=== PATIENT | male | born 1955 | race Caucasian/White ===

== ENCOUNTER 2021-06-30 20:18 | Inpatient (IN) | payer BC, SELFPAY ==
[2021-06-30 20:19] VITALS: BP 114/72; PULSE 112; RESP 18; TEMP 36.4; O2SAT 96; BMI 34.4
--- NOTE | 2021-06-30 21:00 | CT_ITS ---
EXAM: CT ABDOMEN AND PELVIS WITH INTRAVENOUS CONTRAST : 1955 CLINICAL INDICATION: Eval obstruction, no BM for 5 days, no gas yest TECHNIQUE: Helically acquired images were obtained of the abdomen and pelvis with intravenous contrast. This CT exam was performed using one or more of the following dose reduction techniques: automated exposure control, adjustment of the mA and/or kV according to patient size, and/or use of iterative reconstruction technique. This report was created using [address] report generation technology. CONTRAST: IV 100mL Isovue-300 COMPARISON: None. FINDINGS: LOWER THORAX: Unremarkable. Lung bases are clear. No cardiomegaly. No significant pericardial effusion. ABDOMEN: LIVER: Unremarkable. Homogeneous. No focal mass. GALLBLADDER AND BILE DUCTS: Unremarkable. No calcified gallstones. No gallbladder distention or wall edema. No intra- or extrahepatic biliary ductal dilation. PANCREAS: Unremarkable. No focal cystic or solid mass. SPLEEN: Unremarkable. Normal size without focal cystic or solid mass. ADRENALS: Unremarkable. No nodules. KIDNEYS AND URETERS: Unremarkable. Normal renal size and position. No hydronephrosis. STOMACH AND BOWEL: Unremarkable. No stomach or bowel distention. No focal inflammatory change. PELVIS: APPENDIX: No evidence of acute appendicitis. BLADDER: Unremarkable. REPRODUCTIVE: Unremarkable as visualized. No mass. ABDOMEN and PELVIS: INTRAPERITONEAL SPACE: Unremarkable. No ascites or other fluid collection. No free air. BONES/JOINTS: Unremarkable. No suspicious lytic or blastic abnormality. SOFT TISSUES: Unremarkable. No discrete abdominal or pelvic wall hernia. VASCULATURE: Unremarkable. Abdominal aorta is non-dilated. LYMPH NODES: Unremarkable. No enlarged lymph nodes. CT/Abdomen/Pelvis W IV Cont ONLY IMPRESSION: Negative CT of the abdomen and pelvis with intravenous contrast. Individualized dose optimization techniques were used for this CT. at 2229 Reported and signed by: Sudhakar Ponce MD Electronically Signed: Sudhakar Ponce MD at 22:28 EDT Tel , Service support ,
[2021-06-30 21:16] LABS: Absolute Lymphocyte Count 0.45 X10^3/uL (0.83-4.51); Absolute Neutrophil Count 15.6 X10^3/uL (2.0-7.7); Basophil# 0.08 X10^3/uL; Basophil% 0.5 % (0-1); Eosinophil# 0.01 X10^3/uL; Eosinophils% 0.1 % (0-5); Hematocrit 42.7 % (40-54); Hemoglobin 13.6 g/dL (13.0-16.5); Lymphocyte # 0.45 X10^3/ul (0.83-4.51); Lymphocyte % 2.6 % (19-41); Mean Corp Hgb Conc 31.9 g/dL (32-36); Mean Corpuscular Hgb 30.1 pg (27.0-32.0); Mean Corpuscular Volume 94.5 fL (80-94); Mean Platelet Vol. 8.9 fl (6.2-12.0); Monocyte# 0.74 X10^3/uL; Monocyte% 4.3 % (0-10); NRBC Flagged by Analyzer 0 % (0-5); Neutrophil # 15.57 X10^3/uL (2.7-7.7); Neutrophil % 90.4 % (47-70); POSITIVE DIFFERENTIAL YES; Platelet Count 243 K/mm3 (150-450); RBC Distribution Width CV 12.8 % (11.6-14.6); Red Blood Count 4.52 M/mm3 (4.6-6.2); White Blood Count 17.2 K/mm3 (4.4-11.0)
--- NOTE | 2021-06-30 21:26 | EDS_ITS ---
HPI History of Present Illness Chief Complaint: Constipation Informant: patient Narrative Narrative: Patient is a 66-year-old male with no known medical issues who presents to the emergency department for constipation. He states his last bowel movement was 4 days ago. He was passing gas until yesterday he stopped. He denies any nausea or vomiting. States he has not had much of an appetite. Denies significant abdominal pain. No back pain. Has been urinating well. He denies any fevers or chills. He has had a history of hernia repair on his abdomen. He states he has not seen a physician since 2007. He tried taking MiraLAX for his constipation which has not given him any relief. He has never had issues with constipation before. He denies any chest pain, shortness of breath. No recent illness including fever/chills or cough. He states he has b een feeling very unsteady on his feet recently. He denies any headache, vision change, focal weakness or loss of sensation. Patient is an occasional smoker. [facility] Medications NK 06/30/21 [History Last Taken Unknown] Allergy/AdvReac Type Severity Reaction Status Date / Time acetaminophen [From Tylenol] Allergy Hives Verified 06/30/21 20:23 Social History Smoking Status: Unknown if ever smoked ROS ROS ED Constitutional Constitutional ED: Denies chills or fever(s) Eyes Eyes: Denies change in vision ENT ENT ED: Denies epistaxis or rhinorrhea Cardiovascular Cardiovascular: Denies chest pain or palpitations Respiratory/Chest Respiratory/Chest: Denies cough, dyspnea or dyspnea on exertion Gastrointestinal Gastrointestinal: Reports constipation; Denies abdominal pain, diarrhea, nausea or vomiting Genitourinary Genitourinary ED: Denies dysuria, hematuria or urinary frequency Musculoskeletal Musculoskeletal: Denies back pain or neck pain Integumentary Denies rash Neurologic Neurologic: Denies dizziness, headache(s) or weakness EXAM Physical Exam Const Vital Signs: 06/30/21 20:19 Temperature 97.5 F L Temperature Source Temporal Pulse Rate 112 H Respiratory Rate 18 Blood Pressure 114/72 Blood Pressure Mean 86 Pulse Ox 96 Oxygen Delivery Method Room Air Positive well nourished and well developed General Appearance ED: well developed and NAD HEENT Reports normocephalic and head/scalp atraumatic Eyes PERRL and EOMs intact bilaterally Neck supple Chest Wall inspection of chest normal Resp normal respiratory effort and clear to auscultation bilaterally Auscultation: Negative for rales, rhonchi or wheezes Cardio regular rhythm and no murmurs GI normal to inspection, nondistended, normoactive bowel sounds and non-tender Palpation: soft; Negative for guarding or rebound tenderness present Back/Spine no CVA tenderness Extremity normal to inspection General Extremety ED: Negative for edema or tenderness General Extremity: Negative for edema Neuro no sensory deficits noted Sensorium / Orientation: alert Motor Exam: strength 5/5 throughout Psych mental status grossly normal Skin no rashes or lesions noted MDM MDM MDM Narrative Medical decision making narrative: Patient presents to the emergency department for constipation and feeling unsteady on his feet. Upon arrival he is mildly tachycardic but otherwise normal vital signs. He does have a benign physical exam without any focal deficits. No significant abdominal pain. Given the fact he has not been following with a physician regularly and this is abnormal for him will check basic lab work as well as CT scan of the abdomen/pelvis. Patient CT scan did not reveal any acute obvious abnormality. His glucose did come back severely elevated in the 500s. He does have positive ketones. He has an elevated anion gap. We will start him on an insulin drip for DKA. He otherwise has remained stable throughout ED stay. He does have a leukocytosis which is most likely reactional is no evidence of infection has been found. Patient is agreeable staying in the hospital at this time. Lab Data Labs: Laboratory Results - last 24 hr 06/30/21 06/30/21 06/30/21 21:09 21:09 22:05 WBC 17.2 H RBC 4.52 L Hgb 13.6 Hct 42.7 MCV 94.5 H MCH 30.1 MCHC 31.9 L RDW Std Deviation 44.0 H RDW Coeff of Jennifer 12.8 Plt Count 243 MPV 8.9 Immature Gran % (Auto) 2.100 H Neut % (Auto) 90.4 H Lymph % (Auto) 2.6 L [place] % (Auto) 4.3 Eos % (Auto) 0.1 Baso % (Auto) 0.5 Absolute Neuts (auto) 15.6 H Absolute Lymphs (auto) 0.45 L Nucleated RBC % 0 Differential Comment SCANNED Sodium 132 L Potassium 3.9 Chloride 96 L Carbon Dioxide 14.0 L Anion Gap 22 H BUN 25 H Creatinine 1.32 H Estim Creat Clear Calc 58.38 Est GFR (MDRD) Af Amer 70 Est GFR (MDRD) Non-Af 58 L BUN/Creatinine Ratio 18.9 Glucose 525 H* Calcium 9.1 Total Bilirubin 1.00 AST 21 ALT 28 Alkaline Phosphatase 124 H Total Protein 8.2 Albumin 2.3 L Globulin 5.9 H Albumin/Globulin Ratio 0.4 L Urine Color Urine Clarity Urine pH Ur Specific [place] Urine Protein Urine Glucose (UA) Urine Ketones Urine Occult Blood Urine Nitrite Urine Bilirubin Urine Urobilinogen Ur Leukocyte Esterase Urine RBC Urine WBC Ur Squamous Epith Cells Urine Bacteria Urine Mucus Acetone Level LARGE H 06/30/21 22:13 WBC RBC Hgb Hct MCV MCH MCHC RDW Std Deviation RDW Coeff of Jennifer Plt Count MPV Immature Gran % (Auto) Neut % (Auto) Lymph % (Auto) [place] % (Auto) Eos % (Auto) Baso % (Auto) Absolute Neuts (auto) Absolute Lymphs (auto) Nucleated RBC % Differential Comment Sodium Potassium Chloride Carbon Dioxide Anion Gap BUN Creatinine Estim Creat Clear Calc Est GFR (MDRD) Af Amer Est GFR (MDRD) Non-Af BUN/Creatinine Ratio Glucose Calcium Total Bilirubin AST ALT Alkaline Phosphatase Total Protein Albumin Globulin Albumin/Globulin Ratio Urine Color Yellow Urine Clarity Clear Urine pH 5.0 Ur Specific [place] 1.015 Urine Protein 15 H Urine Glucose (UA) 1000 H Urine Ketones 150 A* Urine Occult Blood 50 H Urine Nitrite Negative Urine Bilirubin Negative Urine Urobilinogen Normal Ur Leukocyte Esterase 25 H Urine RBC 0-5 SEEN Urine WBC 0-5 SEEN Ur Squamous Epith Cells 0 SEEN Urine Bacteria 0 SEEN Urine Mucus 0 SEEN Acetone Level Radiography Diagnostic Testing: Radiology Impression Abdomen/Pelvis CT 06/30/21 21:00 IMPRESSION: Negative CT of the abdomen and pelvis with intravenous contrast. Individualized dose optimization techniques were used for this CT. at 3648 Reported and signed by: Sudhakar Ponce MD Electronically Signed: Sudhakar Ponce MD at 22:28 EDT Tel , Service support , Critical Care Time Critical Care Time: Yes Critical care time (excluding procedures): 30-74 minutes (30), Discussing w/Consultants, Arranging Admission or Transfer and Performing Direct Patient Care at Bedside Discharge Plan Dx/Rx/DC Orders Clinical Impression: DKA (diabetic ketoacidosis) Disposition Disposition: Acute Care [facility]
[2021-06-30 21:35] LABS: Differential Indicated SCAN CRITERIA MET
[2021-06-30 21:40] LABS: ALB/GLOB Ratio 0.4 RATIO (0.9-2.4); AST(SGOT) 21 U/L (15-37); Alanine Aminotransfer ALT/SGPT 28 U/L (16-61); Albumin, Serum 2.3 g/dL (3.2-5.0); Alkaline Phosphatase 124 U/L (45-117); Anion Gap 22 (5-15); BUN 25 mg/dL (7-18); BUN/Creat Ratio 18.9 RATIO (10-20); Calcium,Total 9.1 mg/dL (8.5-10.1); Chloride 96 mmol/L (98-107); Creatinine, Serum 1.32 mg/dL (0.70-1.30); EST Glomerular Filtration Rate 58 mL/min (>60); Est Glom Filt Rate - Afr Amer 70 mL/min (>60); Estimated Creatinine Clearance 58.38 ml/min; Globulin 5.9 g/dL (2.2-4.2); Glucose 525 mg/dL (74-106); Potassium 3.9 mmol/L (3.5-5.1); Protein, Total 8.2 g/dL (6.4-8.2); Sodium Level 132 mmol/L (136-145)
[2021-06-30] MEDS: 0.9% Normal Saline 1,000 ML 1000 ML IV (21:55)
[2021-06-30 22:15] LABS: Differential Comment SCANNED
[2021-06-30 22:18] LABS: Bacteria 0 SEEN /hpf (None Seen); Mucous, Urine 0 SEEN /hpf (<or=2+); Squamous Epithelial Cells - UA 0 SEEN /hpf (0-5)
[2021-06-30 22:20] LABS: Color, Urine Yellow (Yellow); Glucose, Dipstick 1000 mg/dl (Normal); Leukocyte Esterase-Dipstick 25 /ul (Negative); Nitrite-Dipstick Negative (Negative); Occult Blood-Urine 50 /ul (Negative); Protein-Dipstick 15 mg/dl (Negative); Specific Gravity, Urine 1.015 (1.002-1.030); Urine Bilirubin Dipstick Negative (Negative); Urine Clarity Clear (Clear); Urine Urobilinogen Normal (Normal)
[2021-06-30 22:28] LABS: Ketone-Dipstick 150 mg/dl (Negative)
[2021-06-30 22:32] LABS: Red Blood Cells-Urine 0-5 SEEN /hpf (0-5); White Blood Cells 0-5 SEEN /hpf (0-5)
[2021-06-30 22:50] VITALS: BP 166/88; PULSE 101; RESP 18; TEMP 36.6; O2SAT 97
--- NOTE | 2021-06-30 22:52 | HP.PCM.HOS_ITS ---
[facility] - General General Date of Admission: 06/30/21 Date of Service: 06/30/21 Chief Complaint: Constipation HPI Narrative STEVE JOY, is a 66 M with a significant history of type 2 diabetes who presents with 5-day history of persistent constipation despite taking MiraLAX. Associated with his symptoms is fatigue; anorexia; polyuria and polydipsia. He went to the urgent care and was referred to the emergency department. Of note last time patient saw a doctor was about 13 years ago. Previously was on Metformin but he quit taking. [facility] Medical History Diabetes mellitus, type 2 Home Medications NK 06/30/21 [History Last Taken Unknown] Allergy/AdvReac Type Severity Reaction Status Date / Time acetaminophen [From Tylenol] Allergy Hives Verified 06/30/21 20:23 Family History (Updated 06/30/21 @ 23:[address] Vamsi Posey MD) Other Diabetes Pulmonary disease Surgical History H/O hernia repair Social History (Updated 06/30/21 @ 23:[address] Vamsi Posey MD) Smoking Status: Current some day smoker tobacco type: cigars ROS ROS Narrative Constitutional: Reports anorexia and fatigue. Eyes: Denies blurry vision, change in eye color, change in vision, discharge from eye(s), double vision, erythema, eye pain, loss of vision or other HEENT: Denies abnormal hearing, dysphagia, ear pain, epistaxis, headache(s), hearing loss, nasal congestion, nasal discharge, post nasal drip, sinus pressure, sore throat or other Cardiovascular: Denies chest pain. Denies dyspnea on exertion, orthopnea and paroxysmal nocturnal dyspnea Respiratory/Chest: Denies cough, excessive phlegm production, shortness of breath with exertion and wheezing Gastrointestinal: Reports constipation. Denies abdominal pain, coffee ground emesis, diarrhea, dyspepsia, hematemesis, hematochezia, loose stools, melena, nausea, vomiting or other Genitourinary: Denies burning urination, difficulty urinating, dysuria, hematuria, nocturia, urinary frequency, urinary hesitancy, urinary incontinence, urinary urgency or other Musculoskeletal: Denies arthralgias, back pain, joint pain, joint stiffness, joint swelling, myalgias, neck pain or other Neurologic: Denies abnormal gait, abnormal speech, confusion, disequilibrium, dizziness, focal weakness, headache(s), numbness, paresthesias, seizure-like activity, seizures, syncope, tingling, tremor(s) or other Psychiatric: Denies anxiety, depression, homicidal ideation, suicidal ideation or other Endocrinology: Reports polyuria and polydipsia. Denies change in body appearance, cold intolerance, excessive sweating, heat intolerance,or other Hematologic/Lymphatic: Denies anemia, easy bleeding, easy bruising, lymphadenopathy or other Integumentary: Denies ulcer on buttocks. Allergic/Immunologic: Denies rhinitis, hives, eczema, asthma or other Vital Signs Vital Signs Vital Signs: 06/30/21 20:19 Temperature 97.5 F L Temperature Source Temporal Pulse Rate 112 H Respiratory Rate 18 Blood Pressure 114/72 Blood Pressure Mean 86 Pulse Ox 96 Oxygen Delivery Method Room Air Weight Weight: 108.862 kg Body Mass Index (BMI) 34.4 Physical Exam Narrative Physical exam: General: Well-nourished, well-developed, no acute distress Head: Normocephalic, atraumatic, no tenderness Eyes: PERRLA, EOMI ENT, no trauma, moist mucous membranes, no rhinorrhea Neck: Nontender, full range of motion, no spinal tenderness, deformities, step- off CVS: Regular rate and rhythm Respiratory no acute distress, clear to auscultation bilaterally, chest wall nontender, no wheezing Abdomen: Obese abdomen. Soft, nontender, Bowel sounds hypoactive : Deferred Back: Nontender, no CVA tenderness, no midline spinal tenderness, deformities, step-offs Extremities: Edema of bilateral legs with right worse than left. Skin: Normal color, no trauma, abrasions Neuro: Alert, oriented, cranial nerves II through XII grossly intact. Psychiatry: Normal mood. Normal affect. Not depressed. Not anxious. Results Lab / Micro Data Result Diagrams: 06/30/21 21:09 07/01/21 01:35 Labs: Laboratory Results - last 24 hr 06/30/21 21:09: WBC 17.2 H, RBC 4.52 L, Hgb 13.6, Hct 42.7, MCV 94.5 H, MCH 30.1, MCHC 31.9 L, RDW Std Deviation 44.0 H, RDW Coeff of Jennifer 12.8, Plt Count 243, MPV 8.9, Immature Gran % (Auto) 2.100 H, Neut % (Auto) 90.4 H, Lymph % (Auto) 2.6 L, [place] % (Auto) 4.3, Eos % (Auto) 0.1, Baso % (Auto) 0.5, Absolute Neuts (auto) 15.6 H, Absolute Lymphs (auto) 0.45 L, Nucleated RBC % 0, Di fferential Comment SCANNED 06/30/21 21:09: Sodium 132 L, Potassium 3.9, Chloride 96 L, Carbon Dioxide 14.0 L, Anion Gap 22 H, BUN 25 H, Creatinine 1.32 H, Estim Creat Clear Calc 58.38, Est GFR (MDRD) Af Amer 70, Est GFR (MDRD) Non-Af 58 L, BUN/Creatinine Ratio 18.9, Glucose 525 H*, Calcium 9.1, Total Bilirubin 1.00, AST 21, ALT 28, Alkaline Phosphatase 124 H, Total Protein 8.2, Albumin 2.3 L, Globulin 5.9 H, Albumin/Globulin Ratio 0.4 L 06/30/21 22:05: Acetone Level LARGE H 06/30/21 22:13: Urine Color Yellow, Urine Clarity Clear, Urine pH 5.0, Ur Specific [place] 1.015, Urine Protein 15 H, Urine Glucose (UA) 1000 H, Urine Ketones 150 A*, Urine Occult Blood 50 H, Urine Nitrite Negative, Urine Bilirubin Negative, Urine Urobilinogen Normal, Ur Leukocyte Esterase 25 H, Urine RBC 0-5 SEEN, Urine WBC 0-5 SEEN, Ur Squamous Epith Cells 0 SEEN, Urine Bacteria 0 SEEN, Urine Mucus 0 SEEN Radiology Impression Abdomen/Pelvis CT 06/30/21 21:00 IMPRESSION: Negative CT of the abdomen and pelvis with intravenous contrast. Individualized dose optimization techniques were used for this CT. at [id number] Reported and signed by: Sudhakar Pnoce MD Electronically Signed: Sudhakar Ponce MD at 22:28 EDT Tel , Service support , Assessment & Plan Assessment/Plan (1) DKA (diabetic ketoacidosis): QUALIFIERS: Diabetes mellitus complication detail: without coma Diabetes mellitus type: type 2 Qualified Code(s): E11.10 - Type 2 diabetes mellitus with ketoacidosis without coma (2) Constipation: QUALIFIERS: Constipation type: unspecified constipation type Qualified Code(s): K59.00 - Constipation, unspecified PLAN: DKA His DKA could be secondary to insufficient insulin to meet his metabolic demands. Review of medical department labs showed serum glucose: 132 acetone level: Ketonuria Anion gap of 22 [id number], Corrected sodium :139 Insulin drip started from emergency department; continue Completed IV bolus of normal saline and normal saline infusion. Will place patient on DKA protocol with IV fluids and potassium supplementation. BMP every 4 hours to calculate anion gap. N.p.o. for now Check A1c. If emergent department labs showed a white count of 17.2 that could be reactive from DKA. Also there is bandemia of 2.1%. Admitted to ICU ICU electrolyte protocol ordered Constipation Impression of abdomen/pelvis CT by radiology: Negative CT of the abdomen and pelvis with intravenous contrast. Abdomen/ pelvis CT was independently visualized and I agree with radiologist interpretation Senokot-S ordered. YINKA Review of ED labs showed mild elevation creatinine of 1.32. Likely secondary to dehydration from YINKA. BUN 25. BUN over creatinine 18.9. IV hydration as above. Avoid nephrotoxins. DVT prophylaxis: Subcutaneous Lovenox ordered. Charges/Coding Visit Charges Inpatient E&M: 37150 Init Hosp L3
[2021-06-30 23:22] LABS: Lactic Acid 1.7 mmol/L (0.4-1.9)
[2021-06-30 23:46] LABS: Bedside Glucose 468 mg/dL (70-110)
[2021-07-01] VITALS (15 sets, daily range): BP systolic 124–154; BP diastolic 62–115; PULSE 98–108; RESP 16–38; TEMP 36.2–36.7; O2SAT 88–96; BMI 34.8
[2021-07-01 01:21] LABS: Bedside Glucose 426 mg/dL (70-110)
[2021-07-01 01:26] LABS: Bedside Glucose 399 mg/dL (70-110)
[2021-07-01 01:58] LABS: Anion Gap 20 (5-15); BUN 23 mg/dL (7-18); BUN/Creat Ratio 19.2 RATIO (10-20); Calcium,Total 8.9 mg/dL (8.5-10.1); Chloride 102 mmol/L (98-107); EST Glomerular Filtration Rate 65 mL/min (>60); Est Glom Filt Rate - Afr Amer 78 mL/min (>60); Estimated Creatinine Clearance 64.21 ml/min; Glucose 373 mg/dL (74-106); Sodium Level 135 mmol/L (136-145)
[2021-07-01] MEDS: 0.9% Normal Saline 1,000 ML 500 ML IV (02:05)
[2021-07-01] MEDS: Senna/Docusate Sodium 1 Tablet 2 TABLET PO ×3 (02:05→21:59)
[2021-07-01] MEDS: Potassium Chloride 10mEq/100mL 10 MEQ/100 ML IV.SOLN. 100 MEQ IV BOLUS ×2 (02:06→02:47)
[2021-07-01] MEDS: Enoxaparin 40 MG/0.4 ML Syringe SC (02:08)
[2021-07-01 02:09] LABS: Hemoglobin A1c 12.7 % (3.8-5.6)
[2021-07-01 02:30] LABS: Bedside Glucose 307 mg/dL (70-110)
--- NOTE | 2021-07-01 02:43 | NURSING ---
0111 patient admitted to ICU room 2 with DKA. Insulin gtt infusing. Patient alert and oriented, oriented to room and call rogers
[2021-07-01] MEDS: Potassium Chloride 40 MEQ in 0.45% Normal Saline 1,000 ML 250 MEQ IV (03:32)
[2021-07-01 03:46] LABS: Bedside Glucose 270 mg/dL (70-110)
[2021-07-01 04:40] LABS: Bedside Glucose 263 mg/dL (70-110)
[2021-07-01 04:56] LABS: Absolute Lymphocyte Count 0.49 X10^3/uL (0.83-4.51); Absolute Neutrophil Count 16.9 X10^3/uL (2.0-7.7); Basophil# 0.08 X10^3/uL; Basophil% 0.4 % (0-1); Eosinophil# 0.01 X10^3/uL; Eosinophils% 0.1 % (0-5); Hemoglobin 13.1 g/dL (13.0-16.5); Lymphocyte # 0.49 X10^3/ul (0.83-4.51); Lymphocyte % 2.7 % (19-41); Mean Corp Hgb Conc 32.8 g/dL (32-36); Mean Corpuscular Hgb 30.5 pg (27.0-32.0); Mean Corpuscular Volume 93.2 fL (80-94); Mean Platelet Vol. 9.4 fl (6.2-12.0); Monocyte# 0.31 X10^3/uL; Monocyte% 1.7 % (0-10); NRBC Flagged by Analyzer 0 % (0-5); Neutrophil # 16.86 X10^3/uL (2.7-7.7); Neutrophil % 93.9 % (47-70); POSITIVE DIFFERENTIAL YES; POSITIVE MORPHOLOGY YES; Platelet Count 243 K/mm3 (150-450); RBC Distribution Width CV 12.9 % (11.6-14.6); RBC Distribution Width SD 43.9 fl (35.1-43.9); Red Blood Count 4.29 M/mm3 (4.6-6.2)
[2021-07-01 04:58] LABS: Differential Indicated SCAN CRITERIA MET
[2021-07-01 05:22] LABS: Differential Comment SCANNED
[2021-07-01 05:31] LABS: Bedside Glucose 278 mg/dL (70-110)
[2021-07-01 06:12] LABS: Anion Gap 12 (5-15); BUN 19 mg/dL (7-18); BUN/Creat Ratio 19.4 RATIO (10-20); Calcium,Total 8.4 mg/dL (8.5-10.1); Chloride 106 mmol/L (98-107); Creatinine, Serum 0.98 mg/dL (0.70-1.30); EST Glomerular Filtration Rate 82 mL/min (>60); Est Glom Filt Rate - Afr Amer 99 mL/min (>60); Estimated Creatinine Clearance 78.63 ml/min; Glucose 259 mg/dL (74-106); Potassium 3.6 mmol/L (3.5-5.1); Sodium Level 137 mmol/L (136-145)
[2021-07-01 06:31] LABS: Bedside Glucose 251 mg/dL (70-110)
[2021-07-01 08:06] LABS: Bedside Glucose 226 mg/dL (70-110)
[2021-07-01] MEDS: Potassium Chloride 40 MEQ in Dext 5%-0.45% NS 1,000 ML 150 MEQ IV (08:24)
[2021-07-01 08:56] LABS: Bedside Glucose 222 mg/dL (70-110)
[2021-07-01 09:49] LABS: Anion Gap 9 (5-15); BUN 18 mg/dL (7-18); BUN/Creat Ratio 19.7 RATIO (10-20); Calcium,Total 8.6 mg/dL (8.5-10.1); Chloride 108 mmol/L (98-107); Creatinine, Serum 0.92 mg/dL (0.70-1.30); EST Glomerular Filtration Rate 89 mL/min (>60); Est Glom Filt Rate - Afr Amer 107 mL/min (>60); Estimated Creatinine Clearance 83.76 ml/min; Glucose 236 mg/dL (74-106); Potassium 3.5 mmol/L (3.5-5.1); Sodium Level 138 mmol/L (136-145)
[2021-07-01 10:01] LABS: Bedside Glucose 238 mg/dL (70-110)
--- NOTE | 2021-07-01 10:10 | PN.HOSP_ITS ---
Subjective Subjective Patient seen and examined. He had no active complaints at the time I reviewed him, but subsequently complained of right shoulder pain. He denied any fever, chills, nausea, vomiting or diarrhea. Review of systems is otherwise negative. He is mildly tachycardic today, but is otherwise stable. Objective Data Objective Data Vital Signs: Vital Signs Temp Pulse Resp BP Pulse Ox 97.2 F L 101 H 24 H 135/76 H 95 07/01/21 01:26 07/01/21 08:00 07/01/21 01:26 07/01/21 01:26 07/01/21 01:26 Oxygen Flow Rate (L/min) 2 Oxygen Delivery Method Nasal Cannula Weight: 246 lb 0.574 oz Body Mass Index (BMI) 34.8 Intake & Output: Intake and Output for Last 24 Hours 06/29/21 06/30/21 07/01/21 23:59 23:59 23:59 Intake Total 1000 / 1000 2543.32 / 2543.32 Output Total 200 / 200 Balance 1000 / 1000 2343.32 / 2343.32 Lab / Micro Data Result Diagrams: 07/01/21 01:35 07/01/21 09:25 Labs: Laboratory Results - last 24 hr 06/30/21 21:09: WBC 17.2 H, RBC 4.52 L, Hgb 13.6, Hct 42.7, MCV 94.5 H, MCH 30.1, MCHC 31.9 L, RDW Std Deviation 44.0 H, RDW Coeff of Jennifer 12.8, Plt Count 243, MPV 8.9, Immature Gran % (Auto) 2.100 H, Neut % (Auto) 90.4 H, Lymph % (Auto) 2.6 L, [place] % (Auto) 4.3, Eos % (Auto) 0.1, Baso % (Auto) 0.5, Absolute Neuts (auto) 15.6 H, Absolute Lymphs (auto) 0.45 L, Nucleated RBC % 0, Differential Comment SCANNED 06/30/21 21:09: Sodium 132 L, Potassium 3.9, Chloride 96 L, Carbon Dioxide 14.0 L, Anion Gap 22 H, BUN 25 H, Creatinine 1.32 H, Estim Creat Clear Calc 58.38, Est GFR (MDRD) Af Amer 70, Est GFR (MDRD) Non-Af 58 L, BUN/Creatinine Ratio 18.9, Glucose 525 H*, Calcium 9.1, Total Bilirubin 1.00, AST 21, ALT 28, Alkaline Phosphatase 124 H, Total Protein 8.2, Albumin 2.3 L, Globulin 5.9 H, Albumin/Globulin Ratio 0.4 L 06/30/21 22:05: Acetone Level LARGE H 06/30/21 22:13: Urine Color Yellow, Urine Clarity Clear, Urine pH 5.0, Ur Specific [place] 1.015, Urine Protein 15 H, Urine Glucose (UA) 1000 H, Urine Ketones 150 A*, Urine Occult Blood 50 H, Urine Nitrite Negative, Urine Bilirubin Negative, Urine Urobilinogen Normal, Ur Leukocyte Esterase 25 H, Urine RBC 0-5 SEEN, Urine WBC 0-5 SEEN, Ur Squamous Epith Cells 0 SEEN, Urine Bacteria 0 SEEN, Urine Mucus 0 SEEN 06/30/21 22:34: Lactic Acid 1.7 06/30/21 23:40: POC Glucose 468 H* 07/01/21 00:37: POC Glucose 426 H 07/01/21 01:21: POC Glucose 399 H 07/01/21 01:35: Sodium 135 L, Potassium 3.0 L, Chloride 102, Carbon Dioxide 13.0 L, Anion Gap 20 H, BUN 23 H, Creatinine 1.20, Estim Creat Clear Calc 64.21, Est GFR (MDRD) Af Amer 78, Est GFR (MDRD) Non-Af 65, BUN/Creatinine Ratio 19.2, Glucose 373 H, Calcium 8.9 07/01/21 01:35: Hemoglobin A1c 12.7 H 07/01/21 01:35: WBC 18.0 H, RBC 4.29 L, Hgb 13.1, Hct 40.0, MCV 93.2, MCH 30.5, MCHC 32.8, RDW Std Deviation 43.9, RDW Coeff of Jennifer 12.9, Plt Count 243, MPV 9.4, Immature Gran % (Auto) 1.200 H, Neut % (Auto) 93.9 H, Lymph % (Auto) 2.7 L, [place] % (Auto) 1.7, Eos % (Auto) 0.1, Baso % (Auto) 0.4, Absolute Neuts (auto) 16.9 H, Absolute Lymphs (auto) 0.49 L, Nucleated RBC % 0, Differential Comment SCANNED 07/01/21 02:27: POC Glucose 307 H 07/01/21 03:33: POC Glucose 270 H 07/01/21 04:32: POC Glucose 263 H 07/01/21 05:25: POC Glucose 278 H 07/01/21 05:35: Sodium 137, Potassium 3.6, Chloride 106, Carbon Dioxide 19.0 L, Anion Gap 12, BUN 19 H, Creatinine 0.98, Estim Creat Clear Calc 78.63, Est GFR (MDRD) Af Amer 99, Est GFR (MDRD) Non-Af 82, BUN/Creatinine Ratio 19.4, Glucose 259 H, Calcium 8.4 L 07/01/21 06:24: POC Glucose 251 H 07/01/21 07:40: POC Glucose 226 H 07/01/21 08:49: POC Glucose 222 H 07/01/21 09:25: Sodium 138, Potassium 3.5, Chloride 108 H, Carbon Dioxide 21.0, Anion Gap 9, BUN 18, Creatinine 0.92, Estim Creat Clear Calc 83.76, Est GFR (MDRD) Af Amer 107, Est GFR (MDRD) Non-Af 89, BUN/Creatinine Ratio 19.7, Glucose 236 H, Calcium 8.6 07/01/21 09:53: POC Glucose 238 H Micro: Microbiology 06/30/21 22:48 Blood Culture (Wb) - Venous Blood Culture - Preliminary 06/30/21 22:34 Blood Culture (Wb) - Venous Blood Culture - Preliminary Radiography Diagnostic Testing: Radiology Impression Abdomen/Pelvis CT 06/30/21 21:00 IMPRESSION: Negative CT of the abdomen and pelvis with intravenous contrast. Individualized dose optimization techniques were used for this CT. at 2229 Reported and signed by: Sudhakar Ponce MD Electronically Signed: Sudhakar Ponce MD at 22:28 EDT Tel , Service support , Physical Exam Const alert and oriented x3 Orientation / Consciousness: lethargic Exam Limitations: no limitations Nutritional Appearance: obese HEENT head/scalp atraumatic Head and Scalp: normocephalic Mouth: dry mucous membranes Eyes PERRL, EOMs intact bilaterally and conjunctivae normal Neck no lymphadenopathy, supple and no JVD Resp normal respiratory effort, no retractions, no use of accessory muscles and clear to auscultation bilaterally Cardio regular rate, regular rhythm, S1 normal heart sound and S2 normal heart sound Cardio Narrative: grade 2-3 systolic murmur loudest at the mitral valve area GI normal to inspection, nondistended, normoactive bowel sounds, soft to palpation, non-tender and non-distended Extremity normal to inspection, full ROM and no clubbing, cyanosis or edema Peripheral Pulses: Yes pulses 2+ throughout Skin no rashes or lesions noted and no wounds Neuro oriented x3, CN's II-XII intact bilaterally and moves all extremities Sensorium / Orientation: awake and alert Psych affect normal Assessment & Plan Assessment/Plan (1) DKA (diabetic ketoacidosis): QUALIFIERS: Diabetes mellitus complication detail: without coma Diabetes mellitus type: type 2 Qualified Code(s): E11.10 - Type 2 diabetes mellitus with ketoacidosis without coma (2) Bacteremia: PLAN: #DKA * in a known diabetic due to noncompliance. * anion gap has now closed and is 9; was supposed to be on metformin at home, but hadnt been taking it * will start on SC insulin 10 units daily and wean off insulin drip; will transition to high dose sliding scale * critical care on board * A1C is 12.7 * #Bacteremia * blood cultures came back positive for gram positive cocci in clusters * will get 2D echo as patient had a mild mitral valve murmur; unclear if it is new. * start on IV vancomycin, and await speciation * ID consulted * #Right shoulder pain * etiology not clear. WIll get xrays of the right shoulder * in light of bacteremia, will get orthopedics consult after xray is reviewed. * tylenol prn * #YINKA: resolved #Constipation: CT of the abdomen and pelvis was negative for evidence of constipation. Will monitor. DVT prophylaxis: lovenox Charges/Coding Visit Charges Inpatient E&M: 75557 Subs Hosp L3
--- NOTE | 2021-07-01 10:13 | ECHOD_ITS ---
Reason For Study: Murmur/Endocarditis Procedure This was a limited 2D transthoracic echocardiogram. Techncially difficult study due to patient position and fast heart rate. Echo done with patient in chair. Limited views were obtained. The study was technically difficult. Exam performed portable in ICU/CCU. The exam was abbreviated due to the COVID 19 protocol. Left Ventricle Based upon the 2D echocardiographic images obtained there appears to be grossly normal left ventricular size, wall motion, and systolic function. The estimated ejection fraction is 65 %. Unable to assess diastolic dysfunction. Right Ventricle Normal RV size. Normal systolic function. Atria Normal left atrium. Normal right atrium. No doppler evidence for ASD. Mitral Valve There is no mitral annular calcification. Normal mitral valve. Trivial mitral valve insufficiency. Tricuspid Valve Normal tricuspid valve. Trivial tricuspid valve insufficiency. Unable to estimate RV systolic pressure/pulmonary artery pressure due to technically difficult study. Aortic Valve Trisinus/trileaflet aortic valve. Normal aortic valve. Pulmonic Valve The pulmonic valve is not well visualized. Great Vessels The aortic root is not well visualized. Pericardium/Pleural No pericardial effusion. ECHO/Echo Complete Interpretation Summary Limited views were obtained. The study was technically difficult. Based upon the 2D echocardiographic images obtained there appears to be grossly normal left ventricular size, wall motion, and systolic function. The estimated ejection fraction is 65 %. Trivial mitral valve insufficiency. Trivial tricuspid valve insufficiency. Unable to estimate RV systolic pressure/pulmonary artery pressure due to techni griffin difficult study. Unable to assess diastolic dysfunction. Ordering Physician: Roberto Carlos Ceballos Referring Physician: No PCP noted Performed By: Abe Carter RCS
--- NOTE | 2021-07-01 10:16 | PCM.CONS.GEN ---
Assessment & Plan Assessment/Plan (1) Bacteremia: (2) DKA (diabetic ketoacidosis): QUALIFIERS: Diabetes mellitus type: type 2 Diabetes mellitus complication detail: without coma Qualified Code(s): E11.10 - Type 2 diabetes mellitus with ketoacidosis without coma (3) Sepsis: PLAN: sepsis due to staph-like bacteremia with DKA, uncontrolled DM, heart murmur, and R shoulder possible septic arthritis. No splinter hemorrhages on his hands. Will check echo, consult ortho to eval shoulder, check shoulder xray, and start vanc/cefazolin. Encouraged him to get covid vaccine after leaving the hospital. Will screen for covid now in case he does need surgery, no need to isolate. Will follow, thank you, d/w Dr. Bush HPI Consult Data Date of Consult: 07/01/21 HPI Narrative HPI Narrative: STEVE JOY, is a 66 M with uncontrolled DM, presented with 5 days of constipation, lower back pain. No fever or chills, no recent rash/skin infections/abscess. Has not gotten covid shot. C/o painful joints past few days, particularly R shoulder. No cough or SOB. Came to ED, found to be in DKA, admitted to icu on insulin gtt. Now 2 of 2 bcx with staph-like growth. Full ROS performed and neg except as noted above. [facility] Medical History Diabetes mellitus, type 2 Home Medications NK 06/30/21 [History Last Taken Unknown] Allergy/AdvReac Type Severity Reaction Status Date / Time acetaminophen [From Tylenol] Allergy Hives Verified 06/30/21 20:23 Family History (Updated 06/30/21 @ 23:[address] Vamsi Posey MD) Other Diabetes Pulmonary disease Surgical History H/O hernia repair Social History (Updated 06/30/21 @ 23:[address] Vamsi Posey MD) Smoking Status: Current some day smoker tobacco type: cigars Physical Exam Const alert, oriented x3 and no apparent distress General Appearance: cooperative Exam Limitations: no limitations HEENT normocephalic and head/scalp atraumatic Eyes PERRL and EOMs intact bilaterally Neck supple and No nodes Resp normal air movement Resp Narrative: R base Auscultation: rales Cardio regular rate and regular rhythm Heart Sounds: murmur GI normal to inspection, nondistended, normoactive bowel sounds Extremity Extremity Narrative: R shoulder hot, tender to touch, mild swelling, unable to lift elbow off bed due to pain General Extremity: edema Skin no rashes or lesions noted Neuro CN's II-XII intact bilaterally Lab / Micro Data Result Diagrams: 07/01/21 01:35 07/01/21 09:25 Labs: Laboratory Results - last 24 hr 06/30/21 21:09: WBC 17.2 H, RBC 4.52 L, Hgb 13.6, Hct 42.7, MCV 94.5 H, MCH 30.1, MCHC 31.9 L, RDW Std Deviation 44.0 H, RDW Coeff of Jennifer 12.8, Plt Count 243, MPV 8.9, Immature Gran % (Auto) 2.100 H, Neut % (Auto) 90.4 H, Lymph % (Auto) 2.6 L, [place] % (Auto) 4.3, Eos % (Auto) 0.1, Baso % (Auto) 0.5, Absolute Neuts (auto) 15.6 H, Absolute Lymphs (auto) 0.45 L, Nucleated RBC % 0, Differential Comment SCANNED 06/30/21 21:09: Sodium 132 L, Potassium 3.9, Chloride 96 L, Carbon Dioxide 14.0 L, Anion Gap 22 H, BUN 25 H, Creatinine 1.32 H, Estim Creat Clear Calc 58.38, Est GFR (MDRD) Af Amer 70, Est GFR (MDRD) Non-Af 58 L, BUN/Creatinine Ratio 18.9, Glucose 525 H*, Calcium 9.1, Total Bilirubin 1.00, AST 21, ALT 28, Alkaline Phosphatase 124 H, Total Protein 8.2, Albumin 2.3 L, Globulin 5.9 H, Albumin/Globulin Ratio 0.4 L 06/30/21 22:05: Acetone Level LARGE H 06/30/21 22:13: Urine Color Yellow, Urine Clarity Clear, Urine pH 5.0, Ur Specific [place] 1.015, Urine Protein 15 H, Urine Glucose (UA) 1000 H, Urine Ketones 150 A*, Urine Occult Blood 50 H, Urine Nitrite Negative, Urine Bilirubin Negative, Urine Urobilinogen Normal, Ur Leukocyte Esterase 25 H, Urine RBC 0-5 SEEN, Urine WBC 0-5 SEEN, Ur Squamous Epith Cells 0 SEEN, Urine Bacteria 0 SEEN, Urine Mucus 0 SEEN 06/30/21 22:34: Lactic Acid 1.7 06/30/21 23:40: POC Glucose 468 H* 07/01/21 00:37: POC Glucose 426 H 07/01/21 01:21: POC Glucose 399 H 07/01/21 01:35: Sodium 135 L, Potassium 3.0 L, Chloride 102, Carbon Dioxide 13.0 L, Anion Gap 20 H, BUN 23 H, Creatinine 1.20, Estim Creat Clear Calc 64.21, Est GFR (MDRD) Af Amer 78, Est GFR (MDRD) Non-Af 65, BUN/Creatinine Ratio 19.2, Glucose 373 H, Calcium 8.9 07/01/21 01:35: Hemoglobin A1c 12.7 H 07/01/21 01:35: WBC 18.0 H, RBC 4.29 L, Hgb 13.1, Hct 40.0, MCV 93.2, MCH 30.5, MCHC 32.8, RDW Std Deviation 43.9, RDW Coeff of Ejnnifer 12.9, Plt Count 243, MPV 9.4, Immature Gran % (Auto) 1.200 H, Neut % (Auto) 93.9 H, Lymph % (Auto) 2.7 L, [place] % (Auto) 1.7, Eos % (Auto) 0.1, Baso % (Auto) 0.4, Absolute Neuts (auto) 16.9 H, Absolute Lymphs (auto) 0.49 L, Nucleated RBC % 0, Differential Comment SCANNED 07/01/21 02:27: POC Glucose 307 H 07/01/21 03:33: POC Glucose 270 H 07/01/21 04:32: POC Glucose 263 H 07/01/21 05:25: POC Glucose 278 H 07/01/21 05:35: Sodium 137, Potassium 3.6, Chloride 106, Carbon Dioxide 19.0 L, Anion Gap 12, BUN 19 H, Creatinine 0.98, Estim Creat Clear Calc 78.63, Est GFR (MDRD) Af Amer 99, Est GFR (MDRD) Non-Af 82, BUN/Creatinine Ratio 19.4, Glucose 259 H, Calcium 8.4 L 07/01/21 06:24: POC Glucose 251 H 07/01/21 07:40: POC Glucose 226 H 07/01/21 08:49: POC Glucose 222 H 07/01/21 09:25: Sodium 138, Potassium 3.5, Chloride 108 H, Carbon Dioxide 21.0, Anion Gap 9, BUN 18, Creatinine 0.92, Estim Creat Clear Calc 83.76, Est GFR (MDRD) Af Amer 107, Est GFR (MDRD) Non-Af 89, BUN/Creatinine Ratio 19.7, Glucose 236 H, Calcium 8.6 07/01/21 09:53: POC Glucose 238 H Micro: Microbiology 06/30/21 22:48 Blood Culture (Wb) - Venous Blood Culture - Preliminary 06/30/21 22:34 Blood Culture (Wb) - Venous Blood Culture - Preliminary Radiology Impression Abdomen/Pelvis CT 06/30/21 21:00 IMPRESSION: Negative CT of the abdomen and pelvis with intravenous contrast. Individualized dose optimization techniques were used for this CT. at 2229 Reported and signed by: Sudhakar Ponce MD Electronically Signed: Sudhakar Ponce MD at 22:28 EDT Tel , Service support ,
--- NOTE | 2021-07-01 11:43 | RAD_ITS ---
STUDY: X-RAY - RIGHT SHOULDER REASON FOR EXAM: Male, 66 years old. right shoulder pain, positive blood cultures TECHNIQUE: 5 view(s) of the shoulder. COMPARISON: None. FINDINGS: Normal glenohumeral articulation. There is degenerative arthrosis of the acromioclavicular joint without inferior osseous spur formation. Normal acromion. Normal humeral head and visualized proximal humerus. The soft tissue structures are unremarkable. Normal visualized pulmonary apex. RAD/Shoulder min 2 Views IMPRESSION: Mild acromioclavicular joint arthrosis Electronically Signed: Gera Jones MD at 12:20 EDT Tel , Service support ,
--- NOTE | 2021-07-01 12:00 | CASEMGMT ---
RN SHANTI Face to Face with patient for initial transition planning/care coordination assessment. RN CM introduced self and role at [facility]. Patient sitting in chair, alert and oriented. Patient willing to participate in assessment and is able to answer all questions appropriately. Care providers, pharmacy, and demographics verified. Patient wishes to discharge home, denies need for home health at this time. Patient states he has no further needs or concerns at this time. CM to follow for discharge planning needs that may arise. PCP: No PCP, has not seen a doctor since 2007. Patient provided list of providers, CM to follow-up and assist with making new patient appt. Specialists: none Preferred Pharmacy: [facility] Insurance: [employer] Prescription Benefit: yes Living Will/HPOA: none LNOK: Living Arrangements: Patient lives with in a 2 story home with bed and bath on first floor. No steps to enter the home. Patient states he is independent at home. Transportation: self/ DME/HHC: Patient denies DME of any kind. Patient states he has not checked his blood sugar for several years since his glucometer broke. Patient states he managed his DM with oral medication in the past but does not currently take medication. Patient will need new glucometer at discharge, CM informed patient of over the counter glucometer at [facility]. Disposition Plan: Patient to discharge home with family support and follow-up plans in place. Ella WYATT, RN, CM
[2021-07-01] MEDS: Cefazolin 2 GM in 0.9% Normal Saline 100 ML IV ×2 (12:21→23:18)
[2021-07-01 12:55] LABS: Bedside Glucose 257 mg/dL (70-110)
[2021-07-01 13:01] LABS: Bedside Glucose 266 mg/dL (70-110)
[2021-07-01] MEDS: Insulin Lispro 100 UNIT/ML INSULN.PEN SC ×3 (13:05→21:59)
--- NOTE | 2021-07-01 13:44 | PCM.RX.CS ---
Consult Pharmacy has been consulted to manage selected antiobiotic: Vancomycin Type of Consult: New start Suspected Infection: Sepsis Prior Doses of Antibiotics Received/Current Regimen: 06/28/2021 @ 1300 VANCNOMYCIN 2000MG IV ONCE FOR A LOADING DOSE Labs: Sodium 138 mmol/L (136-145) 07/01/21 09:25 Potassium 3.5 mmol/L (3.5-5.1) 07/01/21 09:25 Chloride 108 mmol/L (98-107) H 07/01/21 09:25 Carbon Dioxide 21.0 mmol/L (21.0-32.0) 07/01/21 09:25 Anion Gap 9 (5-15) 07/01/21 09:25 BUN 18 mg/dL (7-18) 07/01/21 09:25 Creatinine 0.92 mg/dL (0.70-1.30) 07/01/21 09:25 Est GFR (MDRD) Af Amer 107 mL/min (>60) 07/01/21 09:25 Est GFR (MDRD) Non-Af 89 mL/min (>60) 07/01/21 09:25 BUN/Creatinine Ratio 19.7 RATIO (10-20) 07/01/21 09:25 Glucose 236 mg/dL (74-106) H 07/01/21 09:25 Microbiology: Microbiology 06/30/21 22:34 Blood Culture (Wb) - Venous Blood Culture - Preliminary 06/30/21 22:48 Blood Culture (Wb) - Venous Blood Culture - Preliminary 07/01/21 11:05 Mucosa - Nose SARS-CoV-2 Antigen (Rapid) - Final Weight used for dosin kg Estimated Creatinine Clearance: 101 Goal Trough: 15-20 mcg/mL Pharmacy Plan for Drug Dosing: START PATIENT 07/01/21 @ 2100 ON VANCOMYCIN 1500MG EVERY 8 HOURS CHECK TROUGH 30MINUTES PRIOR TO 4 TH DOSE WHICH IS 07/02/21 @2029 Pharmacy Service will continue to monitor and adjust dosing as required. Follow-Up Labs: Trough Vancomycin - 07/02/212029 Labs to be done on [date and time ordered]: 07/02/21
--- NOTE | 2021-07-01 14:54 | MRI_ITS ---
HISTORY: rotator cuff injury, bacteremia- RIGHT SHOULDER EXAMINATION: MR Shoulder W/O Contrast TECHNIQUE: Multiplanar and multisequence MR images of the right shoulder. IV Contrast dosage and agent: None COMPARISON: Right shoulder July 01, 2021 radiograph FINDINGS: BONE: No fracture or abnormal bone marrow signal. ACROMIOCLAVICULAR JOINT: Normal alignment. Large osteophyte formation as well as subchondral cyst formation with diffuse synovial thickening. Small joint effusion. Coracoclavicular ligaments are intact. No significant inferolateral acromial tilt. SUBACROMIAL-SUBDELTOID SPACE: Moderate subacromial subdeltoid bursal fluid. GLENOHUMERAL JOINT: Moderate to large joint effusion extending in the subcoracoid recess.. Normal alignment. No rotator interval edema. ROTATOR CUFF: Diffuse supraspinatus tendon thickening and increased signal with mild bursal surface fraying and possible partial thickness tear. Infraspinatus and teres minor are grossly intact. Thickening and increased signal within the subscapularis tendon without visible tear. No gross intramuscular edema. There is mild diffuse fat signal within the shoulder musculature without focal atrophy. LABRUM: 2.5 mm superior labral cyst at the 12 o'clock position with suggestion of degenerative labral tear. Anterior sublabral foramen. BICEPS TENDON: The extra-articular biceps tendon is in the bicipital groove. The intra-articular biceps tendon is normal. MRI/Upper Ext Joint Only(Routine) IMPRESSION: Supraspinatus and subscapularis tendinosis with possible partial thickness distal supraspinatus articular surface tear. Subacromial subdeltoid bursitis. Moderate to large shoulder joint effusion which is commonly degenerative. In setting of bacteremia infection is not excluded. Fluid sampling to further evaluate as indicated. Acromioclavicular osteoarthritis with small effusion. Degenerative labral tear with small superior paralabral cyst. at 0654 Reported and signed by: Narendra He MD Electronically Signed: Narendra He MD at 6:52 EDT Tel , Service support ,
--- NOTE | 2021-07-01 14:56 | CON.PCM_ITS ---
Assessment & Plan Assessment/Plan (1) Sepsis: (2) Bacteremia: (3) Injury of right rotator cuff: QUALIFIERS: Encounter type: initial encounter Qualified Code(s): S46.001A - Unspecified injury of muscle(s) and tendon(s) of the rotator cuff of right shoulder, initial encounter PLAN: Patient had a ground-level fall backwards onto the right upper extremity 06/30/2021 prior to admission. Pain and inability to lift shortly followed, with no preceding reported issues. He has sustained a rotator cuff injury based on examination. There is no joint effusion erythema increased warmth to suggest septic arthritis and although active range of motion is limited the range of motion that he can perform with internal/external rotation does not cause him significant pain. In addition passively I can get him to 170 degrees elevation without significant pain. These findings are not consistent with septic arthritis however I will order a MRI of his right shoulder to further evaluate and further recommendations may change following imaging results. HPI Consult Data Date of Consult: 07/01/21 HPI Narrative HPI Narrative: STEVE JOY, is a 66 M who presents to the emergency room [facility] 06/30/2021 with constipation and back pain patient found to be in diabetic ketoacidosis patient found to be bacteremic. Patient admits to a fall 06/30/2021 where he fell backwards injuring his right shoulder. He admits to immediate pain in his shoulder at that point he denies any prior issues with the shoulder. However since patient is bacteremic I was consulted to rule out septic shoulder. Right upper extremity. Has any fevers or chills currently. [facility] Medical History Diabetes mellitus, type 2 Home Medications NK 06/30/21 [History Last Taken Unknown] Allergy/AdvReac Type Severity Reaction Status Date / Time acetaminophen [From Tylenol] Allergy Hives Verified 06/30/21 20:23 Family History (Updated 06/30/21 @ 23:[address] Vamsi Posey MD) Other Diabetes Pulmonary disease Surgical History H/O hernia repair Social History (Updated 06/30/21 @ 23:[address] Vamsi Posey MD) Smoking Status: Current some day smoker tobacco type: cigars Physical Exam Const alert and no apparent distress General Appearance: cooperative and comfortable Extremity Extremity Narrative: Patient of right shoulder does not elicit any erythema or joint effusion. There is swelling. To 80 degrees of forward flexion 45 degrees of abduction full internal rotation and 70 degrees of external rotation within the he is not have significant pain particularly with internal and external rotation however with terminal motion is where he begins to have significant pain. We however I can give him to 170 degrees without any significant discomfort. Mild swelling in the olecranon bursa but there is no tenderness and there is no redness or warmth. There is no gross motor or sensory deficits about the shoulder there is no mass or fluctuance. Lab / Micro Data Result Diagrams: 07/01/21 01:35 07/01/21 09:25 Labs: Laboratory Results - last 24 hr 06/30/21 21:09: WBC 17.2 H, RBC 4.52 L, Hgb 13.6, Hct 42.7, MCV 94.5 H, MCH 30.1, MCHC 31.9 L, RDW Std Deviation 44.0 H, RDW Coeff of Jennifer 12.8, Plt Count 243, MPV 8.9, Immature Gran % (Auto) 2.100 H, Neut % (Auto) 90.4 H, Lymph % (Auto) 2.6 L, [place] % (Auto) 4.3, Eos % (Auto) 0.1, Baso % (Auto) 0.5, Absolute Neuts (auto) 15.6 H, Absolute Lymphs (auto) 0.45 L, Nucleated RBC % 0, Differential Comment SCANNED 06/30/21 21:09: Sodium 132 L, Potassium 3.9, Chloride 96 L, Carbon Dioxide 14.0 L, Anion Gap 22 H, BUN 25 H, Creatinine 1.32 H, Estim Creat Clear Calc 58.38, Est GFR (MDRD) Af Amer 70, Est GFR (MDRD) Non-Af 58 L, BUN/Creatinine Ratio 18.9, Glucose 525 H*, Calcium 9.1, Total Bilirubin 1.00, AST 21, ALT 28, Alkaline Phosphatase 124 H, Total Protein 8.2, Albumin 2.3 L, Globulin 5.9 H, Albumin/Globulin Ratio 0.4 L 06/30/21 22:05: Acetone Level LARGE H 06/30/21 22:13: Urine Color Yellow, Urine Clarity Clear, Urine pH 5.0, Ur Specific [place] 1.015, Urine Protein 15 H, Urine Glucose (UA) 1000 H, Urine Ketones 150 A*, Urine Occult Blood 50 H, Urine Nitrite Negative, Urine Bilirubin Negative, Urine Urobilinogen Normal, Ur Leukocyte Esterase 25 H, Urine RBC 0-5 SEEN, Urine WBC 0-5 SEEN, Ur Squamous Epith Cells 0 SEEN, Urine Bacteria 0 SEEN, Urine Mucus 0 SEEN 06/30/21 22:34: Lactic Acid 1.7 06/30/21 23:40: POC Glucose 468 H* 07/01/21 00:37: POC Glucose 426 H 07/01/21 01:21: POC Glucose 399 H 07/01/21 01:35: Sodium 135 L, Potassium 3.0 L, Chloride 102, Carbon Dioxide 13.0 L, Anion Gap 20 H, BUN 23 H, Creatinine 1.20, Estim Creat Clear Calc 64.21, Est GFR (MDRD) Af Amer 78, Est GFR (MDRD) Non-Af 65, BUN/Creatinine Ratio 19.2, Glucose 373 H, Calcium 8.9 07/01/21 01:35: Hemoglobin A1c 12.7 H 07/01/21 01:35: WBC 18.0 H, RBC 4.29 L, Hgb 13.1, Hct 40.0, MCV 93.2, MCH 30.5, MCHC 32.8, RDW Std Deviation 43.9, RDW Coeff of Jennifer 12.9, Plt Count 243, MPV 9.4, Immature Gran % (Auto) 1.200 H, Neut % (Auto) 93.9 H, Lymph % (Auto) 2.7 L, [place] % (Auto) 1.7, Eos % (Auto) 0.1, Baso % (Auto) 0.4, Absolute Neuts (auto) 16.9 H, Absolute Lymphs (auto) 0.49 L, Nucleated RBC % 0, Differential Comment SCANNED 07/01/21 02:27: POC Glucose 307 H 07/01/21 03:33: POC Glucose 270 H 07/01/21 04:32: POC Glucose 263 H 07/01/21 05:25: POC Glucose 278 H 07/01/21 05:35: Sodium 137, Potassium 3.6, Chloride 106, Carbon Dioxide 19.0 L, Anion Gap 12, BUN 19 H, Creatinine 0.98, Estim Creat Clear Calc 78.63, Est GFR (MDRD) Af Amer 99, Est GFR (MDRD) Non-Af 82, BUN/Creatinine Ratio 19.4, Glucose 259 H, Calcium 8.4 L 07/01/21 06:24: POC Glucose 251 H 07/01/21 07:40: POC Glucose 226 H 07/01/21 08:49: POC Glucose 222 H 07/01/21 09:25: Sodium 138, Potassium 3.5, Chloride 108 H, Carbon Dioxide 21.0, Anion Gap 9, BUN 18, Creatinine 0.92, Estim Creat Clear Calc 83.76, Est GFR (MDRD) Af Amer 107, Est GFR (MDRD) Non-Af 89, BUN/Creatinine Ratio 19.7, Glucose 236 H, Calcium 8.6 07/01/21 09:53: POC Glucose 238 H 07/01/21 11:10: POC Glucose 266 H 07/01/21 12:53: POC Glucose 257 H Micro: Microbiology 06/30/21 22:48 Blood Culture (Wb) - Venous Bacteria Detection (PCR) - Final Staphylococcus aureus 06/30/21 22:48 Blood Culture (Wb) - Venous Blood Culture - Preliminary 06/30/21 22:34 Blood Culture (Wb) - Venous Blood Culture - Preliminary 07/01/21 11:05 Mucosa - Nose SARS-CoV-2 Antigen (Rapid) - Final Radiology Impression Abdomen/Pelvis CT 06/30/21 21:00 IMPRESSION: Negative CT of the abdomen and pelvis with intravenous contrast. Individualized dose optimization techniques were used for this CT. at 2229 Reported and signed by: Sudhakar Ponce MD Electronically Signed: Sudhakar Ponce MD at 22:28 EDT Tel , Service support , Echocardiogram 07/01/21 10:13 Interpretation Summary Limited views were obtained. The study was technically difficult. Based upon the 2D echocardiographic images obtained there appears to be grossly normal left ventricular size, wall motion, and systolic function. The estimated ejection fraction is 65 %. Trivial mitral valve insufficiency. Trivial tricuspid valve insufficiency. Unable to estimate RV systolic pressure/pulmonary artery pressure due to technically difficult study. Unable to assess diastolic dysfunction. Ordering Physician: Roberto Carlos Ceballos Referring Physician: No PCP noted Performed By: Abe Carter RCS Shoulder X-Ray 07/01/21 11:43 IMPRESSION: Mild acromioclavicular joint arthrosis Electronically Signed: Gera Jones MD at 12:20 EDT Tel , Service support ,
--- NOTE | 2021-07-01 16:00 | RAD_ITS ---
STUDY: X-RAY - ORBITS REASON FOR EXAM: Male, 66 years old. PRe MRI Clearance, Hx of metal to eyes TECHNIQUE: 2 view(s) of the orbits were obtained. COMPARISON: None. FINDINGS: Normal bilateral orbits without a metallic orbital foreign body. Normal visualized facial bones. Normal paranasal sinuses. The soft tissue structures are unremarkable. RAD/Orbits for Foreign Body IMPRESSION: No demonstrated metallic orbital foreign body. The patient is cleared for an MRI examination. Electronically Signed: Gera Jones MD at 16:15 EDT Tel , Service support ,
[2021-07-01 17:11] LABS: Bedside Glucose 357 mg/dL (70-110)
[2021-07-01 22:21] LABS: Bedside Glucose 350 mg/dL (70-110)
[2021-07-02] VITALS (10 sets, daily range): BP systolic 138–156; BP diastolic 71–83; PULSE 104–121; RESP 18–20; TEMP 36.4–37; O2SAT 91–99
--- NOTE | 2021-07-02 03:15 | PCS.PANDOC ---
PANDEMIC DOCUMENTATION INITIATED: Date: 07/01/2021 Time: 011
[2021-07-02 06:16] LABS: Blood Gas Specimen Type VEN; O2 Delivery Device Room Air; VBG BASE EXCESS -17 mmol/L (-1.0-3.5); VBG Bicarbonate 10 mmol/L (22-26); VBG PO2 37 mmHg (25-40); VBG SO2 64 % (50-70); VBG TCO2 11 mmol/L (23-33); VBG pCO2 21.6 mmHg (41-51); VBG pH 7.27 (7.32-7.42)
[2021-07-02] MEDS: Cefazolin 2 GM in 0.9% Normal Saline 100 ML IV ×3 (07:02→23:23)
[2021-07-02] MEDS: Insulin Lispro 100 UNIT/ML INSULN.PEN SC ×4 (07:02→21:32)
[2021-07-02 07:10] LABS: Bedside Glucose 314 mg/dL (70-110)
[2021-07-02] MEDS: Senna/Docusate Sodium 1 Tablet 2 TABLET PO ×2 (08:52→21:33)
--- NOTE | 2021-07-02 08:56 | PN.ORTHO_ITS ---
Subjective Subjective Patient seen and examined. He states his shoulder is slightly better today. Denies fevers chills, nausea vomiting Objective Data Objective Data Vital Signs: Vital Signs Temp Pulse Resp BP Pulse Ox 97.8 F 104 H 18 143/73 H 97 07/02/21 04:00 07/02/21 07:30 07/02/21 04:00 07/02/21 04:00 07/02/21 04:00 Oxygen Flow Rate (L/min) 2 Oxygen Delivery Method Room Air Weight: 246 lb 0.574 oz Body Mass Index (BMI) 34.8 Intake & Output: Intake and Output for Last 24 Hours 06/30/21 07/01/21 07/02/21 23:59 23:59 23:59 Intake Total 1000 / 1000 4332.50 / 4332.50 640 / 640 Output Total 950 / 950 900 / 900 Balance 1000 / 1000 3382.50 / 3382.50 -260 / -260 Lab / Micro Data Result Diagrams: 07/01/21 01:35 07/01/21 09:25 Labs: Laboratory Results - last 24 hr 07/01/21 08:49: POC Glucose 222 H 07/01/21 09:25: Sodium 138, Potassium 3.5, Chloride 108 H, Carbon Dioxide 21.0, Anion Gap 9, BUN 18, Creatinine 0.92, Estim Creat Clear Calc 83.76, Est GFR (MDRD) Af Amer 107, Est GFR (MDRD) Non-Af 89, BUN/Creatinine Ratio 19.7, Glucose 236 H, Calcium 8.6 07/01/21 09:53: POC Glucose 238 H 07/01/21 11:10: POC Glucose 266 H 07/01/21 12:53: POC Glucose 257 H 07/01/21 16:49: POC Glucose 357 H 07/01/21 21:58: POC Glucose 350 H 07/02/21 06:59: POC Glucose 314 H Micro: Microbiology 06/30/21 22:48 Blood Culture (Wb) - Venous Bacteria Detection (PCR) - Final Staphylococcus aureus 06/30/21 22:48 Blood Culture (Wb) - Venous Blood Culture - Preliminary 06/30/21 22:34 Blood Culture (Wb) - Venous Blood Culture - Preliminary 07/01/21 11:05 Mucosa - Nose SARS-CoV-2 Antigen (Rapid) - Final ABG Data ABG results: ABG 06/30/21 22:53 Specimen Type REBECA VBG pH 7.27 L VBG pO2 37 VBG HCO3 10 L VBG Total CO2 11 L VBG O2 Sat (Calc) 64 VBG Base Excess -17 L POC Mix VBG pCO2 Pt Tmp 21.6 L O2 Delivery Device Room Air Radiography Diagnostic Testing: Radiology Impression Echocardiogram 07/01/21 10:13 Interpretation Summary Limited views were obtained. The study was technically difficult. Based upon the 2D echocardiographic images obtained there appears to be grossly normal left ventricular size, wall motion, and systolic function. The estimated ejection fraction is 65 %. Trivial mitral valve insufficiency. Trivial tricuspid valve insufficiency. Unable to estimate RV systolic pressure/pulmonary artery pressure due to technically difficult study. Unable to assess diastolic dysfunction. Ordering Physician: Roberto Carlos Ceballos Referring Physician: No PCP noted Performed By: Abe Carter RCS Shoulder X-Ray 07/01/21 11:43 IMPRESSION: Mild acromioclavicular joint arthrosis Electronically Signed: Gera Jones MD at 12:20 EDT Tel , Service support , Upper Extremity MRI 07/01/21 14:54 IMPRESSION: Supraspinatus and subscapularis tendinosis with possible partial thickness distal supraspinatus articular surface tear. Subacromial subdeltoid bursitis. Moderate to large shoulder joint effusion which is commonly degenerative. In setting of bacteremia infection is not excluded. Fluid sampling to further evaluate as indicated. Acromioclavicular osteoarthritis with small effusion. Degenerative labral tear with small superior paralabral cyst. at 0654 Reported and signed by: Narendra He MD Electronically Signed: Narendra He MD at 6:52 EDT Tel , Service support , Orbit X-Ray 07/01/21 16:00 IMPRESSION: No demonstrated metallic orbital foreign body. The patient is cleared for an MRI examination. Electronically Signed: Gera Jones MD at 16:15 EDT Tel , Service support , Physical Exam Const alert and no apparent distress General Appearance: cooperative Extremity Extremity Narrative: Right shoulder exam unchanged from yesterday no joint effusion erythema or increased warmth he is able to forward flex to about 75 degrees and then begins to have pain Assessment & Plan Assessment/Plan (1) Injury of right rotator cuff: QUALIFIERS: Encounter type: initial encounter Qualified Code(s): S46.001A - Unspecified injury of muscle(s) and tendon(s) of the rotator cuff of right shoulder, initial encounter PLAN: Right shoulder has not developed an increase joint effusion. MRI reviewed and although read as moderate glenohumeral effusion this is not palpated clinically. However considering his bacteremic status discussed with patient and performed and attempted an aspiration of the glenohumeral and subacromial space this was originally approached from the posterior however no fluid able to be aspirated. I then repeated this again under sterile technique from the anterior position just lateral to the coracoid and again was unable to aspirate any fluid to send for analysis. Suspect patient has rotator cuff partial-thickness tear from recent fall when pain started however in light of DKA and bacteremia we will request attempted aspiration from Dr. Martínez under image guidance to see if we can get any fluid to prove this is noninfectious nature. Again however I would have expected an expanding joint effusion if truly septic joint.
--- NOTE | 2021-07-02 10:00 | RAD_ITS ---
STUDY: SHOULDER ASPIRATION RIGHT REASON FOR EXAM: Male, 66 years old. Right shoulder; r/o septic joint -- collect for gram stain, cell count, culture FLUOROSCOPY TIME (if supplied): ( 35 seconds ) minutes/seconds. One image was obtained. TECHNIQUE: The procedure as well as benefits and possible complications including infection and bleeding were explained to the patient. Informed consent was obtained. The patient was in the supine position. Overlying skin was prepped and draped in usual sterile fashion. Under direct fluoroscopic guidance, a 22-gauge spinal needle was placed into the shoulder joint. No aspiration was obtained. COMPARISON: None. FINDINGS: No aspirate was obtained from the shoulder joint. RAD/Inj/Asp Josh Jt Should/Hip/Knee IMPRESSION: No aspirate was obtained from the shoulder joint. The patient tolerated the procedure well. Electronically Signed: Chandan Martínez MD at 11:01 EDT , Service support ,
[2021-07-02] MEDS: Lidocaine 2% (5ml sdv) 5 ML VIAL.MPF INFILT (10:25)
[2021-07-02] MEDS: Enoxaparin 40 MG/0.4 ML Syringe SC (11:28)
[2021-07-02 11:31] LABS: Bedside Glucose 350 mg/dL (70-110)
--- NOTE | 2021-07-02 12:02 | PN.HOSP_ITS ---
Subjective Subjective Patient seen and examined. He still feels weak. He denies any chest pain, palpitations, dizziness, nausea or vomiting. He still complains of right shoulder pain. Orthopedic surgery attempted bedside shoulder aspiration today, but was unsuccessful. He is tachycardic today, but otherwise has remained hemodynamically stable. Objective Data Objective Data Vital Signs: Vital Signs Temp Pulse Resp BP Pulse Ox 97.6 F L 106 H 18 147/81 H 99 07/02/21 08:55 07/02/21 08:55 07/02/21 08:55 07/02/21 08:55 07/02/21 08:55 Oxygen Flow Rate (L/min) 2 Oxygen Delivery Method Room Air Weight: 246 lb 0.574 oz Body Mass Index (BMI) 34.8 Intake & Output: Intake and Output for Last 24 Hours 06/30/21 07/01/21 07/02/21 23:59 23:59 23:59 Intake Total 1000 / 1000 4332.50 / 4332.50 950 / 950 Output Total 950 / 950 900 / 900 Balance 1000 / 1000 3382.50 / 3382.50 50 / 50 Lab / Micro Data Result Diagrams: 07/01/21 01:35 07/01/21 09:25 Labs: Laboratory Results - last 24 hr 07/01/21 11:10: POC Glucose 266 H 07/01/21 12:53: POC Glucose 257 H 07/01/21 16:49: POC Glucose 357 H 07/01/21 21:58: POC Glucose 350 H 07/02/21 06:59: POC Glucose 314 H 07/02/21 11:26: POC Glucose 350 H Micro: Microbiology 06/30/21 22:34 Blood Culture (Wb) - Venous Blood Culture - Preliminary Staphylococcus aureus 06/30/21 22:48 Blood Culture (Wb) - Venous Bacteria Detection (PCR) - Final Staphylococcus aureus 06/30/21 22:48 Blood Culture (Wb) - Venous Blood Culture - Preliminary 07/01/21 11:05 Mucosa - Nose SARS-CoV-2 Antigen (Rapid) - Final ABG Data ABG results: ABG 06/30/21 22:53 Specimen Type REBECA VBG pH 7.27 L VBG pO2 37 VBG HCO3 10 L VBG Total CO2 11 L VBG O2 Sat (Calc) 64 VBG Base Excess -17 L POC Mix VBG pCO2 Pt Tmp 21.6 L O2 Delivery Device Room Air Radiography Diagnostic Testing: Radiology Impression Shoulder X-Ray 07/01/21 11:43 IMPRESSION: Mild acromioclavicular joint arthrosis Electronically Signed: Gera Jones MD at 12:20 EDT Tel , Service support , Upper Extremity MRI 07/01/21 14:54 IMPRESSION: Supraspinatus and subscapularis tendinosis with possible partial thickness distal supraspinatus articular surface tear. Subacromial subdeltoid bursitis. Moderate to large shoulder joint effusion which is commonly degenerative. In setting of bacteremia infection is not excluded. Fluid sampling to further evaluate as indicated. Acromioclavicular osteoarthritis with small effusion. Degenerative labral tear with small superior paralabral cyst. at 0654 Reported and signed by: Narendra He MD Electronically Signed: Narendra He MD at 6:52 EDT Tel , Service support , Orbit X-Ray 07/01/21 16:00 IMPRESSION: No demonstrated metallic orbital foreign body. The patient is cleared for an MRI examination. Electronically Signed: Gera Jones MD at 16:15 EDT Tel , Service support , Joint Aspiration/Injection 07/02/21 10:00 IMPRESSION: No aspirate was obtained from the shoulder joint. The patient tolerated the procedure well. Electronically Signed: Chandan Martínez MD at 11:01 EDT , Service support , Physical Exam Const alert, oriented x3 and no apparent distress Exam Limitations: no limitations Nutritional Appearance: obese HEENT head/scalp atraumatic Head and Scalp: normocephalic Eyes PERRL, EOMs intact bilaterally and conjunctivae normal Neck no lymphadenopathy, supple and no JVD Resp normal respiratory effort, no retractions, no use of accessory muscles and clear to auscultation bilaterally Cardio regular rate, regular rhythm, S1 normal heart sound and S2 normal heart sound Cardio Narrative: grade 2-3 systolic murmur loudest at the mitral valve area GI normal to inspection, nondistended, normoactive bowel sounds, soft to palpation, non-tender and non-distended Extremity normal to inspection and no clubbing, cyanosis or edema Extremity Narrative: has pain with attempted rotation and abduction, as well as elevation of the RUE at the shoulder joint. Peripheral Pulses: Yes pulses 2+ throughout Skin no rashes or lesions noted and no wounds Neuro oriented x3, CN's II-XII intact bilaterally and moves all extremities Sensorium / Orientation: awake and alert Psych affect normal Assessment & Plan Assessment/Plan (1) DKA (diabetic ketoacidosis): QUALIFIERS: Diabetes mellitus type: type 2 Diabetes mellitus complication detail: without coma Qualified Code(s): E11.10 - Type 2 diabetes mellitus with ketoacidosis without coma (2) Bacteremia: PLAN: #DKA * in a known diabetic due to noncompliance. * resolved. * now on SC insuin 10 units daily, and high dose ISS. * A1C is 12.7 * counseled on compliance with insulin. * #Bacteremia * blood cultures came back positive for staph aureus-2/2 samples. * 2D echo:EF of 65%, with normal LV size, wall motion and systolic function. Unable to assess diastolic dysfunction. No evidence of endocarditis * on IV vancomycin * ID on board * patient was complaining of right shoulder pain and difficulty with movement of right shoulder. * MRI of the right shoulder showed a moderate to large shoulder joing effusion which is commonly degenerative, but in setting of bacteremia, infection cannot be excluded. * had an unsuccessful bedside aspiration today by orthopedics; to have aspiratio n done by radiology later today. Fluid to be sent for cultures and gram stain #Right shoulder pain * etiology not clear. * as above under bacteremia * has large right shoulder effusion. management as above * tylenol prn * orthopedic surgery on board * #YINKA: resolved #Constipation: CT of the abdomen and pelvis was negative for evidence of constipation. Will monitor. on laxativex DVT prophylaxis: lovenox Charges/Coding Visit Charges Inpatient E&M: 09081 Subs Hosp L3
[2021-07-02] MEDS: 0.9% Saline Lock 10 ML Syringe IV (12:43)
[2021-07-02 13:40] LABS: Absolute Lymphocyte Count 0.32 X10^3/uL (0.83-4.51); Absolute Neutrophil Count 11.7 X10^3/uL (2.0-7.7); Basophil# 0.11 X10^3/uL; Basophil% 0.8 % (0-1); Eosinophil# 0.05 X10^3/uL; Eosinophils% 0.4 % (0-5); Hematocrit 41.4 % (40-54); Lymphocyte # 0.32 X10^3/ul (0.83-4.51); Lymphocyte % 2.4 % (19-41); Mean Corp Hgb Conc 31.4 g/dL (32-36); Mean Corpuscular Hgb 29.7 pg (27.0-32.0); Mean Corpuscular Volume 94.7 fL (80-94); Monocyte# 0.51 X10^3/uL; Monocyte% 3.8 % (0-10); NRBC Flagged by Analyzer 0 % (0-5); Neutrophil # 11.73 X10^3/uL (2.7-7.7); Neutrophil % 87.7 % (47-70); POSITIVE DIFFERENTIAL YES; POSITIVE MORPHOLOGY YES; Platelet Count 243 K/mm3 (150-450); RBC Distribution Width CV 13.2 % (11.6-14.6); RBC Distribution Width SD 45.9 fl (35.1-43.9); Red Blood Count 4.37 M/mm3 (4.6-6.2); White Blood Count 13.4 K/mm3 (4.4-11.0)
[2021-07-02 13:41] LABS: Differential Indicated SCAN CRITERIA MET
[2021-07-02 14:18] LABS: Anion Gap 18 (5-15); BUN 22 mg/dL (7-18); BUN/Creat Ratio 21.4 RATIO (10-20); Calcium,Total 8.9 mg/dL (8.5-10.1); Chloride 104 mmol/L (98-107); Creatinine, Serum 1.03 mg/dL (0.70-1.30); EST Glomerular Filtration Rate 77 mL/min (>60); Est Glom Filt Rate - Afr Amer 93 mL/min (>60); Estimated Creatinine Clearance 74.81 ml/min; Glucose 456 mg/dL (74-106); Potassium 3.3 mmol/L (3.5-5.1); Sodium Level 135 mmol/L (136-145)
[2021-07-02 16:56] LABS: Bedside Glucose 426 mg/dL (70-110)
[2021-07-02 20:34] LABS: Vancomycin, Trough Level 18.5 ug/mL (5.0-15.0)
[2021-07-02] MEDS: Ibuprofen 600 MG Tablet PO (21:24)
[2021-07-02 22:20] LABS: Bedside Glucose 321 mg/dL (70-110)
--- NOTE | 2021-07-02 23:05 | PCM.RX.CS ---
Consult Pharmacy has been consulted to manage selected antiobiotic: Vancomycin Type of Consult: Follow-up Suspected Infection: Sepsis Labs: Sodium 135 mmol/L (136-145) L 07/02/21 13:25 Potassium 3.3 mmol/L (3.5-5.1) L 07/02/21 13:25 Chloride 104 mmol/L (98-107) 07/02/21 13:25 Carbon Dioxide 13.0 mmol/L (21.0-32.0) L 07/02/21 13:25 Anion Gap 18 (5-15) H 07/02/21 13:25 BUN 22 mg/dL (7-18) H 07/02/21 13:25 Creatinine 1.03 mg/dL (0.70-1.30) 07/02/21 13:25 Est GFR (MDRD) Af Amer 93 mL/min (>60) 07/02/21 13:25 Est GFR (MDRD) Non-Af 77 mL/min (>60) 07/02/21 13:25 BUN/Creatinine Ratio 21.4 RATIO (10-20) H 07/02/21 13:25 Glucose 456 mg/dL (74-106) H* 07/02/21 13:25 Vancomycin Trough 18.5 ug/mL (5.0-15.0) H 07/02/21 19:28 Microbiology: Microbiology 06/30/21 22:34 Blood Culture (Wb) - Venous Blood Culture - Preliminary Staphylococcus aureus 06/30/21 22:48 Blood Culture (Wb) - Venous Bacteria Detection (PCR) - Final Staphylococcus aureus 06/30/21 22:48 Blood Culture (Wb) - Venous Blood Culture - Preliminary 07/01/21 11:05 Mucosa - Nose SARS-CoV-2 Antigen (Rapid) - Final Goal Trough: 15-20 mcg/mL Pharmacy Plan for Drug Dosing: Pharmacy Service will continue to monitor and adjust dosing as required. TROUGH 18.5 IN RANGE, NO CHANGES. REDRAW TROUGH IN 24 HOURS PER INCREASED SCr Follow-Up Labs: Trough Vancomycin Labs to be done on [date and time ordered]: 07/03 @ 2030
[2021-07-03] VITALS (13 sets, daily range): BP systolic 124–177; BP diastolic 70–87; PULSE 80–140; RESP 16–20; TEMP 36.4–36.9; O2SAT 94–98
[2021-07-03] MEDS: Insulin Lispro 100 UNIT/ML INSULN.PEN SC ×4 (07:05→22:50)
[2021-07-03 07:10] LABS: Bedside Glucose 354 mg/dL (70-110)
[2021-07-03 07:14] LABS: Absolute Lymphocyte Count 0.54 X10^3/uL (0.83-4.51); Absolute Neutrophil Count 11.4 X10^3/uL (2.0-7.7); Basophil# 0.11 X10^3/uL; Basophil% 0.8 % (0-1); Eosinophil# 0.01 X10^3/uL; Eosinophils% 0.1 % (0-5); Hematocrit 40.3 % (40-54); Hemoglobin 12.9 g/dL (13.0-16.5); Lymphocyte # 0.54 X10^3/ul (0.83-4.51); Lymphocyte % 4.1 % (19-41); Mean Corpuscular Hgb 30.2 pg (27.0-32.0); Mean Corpuscular Volume 94.4 fL (80-94); Mean Platelet Vol. 9.1 fl (6.2-12.0); Monocyte# 0.54 X10^3/uL; Monocyte% 4.1 % (0-10); NRBC Flagged by Analyzer 0 % (0-5); Neutrophil % 87.6 % (47-70); POSITIVE DIFFERENTIAL YES; POSITIVE MORPHOLOGY YES; Platelet Count 226 K/mm3 (150-450); RBC Distribution Width CV 13.2 % (11.6-14.6); RBC Distribution Width SD 45.1 fl (35.1-43.9); Red Blood Count 4.27 M/mm3 (4.6-6.2)
[2021-07-03 07:17] LABS: Differential Indicated SCAN CRITERIA MET
[2021-07-03 07:43] LABS: Anion Gap 15 (5-15); BUN 25 mg/dL (7-18); BUN/Creat Ratio 32.6 RATIO (10-20); Calcium,Total 8.4 mg/dL (8.5-10.1); Chloride 105 mmol/L (98-107); Creatinine, Serum 0.77 mg/dL (0.70-1.30); EST Glomerular Filtration Rate 109 mL/min (>60); Est Glom Filt Rate - Afr Amer 132 mL/min (>60); Estimated Creatinine Clearance 100.07 ml/min; Glucose 353 mg/dL (74-106); Potassium 3.4 mmol/L (3.5-5.1); Sodium Level 137 mmol/L (136-145)
[2021-07-03] MEDS: Cefazolin 2 GM in 0.9% Normal Saline 100 ML IV ×3 (09:20→20:57)
[2021-07-03] MEDS: Senna/Docusate Sodium 1 Tablet 2 TABLET PO ×2 (09:37→20:58)
[2021-07-03] MEDS: Enoxaparin 40 MG/0.4 ML Syringe SC (09:37)
[2021-07-03] MEDS: Ibuprofen 600 MG Tablet PO ×2 (09:42→20:13)
[2021-07-03] MEDS: Potassium Chloride Oral Tablet 20 MEQ 60 MEQ PO (09:43)
--- NOTE | 2021-07-03 10:52 | PCM.PN.ID ---
Physical Exam Narrative Pt now recalls that a few weeks ago R elbow with swelling, pain, and heavy purulent drainage. No pain in elbow now, no drainage. No fever. Const alert and no apparent distress General Appearance: cooperative Resp normal air movement and clear to auscultation bilaterally Cardio regular rate and regular rhythm GI normal to inspection, nondistended, normoactive bowel sounds Extremity Extremity Narrative: R elbow nontender, (+) fluctuance. Skin no rashes or lesions noted ID ID: Route of nutrition/ use of supplements: [] Nutritional Intake: [] IV Site: [] Aguirre Catheter: [] Assessment & Plan Assessment/Plan (1) Bacteremia: (2) DKA (diabetic ketoacidosis): QUALIFIERS: Diabetes mellitus type: type 2 Diabetes mellitus complication detail: without coma Qualified Code(s): E11.10 - Type 2 diabetes mellitus with ketoacidosis without coma (3) Sepsis: PLAN: sepsis due to MSSA bacteremia with DKA, uncontrolled DM, heart murmur. Suspected source is R elbow infection. No splinter hemorrhages on his hands. Seen by ortho, low suspicion for septic arthritis, had attempted aspiration. Pt now recalls several weeks ago with inflammation and heavy purulence from R elbow. Non tender on exam, but is fluctuant over olecranon. Recommend ortho re-eval of that elbow to see if any role for drainage. TTE was poor quality study, will check PRIYA. Stop vanc, cont cefazolin. Will follow, d/w Dr. Bush
[2021-07-03 11:46] LABS: Bedside Glucose 413 mg/dL (70-110)
--- NOTE | 2021-07-03 13:26 | CASEMGMT ---
JAM MOSER in to discuss PCP list with patient. Patient had misplaced list provided earlier. JAM MOSER provided another PCP and reviewed it with patient. Patient states he would like to discuss with before making decision. JAM MOSER encouraged patient to discuss with when she returns and to luke on list their preference for PCP and CM would follow-up. Patient voiced understanding. JAM MOSER updated floor nurse. CM will continue to assist patient in getting established with PCP.
--- NOTE | 2021-07-03 14:08 | PN.HOSP_ITS ---
Subjective Subjective Patient seen and examined. He had no active complaints today but states he just remembered that about 3 weeks ago he had spider bites over his right elbow and is wondering if that could be associated with his bacteremia and shoulder pain. He still has the shoulder pain and he had attempted arthrocentesis by radiology yesterday but this was unsuccessful. Review of stents otherwise negative. He has remained hemodynamically stable. Objective Data Objective Data Vital Signs: Vital Signs Temp Pulse Resp BP Pulse Ox 97.8 F 88 20 H 124/70 H 98 07/03/21 08:55 07/03/21 08:55 07/03/21 08:55 07/03/21 08:55 07/03/21 09:01 Oxygen Flow Rate (L/min) 2 Oxygen Delivery Method Room Air Weight: 248 lb 7.375 oz Body Mass Index (BMI) 34.8 Intake & Output: Intake and Output for Last 24 Hours 07/01/21 07/02/21 07/03/21 23:59 23:59 23:59 Intake Total 4332.50 / 4332.50 2608.75 / 2608.75 811.25 / 811.25 Output Total 950 / 950 1400 / 1400 Balance 3382.50 / 3382.50 1208.75 / 1208.75 811.25 / 811.25 Lab / Micro Data Result Diagrams: 07/03/21 06:25 07/03/21 06:25 Labs: Laboratory Results - last 24 hr 07/02/21 13:25: Sodium 135 L, Potassium 3.3 L, Chloride 104, Carbon Dioxide 13.0 L, Anion Gap 18 H, BUN 22 H, Creatinine 1.03, Estim Creat Clear Calc 74.81, Est GFR (MDRD) Af Amer 93, Est GFR (MDRD) Non-Af 77, BUN/Creatinine Ratio 21.4 H, Glucose 456 H*, Calcium 8.9 07/02/21 16:50: POC Glucose 426 H 07/02/21 19:28: Vancomycin Trough 18.5 H 07/02/21 21:32: POC Glucose 321 H 07/03/21 06:25: WBC 13.0 H, RBC 4.27 L, Hgb 12.9 L, Hct 40.3, MCV 94.4 H, MCH 30.2, MCHC 32.0, RDW Std Deviation 45.1 H, RDW Coeff of Jennifer 13.2, Plt Count 226, MPV 9.1, Immature Gran % (Auto) 3.300 H, Neut % (Auto) 87.6 H, Lymph % (Auto) 4.1 L, [place] % (Auto) 4.1, Eos % (Auto) 0.1, Baso % (Auto) 0.8, Absolute Neuts (auto) 11.4 H, Absolute Lymphs (auto) 0.54 L, Nucleated RBC % 0, Differential Comment COMMENT 07/03/21 06:25: Sodium 137, Potassium 3.4 L, Chloride 105, Carbon Dioxide 17.0 L , Anion Gap 15, BUN 25 H, Creatinine 0.77, Estim Creat Clear Calc 100.07, Est GFR (MDRD) Af Amer 132, Est GFR (MDRD) Non-Af 109, BUN/Creatinine Ratio 32.6 H, Glucose 353 H, Calcium 8.4 L 07/03/21 07:04: POC Glucose 354 H 07/03/21 11:34: POC Glucose 413 H Micro: Microbiology 06/30/21 22:48 Blood Culture (Wb) - Venous Bacteria Detection (PCR) - Final Staphylococcus aureus 06/30/21 22:48 Blood Culture (Wb) - Venous Blood Culture - Final Staphylococcus aureus 06/30/21 22:34 Blood Culture (Wb) - Venous Blood Culture - Final Staphylococcus aureus 07/01/21 11:05 Mucosa - Nose SARS-CoV-2 Antigen (Rapid) - Final Physical Exam Const alert, oriented x3 and no apparent distress Exam Limitations: no limitations Nutritional Appearance: obese HEENT head/scalp atraumatic Head and Scalp: normocephalic Eyes PERRL, EOMs intact bilaterally and conjunctivae normal Neck no lymphadenopathy, supple and no JVD Resp normal respiratory effort, no retractions, no use of accessory muscles and clear to auscultation bilaterally Cardio regular rate, regular rhythm, S1 normal heart sound and S2 normal heart sound Cardio Narrative: grade 2-3 systolic murmur loudest at the mitral valve area GI normal to inspection, nondistended, normoactive bowel sounds, soft to palpation, non-tender and non-distended Extremity normal to inspection and no clubbing, cyanosis or edema Extremity Narrative: has pain with attempted rotation and abduction, as well as elevation of the RUE at the shoulder joint. Skin no rashes or lesions noted and no wounds Skin Narrative: has erythema and induration over right elbow, with healing scabbed wound over area. Neuro oriented x3, CN's II-XII intact bilaterally and moves all extremities Sensorium / Orientation: awake and alert Psych affect normal Assessment & Plan Assessment/Plan (1) DKA (diabetic ketoacidosis): QUALIFIERS: Diabetes mellitus type: type 2 Diabetes mellitus complication detail: without coma Qualified Code(s): E11.10 - Type 2 diabetes mellitus with ketoacidosis without coma (2) Bacteremia: PLAN: #DKA * in a known diabetic due to noncompliance. * resolved. * now on SC insuin 10 units daily, and high dose ISS. * A1C is 12.7 * counseled on compliance with insulin. * #Bacteremia * blood cultures came back positive for staph aureus-2/2 samples. * 2D echo:EF of 65%, with normal LV size, wall motion and systolic function. Unable to assess diastolic dysfunction. No evidence of endocarditis * on IV vancomycin * ID on board * MRI of the right shoulder showed a moderate to large shoulder joing effusion which is commonly degenerative, but in setting of bacteremia, infection cannot be excluded. * had an unsuccessful bedside aspiration today by orthopedics;aspiration by radiology was also unsuccessful. * now says he had spider bites about 3 weeks ago. Seems to have an indurated area over the right elbow; orthopedics on board * #Right shoulder pain * etiology not clear. * as above under bacteremia * has large right shoulder effusion. management as above * tylenol prn * orthopedic surgery on board * #YINKA: resolved #Constipation: CT of the abdomen and pelvis was negative for evidence of c onstipation. Will monitor. on laxative DVT prophylaxis: lovenox Charges/Coding Visit Charges Inpatient E&M: 62428 [facility] Hosp L3
[2021-07-03 17:06] LABS: Bedside Glucose 365 mg/dL (70-110)
[2021-07-03] MEDS: MELATONIN 3 MG TABLET PO (20:58)
[2021-07-03 23:00] LABS: Bedside Glucose 338 mg/dL (70-110)
[2021-07-04] VITALS (10 sets, daily range): BP systolic 119–160; BP diastolic 74–83; PULSE 95–117; RESP 16–24; TEMP 36.7–37.2; O2SAT 93–97
[2021-07-04] MEDS: Cefazolin 2 GM in 0.9% Normal Saline 100 ML IV ×3 (06:29→20:58)
[2021-07-04 06:50] LABS: Absolute Lymphocyte Count 0.67 X10^3/uL (0.83-4.51); Absolute Neutrophil Count 11.8 X10^3/uL (2.0-7.7); Eosinophil# 0.08 X10^3/uL; Eosinophils% 0.6 % (0-5); Hematocrit 41.8 % (40-54); Hemoglobin 13.2 g/dL (13.0-16.5); Lymphocyte # 0.67 X10^3/ul (0.83-4.51); Lymphocyte % 4.9 % (19-41); Mean Corp Hgb Conc 31.6 g/dL (32-36); Mean Corpuscular Hgb 29.5 pg (27.0-32.0); Mean Corpuscular Volume 93.5 fL (80-94); Mean Platelet Vol. 9.5 fl (6.2-12.0); Monocyte# 0.54 X10^3/uL; NRBC Flagged by Analyzer 0 % (0-5); Neutrophil # 11.79 X10^3/uL (2.7-7.7); Neutrophil % 86.3 % (47-70); POSITIVE MORPHOLOGY YES; Platelet Count 249 K/mm3 (150-450); RBC Distribution Width CV 13.2 % (11.6-14.6); RBC Distribution Width SD 45.5 fl (35.1-43.9); Red Blood Count 4.47 M/mm3 (4.6-6.2); White Blood Count 13.7 K/mm3 (4.4-11.0)
[2021-07-04 06:57] LABS: Differential Indicated SCAN CRITERIA MET
[2021-07-04 07:10] LABS: Bedside Glucose 303 mg/dL (70-110)
[2021-07-04 07:19] LABS: Anion Gap 14 (5-15); BUN 25 mg/dL (7-18); BUN/Creat Ratio 37.7 RATIO (10-20); Calcium,Total 8.8 mg/dL (8.5-10.1); Chloride 106 mmol/L (98-107); Creatinine, Serum 0.66 mg/dL (0.70-1.30); EST Glomerular Filtration Rate 128 mL/min (>60); Est Glom Filt Rate - Afr Amer 155 mL/min (>60); Estimated Creatinine Clearance 116.75 ml/min; Glucose 328 mg/dL (74-106); Potassium 3.6 mmol/L (3.5-5.1); Sodium Level 139 mmol/L (136-145)
[2021-07-04] MEDS: Insulin Lispro 100 UNIT/ML INSULN.PEN SC ×4 (07:39→20:59)
--- NOTE | 2021-07-04 08:00 | ECHOTEE_ITS ---
Reason For Study: BACTEREMIA Medication PRIYA probe 6VT-D (SN [id number]) passed without difficulty. No complications were noted. Cetacaine Topical Maybeury given X3 orally. Versed 2 mg given slow IVP. Fentanyl 50 mcg given slow IVP. Performed a rapid injection of agitated mix of 9 cc saline and 1cc air to assess for atrial septal defect. Left Ventricle Normal LV size. Left ventricular systolic function is normal. The estimated ejection fraction is 60 %. No regional wall motion abnormalities noted. Right Ventricle Normal right ventricle. Normal systolic function. The right ventricular wall motion is normal. Atria Patent foramen ovale. The left atrium is mildly enlarged. No thrombus is detected in the left atrial appendage. Normal right atrium. Mitral Valve Bileaflet diffuse mitral valve thickening. Mild (1+) mitral valve insufficiency. Tricuspid Valve Normal tricuspid valve. Aortic Valve Normal aortic valve. Trisinus/trileaflet aortic valve. Pulmonic Valve Normal pulmonic valve. Vessels Normal aortic root. Pericardium No pericardial effusion. ECHO/Echo Transesophageal (PRIYA) Interpretation Summary Normal LV size. Left ventricular systolic function is normal. The estimated ejection fraction is 60 %. Patent foramen ovale. No vegetations seen Ordering Physician: Roberto Carlos Ceballos Performed By: Kelli Redd, RDCS, RVT
[2021-07-04] MEDS: Enoxaparin 40 MG/0.4 ML Syringe SC (10:00)
[2021-07-04] MEDS: Senna/Docusate Sodium 1 Tablet 2 TABLET PO ×2 (10:00→20:58)
[2021-07-04] MEDS: Furosemide 40 MG/4 ML Vial IV (10:41)
[2021-07-04 12:05] LABS: Bedside Glucose 340 mg/dL (70-110)
--- NOTE | 2021-07-04 12:44 | EKG12_ITS ---
Test Reason : TACH Blood Pressure : / mmHG Vent. Rate : 123 BPM Atrial Rate : 123 BPM P-R Int : 124 ms QRS Dur : 078 ms QT Int : 368 ms P-R-T Axes : 033 -07 022 degrees QTc Int : 526 ms Sinus tachycardia Nonspecific ST abnormality Abnormal ECG When compared with ECG of 04-JUL-2009 10:36, T wave inversion no longer evident in Inferior leads Nonspecific T wave abnormality no longer evident in Anterolateral leads Confirmed by SILVIA ARTHUR, SUZANNE ([id number]), purchasing expeditor PADMAJA PALACIOS ([id number]) on 07/08/2021 9:45:16 AM Referred By: HAIM Confirmed By:SUZANNE VEGA MD
--- NOTE | 2021-07-04 13:33 | PN.HOSP_ITS ---
Subjective Subjective Patient seen and examined. He tells me today that he developed blisters on his left elbow with some redness around the area. He also has some swelling of his left upper extremity. Patient also noted to be tachycardic episodically and EKG showed sinus tachycardia. He has otherwise remained hemodynamically stable. Objective Data Objective Data Vital Signs: Vital Signs Temp Pulse Resp BP Pulse Ox 98.4 F 114 H 24 H 160/83 H 97 07/04/21 09:40 07/04/21 09:40 07/04/21 09:40 07/04/21 09:40 07/04/21 10:40 Oxygen Flow Rate (L/min) 2 Oxygen Delivery Method Room Air Weight: 252 lb 13.923 oz Body Mass Index (BMI) 34.8 Intake & Output: Intake and Output for Last 24 Hours 07/02/21 07/03/21 07/04/21 23:59 23:59 23:59 Intake Total 2608.75 / 2608.75 1031.25 / 1031.25 110 / 110 Output Total 1400 / 1400 500 / 500 Balance 1208.75 / 1208.75 1031.25 / 1031.25 -390 / -390 Lab / Micro Data Result Diagrams: 07/04/21 05:45 07/04/21 05:45 Labs: Laboratory Results - last 24 hr 07/03/21 16:55: POC Glucose 365 H 07/03/21 22:48: POC Glucose 338 H 07/04/21 05:45: WBC 13.7 H, RBC 4.47 L, Hgb 13.2, Hct 41.8, MCV 93.5, MCH 29.5, MCHC 31.6 L, RDW Std Deviation 45.5 H, RDW Coeff of Jennifer 13.2, Plt Count 249, MPV 9.5, Immature Gran % (Auto) 4.200 H, Neut % (Auto) 86.3 H, Lymph % (Auto) 4.9 L, [place] % (Auto) 4.0, Eos % (Auto) 0.6, Baso % (Auto) 0.0, Absolute Neuts (auto) 11.8 H, Absolute Lymphs (auto) 0.67 L, Nucleated RBC % 0 07/04/21 05:45: Sodium 139, Potassium 3.6, Chloride 106, Carbon Dioxide 19.0 L, Anion Gap 14, BUN 25 H, Creatinine 0.66 L, Estim Creat Clear Calc 116.75, Est GFR (MDRD) Af Amer 155, Est GFR (MDRD) Non-Af 128, BUN/Creatinine Ratio 37.7 H, Glucose 328 H, Calcium 8.8 07/04/21 07:04: POC Glucose 303 H 07/04/21 12:00: POC Glucose 340 H Micro: Microbiology 07/03/21 11:53 Blood Culture (Wb) - Anticubital Left Blood Culture - Preliminary 06/30/21 22:48 Blood Culture (Wb) - Venous Bacteria Detection (PCR) - Final Staphylococcus aureus 06/30/21 22:48 Blood Culture (Wb) - Venous Blood Culture - Final Staphylococcus aureus 06/30/21 22:34 Blood Culture (Wb) - Venous Blood Culture - Final Staphylococcus aureus 07/01/21 11:05 Mucosa - Nose SARS-CoV-2 Antigen (Rapid) - Final Radiography Diagnostic Testing: Radiology Impression Transesophageal Echocardiogram 07/04/21 08:00 Interpretation Summary Normal LV size. Left ventricular systolic function is normal. The estimated ejection fraction is 60 %. Patent foramen ovale. No vegetations seen Ordering Physician: Roberto Carlos Ceballos Performed By: Kelli Redd, RUBY, RVT Physical Exam Const alert, oriented x3 and no apparent distress Exam Limitations: no limitations Nutritional Appearance: obese HEENT head/scalp atraumatic Head and Scalp: normocephalic Eyes PERRL, EOMs intact bilaterally and conjunctivae normal Neck no lymphadenopathy, supple and no JVD Resp normal respiratory effort, no retractions, no use of accessory muscles and clear to auscultation bilaterally Cardio regular rhythm, S1 normal heart sound and S2 normal heart sound Cardio Narrative: grade 2-3 systolic murmur loudest at the mitral valve area, tachycardic. GI normal to inspection, nondistended, normoactive bowel sounds, soft to palpation, non-tender and non-distended Extremity normal to inspection and no clubbing, cyanosis or edema Extremity Narrative: has mild pain with attempted rotation and abduction, as well as elevation of the RUE at the shoulder joint. Skin no rashes or lesions noted and no wounds Skin Narrative: has erythema and induration over right elbow, with healing scabbed wound over area. has small blisters over left elbow, with mild erythema and swelling of left forearm Neuro oriented x3, CN's II-XII intact bilaterally and moves all extremities Sensorium / Orientation: awake and alert Psych affect normal Assessment & Plan Assessment/Plan (1) DKA (diabetic ketoacidosis): QUALIFIERS: Diabetes mellitus type: type 2 Diabetes mellitus complication detail: without coma Qualified Code(s): E11.10 - Type 2 diabetes mellitus with ketoacidosis without coma (2) Bacteremia: PLAN: #DKA * in a known diabetic due to noncompliance. * resolved. * now on SC insuin 10 units daily, and high dose ISS. * A1C is 12.7 * counseled on compliance with insulin. * #Bacteremia * blood cultures came back positive for staph aureus-2/2 samples. * 2D echo:EF of 65%, with normal LV size, wall motion and systolic function. Unable to assess diastolic dysfunction. No evidence of endocarditis * on IV vancomycin * ID on board * MRI of the right shoulder showed a moderate to large shoulder joing effusion which is commonly degenerative, but in setting of bacteremia, infection cannot be excluded. * had an unsuccessful bedside aspiration today by orthopedics;aspiration by radiology was also unsuccessful. * now says he had spider bites about 3 weeks ago. Seems to have an indurated area over the right elbow which is improving; orthopedics on board * now has small blisters on the left elbow, with mild erythema and swelling. * remains on IV vancomycin. * to have PRIYA today: PRIYA done and was negative for any evidence of endocarditis * #Right shoulder pain * etiology not clear. * as above under bacteremia * has large right shoulder effusion. management as above * tylenol prn * orthopedic surgery on board * #Sinus tachycardia * HR has been in the 110s, and EKG showed sinus tachycardia * 2D echo : EF of 65%, with normal LV size, wall motion and systolic function * will start on PO metoprolol 25mg daily. * patient has been receiving lovenox daily, and denies any chest pain or shortness of breath * will check orthostatics * s DVT prophylaxis: lovenox Charges/Coding Visit Charges Inpatient E&M: 83689 Subs Hosp L3
[2021-07-04] MEDS: 0.9% Saline Lock 10 ML Syringe IV (13:43)
[2021-07-04] MEDS: Ibuprofen 600 MG Tablet PO ×2 (13:48→21:08)
--- NOTE | 2021-07-04 13:59 | PCM.PN.ID ---
Physical Exam Narrative Feeling ok, shoulder is sore. No fever. Had PRIYA without issue. Const alert General Appearance: cooperative Resp normal air movement and clear to auscultation bilaterally Cardio regular rate and regular rhythm GI normal to inspection, nondistended, normoactive bowel sounds Extremity no clubbing, cyanosis or edema Skin Skin Narrative: No swelling in R shoulder. mild swelling R elbow ID ID: Route of nutrition/ use of supplements: [] Nutritional Intake: [] IV Site: [] Aguirre Catheter: [] Assessment & Plan Assessment/Plan (1) Bacteremia: (2) DKA (diabetic ketoacidosis): QUALIFIERS: Diabetes mellitus type: type 2 Diabetes mellitus complication detail: without coma Qualified Code(s): E11.10 - Type 2 diabetes mellitus with ketoacidosis without coma (3) Sepsis: PLAN: sepsis due to MSSA bacteremia with DKA, uncontrolled DM, heart murmur. Suspected source is R elbow infection. No splinter hemorrhages on his hands. Seen by ortho, low suspicion for septic arthritis in shoulder, had attempted aspiration. Pt now recalls several weeks ago with inflammation and heavy purulence from R elbow. Non tender on exam, but is fluctuant over olecranon. Recommend ortho re-eval of that elbow to see if any role for drainage. No veg seen on PRIYA. Cont cefazolin while inpatient, ok for home on po linezolid for 2 week course, wrote rx, ID followup in 2 weeks. Will follow, d/w Dr. Bush
[2021-07-04 14:30] LABS: Thyroid Stim Hormone (TSH) 0.66 uIU/mL (0.358-3.74)
[2021-07-04] MEDS: Metoprolol(XL)Succ 25 MG Tablet PO (15:36)
[2021-07-04 17:06] LABS: Bedside Glucose 408 mg/dL (70-110)
[2021-07-04] MEDS: MELATONIN 3 MG TABLET PO (20:58)
[2021-07-04 21:11] LABS: Bedside Glucose 368 mg/dL (70-110)
--- NOTE | 2021-07-04 21:22 | PCM.HOSP.N ---
Hospitalist Note Patient per discussion with staff with + GC cluster presumed staph earlier in the shift with repeat cultures sent. These are also demonstrating already + GC cluster. Patient on ancef. Will d/c and transition to vancomycin to be cautious.
[2021-07-05] VITALS (9 sets, daily range): BP systolic 104–131; BP diastolic 66–78; PULSE 91–116; RESP 18; TEMP 35.8–37.1; O2SAT 96–98
[2021-07-05] MEDS: Cefazolin 2 GM in 0.9% Normal Saline 100 ML IV ×2 (05:40→13:23)
[2021-07-05] MEDS: 0.9% Saline Lock 10 ML Syringe IV (05:41)
[2021-07-05 05:46] LABS: Hematocrit 40.8 % (40-54); Hemoglobin 13.1 g/dL (13.0-16.5); Mean Corp Hgb Conc 32.1 g/dL (32-36); Mean Corpuscular Hgb 29.6 pg (27.0-32.0); Mean Corpuscular Volume 92.3 fL (80-94); Mean Platelet Vol. 9.4 fl (6.2-12.0); POSITIVE COUNT YES; POSITIVE MORPHOLOGY YES; Platelet Count 221 K/mm3 (150-450); RBC Distribution Width CV 13.2 % (11.6-14.6); RBC Distribution Width SD 45.1 fl (35.1-43.9); Red Blood Count 4.42 M/mm3 (4.6-6.2); White Blood Count 14.9 K/mm3 (4.4-11.0)
[2021-07-05 06:06] LABS: Differential Indicated MANUAL DIFF
[2021-07-05 06:13] LABS: Anion Gap 9 (5-15); BUN 23 mg/dL (7-18); BUN/Creat Ratio 34.1 RATIO (10-20); Calcium,Total 8.7 mg/dL (8.5-10.1); Chloride 105 mmol/L (98-107); Creatinine, Serum 0.68 mg/dL (0.70-1.30); EST Glomerular Filtration Rate 126 mL/min (>60); Est Glom Filt Rate - Afr Amer 152 mL/min (>60); Estimated Creatinine Clearance 113.32 ml/min; Glucose 370 mg/dL (74-106); Sodium Level 136 mmol/L (136-145)
[2021-07-05] MEDS: Insulin Lispro 100 UNIT/ML INSULN.PEN SC ×2 (06:30→11:57)
[2021-07-05 06:35] LABS: Bedside Glucose 315 mg/dL (70-110)
[2021-07-05 06:49] LABS: Lymphocyte 3 % (19-41); Metamyelocyte 2 % (0-1); Monocyte 1 % (0-10); Neutrophil-Band 8 % (0-5); Neutrophil-Segmented 86 % (47-70); Total Cells Counted 100 (MANUAL DIFF)
[2021-07-05 06:50] LABS: Absolute Lymphocyte Count 0.45 X10^3/uL (0.83-4.51); Absolute Neutrophil Count 14.3 X10^3/uL (2.0-7.7); Lymphocyte # 0.45 X10^3/ul (0.83-4.51)
[2021-07-05 06:51] LABS: Differential Comment SCANNED; Platelet Estimate ADEQUATE (ADEQ)
[2021-07-05 06:52] LABS: Red Cell Morphology NORM C+C NORMAL (NORM C&C)
--- NOTE | 2021-07-05 08:32 | RAD_ITS ---
STUDY: X-RAY - LEFT WRIST REASON FOR EXAM: Male, 66 years old. Swelling and pain. TECHNIQUE: 2 view(s) of the wrist were obtained. COMPARISON: None. FINDINGS: Osteopenia. Mild arthrosis of the radiocarpal and radioulnar joints. Moderate arthrosis of the radial carpal row. Moderate arthrosis of the first CMC joint. The soft tissue structures are unremarkable. RAD/Wrist 2 Views IMPRESSION: Osteopenia with osteoarthritic changes as described. No acute abnormality, erosive changes or periostitis. Electronically Signed: Jonathan Clark MD at 11:10 EDT , Service support ,
[2021-07-05] MEDS: Potassium Chloride Oral Tablet 20 MEQ 60 MEQ PO (09:13)
[2021-07-05] MEDS: Enoxaparin 40 MG/0.4 ML Syringe SC (09:14)
[2021-07-05] MEDS: Senna/Docusate Sodium 1 Tablet 2 TABLET PO (09:14)
[2021-07-05] MEDS: Metoprolol(XL)Succ 25 MG Tablet PO (09:15)
[2021-07-05 11:55] LABS: Bedside Glucose 370 mg/dL (70-110)
--- NOTE | 2021-07-05 12:38 | CASEMGMT ---
This RN CM to room as therapy is stating he is a max assists 1-2. Per MAT WORKER/daughter, pt was able to get up to bathroom with 1 assist. This RN CM to room and pt states plan is to go home and declines any further therapy at this time. Pt/daughter voice no further questions/concerns/needs. Per daughter, pt's is setting up appt with PCP and they are aware to call PCP once established for any further therapy/concerns, voice understanding. Dr. Bush/Blaine POLK updated, voice understanding. Billy RN CM
--- NOTE | 2021-07-05 13:00 | DS.PCM_ITS ---
Providers Date of Admission: 06/30/21 Primary Care Physician: Le[facility] Consultations 07/01/21 09:44 Consult: Infectious Disease Routine Consulting Provider: Roberto Carlos Ceballos Reason for Consult: positive blood cultures EMERGENT Consult: No Notified: Yes Date Notified: 07/01/21 Time Notified: 09:44 Method of Notification: Verbal 07/01/21 10:13 Consult: Orthopedics Routine Consulting Provider: [facility] Reason for Consult: R shoulder suspected septic arthritis with bacteremia EMERGENT Consult: No Notified: Yes Date Notified: 07/01/21 Time Notified: 12:05 Method of Notification: Page Reason For Visit: DKA Diagnosis Discharge Diagnosis (1) DKA (diabetic ketoacidosis): Status: Acute Code(s): E11.10 - Type 2 diabetes mellitus with ketoacidosis without coma Qualifiers: Diabetes mellitus complication detail: without coma Diabetes mellitus type: type 2 Qualified Code(s): E11.10 - Type 2 diabetes mellitus with ketoacidosis without coma (2) Bacteremia: Status: Acute Code(s): R78.81 - Bacteremia (3) Sepsis: Status: Acute Code(s): A41.9 - Sepsis, unspecified organism Medications at Discharge Home Medications linezolid 600 mg PO BID #28 tab 07/04/21 insulin admin supplies #1 ea 07/05/21 insulin glargine [Lantus Solostar U-100 Insulin] 10 unit SUBCUT BID #15 ml 07/05/21 metformin 1,000 mg PO BID #60 tab 07/05/21 metoprolol succinate 25 mg PO DAILY #30 tab 07/05/21 potassium chloride 20 meq PO DAILY #10 tab 07/05/21 Hospital Course Procedures 2-D Echocardiogram, Transesophageal Echo and - Summary of Care Provided Minutes Spent on Discharge: 45 Hospital Course: Mr Marin is a 66 y/o M with a PMH of type 2 diabetes mellitus who was admitted with a complaint of persistent constipation. He had associated fatigue, anorexia, polyuria and polydipsia. He went to an urgent care center and was referred to the ED. He had been on metformin but he quit taking it. CT of the abdomen and pelvis was negative for any evidence of intra abdominal pathology. On admission, he was found to be in DKA with elevated anion gap and low bicarb levels. Sodium was also low, but was normal when corrected. He was initially admitted to the ICU and managed for DKA. He was started on insulin drip and hydrated with IVF. Anion gap subseqeuntly closed. Blood cultures obtained grew staph aureus in 2/2 samples. Infectious disease was then consulted and 2D echo was ordered which was negative for any evidence of infective endocarditis. Patient then complained of right shoulder pain, so orthopedics was consulted due to concerns about septic arthritis of the left shoulder. Xray of the right shoulder showed mild acromioclavicular joint arthrosis, and MRi of the right shoulder supraspinatus and subscapularis tendinosis with possible partial thickness distal supraspinatus articular surface tear, and subacromial subdeltoid bursitis, with moderate to large joint shoulder effusion. Orthopedics attempted joint aspiration, but this was unsuccessful. Radiology also attempted joint aspiration, but was also unsuccessful. Patient was started on IV vancomycin. PRIYA was also done and showed EF of 60%, with normal LV size, with patent foramen ovale and no vegetations and normal LV size. Patient also subsequently developed some blisters on his left elbow. Repeat blood culture still grew staph aureus. He was started on SC insulin 10 units daily, which was increased to 10 units bid. He remained stable and was discharged home on PO xyvox for 2 weeks, as per ID recommendation. He is to follow up with ID in 1-2 weeks, and also to follow up with his PCP. He was discharged on lantus 10 units bid and metformin 1000mg bid. He was referred to [facility] as well, o/a of a1C of 12.7. Physical Exam Const alert, oriented x3 and no apparent distress General Appearance: cooperative and comfortable Orientation / Consciousness: awake Exam Limitations: no limitations Nutritional Appearance: obese HEENT normocephalic, head/scalp atraumatic, hearing grossly normal bilaterally and moist oral mucous membranes Eyes PERRL, EOMs intact bilaterally and conjunctivae normal Neck no lymphadenopathy, supple and no JVD Resp normal respiratory effort, no retractions, no use of accessory muscles and clear to auscultation bilaterally Cardio regular rate, regular rhythm, S1 normal heart sound and S2 normal heart sound Cardio Narrative: grade 2-3 systolic murmur loudest at the mitral valve area GI normal to inspection, nondistended, normoactive bowel sounds, soft to palpation, non-tender and non-distended Extremity normal to inspection and no clubbing, cyanosis or edema Extremity Narrative: left shoulder pain has improved. Skin no rashes or lesions noted and no wounds Skin Narrative: has erythema and induration over right elbow, with healing scabbed wound over area. has small blisters over left elbow, with mild erythema and swelling of left forearm Neuro oriented x3, CN's II-XII intact bilaterally and moves all extremities Sensorium / Orientation: awake and alert Psych affect normal Weight / BMI Weight Weight: 252 lb 13.923 oz Body Mass Index (BMI) 34.8 ABG / Lab / Microbiology Data Result Diagrams: 07/05/21 05:26 07/05/21 05:26 Laboratory: Laboratory Results - last 24 hr 07/04/21 05:45: TSH 0.66 07/04/21 16:58: POC Glucose 408 H 07/04/21 20:56: POC Glucose 368 H 07/05/21 05:26: WBC 14.9 H, RBC 4.42 L, Hgb 13.1, Hct 40.8, MCV 92.3, MCH 29.6, MCHC 32.1, RDW Std Deviation 45.1 H, RDW Coeff of Jennifer 13.2, Plt Count 221, MPV 9.4, Neut % (Auto) Not Reportable, Absolute Neuts (auto) 14.3 H, Absolute Lymphs (auto) 0.45 L, Total Counted 100, Neutrophils % (Manual) 86 H, Band Neutrophils % 8 H, Lymphocytes % (Manual) 3 L, Monocytes % (Manual) 1, Metamyelocytes % 2 H, Differential Comment SCANNED, Diff Path Review May foll, Platelet Estimate ADEQUATE, RBC Morphology NORM C+C 07/05/21 05:26: Sodium 136, Potassium 3.0 L, Chloride 105, Carbon Dioxide 22.0, Anion Gap 9, BUN 23 H, Creatinine 0.68 L, Estim Creat Clear Calc 113.32, Est GFR (MDRD) Af Amer 152, Est GFR (MDRD) Non-Af 126, BUN/Creatinine Ratio 34.1 H, Glucose 370 H, Calcium 8.7 07/05/21 06:27: POC Glucose 315 H 07/05/21 11:51: POC Glucose 370 H Microbiology: Microbiology 07/02/21 19:28 Blood Culture (Wb) - Anticubital Right Blood Culture - Preliminary 07/03/21 11:53 Blood Culture (Wb) - Anticubital Left Blood Culture - Pr eliminary 06/30/21 22:48 Blood Culture (Wb) - Venous Bacteria Detection (PCR) - Final Staphylococcus aureus 06/30/21 22:48 Blood Culture (Wb) - Venous Blood Culture - Final Staphylococcus aureus 06/30/21 22:34 Blood Culture (Wb) - Venous Blood Culture - Final Staphylococcus aureus 07/01/21 11:05 Mucosa - Nose SARS-CoV-2 Antigen (Rapid) - Final Radiography Diagnostic Testing: Radiology Impression Wrist X-Ray 07/05/21 08:32 IMPRESSION: Osteopenia with osteoarthritic changes as described. No acute abnormality, erosive changes or periostitis. Electronically Signed: Jonathan Clark MD at 11:10 EDT , Service support , D/C Instructions Discharge Diet: Low fat / Low cholesterol and 1800 Calorie Control Diet Discharge Activity: Return to Normal Activity Weight Bearing Status: Weight bearing as tolerated Meaningful Use Info Meaningful Use Diagnoses (Choose all that apply): None applicable Discharge Plan Admission Admit Date/Time: 06/30/21 22:51 Primary Reason for Your Visit: DKA, YINKA, staph bacteremia Attending Provider: Martine Bush Primary Care Provider: Care Physician,No Primary Consulting Providers: Roberto Carlos Ceballos ; Yan Raymond ; David Haddad ; Yoni Hammonds ; Donavan Mcclain ; Master Cagle ; Jose Luis Mcclain ; Jaimee Paez ; Abby Mcdowell ; Celio Kowalski ; Jonathan Adair Instructions Patient Instructions: Diabetes: Activity Tips, Diabetes Exercise Plan, Rotator Cuff Tendon Tear, ED Bacteremia, Suspected (Adult) Discharge Orders/Prescriptions Prescriptions: New linezolid 600 mg tablet 600 mg PO BID Qty: 28 RF: 0 metoprolol succinate 25 mg tablet extended release 24 hr 25 mg PO DAILY Qty: 30 RF: 1 metformin 1,000 mg tablet 1,000 mg PO BID Qty: 60 RF: 1 Lantus Solostar U-100 Insulin 100 unit/mL (3 mL) insulin pen 10 unit subcut BID Qty: 15 RF: 1 (DME) insulin admin supplies Insulin Pen See Rx Instructions .ROUTE .MEDSUPPLY Qty: 1 RF: 0 potassium chloride 20 mEq tablet extended release 20 meq PO DAILY Qty: 10 RF: 0 Referrals / Follow Up: Vamsi García DO [STAFF PHYSICIAN] - Within 2 Weeks Roberto Carlos Ceballos MD [STAFF PHYSICIAN] - Within 1 Week Fredo Springer MD [STAFF PHYSICIAN] - Within 2 Weeks Care Physician,No Primary [Primary Care Provider] - Disposition Disposition (needs filled in before D/C Order can be placed): Home, Self Care Charges/Coding Visit Charges Inpatient E&M: 98735 Disch Hosp
[2021-07-07 14:03] LABS: Pathologist Review Reviewed
== END 2021-07-05 15:22 | disposition home or self-care (01) | DRG 871 ==
LOC: ED 22:51 → ICU 07-01 04:56 → PCU 07-01 16:47
PROVIDERS: Internal Medicine Infectious Disease; Admitting Provider Hospitalist; Emergency Provider Emergency Medicine; Visit Provider Student in an Organized Health Care Education/Training Program
DX: A41.01 Sepsis due to Methicillin susceptible Staphylococcus aureus (principal); E11.10 Type 2 diabetes mellitus with ketoacidosis without coma; N17.9 Acute kidney failure, unspecified; M19.011 Primary osteoarthritis, right shoulder; K59.00 Constipation, unspecified; R01.1 Cardiac murmur, unspecified; F17.290 Nicotine dependence, other tobacco product, uncomplicated; S46.011A Strain of muscle(s) and tendon(s) of the rotator cuff of right shoulder, initial encounter; W18.30XA Fall on same level, unspecified, initial encounter; Y93.9 Activity, unspecified; Y92.9 Unspecified place or not applicable; Y99.9 Unspecified external cause status; Z91.19 Patient's noncompliance with other medical treatment and regimen; R00.0 Tachycardia, unspecified; S50.322A Blister (nonthermal) of left elbow, initial encounter; X58.XXXA Exposure to other specified factors, initial encounter
CPT/HCPCS: 20610; 36415; 70030; 73030; 73100; 73221; 74177; 77002; 80048; 80053; 80202; 81001; 82009; 82803; 82962; 83036; 83605; 84443; 85025; 87040; 87077; 87149; 87186; 87426; 93005; 93306; 93312; 93320; 93325; 97110; 97162; 97166; 97530; 97535; 97802; 97803; 99284; 99406; J7030; J7040; J7050; Q9967; A4216; J1940; J7799

== ENCOUNTER 2021-07-16 10:32 | Inpatient (IN) | payer BC, SELFPAY ==
[2021-07-16] VITALS (13 sets, daily range): BP systolic 109–125; BP diastolic 61–81; PULSE 89–102; RESP 18–21; TEMP 36.5–37; O2SAT 91–97; BMI 34.2; BMI 33.1
--- NOTE | 2021-07-16 10:58 | CT_ITS ---
STUDY: CT ABDOMEN AND PELVIS WITH CONTRAST REASON FOR EXAM: 66-year-old male patient with history of periumbilical abscess., RADIATION DOSAGE (If Supplied By Facility): CTDIvol = ( 16 ) mGy, DLP = ( 1245.35 ) mGycm TECHNIQUE: Transaxial images were obtained from the dome of the diaphragm to the symphysis pubis without oral contrast. IV 100mL Isovue-300 was administered. Sagittal and coronal images were reconstructed. Individualized dose optimization techniques were used for this CT. COMPARISON: Comparison is made with prior study 06/30/2021. FINDINGS: The visualized lung bases are unremarkable. The visualized portions of the heart are within normal limits. Normal liver. Normal gallbladder and extrahepatic biliary system. Normal spleen. There is diffuse atrophy of the pancreas. Normal bilateral adrenal glands. Normal right kidney. Normal left kidney. Normal visualized stomach. Normal small intestine. Normal colon. The appendix is visualized and appears normal. There is diffuse atherosclerotic calcification of the abdominal aorta, without a demonstrated aneurysm. Normal inferior vena cava. Normal retroperitoneum. Normal urinary bladder. The patient is status post ventral hernia repair with a mesh. Deep to the umbilicus, there is evidence of a 5.3 cm x 1.8 cm inflammatory process with a tiny fluid collection. Increased markings are seen in the anterior subcutaneous fat caudally. Overlying skin thickening. Normal osseous structures. CT/Abdomen/Pelvis W IV Cont ONLY IMPRESSION: Status post anterior ventral hernia repair with postoperative changes and small fluid collection as described. This may represent increased tiny periumbilical abscess secondary to the surgery. Electronically Signed: Chandan Martínez MD at 11:37 EDT , Service support ,
--- NOTE | 2021-07-16 11:04 | EDS_ITS ---
HPI History of Present Illness Chief Complaint: Wound Detail of Chief Complaint: Pus from bellybutton. Bilateral leg swelling Informant: patient and family Onset/Context/Timing Onset: Days Context: Gradual Onset Timing: Continuous Current Severity: Mild Maximum Severity: Mild Narrative Narrative: 66-year-old male recent admission in the last 2 weeks for diabetes complications etc. He has been home several days and has developed pus draining from his bellybutton and swelling to both lower extremities. He denies any history of congestive heart failure or kidney failure. He denies any nausea, vomiting or diarrhea. He denies any fever. He denies any shortness of breath. Prior similar symptoms: No Recent Illness/Hospitalization: Yes [facility] Medical History Diabetes mellitus, type 2 Open wound of both legs with complication Home Medications linezolid 600 mg PO BID #28 tab 07/04/21 [Rx Last Taken 07/16/21] insulin glargine [Lantus Solostar U-100 Insulin] 10 unit SUBCUT BID #15 ml 07/05/21 [Rx Last Taken 07/16/21] metformin 1,000 mg PO BID #60 tab 07/05/21 [Rx Last Taken 07/16/21] metoprolol succinate 25 mg PO DAILY #30 tab 07/05/21 [Rx Last Taken 07/16/21] potassium chloride 20 meq PO DAILY #10 tab 07/05/21 [Rx Last Taken 07/15/21] magnesium salicylate-caffeine [Diurex] 2 tab PO DAILY 07/16/21 [History Last Taken 07/16/21] Allergy/AdvReac Type Severity Reaction Status Date / Time acetaminophen [From Tylenol] Allergy Hives Verified 07/16/21 10:43 Family History Other Diabetes Pulmonary disease Surgical History H/O hernia repair History of skin graft Social History Smoking Status: Current some day smoker tobacco type: cigars ROS ROS ED ROS Narrative Leg swelling. Review of Systems ROS Unobtainable: Denies due to encephalopathy Constitutional Constitutional ED: Denies chills or fever(s) Eyes Eyes: Denies change in vision ENT ENT ED: Denies ear pain Cardiovascular Cardiovascular: Denies chest pain Respiratory/Chest Respiratory/Chest: Denies cough or dyspnea Gastrointestinal Gastrointestinal: Denies abdominal pain, diarrhea, nausea or vomiting Genitourinary Genitourinary ED: Denies dysuria Musculoskeletal Musculoskeletal: Denies myalgias Integumentary Denies rash Neurologic Neurologic: Denies headache(s) Psychiatric Psychiatric: Denies depression Endocrine Endocrinology: Denies polyuria Allergic/Immunologic Allergic/Immunologic ED: Denies urticaria EXAM Physical Exam Narrative Exam Narrative: 6 volume out no acute distress. Vital signs stable afebrile. He does not look septic or toxic. He is in no acute distress. HEENT exam unremarkable. Lungs clear to auscultation. Heart regular rhythm no murmur. Abdomen soft nontender nondistended normal bowel sounds no peritoneal signs. Obese. He has a firm area along his umbilicus and malcolm pus coming from his umbilicus is suspect his abdominal wall abscess. Moving all 4 extremities. 1+ pitting edema both lower extremities. Neurologically is awake and alert moving all his extremities. Answering questions and following commands. Const Vital Signs: 07/16/21 10:36 07/16/21 10:39 07/16/21 12:39 Temperature 97.7 F L 97.7 F L 97.9 F Temperature Source Oral Oral Oral Pulse Rate 93 97 91 Respiratory Rate 20 H 18 20 H Blood Pressure 121/61 H 121/61 H 117/71 Blood Pressure Mean 81 81 86 Pulse Ox 94 95 97 Oxygen Delivery Method Room Air Room Air Room Air 07/16/21 13:27 07/16/21 14:10 Temperature 98.2 F Temperature Source Oral Pulse Rate 102 H 90 Respiratory Rate 18 19 H Blood Pressure 122/74 H 125/81 H Blood Pressure Mean 90 95 Pulse Ox 96 97 Oxygen Delivery Method Room Air Room Air Positive well nourished, well developed and obese; Negative for cachectic, contractures or unkempt General Appearance ED: well developed and NAD; Negative for unkempt, cachectic or contractures Nutritional Appearance: obese; Negative for cachectic HEENT Reports moist mucous membranes Negative for trauma or tenderness Eyes PERRL and EOMs intact bilaterally Neck no lymphadenopathy, supple and no JVD General: Negative for tenderness Chest Wall inspection of chest normal and palpation of chest normal Resp normal respiratory effort and clear to auscultation bilaterally Auscultation: Negative for rales or rhonchi Cardio regular rate, regular rhythm, S1 normal heart sound, S2 normal heart sound and no murmurs GI normal to inspection, nondistended, normoactive bowel sounds, non-tender and non-distended GI Narrative: Pus draining from his umbilicus and a area to the left of his umbilicus that may be a subcu abscess. No peritoneal signs. No redness. Auscultation: normoactive bowel sounds Palpation: soft Back/Spine Negative for no CVA tenderness Extremity Negative for normal to inspection General Extremety ED: Yes edema General Extremity: edema Neuro oriented x3 Sensorium / Orientation: alert Motor Exam: strength 5/5 throughout Psych mental status grossly normal Appearance: Negative for unkempt Skin no rashes or lesions noted and no wounds MDM MDM MDM Narrative Medical decision making narrative: Order diabetic male with bilateral lower extremity edema and also malcolm pus from his bellybutton that may be from an abscess. CAT scan labs being obtained. Cultures were sent from the abdominal wall abscess. I did do a rectal exam and stool looked primarily brown at this time it was not black and there is no gross blood currently. I evaluated his old echocardiogram and within the last several weeks his EF was 60%. I have the hospitalist on page for evaluation for rule out GI bleed, abdominal wall abscess and surgical evaluation and lower extremity edema. Also the patient is hyperglycemic with known diabetes. Lab Data Attestation: I reviewed the patient's lab results. Lab results narrative: CBC shows white count 7.7. Hemoglobin 11.6. Electrolytes sodium low at 129. Gap of 9 creatinine 1.1 glucose 419 he is diabetic. Most recent CBC showed hemoglobin of 13.1. Labs: Laboratory Results - last 24 hr 07/16/21 07/16/21 10:54 10:54 WBC 7.7 RBC 3.84 L Hgb 11.6 L Hct 35.9 L MCV 93.5 MCH 30.2 MCHC 32.3 RDW Std Deviation 46.5 H RDW Coeff of Jennifer 13.7 Plt Count 262 MPV 8.2 Immature Gran % (Auto) 0.500 Neut % (Auto) 85.6 H Lymph % (Auto) 8.6 L [place] % (Auto) 5.1 Eos % (Auto) 0.1 Baso % (Auto) 0.1 Absolute Neuts (auto) 6.6 Absolute Lymphs (auto) 0.66 L Nucleated RBC % 0 Sodium 129 L Potassium 5.1 Chloride 97 L Carbon Dioxide 23.0 Anion Gap 9 BUN 35 H Creatinine 1.15 Estim Creat Clear Calc 67.00 Est GFR (MDRD) Af Amer 82 Est GFR (MDRD) Non-Af 68 BUN/Creatinine Ratio 30.4 H Glucose 419 H Calcium 8.6 Radiography Chest X-Ray - ED: 1 View, Read by ED Physician, Heart, Lungs, Mediastinum and Bony Structures Diagnostic Testing: Radiology Impression Abdomen/Pelvis CT 07/16/21 10:58 IMPRESSION: Status post anterior ventral hernia repair with postoperative changes and small fluid collection as described. This may represent increased tiny periumbilical abscess secondary to the surgery. Electronically Signed: Chandan Martínez MD at 11:37 EDT , Service support , Chest X-Ray 07/16/21 13:12 IMPRESSION: Hyperinflation. The lungs are clear. Electronically Signed: Chandan Martínez MD at 13:49 EDT , Service support , Portable chest x-ray single view interpreted by myself and radiologist shows no acute abnormality. Discharge Plan Triage Chief Complaint: Wound ED Provider: Kennedy Brandon Dx/Rx/DC Orders Clinical Impression: Hyperglycemia due to diabetes mellitus, Abdominal wall abscess, Edema, peripheral, Anemia Prescriptions: No Action linezolid 600 mg tablet 600 mg PO BID Qty: 28 RF: 0 metoprolol succinate 25 mg tablet extended release 24 hr 25 mg PO DAILY Qty: 30 RF: 1 metformin 1,000 mg tablet 1,000 mg PO BID Qty: 60 RF: 1 Lantus Solostar U-100 Insulin 100 unit/mL (3 mL) insulin pen 10 unit subcut BID Qty: 15 RF: 1 potassium chloride 20 mEq tablet extended release 20 meq PO DAILY Qty: 10 RF: 0 Diurex 162.5-50 mg Tablet 2 tab PO DAILY RF: 0 Primary Care Provider: Care Physician,No Primary Referrals: Care Physician,No Primary [Primary Care Provider] - Disposition Disposition: Acute Care Hospital [facility]
--- NOTE | 2021-07-16 11:08 | EKG12_ITS ---
Test Reason : SWELLING Blood Pressure : / mmHG Vent. Rate : 085 BPM Atrial Rate : 085 BPM P-R Int : 146 ms QRS Dur : 094 ms QT Int : 400 ms P-R-T Axes : 022 006 051 degrees QTc Int : 476 ms Normal sinus rhythm Normal ECG Confirmed by WILMER ARTHUR, JUNIOR ([id number]), manager editorial PADMAJA PALACIOS ([id number]) on 07/21/2021 12:56:42 PM Referred By: VARUN/ANTONIA Confirmed By:JUNIOR GUILLEN MD
[2021-07-16 11:14] LABS: Absolute Lymphocyte Count 0.66 X10^3/uL (0.83-4.51); Absolute Neutrophil Count 6.6 X10^3/uL (2.0-7.7); Basophil# 0.01 X10^3/uL; Basophil% 0.1 % (0-1); Eosinophil# 0.01 X10^3/uL; Eosinophils% 0.1 % (0-5); Hematocrit 35.9 % (40-54); Hemoglobin 11.6 g/dL (13.0-16.5); Lymphocyte # 0.66 X10^3/ul (0.83-4.51); Lymphocyte % 8.6 % (19-41); Mean Corp Hgb Conc 32.3 g/dL (32-36); Mean Corpuscular Hgb 30.2 pg (27.0-32.0); Mean Corpuscular Volume 93.5 fL (80-94); Mean Platelet Vol. 8.2 fl (6.2-12.0); Monocyte# 0.39 X10^3/uL; Monocyte% 5.1 % (0-10); NRBC Flagged by Analyzer 0 % (0-5); Neutrophil # 6.57 X10^3/uL (2.7-7.7); Neutrophil % 85.6 % (47-70); Platelet Count 262 K/mm3 (150-450); RBC Distribution Width CV 13.7 % (11.6-14.6); RBC Distribution Width SD 46.5 fl (35.1-43.9); Red Blood Count 3.84 M/mm3 (4.6-6.2); White Blood Count 7.7 K/mm3 (4.4-11.0)
[2021-07-16 11:29] LABS: Anion Gap 9 (5-15); BUN 35 mg/dL (7-18); BUN/Creat Ratio 30.4 RATIO (10-20); Calcium,Total 8.6 mg/dL (8.5-10.1); Chloride 97 mmol/L (98-107); Creatinine, Serum 1.15 mg/dL (0.70-1.30); EST Glomerular Filtration Rate 68 mL/min (>60); Est Glom Filt Rate - Afr Amer 82 mL/min (>60); Glucose 419 mg/dL (74-106); Potassium 5.1 mmol/L (3.5-5.1); Sodium Level 129 mmol/L (136-145)
--- NOTE | 2021-07-16 13:12 | RAD_ITS ---
STUDY: X-RAY CHEST REASON FOR EXAM: Male, 66 years old. Bilateral lower extremity edema. TECHNIQUE: Single AP portable view of the chest. COMPARISON: None. FINDINGS: EKG electrodes are seen. There is hyperinflation of the lungs consistent with chronic obstructive lung disease (COPD). There is no demonstrated pleural abnormality. Normal size heart. Normal mediastinum and felipe. Normal visualized pulmonary arteries. There is atherosclerotic tortuosity of the aortic arch and descending thoracic aorta. There are diffuse degenerative changes of the visualized thoracic spine. Normal visualized ribs, clavicles, and shoulders. There is no demonstrated abnormality of the visualized soft tissue structures of the upper abdomen. RAD/Chest 1 View (Portable) IMPRESSION: Hyperinflation. The lungs are clear. Electronically Signed: Chandan Martínez MD at 13:49 EDT , Service support ,
--- NOTE | 2021-07-16 15:41 | HP.PCM.HOS_ITS ---
HPI - General General Date of Admission: 07/16/21 Date of Service: 07/16/21 Chief Complaint: BL LE swelling, seeping blisters, umbilical pus drainage, dark stools. HPI Narrative The patient is a 66 y/o M w/ PMHx: recently discharged 07/05/21 to home with home health secondary to patient decline of recommended SNF placement with notable de ledesma following transition, notably week sitting in his recliner the entire duration with worsening BL LE swelling especially in his feet and lower ankles, sudden onset of purulent drainage from his umbilical region with surrounding umbilical mild erythema without fever or chills and also family reported dark appearing stools, coffee ground in appearance, noted to be loose prompting ED re-evaluation. Work-up in the ED included T 98.2, heart rate 102, BP 122/74, respiratory rate 18, 96% on room air, CBC with WBC 7.7, hemoglobin 11.6 with most recent hemoglobin prior on 07/05/2020 113.1, platelet 262 with lymphopenia, BMP with sodium 129, chloride 97, BUN/creatinine 35/1.15, glucose 419, chest x- ray with hyperinflation with no acute cardiopulmonary findings, CT abdomen and pelvis with evidence status post anterior ventral hernia repair with postop changes and a small fluid collection possibly representing a tiny paramedical abscess especially given purulent drainage history. ED physician did send wound culture and requested wound MRSA PCR also be sent. ED is discussing case with general surgery. In the ED patient administered IV Zosyn and vancomycin. [facility] Medical History Diabetes mellitus, type 2 Open wound of both legs with complication Home Medications linezolid 600 mg PO BID #28 tab 07/04/21 [Rx Last Taken 07/16/21] insulin glargine [Lantus Solostar U-100 Insulin] 10 unit SUBCUT BID #15 ml 07/05/21 [Rx Last Taken 07/16/21] metformin 1,000 mg PO BID #60 tab 07/05/21 [Rx Last Taken 07/16/21] metoprolol succinate 25 mg PO DAILY #30 tab 07/05/21 [Rx Last Taken 07/16/21] potassium chloride 20 meq PO DAILY #10 tab 07/05/21 [Rx Last Taken 07/15/21] magnesium salicylate-caffeine [Diurex] 2 tab PO DAILY 07/16/21 [History Last Taken 07/16/21] Allergy/AdvReac Type Severity Reaction Status Date / Time acetaminophen [From Tylenol] Allergy Hives Verified 07/16/21 10:43 Family History (Updated 07/16/21 @ 18:[address] Marti Carver MD) Mother Diabetes Pulmonary disease Father Diabetes Pulmonary disease Surgical History H/O hernia repair History of skin graft Social History (Updated 07/16/21 @ 18:[address] Marti Carver MD) household members: family Smoking Status: Current some day smoker tobacco type: cigars alcohol intake: never substance use type: does not use ROS ROS Narrative Admission Review of Systems: CONSTITUTIONAL: No weight loss, fever, chills, + weakness or fatigue. HEENT: Eyes: No visual loss, blurred vision, double vision or yellow sclerae. Ears, Nose, Throat: No hearing loss, sneezing, congestion, runny nose or sore throat. SKIN: No rash or itching, lesions, wounds. CARDIOVASCULAR: + BL LE edema, orthopnea. No chest pain, chest pressure or chest discomfort, palpitations, syncopal events. RESPIRATORY: + shortness of breath, No cough or sputum, wheezing, hemoptysis. GASTROINTESTINAL: + Dark stools, diarrhea, abdominal cramping. No anorexia, nausea, vomiting, melena, BRBPR. GENITOURINARY: No dysuria, frequency, urgency or retention. NEUROLOGICAL: No headache, dizziness, syncope, paralysis, ataxia, numbness or tingling in the extremities, focal weakness, change in bowel or bladder control, seizure. MUSCULOSKELETAL: + muscle, back pain, joint pain or stiffness. HEMATOLOGIC: + anemia, bleeding or bruising. LYMPHATICS: No enlarged nodes. No history of splenectomy. PSYCHIATRIC: No history of depression or anxiety. ENDOCRINOLOGIC: No reports of sweating, cold or heat intolerance. No polyuria or polydipsia. ALLERGIES: No history of asthma, hives, eczema or rhinitis. Vital Signs Vital Signs Vital Signs: 07/16/21 10:36 07/16/21 10:39 07/16/21 12:39 Temperature 97.7 F L 97.7 F L 97.9 F Temperature Source Oral Oral Oral Pulse Rate 93 97 91 Respiratory Rate 20 H 18 20 H Blood Pressure 121/61 H 121/61 H 117/71 Blood Pressure Mean 81 81 86 Pulse Ox 94 95 97 Oxygen Delivery Method Room Air Room Air Room Air 07/16/21 13:27 07/16/21 14:10 Temperature 98.2 F Temperature Source Oral Pulse Rate 102 H 90 Respiratory Rate 18 19 H Blood Pressure 122/74 H 125/81 H Blood Pressure Mean 90 95 Pulse Ox 96 97 Oxygen Delivery Method Room Air Room Air Weight Weight: 238 lb 15.697 oz Body Mass Index (BMI) 34.2 Physical Exam Narrative Physical Examination: General: Awake, alert, oriented x 3 and cooperative, seated upright in the ED bed, fatigued, uncomfortable appearing. Skin: Normal color, normal turgor, no icterus, no cyanosis except significant bilateral lower extremity stasis disease, bilateral lower extremity significant pitting edema pedal to upper shins, mild maceration, stasis blisters, umbilical surrounding erythema and able to express purulent material with tenderness with palpation. HEENT: AT/NC, EOMI, PERRLA, mildly dry MM, no obvious carotid bruits, unable to discern marked JVD with thickened neck making examination difficult. Lungs: Diminished, mildly greater bases, no obvious evidence of any respiratory distress, no rales, ronchi or wheezing. Heart: Regular rate and rhythm; no gallop, rub audible. Abdomen: Soft, obese, tender to palpation especially near the umbilicus, see skin, difficult but appears moderately distended, mildly hyperactive BS, no obvious evidence of HSM; however, habitus makes examination difficult. Extremities: No cyanosis, no clubbing, see skin, significant 3+ pitting edema. Neurological: Patient awake, alert, oriented as noted, cognitive function intact; pupils equally reactive to light and accommodation, cranial nerves II- XII grossly normal, moving all 4 extremities, no focal deficits, strength severely global decrease secondary to acute presentation. Psychiatric: Affect appears fatigued, uncomfortable, no acute evidence of depressive or anxiety feelings. Results Lab / Micro Data Result Diagrams: 07/16/21 10:54 07/16/21 10:54 Labs: Laboratory Results - last 24 hr 07/16/21 10:54: WBC 7.7, RBC 3.84 L, Hgb 11.6 L, Hct 35.9 L, MCV 93.5, MCH 30.2, MCHC 32.3, RDW Std Deviation 46.5 H, RDW Coeff of Jennifer 13.7, Plt Count 262, MPV 8.2, Immature Gran % (Auto) 0.500, Neut % (Auto) 85.6 H, Lymph % (Auto) 8.6 L, [place] % (Auto) 5.1, Eos % (Auto) 0.1, Baso % (Auto) 0.1, Absolute Neuts (auto) 6.6, Absolute Lymphs (auto) 0.66 L, Nucleated RBC % 0 07/16/21 10:54: Sodium 129 L, Potassium 5.1, Chloride 97 L, Carbon Dioxide 23.0, Anion Gap 9, BUN 35 H, Creatinine 1.15, Estim Creat Clear Calc 67.00, Est GFR (MDRD) Af Amer 82, Est GFR (MDRD) Non-Af 68, BUN/Creatinine Ratio 30.4 H, Glucose 419 H, Calcium 8.6 Radiology Impression Abdomen/Pelvis CT 07/16/21 10:58 IMPRESSION: Status post anterior ventral hernia repair with postoperative changes and small fluid collection as described. This may represent increased tiny periumbilical abscess secondary to the surgery. Electronically Signed: Chandan Martínez MD at 11:37 EDT , Service support , Chest X-Ray 07/16/21 13:12 IMPRESSION: Hyperinflation. The lungs are clear. Electronically Signed: Chandan Martínez MD at 13:49 EDT , Service support , Assessment & Plan Assessment/Plan (1) Abscess or cellulitis of umbilicus: (2) GI bleed: QUALIFIERS: GI bleed type/associated pathology: unspecified gastrointestinal hemorrhage type Qualified Code(s): K92.2 - Gastrointestinal hemorrhage, unspecified (3) Lower extremity edema: PLAN: The patient is a 66 y/o M w/ PMHx: recently discharged 07/05/21 to home with home health secondary to patient decline of recommended SNF placement with notable decline following transition, notably week sitting in his recliner the entire duration with worsening BL LE swelling especially in his feet and lower ankles, sudden onset of purulent drainage from his umbilical region with surrounding umbilical mild erythema without fever or chills and also family reported dark appearing stools, coffee ground in appearance, noted to be loose prompting ED re-evaluation. 1. Betsy-Umbilical Cellulitis and purulent drainage with abscess: Will admit to PCU given #2 however lower suspicion for CHF and high suspicion for acute on chronic lymphedema complicated by recent increased immobility and consistently sitting upright in a chair, maintain on IV vancomycin and Zosyn, will obtain Wound Cx, will obtain Wound MRSA PCR, plan repeat CBC in AM, wound RN consultation, dressing care, surgery consulted and pending. 2. Bilateral swelling, stasis blisters, acute on chronic lymphedema, Lower suspicion for CHF as etiology: Patient with recent echocardiogram performed, will up and BNP. Patient with underlying lymphedema, likely exacerbated by recently staying seated upright in a chair nearly the entire time since his disc harge with dependent swelling, will place snug Amos wraps, elevation, IV Lasix judiciously to assist with improvement, encourage and increase mobilization, wound RN evaluation and dressing care. 3. Questionable acute GI Bleed w/ resultant Acute Blood Loss Anemia: Hemoglobin 11.6, decreased from 13.1 07/05/2021, patient and family noting dark black appearing stools although guaiac negative in the ED. Will obtain serial H+H, maintain on IV PPI, surgery consulted, pending. Will allow clear liquids until midnight with n.p.o. status following. Will hold on aggressive hydration as BP stable and given #2. Enteric and C-diff also requested. 4. Recent acute cyst with MSSA bacteremia with suspected right elbow infection as source: Patient previously transitioned at discharge to linezolid with p lanned oral dose x2 weeks however given current presentation with umbilical cellulitis and abscess will transition to IV vancomycin and Zosyn in the interim. ID consulted. 5. Diabetes mellitus type II: Recent DKA episode, AG normal range currently. Hold oral home regimen, currently clear liquids as noted with n.p.o. status following, continue home insulin regimen with 1/2 dosage if concern for hypoglycemia, q 6 hour accu checks w/ ISS. 6. Hypertension: Continue home regimen including metoprolol with hold parameters, PRN hydralazine. 7. Obesity: Weight loss and lifestyle changes encouraged. 8. DVT prophylaxis: SCDs, defer any chemoprophylaxis given acute presentation as noted above. 9. CODE status: Discussed CODE status at length including difference between FULL code, DNR-CCA and DNR-CC status. Following discussions about the differences in these status, requested DNR-CCA, no intubation status. Advanced Care Planning Face to Face Time: 16 minutes. Charges/Coding Visit Charges Inpatient E&M: 33734 Init Hosp L3 Procedures Hospitalists Procedures: 68544 Advncd Care Plan 30 Min
[2021-07-16 16:35] LABS: Magnesium 1.8 mg/dL (1.6-2.6)
[2021-07-16 17:03] LABS: BNP,B-Type NATRIURETIC PEPTIDE 12.1 pg/mL (0-100)
--- NOTE | 2021-07-16 18:00 | PCS.PANDOC ---
PANDEMIC DOCUMENTATION INITIATED: Date: 06/23/2021 Time: 190
[2021-07-16 18:10] LABS: M R Staph aureus DNA By PCR Negative (Negative); Probe Check PASS; Staph aureus DNA By PCR POSITIVE (Negative)
[2021-07-16 18:46] LABS: Bedside Glucose 314 mg/dL (70-110)
[2021-07-16] MEDS: Furosemide 40 MG/4 ML Vial IV (18:49)
[2021-07-16] MEDS: Menthol/Lanolin/Calamine/Znox 113 GM Tube 1 APPLIC TOPICAL ×2 (18:49→23:20)
[2021-07-16] MEDS: 0.9% Saline Lock 10 ML Syringe IV ×2 (18:49→23:20)
[2021-07-16] MEDS: Insulin Lispro 100 UNIT/ML INSULN.PEN SC ×2 (18:50→23:18)
--- NOTE | 2021-07-16 19:06 | PCM.RX.CS ---
Consult Pharmacy has been consulted to manage selected antiobiotic: Vancomycin Type of Consult: New start Suspected Infection: Skin/Soft tissue Labs: Sodium 129 mmol/L (136-145) L 07/16/21 10:54 Potassium 5.1 mmol/L (3.5-5.1) 07/16/21 10:54 Chloride 97 mmol/L (98-107) L 07/16/21 10:54 Carbon Dioxide 23.0 mmol/L (21.0-32.0) 07/16/21 10:54 Anion Gap 9 (5-15) 07/16/21 10:54 BUN 35 mg/dL (7-18) H 07/16/21 10:54 Creatinine 1.15 mg/dL (0.70-1.30) 07/16/21 10:54 Est GFR (MDRD) Af Amer 82 mL/min (>60) 07/16/21 10:54 Est GFR (MDRD) Non-Af 68 mL/min (>60) 07/16/21 10:54 BUN/Creatinine Ratio 30.4 RATIO (10-20) H 07/16/21 10:54 Glucose 419 mg/dL (74-106) H 07/16/21 10:54 Microbiology: Microbiology 07/16/21 17:11 Nasal Secretion SARS-CoV-2 Antigen (Rapid) - Final Pharmacy Plan for Drug Dosing: NEW START IV VANCOMYCIN Consulting Physician: PALMIRA Indication: CELLULITIS Goal Trough: 15-20 MG/DL SrCr: 1.15 MG/DL CrCl: 67 ML/MIN Comments: LOADING DOSE OF 2000MG GIVEN 07/16 @ 1849 Vancomycin Dose: WILL START 1250MG Q12H 07/17 @ 0700 AND GET A TROUGH PRIOR TO 4TH TOTAL DOSE OF REGIMEN. Pending Level: 07/18/21 @ 0630 Pharmacy Service will continue to monitor and adjust dosing as required.
[2021-07-16 19:36] LABS: Hematocrit 34.6 % (40-54)
[2021-07-16 19:50] LABS: Erythrocyte Sedimentation Rate 43 mm/hr (0-20)
[2021-07-16 22:38] LABS: Hematocrit 31.9 % (40-54); Hemoglobin 10.3 g/dL (13.0-16.5)
[2021-07-16] MEDS: Nystatin Powder 15gm Bottle 1 APPLIC TOPICAL (23:21)
[2021-07-17] VITALS (14 sets, daily range): BP systolic 102–112; BP diastolic 54–70; PULSE 89–139; RESP 18–20; TEMP 36.6–37.1; O2SAT 92–98
[2021-07-17 00:41] LABS: Bedside Glucose 299 mg/dL (70-110)
[2021-07-17 02:52] LABS: Hematocrit 31.6 % (40-54); Hemoglobin 10.4 g/dL (13.0-16.5)
[2021-07-17 06:24] LABS: Absolute Lymphocyte Count 0.93 X10^3/uL (0.83-4.51); Basophil# 0.01 X10^3/uL; Basophil% 0.2 % (0-1); Eosinophil# 0.02 X10^3/uL; Eosinophils% 0.3 % (0-5); Hematocrit 31.1 % (40-54); Hemoglobin 10.1 g/dL (13.0-16.5); Lymphocyte # 0.93 X10^3/ul (0.83-4.51); Lymphocyte % 14.6 % (19-41); Mean Corp Hgb Conc 32.5 g/dL (32-36); Mean Corpuscular Volume 92.3 fL (80-94); Mean Platelet Vol. 8.1 fl (6.2-12.0); Monocyte% 6.3 % (0-10); NRBC Flagged by Analyzer 0 % (0-5); Neutrophil # 4.96 X10^3/uL (2.7-7.7); Neutrophil % 78.1 % (47-70); Platelet Count 221 K/mm3 (150-450); RBC Distribution Width CV 13.4 % (11.6-14.6); RBC Distribution Width SD 44.8 fl (35.1-43.9); Red Blood Count 3.37 M/mm3 (4.6-6.2); White Blood Count 6.4 K/mm3 (4.4-11.0)
[2021-07-17] MEDS: Nystatin Powder 15gm Bottle 1 APPLIC TOPICAL ×3 (06:34→20:19)
[2021-07-17] MEDS: Insulin Lispro 100 UNIT/ML INSULN.PEN SC ×4 (06:41→23:45)
[2021-07-17 06:46] LABS: Bedside Glucose 209 mg/dL (70-110)
[2021-07-17 06:50] LABS: ALB/GLOB Ratio 0.2 RATIO (0.9-2.4); AST(SGOT) 15 U/L (15-37); Alanine Aminotransfer ALT/SGPT 13 U/L (16-61); Albumin, Serum 1.1 g/dL (3.2-5.0); Alkaline Phosphatase 74 U/L (45-117); Anion Gap 5 (5-15); BUN 24 mg/dL (7-18); BUN/Creat Ratio 31.8 RATIO (10-20); Calcium,Total 8.1 mg/dL (8.5-10.1); Chloride 105 mmol/L (98-107); Creatinine, Serum 0.76 mg/dL (0.70-1.30); EST Glomerular Filtration Rate 111 mL/min (>60); Est Glom Filt Rate - Afr Amer 134 mL/min (>60); Estimated Creatinine Clearance 101.39 ml/min; Globulin 6.2 g/dL (2.2-4.2); Glucose 214 mg/dL (74-106); Potassium 3.4 mmol/L (3.5-5.1); Protein, Total 7.3 g/dL (6.4-8.2); Sodium Level 137 mmol/L (136-145)
--- NOTE | 2021-07-17 07:24 | EX.PCM.CON.S ---
Assessment & Plan Assessment/Plan (1) Abscess or cellulitis of umbilicus: (2) Anemia: QUALIFIERS: Anemia type: unspecified type Qualified Code(s): D64.9 - Anemia, unspecified PLAN: The patient had some melena last week which resolved and now he has brown stool and his hemoglobin has been stable. I recommend an outpatient EGD and colonoscopy. The patient has purulent discharge from his umbilicus. The patient has had umbilical hernia repair and CT scan showed infection in this area. There is no succus or signs of fistula. I discussed incision and drainage with the patient. I will come back later this morning to perform an incision and drainage of the umbilical area to drain as much purulent material as possible. I discussed the risks of bleeding and infection. If the antibiotics and incision and drainage can salvage the mesh that would be the optimal outcome but if the infection does not clear after a few days of drainage and antibiotics then the mesh may need to be excised. Patient is diabetic and needs good control of his glucose for clearance of infection. I will order a diabetic diet as there is no plan for surgery today. Bennett Barrios MD Pager: [facility] [address] [place] [address], [address] [place] [address] Office: HPI Consult Data Date of Consult: 07/17/21 HPI Narrative HPI Narrative: STEVE JOY, is a 66 M who presents with history of dark stools over the last week as well as purulent drainage from his umbilicus. Patient reports for the last week he has had purulent drainage from his umbilicus. He reports he had umbilical hernia repair here at this hospital about 15 years ago. [facility] Medical History Diabetes mellitus, type 2 Open wound of both legs with complication Home Medications linezolid 600 mg PO BID #28 tab 07/04/21 [Rx Last Taken 07/16/21] insulin glargine [Lantus Solostar U-100 Insulin] 10 unit SUBCUT BID #15 ml 07/05/21 [Rx Last Taken 07/16/21] metformin 1,000 mg PO BID #60 tab 07/05/21 [Rx Last Taken 07/16/21] metoprolol succinate 25 mg PO DAILY #30 tab 07/05/21 [Rx Last Taken 07/16/21] potassium chloride 20 meq PO DAILY #10 tab 07/05/21 [Rx Last Taken 07/15/21] magnesium salicylate-caffeine [Diurex] 2 tab PO DAILY 07/16/21 [History Last Taken 07/16/21] Allergy/AdvReac Type Severity Reaction Status Date / Time acetaminophen [From Tylenol] Allergy Hives Verified 07/16/21 10:43 Family History (Updated 07/16/21 @ 18:[address] Marti Carver MD) Mother Diabetes Pulmonary disease Father Diabetes Pulmonary disease Surgical History H/O hernia repair History of skin graft Social History (Updated 07/16/21 @ 18:[address] Marti Carver MD) household members: family Smoking Status: Current some day smoker tobacco type: cigars alcohol intake: never substance use type: does not use ROS Constitutional Constitutional: Denies anorexia or chills ENT HEENT: Denies abnormal hearing Cardiovascular Cardiovascular: Denies chest pain Gastrointestinal Gastrointestinal: Reports abdominal pain and melena; Denies constipation or diarrhea Genitourinary Genitourinary: Denies difficulty urinating Musculoskeletal Musculoskeletal: Denies abnormal gait Integumentary Integumentary: Denies jaundice Neurologic Neurologic: Denies abnormal gait Psychiatric Psychiatric: Denies anxiety Endocrine Endocrinology: Denies flushing Hematologic/Lymphatic Hematologic/Lymphatic: Denies easy bleeding Physical Exam Const alert and oriented x3 HEENT normocephalic Eyes PERRL Resp normal respiratory effort Cardio Rate: regular rate GI soft to palpation GI Narrative: Patient has purulent drainage from his umbilicus Palpation: tender Lab / Micro Data Result Diagrams: 07/17/21 06:05 07/17/21 06:05 Labs: Laboratory Results - last 24 hr 07/16/21 10:54: WBC 7.7, RBC 3.84 L, Hgb 11.6 L, Hct 35.9 L, MCV 93.5, MCH 30.2, MCHC 32.3, RDW Std Deviation 46.5 H, RDW Coeff of Jennifer 13.7, Plt Count 262, MPV 8.2, Immature Gran % (Auto) 0.500, Neut % (Auto) 85.6 H, Lymph % (Auto) 8.6 L, [place] % (Auto) 5.1, Eos % (Auto) 0.1, Baso % (Auto) 0.1, Absolute Neuts (auto) 6.6, Absolute Lymphs (auto) 0.66 L, Nucleated RBC % 0 07/16/21 10:54: Sodium 129 L, Potassium 5.1, Chloride 97 L, Carbon Dioxide 23.0, Anion Gap 9, BUN 35 H, Creatinine 1.15, Estim Creat Clear Calc 67.00, Est GFR (MDRD) Af Amer 82, Est GFR (MDRD) Non-Af 68, BUN/Creatinine Ratio 30.4 H, Glucose 419 H, Calcium 8.6 07/16/21 10:54: Magnesium 1.8, C-React Prot Ext Range 154.00 H 07/16/21 10:54: B-Natriuretic Peptide 12.1 07/16/21 15:50: S.aureus Protein A PCR POSITIVE H, MRSA (PCR) Negative 07/16/21 15:59: Blood Type O POSITIVE, Antibody Screen NEGATIVE 07/16/21 18:29: POC Glucose 314 H 07/16/21 19:24: Hgb 11.0 L, Hct 34.6 L, ESR 43 H 07/16/21 22:18: Hgb 10.3 L, Hct 31.9 L 07/16/21 23:16: POC Glucose 299 H 07/17/21 02:20: Hgb 10.4 L, Hct 31.6 L 07/17/21 06:05: WBC 6.4, RBC 3.37 L, Hgb 10.1 L, Hct 31.1 L, MCV 92.3, MCH 30.0, MCHC 32.5, RDW Std Deviation 44.8 H, RDW Coeff of Jennifer 13.4, Plt Count 221, MPV 8.1, Immature Gran % (Auto) 0.500, Neut % (Auto) 78.1 H, Lymph % (Auto) 14.6 L, [place] % (Auto) 6.3, Eos % (Auto) 0.3, Baso % (Auto) 0.2, Absolute Neuts (auto) 5.0, Absolute Lymphs (auto) 0.93, Nucleated RBC % 0 07/17/21 06:05: Sodium 137, Potassium 3.4 L, Chloride 105, Carbon Dioxide 27.0, Anion Gap 5, BUN 24 H, Creatinine 0.76, Estim Creat Clear Calc 101.39, Est GFR (MDRD) Af Amer 134, Est GFR (MDRD) Non-Af 111, BUN/Creatinine Ratio 31.8 H, Glucose 214 H, Calcium 8.1 L, Total Bilirubin 0.40, AST 15, ALT 13 L, Alkaline Phosphatase 74, Total Protein 7.3, Albumin 1.1 L, Globulin 6.2 H, Albumin/Globulin Ratio 0.2 L 07/17/21 06:40: POC Glucose 209 H Micro: Microbiology 07/16/21 17:11 Nasal Secretion SARS-CoV-2 Antigen (Rapid) - Final Radiology Impression Abdomen/Pelvis CT 07/16/21 10:58 IMPRESSION: Status post anterior ventral hernia repair with postoperative changes and small fluid collection as described. This may represent increased tiny periumbilical abscess secondary to the surgery. Electronically Signed: Chandan Martínez MD at 11:37 EDT , Service support , Chest X-Ray 07/16/21 13:12 IMPRESSION: Hyperinflation. The lungs are clear. Electronically Signed: Chandan Martínez MD at 13:49 EDT , Service support ,
[2021-07-17] MEDS: Potassium Chloride Oral Tablet 20 MEQ PO (08:28)
--- NOTE | 2021-07-17 10:17 | PCM.CONS.GEN ---
Assessment & Plan Assessment/Plan (1) Bacteremia: (2) Lower extremity edema: (3) GI bleed: QUALIFIERS: GI bleed type/associated pathology: unspecified gastrointestinal hemorrhage type Qualified Code(s): K92.2 - Gastrointestinal hemorrhage, unspecified (4) Abscess or cellulitis of umbilicus: PLAN: Has been on linezolid at home for mssa bacteremia. I&D done of umbilicus abscess, cx pending. On vanc/zosyn. Will follow HPI Consult Data Date of Consult: 07/17/21 HPI Narrative HPI Narrative: STEVE JOY, is a 66 M who presented with new onset purulent drainage from umbilicus. Had been admitted at end of June with DKA and mssa bacteremia, suspected source R elbow bursitis. PRIYA was neg, bcx rapidly cleared, discharged on po linezolid which he has been taking up to re-admit. Elbow is improved. Shoulder is still sore on R side. No fever, no n/v. Some dark/tarry diarrhea at home past few days. Came to ED, wound cx done, admitted on vanc/zosyn, seen by Dr. Barrios, I&D with purulence drained. Wound care nurses notes numerous maggots in between toes on admit. Full ROS performed and neg except as noted above. [facility] Medical History Diabetes mellitus, type 2 Open wound of both legs with complication Home Medications linezolid 600 mg PO BID #28 tab 07/04/21 [Rx Last Taken 07/16/21] insulin glargine [Lantus Solostar U-100 Insulin] 10 unit SUBCUT BID #15 ml 07/05/21 [Rx Last Taken 07/16/21] metformin 1,000 mg PO BID #60 tab 07/05/21 [Rx Last Taken 07/16/21] metoprolol succinate 25 mg PO DAILY #30 tab 07/05/21 [Rx Last Taken 07/16/21] potassium chloride 20 meq PO DAILY #10 tab 07/05/21 [Rx Last Taken 07/15/21] magnesium salicylate-caffeine [Diurex] 2 tab PO DAILY 07/16/21 [History Last Taken 07/16/21] Allergy/AdvReac Type Severity Reaction Status Date / Time acetaminophen [From Tylenol] Allergy Hives Verified 07/16/21 10:43 Family History (Updated 07/16/21 @ 18:[address] Marti Carver MD) Mother Diabetes Pulmonary disease Father Diabetes Pulmonary disease Surgical History H/O hernia repair History of skin graft Social History (Updated 07/16/21 @ 18:[address] Marti Carver MD) household members: family Smoking Status: Current some day smoker tobacco type: cigars alcohol intake: never substance use type: does not use Physical Exam Const alert and no apparent distress General Appearance: cooperative Exam Limitations: no limitations HEENT normocephalic and head/scalp atraumatic Eyes PERRL and EOMs intact bilaterally Neck supple and No nodes Resp normal air movement and clear to auscultation bilaterally Cardio regular rate and regular rhythm GI normal to inspection, nondistended, normoactive bowel sounds Extremity General Extremity: edema and other findings Other Details: mild swelling R olecranon Skin Skin Narrative: Umbilicus wound with some purulence able to be expressed Neuro CN's II-XII intact bilaterally Lab / Micro Data Result Diagrams: 07/17/21 06:05 07/17/21 06:05 Labs: Laboratory Results - last 24 hr 07/16/21 10:54: WBC 7.7, RBC 3.84 L, Hgb 11.6 L, Hct 35.9 L, MCV 93.5, MCH 30.2, MCHC 32.3, RDW Std Deviation 46.5 H, RDW Coeff of Jennifer 13.7, Plt Count 262, MPV 8.2, Immature Gran % (Auto) 0.500, Neut % (Auto) 85.6 H, Lymph % (Auto) 8.6 L, [place] % (Auto) 5.1, Eos % (Auto) 0.1, Baso % (Auto) 0.1, Absolute Neuts (auto) 6.6, Absolute Lymphs (auto) 0.66 L, Nucleated RBC % 0 07/16/21 10:54: Sodium 129 L, Potassium 5.1, Chloride 97 L, Carbon Dioxide 23.0, Anion Gap 9, BUN 35 H, Creatinine 1.15, Estim Creat Clear Calc 67.00, Est GFR (MDRD) Af Amer 82, Est GFR (MDRD) Non-Af 68, BUN/Creatinine Ratio 30.4 H, Glucose 419 H, Calcium 8.6 07/16/21 10:54: Magnesium 1.8, C-React Prot Ext Range 154.00 H 07/16/21 10:54: B-Natriuretic Peptide 12.1 07/16/21 15:50: S.aureus Protein A PCR POSITIVE H, MRSA (PCR) Negative 07/16/21 15:59: Blood Type O POSITIVE, Antibody Screen NEGATIVE 07/16/21 18:29: POC Glucose 314 H 07/16/21 19:24: Hgb 11.0 L, Hct 34.6 L, ESR 43 H 07/16/21 22:18: Hgb 10.3 L, Hct 31.9 L 07/16/21 23:16: POC Glucose 299 H 07/17/21 02:20: Hgb 10.4 L, Hct 31.6 L 07/17/21 06:05: WBC 6.4, RBC 3.37 L, Hgb 10.1 L, Hct 31.1 L, MCV 92.3, MCH 30.0, MCHC 32.5, RDW Std Deviation 44.8 H, RDW Coeff of Jennifer 13.4, Plt Count 221, MPV 8.1, Immature Gran % (Auto) 0.500, Neut % (Auto) 78.1 H, Lymph % (Auto) 14.6 L, [place] % (Auto) 6.3, Eos % (Auto) 0.3, Baso % (Auto) 0.2, Absolute Neuts (auto) 5.0, Absolute Lymphs (auto) 0.93, Nucleated RBC % 0 07/17/21 06:05: Sodium 137, Potassium 3.4 L, Chloride 105, Carbon Dioxide 27.0, Anion Gap 5, BUN 24 H, Creatinine 0.76, Estim Creat Clear Calc 101.39, Est GFR (MDRD) Af Amer 134, Est GFR (MDRD) Non-Af 111, BUN/Creatinine Ratio 31.8 H, Glucose 214 H, Calcium 8.1 L, Total Bilirubin 0.40, AST 15, ALT 13 L, Alkaline Phosphatase 74, Total Protein 7.3, Albumin 1.1 L, Globulin 6.2 H, Albumin/Globulin Ratio 0.2 L 07/17/21 06:40: POC Glucose 209 H Micro: Microbiology 07/16/21 17:11 Nasal Secretion SARS-CoV-2 Antigen (Rapid) - Final Radiology Impression Abdomen/Pelvis CT 07/16/21 10:58 IMPRESSION: Status post anterior ventral hernia repair with postoperative changes and small fluid collection as described. This may represent increased tiny periumbilical abscess secondary to the surgery. Electronically Signed: Chandan Martínez MD at 11:37 EDT , Service support , Chest X-Ray 07/16/21 13:12 IMPRESSION: Hyperinflation. The lungs are clear. Electronically Signed: Chandan Martínez MD at 13:49 EDT , Service support ,
--- NOTE | 2021-07-17 10:41 | CASEMGMT ---
JAM MOSER Readmission Review Note: Index admission: 06/30 - 07/05 DKA, YINKA, cyst w/MSSA bacteremia from suspected right elbow infection. Readmission: Periumbilical cellulitis, lymphedema, stasis blisters, questionable acute GI bleed, ABLA Pt with hx of HTN, DM (was not taking his medication, monitoring his BS prior to last admission), Obesity. Pt lives with spouse in a two story home. Pt was independent prior to the index admission. At discharge, pt noted to be weak and requiring at least one assist. Pt and pt's daughter declined therapy services at discharge. Pt was noted to not have a PCP. A list of PCP's was provided and the RN SHANTI attempted to assist pt with appointment setup but upon follow-up with pt, pt reported his was making an appointment. Pt was also referred to Dr. Springer (endocrinology). Will follow-up with patient regarding establishment with PCP, and follow-up with [facility]. Pt did attend his follow-up appointment with Dr. Springer's CLAIM MANAGER-Joan Luther who sent pt to the ED d/t c/o weakness/fatigue, dark and tarry diarrhea, swelling bilat LE, open wounds, abd tenderness and umbilical drainage. Pt is to call after discharge to reschedule his appointment with Dr. Springer and/or CLAIM MANAGER. Pt did not receive a complete evaluation. Will continue to follow and assist with care coordination and discharge needs. Claribel Shin RN CM
--- NOTE | 2021-07-17 10:46 | WOUNDNOTE ---
wound photo: left foot
--- NOTE | 2021-07-17 10:47 | WOUNDNOTE ---
wound photo: right foot
--- NOTE | 2021-07-17 10:47 | WOUNDNOTE ---
wound photo: left 4th toe
--- NOTE | 2021-07-17 10:48 | WOUNDNOTE ---
wound photo: umbilicus
--- NOTE | 2021-07-17 10:49 | WOUNDNOTE ---
wound photo: left posterior heel
[2021-07-17] MEDS: Metoprolol(XL)Succ 25 MG Tablet PO (10:52)
[2021-07-17] MEDS: Furosemide 40 MG/4 ML Vial IV ×2 (10:52→17:37)
[2021-07-17] MEDS: Menthol/Lanolin/Calamine/Znox 113 GM Tube 1 APPLIC TOPICAL ×4 (10:53→20:19)
[2021-07-17 11:41] LABS: Bedside Glucose 262 mg/dL (70-110)
--- NOTE | 2021-07-17 12:56 | PCM.PN.BLA ---
Progress Note PROCEDURE DOCUMENTATION: After informing the patient of the risks of bleeding and infection, patient agreed for incision and drainage of umbilical abscess. The area was prepped with Betadine and injected with local anesthetic. An 11 blade scalpel was used to open the skin there was copious purulent discharge. The area was irrigated and then packed with iodoform gauze. A bandage was placed. Patient tolerated the procedure well. Bennett Barrios MD Pager: [facility] [address] [place] [address] Office:
--- NOTE | 2021-07-17 16:33 | PN.HOSP_ITS ---
Subjective Subjective Patient seen and examined. He has no complaints. He was admitted with a complaint bilateral lower extremity swelling and draining pus from his umbilicus as well as dark stools. CT of the abdomen showed small fluid collection possibly representing a small periumbilical abscess and evidence of anterior ventral hernia repair. General surgery consulted and patient is on IV vancomycin and Zosyn. Patient has no complaints this morning and states he has not noticed any increased drainage from the umbilicus. He has no other complaints and review of systems otherwise negative. He has remained hemodynamically stable. Objective Data Objective Data Vital Signs: Vital Signs Temp Pulse Resp BP Pulse Ox 97.9 F 111 H 18 112/57 L 97 07/17/21 13:18 07/17/21 15:03 07/17/21 13:18 07/17/21 13:18 07/17/21 13:18 Oxygen Delivery Method Room Air Weight: 237 lb 10.533 oz Body Mass Index (BMI) 33.1 Intake & Output: Intake and Output for Last 24 Hours 07/15/21 07/16/21 07/17/21 23:59 23:59 23:59 Intake Total 950 / 950 845 / 845 Output Total 1500 / 1500 800 / 800 Balance -550 / -550 45 / 45 Medical Nutrition Assessment Dietitian: Malnutrition Criteria Met Start: 07/17/21 10:55 Freq: Status: Active Protocol: Document 07/17/21 10:56 BP (Rec: 07/17/21 10:56 BP Desktop) Nutrition Malnutrition Evidence of Malnutrition Exists Yes Malnutrition (severe): Acute Illness/Injury Evidenced By Suboptimal Energy Intake ( Severe),Weight Loss (Severe) Intake Problem Decreased Nutrient Needs (specify) Etiology carbohydrate related to endocrine dysfunction with T2DM Signs/Symptoms as evidenced by pt & family reports pt FBG range 292-470 mg/dl, pre supper BG 300-400 mg/dl, A1C 12.7% 07/01/21. Status Active Problem Clinical Problem Acute Disease or Injury Related Malnutrition Etiology Severe malnutrition in the context of acute disease/ injury related to inadequate oral intake & unintentional wt loss Signs/Symptoms as evidenced by pt & family reporting pt w/ poor intake at meals consuming </=50% energy intake compared to estimated needs at meals, wt loss 15 lbs /6% x 1 1/2 weeks, and pt & family comments reporting clothing not fitting pt. Status Active Problem Recommendation Dietitian Recommendations/Changes Will provide CHO controlled diet; will provide glucerna 120 ml w/ meals for additional svitlana/pro if consumed. Lab / Micro Data Result Diagrams: 07/17/21 06:05 07/17/21 06:05 Labs: Laboratory Results - last 24 hr 07/16/21 10:54: Magnesium 1.8, C-React Prot Ext Range 154.00 H 07/16/21 10:54: B-Natriuretic Peptide 12.1 07/16/21 15:50: S.aureus Protein A PCR POSITIVE H, MRSA (PCR) Negative 07/16/21 15:59: Blood Type O POSITIVE, Antibody Screen NEGATIVE 07/16/21 18:29: POC Glucose 314 H 07/16/21 19:24: Hgb 11.0 L, Hct 34.6 L, ESR 43 H 07/16/21 22:18: Hgb 10.3 L, Hct 31.9 L 07/16/21 23:16: POC Glucose 299 H 07/17/21 02:20: Hgb 10.4 L, Hct 31.6 L 07/17/21 06:05: WBC 6.4, RBC 3.37 L, Hgb 10.1 L, Hct 31.1 L, MCV 92.3, MCH 30.0, MCHC 32.5, RDW Std Deviation 44.8 H, RDW Coeff of Jennifer 13.4, Plt Count 221, MPV 8.1, Immature Gran % (Auto) 0.500, Neut % (Auto) 78.1 H, Lymph % (Auto) 14.6 L, [place] % (Auto) 6.3, Eos % (Auto) 0.3, Baso % (Auto) 0.2, Absolute Neuts (auto) 5.0, Absolute Lymphs (auto) 0.93, Nucleated RBC % 0 07/17/21 06:05: Sodium 137, Potassium 3.4 L, Chloride 105, Carbon Dioxide 27.0, Anion Gap 5, BUN 24 H, Creatinine 0.76, Estim Creat Clear Calc 101.39, Est GFR (MDRD) Af Amer 134, Est GFR (MDRD) Non-Af 111, BUN/Creatinine Ratio 31.8 H, Glucose 214 H, Calcium 8.1 L, Total Bilirubin 0.40, AST 15, ALT 13 L, Alkaline Phosphatase 74, Total Protein 7.3, Albumin 1.1 L, Globulin 6.2 H, Albumin/Globulin Ratio 0.2 L 07/17/21 06:40: POC Glucose 209 H 07/17/21 11:28: POC Glucose 262 H Micro: Microbiology 07/16/21 15:50 Wound - Abdominal Gram Stain - Final 07/16/21 15:50 Wound - Abdominal Wound Culture - Preliminary Mixed Culture 07/16/21 17:11 Nasal Secretion SARS-CoV-2 Antigen (Rapid) - Final Physical Exam Const alert, oriented x3 and no apparent distress Exam Limitations: no limitations HEENT head/scalp atraumatic and moist oral mucous membranes Head and Scalp: normocephalic Eyes PERRL, EOMs intact bilaterally and conjunctivae normal Neck no lymphadenopathy Resp normal respiratory effort, no retractions, no use of accessory muscles and clear to auscultation bilaterally Cardio regular rate, regular rhythm, S1 normal heart sound and S2 normal heart sound GI normal to inspection, nondistended, normoactive bowel sounds, soft to palpation, non-tender and non-distended GI Narrative: dressing over umbilicus. Extremity Extremity Narrative: bilateral LE edema, with bilateral CHANDRAKANT wraps Skin no rashes or lesions noted Neuro oriented x3, CN's II-XII intact bilaterally and moves all extremities Sensorium / Orientation: awake and alert Psych affect normal Assessment & Plan Assessment/Plan (1) Lower extremity edema: PLAN: #Periumbilical abscess and cellulitis * Drainage had decreased. * General surgery on board. On IV vancomycin and Zosyn. * to have I&D done, per ID * Wound cultures obtained. * Wound nurse on board * #? GI bleed * Patient completed also melena stools * Hb was ~ 11, from ~ 13 previously. * on clear liquids. * stool for occult blood negative in the ED. * will advance diet since there is no clear evidence now of GI bleed. * #Type 2 diabetes mellitus * recently admited for DKA * on insulin 10 units bid which is half his home dose, due to him being on clear liquid diet * ISS. Accuchecks ACHS * * #Bilateral lymphedema of LEs * also had ulcerations on LLE in between his toes, with maggot infestation. * wound care on board * on lasix * #Hypertension: on metoprolol. IV hydralazine prn DVT prophylaxis: SCDs Charges/Coding Visit Charges Inpatient E&M: 07446 Subs Hosp L3
[2021-07-17] MEDS: Ensure Clear 120 ML Liquid PO (17:48)
[2021-07-17 17:55] LABS: Bedside Glucose 437 mg/dL (70-110)
[2021-07-17 23:36] LABS: Bedside Glucose 451 mg/dL (70-110)
[2021-07-18] VITALS (12 sets, daily range): BP systolic 104–123; BP diastolic 56–66; PULSE 87–94; RESP 16–18; TEMP 36.8–37.2; O2SAT 92–97
--- NOTE | 2021-07-18 02:21 | NURSING ---
Gave report to [facility] nurse.
[2021-07-18] MEDS: Nystatin Powder 15gm Bottle 1 APPLIC TOPICAL ×3 (05:35→22:09)
[2021-07-18] MEDS: Insulin Lispro 100 UNIT/ML INSULN.PEN SC ×4 (05:47→23:47)
--- NOTE | 2021-07-18 05:51 | NURSING ---
Called and let her know that we transferred Pt to [id number].
[2021-07-18 05:56] LABS: Bedside Glucose 157 mg/dL (70-110)
--- NOTE | 2021-07-18 07:07 | PN.SURG_ITS ---
Subjective Subjective The patient reports less pain at the umbilical area Objective Data Objective Data Vital Signs: Vital Signs Temp Pulse Resp BP Pulse Ox 98.7 F 90 18 108/66 96 07/18/21 02:28 07/18/21 02:28 07/18/21 02:28 07/18/21 02:28 07/18/21 02:28 Oxygen Delivery Method Room Air Weight: 236 lb 8.896 oz Body Mass Index (BMI) 33.1 Intake & Output: Intake and Output for Last 24 Hours 07/16/21 07/17/21 07/18/21 23:59 23:59 23:59 Intake Total 950 / 950 1280 / 1280 50 / 50 Output Total 1500 / 1500 800 / 800 0 / 0 Balance -550 / -550 480 / 480 50 / 50 Medical Nutrition Assessment Dietitian: Malnutrition Criteria Met Start: 07/17/21 10:55 Freq: Status: Active Protocol: Document 07/17/21 10:56 BP (Rec: 07/17/21 10:56 BP Desktop) Nutrition Malnutrition Evidence of Malnutrition Exists Yes Malnutrition (severe): Acute Illness/Injury Evidenced By Suboptimal Energy Intake ( Severe),Weight Loss (Severe) Intake Problem Decreased Nutrient Needs (specify) Etiology carbohydrate related to endocrine dysfunction with T2DM Signs/Symptoms as evidenced by pt & family reports pt FBG range 292-470 mg/dl, pre supper BG 300-400 mg/dl, A1C 12.7% 07/01/21. Status Active Problem Clinical Problem Acute Disease or Injury Related Malnutrition Etiology Severe malnutrition in the context of acute disease/ injury related to inadequate oral intake & unintentional wt loss Signs/Symptoms as evidenced by pt & family reporting pt w/ poor intake at meals consuming </=50% energy intake compared to estimated needs at meals, wt loss 15 lbs /6% x 1 1/2 weeks, and pt & family comments reporting clothing not fitting pt. Status Active Problem Recommendation Dietitian Recommendations/Changes Will provide CHO controlled diet; will provide glucerna 120 ml w/ meals for additional svitlana/pro if consumed. Lab / Micro Data Result Diagrams: 07/17/21 06:05 07/17/21 06:05 Labs: Laboratory Results - last 24 hr 07/17/21 11:28: POC Glucose 262 H 07/17/21 17:33: POC Glucose 437 H 07/17/21 23:29: POC Glucose 451 H* 07/18/21 05:46: POC Glucose 157 H Micro: Microbiology 07/16/21 15:50 Wound - Abdominal Gram Stain - Final 07/16/21 15:50 Wound - Abdominal Wound Culture - Preliminary Mixed Culture 07/16/21 17:11 Nasal Secretion SARS-CoV-2 Antigen (Rapid) - Final Physical Exam Const alert and oriented x3 Resp normal respiratory effort and normal air movement Cardio regular rate and regular rhythm GI soft to palpation, non-tender and non-distended GI Narrative: No purulent drainage Assessment & Plan Assessment/Plan (1) Abscess or cellulitis of umbilicus: (2) GI bleed: QUALIFIERS: GI bleed type/associated pathology: unspecified gastrointestinal hemorrhage type Qualified Code(s): K92.2 - Gastrointestinal hemorrhage, unspecified PLAN: The patient has a stable hemoglobin with no gross bleeding. Recommend outpatient EGD and colonoscopy The patient had incision and drainage of the umbilical area with purulent material expressed and irrigated. Continue IV antibiotics to try to salvage the mass. If the purulence continues or worsens he may need excision of this mesh. Bennett Barrios MD Pager: [facility] [address] [place] [address], [address] [place] [address] Office:
[2021-07-18 07:12] LABS: Vancomycin, Trough Level 18.3 ug/mL (5.0-15.0)
[2021-07-18 08:00] LABS: Anion Gap 5 (5-15); BUN 26 mg/dL (7-18); BUN/Creat Ratio 28.8 RATIO (10-20); Calcium,Total 7.5 mg/dL (8.5-10.1); Chloride 105 mmol/L (98-107); EST Glomerular Filtration Rate 90 mL/min (>60); Est Glom Filt Rate - Afr Amer 109 mL/min (>60); Estimated Creatinine Clearance 85.62 ml/min; Glucose 169 mg/dL (74-106); Potassium 3.3 mmol/L (3.5-5.1); Sodium Level 139 mmol/L (136-145)
[2021-07-18 08:02] LABS: Absolute Neutrophil Count 5.8 X10^3/uL (2.0-7.7); Basophil# 0.02 X10^3/uL; Basophil% 0.3 % (0-1); Eosinophil# 0.03 X10^3/uL; Eosinophils% 0.4 % (0-5); Hematocrit 29.9 % (40-54); Hemoglobin 9.4 g/dL (13.0-16.5); Lymphocyte % 12.4 % (19-41); Mean Corp Hgb Conc 31.4 g/dL (32-36); Mean Corpuscular Hgb 29.7 pg (27.0-32.0); Mean Corpuscular Volume 94.3 fL (80-94); Mean Platelet Vol. 8.5 fl (6.2-12.0); Monocyte# 0.49 X10^3/uL; Monocyte% 6.7 % (0-10); NRBC Flagged by Analyzer 0 % (0-5); Neutrophil # 5.77 X10^3/uL (2.7-7.7); Neutrophil % 79.4 % (47-70); Platelet Count 223 K/mm3 (150-450); RBC Distribution Width CV 13.7 % (11.6-14.6); RBC Distribution Width SD 46.6 fl (35.1-43.9); Red Blood Count 3.17 M/mm3 (4.6-6.2); White Blood Count 7.3 K/mm3 (4.4-11.0)
--- NOTE | 2021-07-18 08:32 | PCM.RX.CS ---
Consult Type of Consult: Follow-up Suspected Infection: Skin/Soft tissue Labs: Sodium 139 mmol/L (136-145) 07/18/21 06:30 Potassium 3.3 mmol/L (3.5-5.1) L 07/18/21 06:30 Chloride 105 mmol/L (98-107) 07/18/21 06:30 Carbon Dioxide 29.0 mmol/L (21.0-32.0) 07/18/21 06:30 Anion Gap 5 (5-15) 07/18/21 06:30 BUN 26 mg/dL (7-18) H 07/18/21 06:30 Creatinine 0.90 mg/dL (0.70-1.30) 07/18/21 06:30 Est GFR (MDRD) Af Amer 109 mL/min (>60) 07/18/21 06:30 Est GFR (MDRD) Non-Af 90 mL/min (>60) 07/18/21 06:30 BUN/Creatinine Ratio 28.8 RATIO (10-20) H 07/18/21 06:30 Glucose 169 mg/dL (74-106) H 07/18/21 06:30 Vancomycin Trough 18.3 ug/mL (5.0-15.0) H 07/18/21 06:30 Microbiology: Microbiology 07/16/21 15:50 Wound - Abdominal Gram Stain - Final 07/16/21 15:50 Wound - Abdominal Wound Culture - Preliminary Mixed Culture 07/16/21 17:11 Nasal Secretion SARS-CoV-2 Antigen (Rapid) - Final Pharmacy Plan for Drug Dosing: VANCOMYCIN LEVEL RECEIVED Current Vancomycin Dose: 1250MG Q12H Number of Doses Received: 3 Vancomycin Level: 18.3 Hours Since Last Dose: 12H Renal Function: sCr 0.76 and CrCl 85 ML/MIN Renal Function Trend: STABLE Lab/Micro: Vancomycin Plan/Comments: VANCOMYCIN LEVEL IS THERAPEUTIC, CONTINUE WITH VANCOMYCIN 1250MG Q12H Pending Level: 07/20/21 @ 629 Pharmacy Service will continue to monitor and adjust dosing as required. Follow-Up Labs: Trough Vancomycin Labs to be done on [date and time ordered]: 07/20/21 @ 30 VANCOMYCIN LEVEL
[2021-07-18] MEDS: 0.9% Saline Lock 10 ML Syringe IV ×2 (09:42→18:17)
[2021-07-18] MEDS: Menthol/Lanolin/Calamine/Znox 113 GM Tube 1 APPLIC TOPICAL ×4 (09:43→22:09)
[2021-07-18] MEDS: Potassium Chloride Oral Tablet 20 MEQ PO (09:43)
[2021-07-18] MEDS: Furosemide 40 MG/4 ML Vial IV ×2 (09:44→18:17)
[2021-07-18] MEDS: Metoprolol(XL)Succ 25 MG Tablet PO (09:44)
[2021-07-18 11:50] LABS: Bedside Glucose 288 mg/dL (70-110)
--- NOTE | 2021-07-18 12:04 | CASEMGMT ---
JAM MOSER in to pt room to discuss dc planning with patient. at bedside. Pt has wounds currently and patient states he and his were just discussing how they were going to handle this at home. Pt reports she attempted to follow up with ID to make an appt and the office was closed, then it was the holiday weekend. She states an appt on 07/23 was made with and that 's office is reviewing his chart to see if they are willing to accept pt, but she has not heard back. Pt reports he was completely independent prior to his previous hospitalization. Pt currently is using a walker at home and needs assistance from his . Pt states in the ER they were told he will most likely need to go to a SNF for therapy. Asked if this is something they are interested in. Discussed the option of SNF or HHC but also the limitations of the HHC and that the would most likely need to learn dressing changes and frequency of usual visits. Pt/ requested a pamphlet of SNF's. Patient and was provided a list of SNF facilities including quality and resource use data and consistent with the patient?s preferred geographic region, medical needs, and insurance network. JAM MOSER to give them some time and will check back.
--- NOTE | 2021-07-18 13:57 | PCM.PN.ID ---
Physical Exam Narrative Feeling better, abd less sore, no fever Const alert General Appearance: cooperative Resp normal air movement and clear to auscultation bilaterally Cardio regular rate and regular rhythm GI GI Narrative: less red Skin no rashes or lesions noted ID ID: Route of nutrition/ use of supplements: [] Nutritional Intake: [] IV Site: [] Aguirre Catheter: [] Assessment & Plan Assessment/Plan (1) Bacteremia: (2) Lower extremity edema: (3) GI bleed: QUALIFIERS: GI bleed type/associated pathology: unspecified gastrointestinal hemorrhage type Qualified Code(s): K92.2 - Gastrointestinal hemorrhage, unspecified (4) Abscess or cellulitis of umbilicus: PLAN: Has been on linezolid at home for mssa bacteremia. I&D done of umbilicus abscess, cx with mixed growth so far. On vanc/zosyn. Plan on home with po abx. Will follow
--- NOTE | 2021-07-18 14:48 | PN.HOSP_ITS ---
Subjective Subjective Patient seen and examined. He complains today of right shoulder pain which is not new and was present during previous admission. He was found to have an effusion in the right shoulder but this could not be tapped by either orthopedic surgery or radiology. He has not seen any more increased discharge from the site of his I&D at his umbilicus. Review of systems otherwise negative. He has otherwise remained hemodynamically stable. Objective Data Objective Data Vital Signs: Vital Signs Temp Pulse Resp BP Pulse Ox 98.2 F 94 18 109/66 97 07/18/21 13:28 07/18/21 13:28 07/18/21 13:28 07/18/21 13:28 07/18/21 13:28 Oxygen Delivery Method Room Air Weight: 236 lb 8.896 oz Body Mass Index (BMI) 33.1 Intake & Output: Intake and Output for Last 24 Hours 07/16/21 07/17/21 07/18/21 23:59 23:59 23:59 Intake Total 950 / 950 1280 / 1280 485 / 485 Output Total 1500 / 1500 800 / 800 500 / 500 Balance -550 / -550 480 / 480 -15 / -15 Medical Nutrition Assessment Dietitian: Malnutrition Criteria Met Start: 07/17/21 10:55 Freq: Status: Active Protocol: Document 07/17/21 10:56 BP (Rec: 07/17/21 10:56 BP Desktop) Nutrition Malnutrition Evidence of Malnutrition Exists Yes Malnutrition (severe): Acute Illness/Injury Evidenced By Suboptimal Energy Intake ( Severe),Weight Loss (Severe) Intake Problem Decreased Nutrient Needs (specify) Etiology carbohydrate related to endocrine dysfunction with T2DM Signs/Symptoms as evidenced by pt & family reports pt FBG range 292-470 mg/dl, pre supper BG 300-400 mg/dl, A1C 12.7% 07/01/21. Status Active Problem Clinical Problem Acute Disease or Injury Related Malnutrition Etiology Severe malnutrition in the context of acute disease/ injury related to inadequate oral intake & unintentional wt loss Signs/Symptoms as evidenced by pt & family reporting pt w/ poor intake at meals consuming </=50% energy intake compared to estimated needs at meals, wt loss 15 lbs /6% x 1 1/2 weeks, and pt & family comments reporting clothing not fitting pt. Status Active Problem Recommendation Dietitian Recommendations/Changes Will provide CHO controlled diet; will provide glucerna 120 ml w/ meals for additional svitlana/pro if consumed. Lab / Micro Data Result Diagrams: 07/18/21 06:30 07/18/21 06:30 Labs: Laboratory Results - last 24 hr 07/17/21 17:33: POC Glucose 437 H 07/17/21 23:29: POC Glucose 451 H* 07/18/21 05:46: POC Glucose 157 H 07/18/21 06:30: Vancomycin Trough 18.3 H 07/18/21 06:30: WBC 7.3, RBC 3.17 L, Hgb 9.4 L, Hct 29.9 L, MCV 94.3 H, MCH 29.7, MCHC 31.4 L, RDW Std Deviation 46.6 H, RDW Coeff of Jennifer 13.7, Plt Count 223, MPV 8.5, Immature Gran % (Auto) 0.800, Neut % (Auto) 79.4 H, Lymph % (Auto) 12.4 L, [place] % (Auto) 6.7, Eos % (Auto) 0.4, Baso % (Auto) 0.3, Absolute Neuts (auto) 5.8, Absolute Lymphs (auto) 0.90, Nucleated RBC % 0 07/18/21 06:30: Sodium 139, Potassium 3.3 L, Chloride 105, Carbon Dioxide 29.0, Anion Gap 5, BUN 26 H, Creatinine 0.90, Estim Creat Clear Calc 85.62, Est GFR (MDRD) Af Amer 109, Est GFR (MDRD) Non-Af 90, BUN/Creatinine Ratio 28.8 H, Gl ucose 169 H, Calcium 7.5 L 07/18/21 11:20: POC Glucose 288 H Micro: Microbiology 07/16/21 15:50 Wound - Abdominal Gram Stain - Final 07/16/21 15:50 Wound - Abdominal Wound Culture - Preliminary Mixed Culture 07/16/21 17:11 Nasal Secretion SARS-CoV-2 Antigen (Rapid) - Final Physical Exam Const alert, oriented x3 and no apparent distress Exam Limitations: no limitations HEENT head/scalp atraumatic and moist oral mucous membranes Head and Scalp: normocephalic Eyes PERRL, EOMs intact bilaterally and conjunctivae normal Neck no lymphadenopathy Resp normal respiratory effort, no retractions, no use of accessory muscles and clear to auscultation bilaterally Cardio regular rate, regular rhythm, S1 normal heart sound and S2 normal heart sound GI normal to inspection, nondistended, normoactive bowel sounds, soft to palpation, non-tender and non-distended GI Narrative: dressing over umbilicus. Extremity Extremity Narrative: bilateral LE edema, with bilateral CHANDRAKANT wraps; unable to abduct, adduct or rotate right shoulder joint due to pain. this is chronic. Peripheral Pulses: Yes pulses 2+ throughout Skin no rashes or lesions noted Neuro oriented x3, CN's II-XII intact bilaterally and moves all extremities Sensorium / Orientation: awake and alert Psych affect normal Assessment & Plan Assessment/Plan (1) Lower extremity edema: PLAN: #Periumbilical abscess and cellulitis * s/p I&D * General surgery on board. On IV vancomycin and Zosyn. * Wound cultures obtained. * Wound nurse on board * per general surgery, to keep for monitoring over the weekend. To be re evaluated by surgery on Wednesday to determine if he needs any further intervention * #? GI bleed * Hb was 11 on admission, * Hb is 9.4 today. * stable. stool for occult blood is negative. I am not convinced he had any GI bleed as he has been stable since admission. Will continue monitoring. * * #Type 2 diabetes mellitus * on lantus 10 units bid. ISS. Accuchecks ACHS * * #Bilateral lymphedema of LEs * wound care on board * on lasix; has CHANDRAKANT wraps bilaterally * #Hypertension: on metoprolol. IV hydralazine prn DVT prophylaxis: SCDs Charges/Coding Visit Charges Inpatient E&M: 40174 Subs Hosp L2
--- NOTE | 2021-07-18 15:30 | CASEMGMT ---
Social Work Note CAROLINA updated that pt had asked about [facility] for SNF. CAROLINA placed a call to Stephanie with TCU, unable to accept pt. SW in to speak with pt and pt's Marcelle present at [facility]. SW introduced self and role at [facility]. Pt engaged minimally with SW, Marcelle mostly did all of the talking. Marcelle had many questions regarding SNF. CAROLINA informed Marcelle and pt that [facility] is not able to accept pt. Marcelle asked about insurance paying at SNF. Pt has [employer] insurance. CAROLINA informed Marcelle that this worker is not sure her policy and the coverage, encouraged Marcelle to call her insurance and inquire about benefits. CAROLINA informed Marcelle that this worker can also call pt's insurance but it is late in the day and this worker is leaving soon for the day, not sure this worker will have time today. CAROLINA asked Marcelle if she wanted this worker to send any referrals to any SNF right now and Marcelle states she is not sure, would like to review list and discuss options. Plan: Possible SNF [facility]
[2021-07-18 17:25] LABS: Bedside Glucose 315 mg/dL (70-110)
[2021-07-18 23:51] LABS: Bedside Glucose 424 mg/dL (70-110)
[2021-07-19] MEDS: MELATONIN 3 MG TABLET PO (00:48)
[2021-07-19 02:44] VITALS: BP 105/62; PULSE 86; RESP 20; TEMP 37.4; O2SAT 95
[2021-07-19 02:55] VITALS: O2SAT 95
[2021-07-19] MEDS: Nystatin Powder 15gm Bottle 1 APPLIC TOPICAL ×3 (05:16→23:31)
[2021-07-19] MEDS: Insulin Lispro 100 UNIT/ML INSULN.PEN SC ×4 (05:20→23:34)
[2021-07-19 05:31] LABS: Bedside Glucose 230 mg/dL (70-110)
[2021-07-19 08:12] LABS: Absolute Lymphocyte Count 1.11 X10^3/uL (0.83-4.51); Absolute Neutrophil Count 6.3 X10^3/uL (2.0-7.7); Basophil# 0.02 X10^3/uL; Basophil% 0.2 % (0-1); Eosinophil# 0.07 X10^3/uL; Eosinophils% 0.9 % (0-5); Hematocrit 28.8 % (40-54); Hemoglobin 9.2 g/dL (13.0-16.5); Lymphocyte # 1.11 X10^3/ul (0.83-4.51); Lymphocyte % 13.8 % (19-41); Mean Corp Hgb Conc 31.9 g/dL (32-36); Mean Corpuscular Hgb 30.1 pg (27.0-32.0); Mean Corpuscular Volume 94.1 fL (80-94); Monocyte# 0.52 X10^3/uL; Monocyte% 6.5 % (0-10); NRBC Flagged by Analyzer 0 % (0-5); Neutrophil # 6.28 X10^3/uL (2.7-7.7); Neutrophil % 77.9 % (47-70); Platelet Count 182 K/mm3 (150-450); RBC Distribution Width CV 13.8 % (11.6-14.6); RBC Distribution Width SD 47.1 fl (35.1-43.9); Red Blood Count 3.06 M/mm3 (4.6-6.2); White Blood Count 8.1 K/mm3 (4.4-11.0)
[2021-07-19 08:21] LABS: Anion Gap 3 (5-15); BUN 29 mg/dL (7-18); BUN/Creat Ratio 18.2 RATIO (10-20); Calcium,Total 7.4 mg/dL (8.5-10.1); Chloride 103 mmol/L (98-107); Creatinine, Serum 1.59 mg/dL (0.70-1.30); EST Glomerular Filtration Rate 47 mL/min (>60); Est Glom Filt Rate - Afr Amer 57 mL/min (>60); Estimated Creatinine Clearance 48.46 ml/min; Glucose 155 mg/dL (74-106); Potassium 3.1 mmol/L (3.5-5.1); Sodium Level 136 mmol/L (136-145)
[2021-07-19 10:30] VITALS: BP 108/58; PULSE 79; RESP 18; TEMP 37.4; O2SAT 94
[2021-07-19 10:43] VITALS: BP 108/58; PULSE 79
[2021-07-19] MEDS: Furosemide 40 MG/4 ML Vial IV (10:43)
[2021-07-19] MEDS: Metoprolol(XL)Succ 25 MG Tablet PO (10:43)
[2021-07-19] MEDS: Potassium Chloride Oral Tablet 20 MEQ PO (10:43)
[2021-07-19] MEDS: Menthol/Lanolin/Calamine/Znox 113 GM Tube 1 APPLIC TOPICAL ×4 (10:44→23:30)
[2021-07-19] MEDS: oxyCODONE 5 MG Tablet PO (11:10)
[2021-07-19 12:11] LABS: Bedside Glucose 255 mg/dL (70-110)
--- NOTE | 2021-07-19 12:55 | PN.HOSP_ITS ---
Subjective Subjective Patient seen and examined. He had no complaints today. He still does have the right shoulder pain and it remains the same. Review of systems otherwise negative. He had an uneventful night. Objective Data Objective Data Vital Signs: Vital Signs Temp Pulse Resp BP Pulse Ox 99.3 F H 79 20 H 108/58 L 95 07/19/21 02:44 07/19/21 10:43 07/19/21 02:44 07/19/21 10:43 07/19/21 02:55 Oxygen Delivery Method Room Air Weight: 236 lb 1.841 oz Body Mass Index (BMI) 33.1 Intake & Output: Intake and Output for Last 24 Hours 07/17/21 07/18/21 07/19/21 23:59 23:59 23:59 Intake Total 1280 / 1280 1800 / 1800 685 / 685 Output Total 800 / 800 1850 / 1850 300 / 300 Balance 480 / 480 -50 / -50 385 / 385 Medical Nutrition Assessment Dietitian: Malnutrition Criteria Met Start: 07/17/21 10:55 Freq: Status: Active Protocol: Document 07/17/21 10:56 BP (Rec: 07/17/21 10:56 BP Desktop) Nutrition Malnutrition Evidence of Malnutrition Exists Yes Malnutrition (severe): Acute Illness/Injury Evidenced By Suboptimal Energy Intake ( Severe),Weight Loss (Severe) Intake Problem Decreased Nutrient Needs (specify) Etiology carbohydrate related to endocrine dysfunction with T2DM Signs/Symptoms as evidenced by pt & family reports pt FBG range 292-470 mg/dl, pre supper BG 300-400 mg/dl, A1C 12.7% 07/01/21. Status Active Problem Clinical Problem Acute Disease or Injury Related Malnutrition Etiology Severe malnutrition in the context of acute disease/ injury related to inadequate oral intake & unintentional wt loss Signs/Symptoms as evidenced by pt & family reporting pt w/ poor intake at meals consuming </=50% energy intake compared to estimated needs at meals, wt loss 15 lbs /6% x 1 1/2 weeks, and pt & family comments reporting clothing not fitting pt. Status Active Problem Recommendation Dietitian Recommendations/Changes Will provide CHO controlled diet; will provide glucerna 120 ml w/ meals for additional svitlana/pro if consumed. Lab / Micro Data Result Diagrams: 07/19/21 07:52 07/19/21 07:52 Labs: Laboratory Results - last 24 hr 07/18/21 16:49: POC Glucose 315 H 07/18/21 23:45: POC Glucose 424 H 07/19/21 05:20: POC Glucose 230 H 07/19/21 07:52: WBC 8.1, RBC 3.06 L, Hgb 9.2 L, Hct 28.8 L, MCV 94.1 H, MCH 30.1, MCHC 31.9 L, RDW Std Deviation 47.1 H, RDW Coeff of Jennifer 13.8, Plt Count 182, MPV 8.0, Immature Gran % (Auto) 0.700, Neut % (Auto) 77.9 H, Lymph % (Auto) 13.8 L, [place] % (Auto) 6.5, Eos % (Auto) 0.9, Baso % (Auto) 0.2, Absolute Neuts (auto) 6.3, Absolute Lymphs (auto) 1.11, Nucleated RBC % 0 07/19/21 07:52: Sodium 136, Potassium 3.1 L, Chloride 103, Carbon Dioxide 30.0, Anion Gap 3 L, BUN 29 H, Creatinine 1.59 H, Estim Creat Clear Calc 48.46, Est GFR (MDRD) Af Amer 57 L, Est GFR (MDRD) Non-Af 47 L, BUN/Creatinine Ratio 18.2, Glucose 155 H, Calcium 7.4 L 07/19/21 12:03: POC Glucose 255 H Micro: Microbiology 07/16/21 15:50 Wound - Abdominal Gram Stain - Final 07/16/21 15:50 Wound - Abdominal Wound Culture - Preliminary Serratia marcescens Klebsiella pneumoniae sp pneum Escherichia coli 07/16/21 17:11 Nasal Secretion SARS-CoV-2 Antigen (Rapid) - Final Physical Exam Const alert, oriented x3 and no apparent distress Exam Limitations: no limitations HEENT head/scalp atraumatic and moist oral mucous membranes Head and Scalp: normocephalic Eyes PERRL, EOMs intact bilaterally and conjunctivae normal Neck no lymphadenopathy Resp normal respiratory effort, no retractions, no use of accessory muscles and clear to auscultation bilaterally Cardio regular rate, regular rhythm, S1 normal heart sound and S2 normal heart sound GI normal to inspection, nondistended, normoactive bowel sounds, soft to palpation, non-tender and non-distended GI Narrative: intact dressing over umbilical regiion, at site of I&D. Extremity Extremity Narrative: bilateral LE edema, with bilateral CHANDRAKANT wraps. Peripheral Pulses: Yes pulses 2+ throughout Skin no rashes or lesions noted Neuro oriented x3, CN's II-XII intact bilaterally and moves all extremities Sensorium / Orientation: awake and alert Psych affect normal Assessment & Plan Assessment/Plan (1) Lower extremity edema: PLAN: #Periumbilical abscess and cellulitis * s/p I&D * General surgery on board. On IV vancomycin and Zosyn. * Wound cultures obtained. * Wound nurse on board * per discussiion with general surgery, to keep for monitoring over the weekend. To be re evaluated by surgery on Wednesday to determine if he needs any further intervention * #Hypokalemia: K is 3.1. Will replace and trend. * #YINKA: * Cr is up to 1.59 today, from 0.9 yesterday. * Patient on IV vancomycin. vanc trough being checked today to adjust dose. * Hydrate very gently with IVF. * #Type 2 diabetes mellitus * on lantus 10 units bid. ISS. Accuchecks ACHS * * #Bilateral lymphedema of LEs * wound care on board * on lasix; has CHANDRAKANT wraps bilaterally * #Hypertension: on metoprolol. IV hydralazine prn DVT prophylaxis: SCDs Charges/Coding Visit Charges Inpatient E&M: 55637 Subs Hosp L2
--- NOTE | 2021-07-19 14:11 | CASEMGMT ---
Addendum entered by Monik Mansfield 07/19/21 16:10: Patient's voiced that would prefer to take patient home and that she has concerns regarding patient going to a SNF related to covid as he has had 3 covid tests already. CAROLINA updated RN Kindra Duran regarding this interaction. Plan: To be determined. Original Note: CAROLINA Note Referral Source: [facility] Referral Reason: SNF at discharge SW met with patient and in patient's room. She indicated she had not called the insurance company. She said that they would like patient to come home but they said he needs rehab. Patient's expressed concern regarding covid at SNF. Patient's reports they would like patient to stay in [place] so they are choosing, [facility], [facility] and [facility] in no particular order per . Patient's said that she would talk to the children to see what preference they had in regards to preference regarding SNF. Patient's requested social work follow up on Wednesday. plan: SNF at discharge Monik TAPIA
[2021-07-19] MEDS: 0.9% Saline Lock 10 ML Syringe IV (14:20)
--- NOTE | 2021-07-19 16:01 | CASEMGMT ---
RN CM in to pt room to discuss dc planning as CAROLINA states pt and does not want SNF. Pt states we don't want to go to a facility, but we know we most likely will need to. She states she gave three facilities. Spoke with Monik FIGUEROA. Will reevaluate pt on Wednesday as he will be here at this time.
[2021-07-19 16:46] LABS: Bedside Glucose 288 mg/dL (70-110)
[2021-07-19 19:05] LABS: Vancomycin, Trough Level 36.2 ug/mL (5.0-15.0)
--- NOTE | 2021-07-19 20:22 | PCM.PN.SRG ---
Subjective Subjective Patient denies abdominal pain His notes decreased drainage of dressing changes Objective Data Objective Data Vital Signs: Vital Signs Temp Pulse Resp BP Pulse Ox 99.3 F H 79 18 108/58 L 94 07/19/21 10:30 07/19/21 10:43 07/19/21 10:30 07/19/21 10:43 07/19/21 10:30 Oxygen Delivery Method Room Air Weight: 107.1 kg Body Mass Index (BMI) 33.1 Intake & Output: Intake and Output for Last 24 Hours 07/17/21 07/18/21 07/19/21 23:59 23:59 23:59 Intake Total 1280 / 1280 1800 / 1800 1335 / 1335 Output Total 800 / 800 1850 / 1850 1300 / 1300 Balance 480 / 480 -50 / -50 35 / 35 Medical Nutrition Assessment Dietitian: Malnutrition Criteria Met Start: 07/17/21 10:55 Freq: Status: Active Protocol: Document 07/17/21 10:56 BP (Rec: 07/17/21 10:56 BP Desktop) Nutrition Malnutrition Evidence of Malnutrition Exists Yes Malnutrition (severe): Acute Illness/Injury Evidenced By Suboptimal Energy Intake ( Severe),Weight Loss (Severe) Intake Problem Decreased Nutrient Needs (specify) Etiology carbohydrate related to endocrine dysfunction with T2DM Signs/Symptoms as evidenced by pt & family reports pt FBG range 292-470 mg/dl, pre supper BG 300-400 mg/dl, A1C 12.7% 07/01/21. Status Active Problem Clinical Problem Acute Disease or Injury Related Malnutrition Etiology Severe malnutrition in the context of acute disease/ injury related to inadequate oral intake & unintentional wt loss Signs/Symptoms as evidenced by pt & family reporting pt w/ poor intake at meals consuming </=50% energy intake compared to estimated needs at meals, wt loss 15 lbs /6% x 1 1/2 weeks, and pt & family comments reporting clothing not fitting pt. Status Active Problem Recommendation Dietitian Recommendations/Changes Will provide CHO controlled diet; will provide glucerna 120 ml w/ meals for additional svitlana/pro if consumed. Lab / Micro Data Result Diagrams: 07/19/21 07:52 07/19/21 07:52 Labs: Laboratory Results - last 24 hr 07/18/21 23:45: POC Glucose 424 H 07/19/21 05:20: POC Glucose 230 H 07/19/21 07:52: WBC 8.1, RBC 3.06 L, Hgb 9.2 L, Hct 28.8 L, MCV 94.1 H, MCH 30.1, MCHC 31.9 L, RDW Std Deviation 47.1 H, RDW Coeff of Jennifer 13.8, Plt Count 182, MPV 8.0, Immature Gran % (Auto) 0.700, Neut % (Auto) 77.9 H, Lymph % (Auto) 13.8 L, [place] % (Auto) 6.5, Eos % (Auto) 0.9, Baso % (Auto) 0.2, Absolute Neuts (auto) 6.3, Absolute Lymphs (auto) 1.11, Nucleated RBC % 0 07/19/21 07:52: Sodium 136, Potassium 3.1 L, Chloride 103, Carbon Dioxide 30.0, Anion Gap 3 L, BUN 29 H, Creatinine 1.59 H, Estim Creat Clear Calc 48.46, Est GFR (MDRD) Af Amer 57 L, Est GFR (MDRD) Non-Af 47 L, BUN/Creatinine Ratio 18.2, Glucose 155 H, Calcium 7.4 L 07/19/21 12:03: POC Glucose 255 H 07/19/21 16:42: POC Glucose 288 H 07/19/21 18:16: Vancomycin Trough 36.2 H Micro: Microbiology 07/16/21 15:50 Wound - Abdominal Gram Stain - Final 07/16/21 15:50 Wound - Abdominal Wound Culture - Preliminary Serratia marcescens Klebsiella pneumoniae sp pneum Escherichia coli 07/16/21 17:11 Nasal Secretion SARS-CoV-2 Antigen (Rapid) - Final Physical Exam Const alert and oriented x3 General Appearance: cooperative HEENT Head and Scalp: normocephalic Resp normal respiratory effort GI GI Narrative: soft and benign dressing intact - no seepage noted Assessment & Plan Assessment/Plan (1) Abscess or cellulitis of umbilicus: PLAN: continue present therapy
[2021-07-19 23:22] VITALS: BP 108/65; PULSE 85; RESP 16; TEMP 37.1; O2SAT 93
[2021-07-19 23:51] LABS: Bedside Glucose 261 mg/dL (70-110)
[2021-07-20] VITALS (7 sets, daily range): BP systolic 85–119; BP diastolic 55–67; PULSE 81–116; RESP 16–18; TEMP 36.6–37.2; O2SAT 92–98
--- NOTE | 2021-07-20 02:34 | PCM.RX.CS ---
Consult Pharmacy has been consulted to manage selected antiobiotic: Vancomycin Type of Consult: Follow-up Labs: Sodium 136 mmol/L (136-145) 07/19/21 07:52 Potassium 3.1 mmol/L (3.5-5.1) L 07/19/21 07:52 Chloride 103 mmol/L (98-107) 07/19/21 07:52 Carbon Dioxide 30.0 mmol/L (21.0-32.0) 07/19/21 07:52 Anion Gap 3 (5-15) L 07/19/21 07:52 BUN 29 mg/dL (7-18) H 07/19/21 07:52 Creatinine 1.59 mg/dL (0.70-1.30) H 07/19/21 07:52 Est GFR (MDRD) Af Amer 57 mL/min (>60) L 07/19/21 07:52 Est GFR (MDRD) Non-Af 47 mL/min (>60) L 07/19/21 07:52 BUN/Creatinine Ratio 18.2 RATIO (10-20) 07/19/21 07:52 Glucose 155 mg/dL (74-106) H 07/19/21 07:52 Vancomycin Trough 36.2 ug/mL (5.0-15.0) H 07/19/21 18:16 Microbiology: Microbiology 07/16/21 15:50 Wound - Abdominal Gram Stain - Final 07/16/21 15:50 Wound - Abdominal Wound Culture - Preliminary Serratia marcescens Klebsiella pneumoniae sp pneum Escherichia coli 07/16/21 17:11 Nasal Secretion SARS-CoV-2 Antigen (Rapid) - Final Goal Trough: 15-20 mcg/mL Pharmacy Plan for Drug Dosing: Pharmacy Service will continue to monitor and adjust dosing as required. TROUGH 36.2 SCr INCREASED TO 1.59. DOSE AT 1830 HELD. DOSE D/C'D RANDOM TROUGH IN 12 HOURS Follow-Up Labs: Trough Vancomycin Labs to be done on [date and time ordered]: 07/20 @ 1800 RANDOM
[2021-07-20] MEDS: Insulin Lispro 100 UNIT/ML INSULN.PEN SC ×4 (05:49→20:31)
[2021-07-20] MEDS: Nystatin Powder 15gm Bottle 1 APPLIC TOPICAL ×3 (05:50→20:28)
[2021-07-20 06:06] LABS: Bedside Glucose 364 mg/dL (70-110)
[2021-07-20 07:01] LABS: Absolute Lymphocyte Count 0.78 X10^3/uL (0.83-4.51); Absolute Neutrophil Count 5.8 X10^3/uL (2.0-7.7); Basophil# 0.01 X10^3/uL; Basophil% 0.1 % (0-1); Eosinophil# 0.09 X10^3/uL; Eosinophils% 1.3 % (0-5); Hematocrit 27.4 % (40-54); Hemoglobin 8.7 g/dL (13.0-16.5); Lymphocyte # 0.78 X10^3/ul (0.83-4.51); Lymphocyte % 10.9 % (19-41); Mean Corp Hgb Conc 31.8 g/dL (32-36); Mean Corpuscular Hgb 29.7 pg (27.0-32.0); Mean Corpuscular Volume 93.5 fL (80-94); Mean Platelet Vol. 8.3 fl (6.2-12.0); Monocyte# 0.44 X10^3/uL; Monocyte% 6.1 % (0-10); NRBC Flagged by Analyzer 0 % (0-5); Neutrophil # 5.79 X10^3/uL (2.7-7.7); Neutrophil % 80.6 % (47-70); Platelet Count 181 K/mm3 (150-450); RBC Distribution Width SD 47.2 fl (35.1-43.9); Red Blood Count 2.93 M/mm3 (4.6-6.2); White Blood Count 7.2 K/mm3 (4.4-11.0)
[2021-07-20 07:31] LABS: Anion Gap 8 (5-15); BUN 37 mg/dL (7-18); BUN/Creat Ratio 16.5 RATIO (10-20); Calcium,Total 7.5 mg/dL (8.5-10.1); Chloride 98 mmol/L (98-107); Creatinine, Serum 2.24 mg/dL (0.70-1.30); EST Glomerular Filtration Rate 32 mL/min (>60); Est Glom Filt Rate - Afr Amer 38 mL/min (>60); Glucose 379 mg/dL (74-106); Potassium 3.3 mmol/L (3.5-5.1); Sodium Level 134 mmol/L (136-145)
[2021-07-20] MEDS: Potassium Chloride Oral Tablet 20 MEQ PO (08:46)
[2021-07-20] MEDS: Menthol/Lanolin/Calamine/Znox 113 GM Tube 1 APPLIC TOPICAL ×4 (08:47→20:27)
[2021-07-20] MEDS: 0.9% Normal Saline 1,000 ML 100 ML IV (08:47)
[2021-07-20] MEDS: Pantoprazole Sodium 40 MG Tablet PO (10:41)
[2021-07-20] MEDS: Metoprolol(XL)Succ 25 MG Tablet PO (10:41)
[2021-07-20] MEDS: Ceftriaxone 1 GM/50 ML BAG IV (10:41)
[2021-07-20 11:31] LABS: Bedside Glucose > 500 mg/dL (70-110)
[2021-07-20] MEDS: Morphine 2 MG/ML Syringe IV (11:31)
[2021-07-20] MEDS: 0.9% Saline Lock 10 ML Syringe IV ×2 (11:32→20:29)
--- NOTE | 2021-07-20 12:11 | PN.HOSP_ITS ---
Subjective Subjective Patient seen and examined. He had no complaints this morning and felt well. Review of systems otherwise negative. He has remained hemodynamically stable. Creatinine however noted to have trended up to 2.24. Objective Data Objective Data Vital Signs: Vital Signs Temp Pulse Resp BP Pulse Ox 97.8 F 100 18 88/59 L 94 07/20/21 08:42 07/20/21 10:41 07/20/21 08:42 07/20/21 08:42 07/20/21 08:42 Oxygen Delivery Method Room Air Weight: 238 lb 12.17 oz Body Mass Index (BMI) 33.1 Intake & Output: Intake and Output for Last 24 Hours 07/18/21 07/19/21 07/20/21 23:59 23:59 23:59 Intake Total 1800 / 1800 1523.5 / 1823.5 1121.92 / 1121.92 Output Total 1850 / 1850 1300 / 1300 Balance -50 / -50 223.5 / 523.5 1121.92 / 1121.92 Medical Nutrition Assessment Dietitian: Malnutrition Criteria Met Start: 07/17/21 10:55 Freq: Status: Active Protocol: Document 07/17/21 10:56 BP (Rec: 07/17/21 10:56 BP Desktop) Nutrition Malnutrition Evidence of Malnutrition Exists Yes Malnutrition (severe): Acute Illness/Injury Evidenced By Suboptimal Energy Intake ( Severe),Weight Loss (Severe) Intake Problem Decreased Nutrient Needs (specify) Etiology carbohydrate related to endocrine dysfunction with T2DM Signs/Symptoms as evidenced by pt & family reports pt FBG range 292-470 mg/dl, pre supper BG 300-400 mg/dl, A1C 12.7% 07/01/21. Status Active Problem Clinical Problem Acute Disease or Injury Related Malnutrition Etiology Severe malnutrition in the context of acute disease/ injury related to inadequate oral intake & unintentional wt loss Signs/Symptoms as evidenced by pt & family reporting pt w/ poor intake at meals consuming </=50% energy intake compared to estimated needs at meals, wt loss 15 lbs /6% x 1 1/2 weeks, and pt & family comments reporting clothing not fitting pt. Status Active Problem Recommendation Dietitian Recommendations/Changes Will provide CHO controlled diet; will provide glucerna 120 ml w/ meals for additional svitlana/pro if consumed. Lab / Micro Data Result Diagrams: 07/20/21 05:40 07/20/21 05:40 Labs: Laboratory Results - last 24 hr 07/19/21 12:03: POC Glucose 255 H 07/19/21 16:42: POC Glucose 288 H 07/19/21 18:16: Vancomycin Trough 36.2 H 07/19/21 23:25: POC Glucose 261 H 07/20/21 05:40: WBC 7.2, RBC 2.93 L, Hgb 8.7 L, Hct 27.4 L, MCV 93.5, MCH 29.7, MCHC 31.8 L, RDW Std Deviation 47.2 H, RDW Coeff of Jennifer 14.0, Plt Count 181, MPV 8.3, Immature Gran % (Auto) 1.000 H, Neut % (Auto) 80.6 H, Lymph % (Auto) 10.9 L , [place] % (Auto) 6.1, Eos % (Auto) 1.3, Baso % (Auto) 0.1, Absolute Neuts (auto) 5.8, Absolute Lymphs (auto) 0.78 L, Nucleated RBC % 0 07/20/21 05:40: Sodium 134 L, Potassium 3.3 L, Chloride 98, Carbon Dioxide 28.0, Anion Gap 8, BUN 37 H, Creatinine 2.24 H, Estim Creat Clear Calc 34.40, Est GFR (MDRD) Af Amer 38 L, Est GFR (MDRD) Non-Af 32 L, BUN/Creatinine Ratio 16.5, Glucose 379 H, Calcium 7.5 L 07/20/21 05:48: POC Glucose 364 H 07/20/21 11:22: POC Glucose > 500 H* Micro: Microbiology 07/16/21 15:50 Wound - Abdominal Gram Stain - Final 07/16/21 15:50 Wound - Abdominal Wound Culture - Final Serratia marcescens Klebsiella pneumoniae sp pneum Escherichia coli Staphylococcus pseudintermediu 07/16/21 17:11 Nasal Secretion SARS-CoV-2 Antigen (Rapid) - Final Physical Exam Const alert, oriented x3 and no apparent distress Exam Limitations: no limitations HEENT head/scalp atraumatic and moist oral mucous membranes Head and Scalp: normocephalic Eyes PERRL, EOMs intact bilaterally and conjunctivae normal Neck no lymphadenopathy Resp normal respiratory effort, no retractions, no use of accessory muscles and clear to auscultation bilaterally Cardio regular rate, regular rhythm, S1 normal heart sound and S2 normal heart sound GI normal to inspection, nondistended, normoactive bowel sounds, soft to palpation, non-tender and non-distended GI Narrative: intact dressing over umbilical regiion, at site of I&D. Extremity Extremity Narrative: bilateral LE edema, with bilateral CHANDRAKANT wraps. Skin no rashes or lesions noted Neuro oriented x3, CN's II-XII intact bilaterally and moves all extremities Sensorium / Orientation: awake and alert Psych affect normal Assessment & Plan Assessment/Plan (1) Lower extremity edema: PLAN: #Periumbilical abscess and cellulitis * s/p I&D * General surgery on board. IV vancomycin and zosyn dc'd due to worsening kidney function * Wound cultures growing Serratia, Klebsiella pneumonia, E coli and Staph pseudintermediu * will start on IV ceftriaxone based on culture results and sensitivities. * wound care on board. * General surgery to re evaluate on Wednesday to determine if he needs any further evaluation. * * #Hypokalemia:resolved * #YINKA: * Cr is up to 2.24 today, from 1.59 yesterday * I think this may be due to IV vancomycin. Vanc and zosyn dc'd * being hydrated gently with IVF. * trend Cr; lasix also held * #Anemia * Hb today is 8.7. Baseline Hb from June 2021 was 13. Hb at time of admission this time was 11.6 * stool for occult blood was negative * check iron panel and ferritin to assess for iron deficiency anemia * if anemia worsens, consult GI * #Type 2 diabetes mellitus * on lantus 10 units bid. ISS. Accuchecks ACHS * * #Bilateral lymphedema of LEs * wound care on board * on lasix; has CHANDRAKANT wraps bilaterally. Lasix held o/a of YINKA * #Hypertension: on metoprolol. IV hydralazine prn DVT prophylaxis: SCDs Charges/Coding Visit Charges Inpatient E&M: 76996 [facility] Hosp L3
[2021-07-20 13:10] LABS: Ferritin 1107 ng/mL (26-388); Iron 29 ug/dL (65-175); Iron Binding Capacity,Total 110 ug/dL (250-450); PERCENT IRON SATURATION 26.4 % (15.0-55.0)
--- NOTE | 2021-07-20 16:46 | PN.SURG_ITS ---
Subjective Subjective patient denies abdominal pain states that there is minimal drainage per dressing Objective Data Objective Data Vital Signs: Vital Signs Temp Pulse Resp BP Pulse Ox 98.4 F 105 H 18 86/55 L 96 07/20/21 14:56 07/20/21 14:56 07/20/21 14:56 07/20/21 14:56 07/20/21 14:56 Oxygen Delivery Method Room Air Weight: 108.3 kg Body Mass Index (BMI) 33.1 Intake & Output: Intake and Output for Last 24 Hours 07/18/21 07/19/21 07/20/21 23:59 23:59 23:59 Intake Total 1800 / 1800 1523.5 / 1823.5 2235.25 / 2235.25 Output Total 1850 / 1850 1300 / 1300 Balance -50 / -50 223.5 / 523.5 2235.25 / 2235.25 Medical Nutrition Assessment Dietitian: Malnutrition Criteria Met Start: 07/17/21 10:55 Freq: Status: Active Protocol: Document 07/17/21 10:56 BP (Rec: 07/17/21 10:56 BP Desktop) Nutrition Malnutrition Evidence of Malnutrition Exists Yes Malnutrition (severe): Acute Illness/Injury Evidenced By Suboptimal Energy Intake ( Severe),Weight Loss (Severe) Intake Problem Decreased Nutrient Needs (specify) Etiology carbohydrate related to endocrine dysfunction with T2DM Signs/Symptoms as evidenced by pt & family reports pt FBG range 292-470 mg/dl, pre supper BG 300-400 mg/dl, A1C 12.7% 07/01/21. Status Active Problem Clinical Problem Acute Disease or Injury Related Malnutrition Etiology Severe malnutrition in the context of acute disease/ injury related to inadequate oral intake & unintentional wt loss Signs/Symptoms as evidenced by pt & family reporting pt w/ poor intake at meals consuming </=50% energy intake compared to estimated needs at meals, wt loss 15 lbs /6% x 1 1/2 weeks, and pt & family comments reporting clothing not fitting pt. Status Active Problem Recommendation Dietitian Recommendations/Changes Will provide CHO controlled diet; will provide glucerna 120 ml w/ meals for additional svitlana/pro if consumed. Lab / Micro Data Result Diagrams: 07/20/21 05:40 07/20/21 05:40 Labs: Laboratory Results - last 24 hr 07/19/21 16:42: POC Glucose 288 H 07/19/21 18:16: Vancomycin Trough 36.2 H 07/19/21 23:25: POC Glucose 261 H 07/20/21 05:40: WBC 7.2, RBC 2.93 L, Hgb 8.7 L, Hct 27.4 L, MCV 93.5, MCH 29.7, MCHC 31.8 L, RDW Std Deviation 47.2 H, RDW Coeff of Jennifer 14.0, Plt Count 181, MPV 8.3, Immature Gran % (Auto) 1.000 H, Neut % (Auto) 80.6 H, Lymph % (Auto) 10.9 L , [place] % (Auto) 6.1, Eos % (Auto) 1.3, Baso % (Auto) 0.1, Absolute Neuts (auto) 5.8, Absolute Lymphs (auto) 0.78 L, Nucleated RBC % 0 07/20/21 05:40: Sodium 134 L, Potassium 3.3 L, Chloride 98, Carbon Dioxide 28.0, Anion Gap 8, BUN 37 H, Creatinine 2.24 H, Estim Creat Clear Calc 34.40, Est GFR (MDRD) Af Amer 38 L, Est GFR (MDRD) Non-Af 32 L, BUN/Creatinine Ratio 16.5, Glucose 379 H, Calcium 7.5 L 07/20/21 05:40: Iron 29 L, TIBC 110 L, Iron Saturation 26.4, Ferritin 1107 H 07/20/21 05:48: POC Glucose 364 H 07/20/21 11:22: POC Glucose > 500 H* Micro: Microbiology 07/16/21 15:50 Wound - Abdominal Gram Stain - Final 07/16/21 15:50 Wound - Abdominal Wound Culture - Final Serratia marcescens Klebsiella pneumoniae sp pneum Escherichia coli Staphylococcus pseudintermediu 07/16/21 17:11 Nasal Secretion SARS-CoV-2 Antigen (Rapid) - Final Physical Exam Const alert and oriented x3 General Appearance: cooperative Resp normal respiratory effort GI Palpation: soft Assessment & Plan Assessment/Plan (1) Abscess or cellulitis of umbilicus: PLAN: continue present therapy
[2021-07-20 17:21] LABS: Bedside Glucose 300 mg/dL (70-110)
[2021-07-20 18:44] LABS: Vancomycin, Random Level 21.7 ug/mL (0.0-15.0)
[2021-07-20 22:06] LABS: Bedside Glucose 345 mg/dL (70-110)
[2021-07-21] MEDS: MELATONIN 3 MG TABLET PO ×2 (02:10→20:22)
[2021-07-21] MEDS: 0.9% Saline Lock 10 ML Syringe IV ×3 (02:17→20:22)
[2021-07-21 02:33] VITALS: BP 107/50; PULSE 83; RESP 18; TEMP 37.1; O2SAT 92
[2021-07-21] MEDS: Nystatin Powder 15gm Bottle 1 APPLIC TOPICAL ×3 (05:30→20:25)
[2021-07-21 06:48] LABS: Absolute Neutrophil Count 6.7 X10^3/uL (2.0-7.7); Basophil# 0.02 X10^3/uL; Basophil% 0.2 % (0-1); Eosinophil# 0.12 X10^3/uL; Eosinophils% 1.4 % (0-5); Hematocrit 26.6 % (40-54); Hemoglobin 8.5 g/dL (13.0-16.5); Lymphocyte % 10.9 % (19-41); Mean Platelet Vol. 8.5 fl (6.2-12.0); Monocyte# 0.43 X10^3/uL; Monocyte% 5.2 % (0-10); NRBC Flagged by Analyzer 0 % (0-5); Neutrophil # 6.72 X10^3/uL (2.7-7.7); Neutrophil % 81.1 % (47-70); Platelet Count 185 K/mm3 (150-450); RBC Distribution Width CV 13.9 % (11.6-14.6); RBC Distribution Width SD 47.2 fl (35.1-43.9); Red Blood Count 2.83 M/mm3 (4.6-6.2); White Blood Count 8.3 K/mm3 (4.4-11.0)
[2021-07-21] MEDS: Insulin Lispro 100 UNIT/ML INSULN.PEN SC ×4 (07:01→20:23)
[2021-07-21] MEDS: oxyCODONE 5 MG Tablet PO ×2 (07:06→18:49)
[2021-07-21 07:11] LABS: Bedside Glucose 234 mg/dL (70-110)
[2021-07-21 07:25] LABS: Anion Gap 7 (5-15); BUN 42 mg/dL (7-18); BUN/Creat Ratio 16.5 RATIO (10-20); Calcium,Total 7.4 mg/dL (8.5-10.1); Chloride 100 mmol/L (98-107); Creatinine, Serum 2.54 mg/dL (0.70-1.30); EST Glomerular Filtration Rate 27 mL/min (>60); Est Glom Filt Rate - Afr Amer 33 mL/min (>60); Estimated Creatinine Clearance 30.34 ml/min; Glucose 238 mg/dL (74-106); Potassium 3.4 mmol/L (3.5-5.1); Sodium Level 132 mmol/L (136-145)
--- NOTE | 2021-07-21 07:35 | PN.SURG_ITS ---
Subjective Subjective Patient not complaining of any abdominal pain he only complains of right shoulder pain Objective Data Objective Data Vital Signs: Vital Signs Temp Pulse Resp BP Pulse Ox 98.7 F 83 18 107/50 L 92 07/21/21 02:33 07/21/21 02:33 07/21/21 02:33 07/21/21 02:33 07/21/21 02:33 Oxygen Delivery Method Room Air Weight: 235 lb 14.314 oz Body Mass Index (BMI) 33.1 Intake & Output: Intake and Output for Last 24 Hours 07/19/21 07/20/21 07/21/21 23:59 23:59 23:59 Intake Total 1523.5 / 1823.5 2620.25 / 2620.25 200 / 200 Output Total 1300 / 1300 Balance 223.5 / 523.5 2620.25 / 2620.25 200 / 200 Medical Nutrition Assessment Dietitian: Malnutrition Criteria Met Start: 07/17/21 10:55 Freq: Status: Active Protocol: Document 07/17/21 10:56 BP (Rec: 07/17/21 10:56 BP Desktop) Nutrition Malnutrition Evidence of Malnutrition Exists Yes Malnutrition (severe): Acute Illness/Injury Evidenced By Suboptimal Energy Intake ( Severe),Weight Loss (Severe) Intake Problem Decreased Nutrient Needs (specify) Etiology carbohydrate related to endocrine dysfunction with T2DM Signs/Symptoms as evidenced by pt & family reports pt FBG range 292-470 mg/dl, pre supper BG 300-400 mg/dl, A1C 12.7% 07/01/21. Status Active Problem Clinical Problem Acute Disease or Injury Related Malnutrition Etiology Severe malnutrition in the context of acute disease/ injury related to inadequate oral intake & unintentional wt loss Signs/Symptoms as evidenced by pt & family reporting pt w/ poor intake at meals consuming </=50% energy intake compared to estimated needs at meals, wt loss 15 lbs /6% x 1 1/2 weeks, and pt & family comments reporting clothing not fitting pt. Status Active Problem Recommendation Dietitian Recommendations/Changes Will provide CHO controlled diet; will provide glucerna 120 ml w/ meals for additional svitlana/pro if consumed. Lab / Micro Data Result Diagrams: 07/21/21 05:26 07/21/21 05:26 Labs: Laboratory Results - last 24 hr 07/20/21 05:40: Iron 29 L, TIBC 110 L, Iron Saturation 26.4, Ferritin 1107 H 07/20/21 11:22: POC Glucose > 500 H* 07/20/21 16:28: POC Glucose 300 H 07/20/21 17:54: Random Vancomycin 21.7 H 07/20/21 20:25: POC Glucose 345 H 07/21/21 05:26: WBC 8.3, RBC 2.83 L, Hgb 8.5 L, Hct 26.6 L, MCV 94.0, MCH 30.0, MCHC 32.0, RDW Std Deviation 47.2 H, RDW Coeff of Jennifer 13.9, Plt Count 185, MPV 8.5, Immature Gran % (Auto) 1.200 H, Neut % (Auto) 81.1 H, Lymph % (Auto) 10.9 L , [place] % (Auto) 5.2, Eos % (Auto) 1.4, Baso % (Auto) 0.2, Absolute Neuts (auto) 6.7, Absolute Lymphs (auto) 0.90, Nucleated RBC % 0 07/21/21 05:26: Sodium 132 L, Potassium 3.4 L, Chloride 100, Carbon Dioxide 25.0, Anion Gap 7, BUN 42 H, Creatinine 2.54 H, Estim Creat Clear Calc 30.34, Est GFR (MDRD) Af Amer 33 L, Est GFR (MDRD) Non-Af 27 L, BUN/Creatinine Ratio 16.5, Glucose 238 H, Calcium 7.4 L 07/21/21 06:59: POC Glucose 234 H Micro: Microbiology 07/16/21 15:50 Wound - Abdominal Gram Stain - Final 07/16/21 15:50 Wound - Abdominal Wound Culture - Final Serratia marcescens Klebsiella pneumoniae sp pneum Escherichia coli Staphylococcus pseudintermediu 07/16/21 17:11 Nasal Secretion SARS-CoV-2 Antigen (Rapid) - Final Physical Exam Const no apparent distress Resp normal respiratory effort Cardio regular rate GI soft to palpation and non-tender Assessment & Plan Assessment/Plan (1) Abscess or cellulitis of umbilicus: PLAN: I remove the packing and there was no purulence present. There is n o cellulitis around the area. I recommend continuing antibiotics and packing changes as an outpatient once discharged and follow-up with me in 1 week. If there are good signs of healing and no purulent discharge we will continue that plan if there is purulence or cellulitis then I would explant the mesh. Bennett Barrios MD Pager: [facility] [address] [place] [address] [address] [place] [address] Office:
[2021-07-21 08:06] VITALS: O2SAT 93
[2021-07-21] MEDS: Potassium Chloride Oral Tablet 20 MEQ PO (08:24)
[2021-07-21 08:25] VITALS: PULSE 89
[2021-07-21] MEDS: Pantoprazole Sodium 40 MG Tablet PO (08:25)
[2021-07-21] MEDS: Metoprolol(XL)Succ 25 MG Tablet PO (08:25)
[2021-07-21] MEDS: Menthol/Lanolin/Calamine/Znox 113 GM Tube 1 APPLIC TOPICAL ×4 (08:29→20:26)
[2021-07-21 08:30] VITALS: BP 105/59; PULSE 89; RESP 16; TEMP 37.3; O2SAT 96
--- NOTE | 2021-07-21 09:05 | WOUNDNOTE ---
wound photo: left dorsal foot
--- NOTE | 2021-07-21 09:06 | WOUNDNOTE ---
wound photo: left heel
--- NOTE | 2021-07-21 09:06 | WOUNDNOTE ---
skin photo: bilateral lower legs
--- NOTE | 2021-07-21 09:07 | WOUNDNOTE ---
wound photo: right dorsal lateral foot
[2021-07-21] MEDS: Ceftriaxone 1 GM/50 ML BAG IV (10:32)
--- NOTE | 2021-07-21 12:30 | CASEMGMT ---
Social Work Note SW in to speak with pt, pt's Marcelle present in room. Marcelle states first choice for SNF is [facility]. Marcelle asked if this worker had chance to check on SNF benefits. CAROLINA informed Marcelle that this worker hasn't had chance, also encouraged Marcelle that she can call pt's insurance as well. CAROLINA informed Marcelle that this worker will see if [place] can check pt's SNF benefits when they run pt's insurance. Marcelle states understanding. CAROLINA placed a call to Macey at [facility] and left message regarding referral, asked for SNF benefits to be checked. CAROLINA faxed referral to [facility]. Plan: SNF pending acceptance and pre-cert Ella Stafford INVENTORY CONTROL ASSOCIATE, PUBLIC RELATIONS WRITER
[2021-07-21 12:45] LABS: Bedside Glucose 324 mg/dL (70-110)
--- NOTE | 2021-07-21 13:03 | CASEMGMT ---
Pt screened with [facility] Palliative Care Screening Tool due to strata 3, pt met criteria. No order received.
[2021-07-21 14:43] VITALS: BP 99/60; PULSE 93; RESP 16; TEMP 37.1; O2SAT 96
--- NOTE | 2021-07-21 15:12 | PCM.PN.ID ---
Physical Exam Narrative Feeling better, no fever Const alert General Appearance: cooperative Resp normal air movement and clear to auscultation bilaterally Cardio regular rate and regular rhythm GI normal to inspection, nondistended, normoactive bowel sounds Skin Skin Narrative: dry dressing over umbilicus ID ID: Route of nutrition/ use of supplements: [] Nutritional Intake: [] IV Site: [] Aguirre Catheter: [] Assessment & Plan Assessment/Plan (1) Bacteremia: (2) Lower extremity edema: (3) GI bleed: QUALIFIERS: GI bleed type/associated pathology: unspecified gastrointestinal hemorrhage type Qualified Code(s): K92.2 - Gastrointestinal hemorrhage, unspecified (4) Abscess or cellulitis of umbilicus: PLAN: Has been on linezolid at home for mssa bacteremia. I&D done of umbilicus abscess, cx with mixed growth so far (serratia, klebs, ecoli, CoNS). On ceftriaxone since 07/20. Worsening YINKA now. Serratia can have some intrinsic 3rd gen cephalosporin resistance, will monitor. Plan on home with po abx. Will follow
--- NOTE | 2021-07-21 16:22 | CASEMGMT ---
Addendum entered by Ella Stafford 07/21/21 16:48: SW received call from Macey at [facility] stating they are able to accept pt and will submit for pre-cert. Macey states she hasn't got pt's benefits back yet but will call pt's when benefits are available. CAROLINA in to speak with pt and pt's Marcelle. CAROLINA updated pt and Marcelle that [facility] is able to accept pt pending pre-cert. Macey in admissions will be calling Marcelle to review benefits. Plan: W pending pre-cert Original Note: Social Work Note CAROLINA placed a call to Macey at [facility] and left message regarding referral. CAROLINA waiting for call back. Plan: SNF pending acceptance and pre-cert Ella Stafford FLIGHT ENGINEER, PATTERN CHART WRITER
--- NOTE | 2021-07-21 16:49 | PN.HOSP_ITS ---
Subjective Subjective Still with abdominal pain. Objective Data Objective Data Vital Signs: Vital Signs Temp Pulse Resp BP Pulse Ox 37.1 C 93 16 99/60 96 07/21/21 14:43 07/21/21 14:43 07/21/21 14:43 07/21/21 14:43 07/21/21 14:43 Oxygen Delivery Method Room Air Weight: 107 kg Body Mass Index (BMI) 33.1 Intake & Output: Intake and Output for Last 24 Hours 07/19/21 07/20/21 07/21/21 23:59 23:59 23:59 Intake Total 1523.5 / 1823.5 2620.25 / 2620.25 650 / 650 Output Total 1300 / 1300 Balance 223.5 / 523.5 2620.25 / 2620.25 650 / 650 Medical Nutrition Assessment Dietitian: Malnutrition Criteria Met Start: 07/17/21 10:55 Freq: Status: Active Protocol: Document 07/21/21 14:50 RMA (Rec: 07/21/21 14:50 RMA [id number]) Nutrition Malnutrition Evidence of Malnutrition Exists Yes Malnutrition (severe): Acute Illness/Injury Evidenced By Suboptimal Energy Intake ( Severe),Weight Loss (Severe) Intake Problem Decreased Nutrient Needs (specify) Etiology carbohydrate related to endocrine dysfunction with T2DM Signs/Symptoms as evidenced by pt & family reports pt FBG range 292-470 mg/dl, pre supper BG 300-400 mg/dl, A1C 12.7% 07/01/21. Status Active Problem Clinical Problem Acute Disease or Injury Related Malnutrition Etiology Severe malnutrition in the context of acute disease/ injury related to inadequate oral intake & unintentional wt loss Signs/Symptoms as evidenced by pt & family reporting pt w/ poor intake at meals consuming </=50% energy intake compared to estimated needs at meals, wt loss 15 lbs /6% x 1 1/2 weeks, and pt & family comments reporting clothing not fitting pt. Status Active Problem Recommendation Dietitian Recommendations/Changes Continue carbohydrate- controlled diet as tolerated and glucerna shake 120 ml TID w/ meals for additional svitlana/ pro if consumed. Lab / Micro Data Result Diagrams: 07/21/21 05:26 07/21/21 05:26 Labs: Laboratory Results - last 24 hr 07/20/21 16:28: POC Glucose 300 H 07/20/21 17:54: Random Vancomycin 21.7 H 07/20/21 20:25: POC Glucose 345 H 07/21/21 05:26: WBC 8.3, RBC 2.83 L, Hgb 8.5 L, Hct 26.6 L, MCV 94.0, MCH 30.0, MCHC 32.0, RDW Std Deviation 47.2 H, RDW Coeff of Jennifer 13.9, Plt Count 185, MPV 8.5, Immature Gran % (Auto) 1.200 H, Neut % (Auto) 81.1 H, Lymph % (Auto) 10.9 L , [place] % (Auto) 5.2, Eos % (Auto) 1.4, Baso % (Auto) 0.2, Absolute Neuts (auto) 6.7, Absolute Lymphs (auto) 0.90, Nucleated RBC % 0 07/21/21 05:26: Sodium 132 L, Potassium 3.4 L, Chloride 100, Carbon Dioxide 25.0, Anion Gap 7, BUN 42 H, Creatinine 2.54 H, Estim Creat Clear Calc 30.34, Est GFR (MDRD) Af Amer 33 L, Est GFR (MDRD) Non-Af 27 L, BUN/Creatinine Ratio 16.5, Glucose 238 H, Calcium 7.4 L 07/21/21 06:59: POC Glucose 234 H 07/21/21 12:09: POC Glucose 324 H Micro: Microbiology 07/16/21 15:50 Wound - Abdominal Gram Stain - Final 07/16/21 15:50 Wound - Abdominal Wound Culture - Final Serratia marcescens Klebsiella pneumoniae sp pneum Escherichia coli Staphylococcus pseudintermediu 07/16/21 17:11 Nasal Secretion SARS-CoV-2 Antigen (Rapid) - Final Physical Exam Const alert Constitutional Narrative: up in chair Resp normal respiratory effort, no retractions and no use of accessory muscles Cardio regular rate, regular rhythm and S1 normal heart sound GI GI Narrative: wick in umbilicu. TTP and fullness around left side of umbilicus. Extremity Extremity Narrative: wrapped bilaterally. General Extremity: edema Assessment & Plan Assessment/Plan (1) Abscess or cellulitis of umbilicus: PLAN: #Periumbilical abscess and cellulitis * s/p I&D * General surgery on board. IV vancomycin and zosyn dc'd due to worsening kidney function * Wound cultures growing Serratia, Klebsiella pneumonia, E coli and Staph pseudintermediu * will start on IV ceftriaxone based on culture results and sensitivities. * wound care on board. * General surgery recommending continuing abx and packing changes for now * ID following #Hypokalemia: ongoing replace #YINKA: * Cr is up to 2.54 today, baseline around 0.9 * I think this may be due to IV vancomycin. Vanc and zosyn dc'd * being hydrated gently with IVF. * trend Cr; lasix also held * check urine studies #Anemia * stable * Hb today is 8.7. Baseline Hb from June 2021 was 13. Hb at time of admission this time was 11.6 * stool for occult blood was negative * surgery following * colonoscopy likely when more HDS, can be deferred to outpt #Type 2 diabetes mellitus * uncontrolled * increase lantus to 20 units bid. * ISS. Accuchecks ACHS * check an A1c #Bilateral lymphedema of LEs * wound care on board * on lasix; has CHANDRAKANT wraps bilaterally. Lasix held o/a of YINKA #Hypertension: on metoprolol. IV hydralazine prn DVT prophylaxis: SCDs Charges/Coding Visit Charges Inpatient E&M: 62547 Subs Hosp L2
[2021-07-21 17:30] LABS: Bedside Glucose 323 mg/dL (70-110)
[2021-07-21] MEDS: Potassium Chloride Oral Tablet 20 MEQ 40 MEQ PO (18:49)
[2021-07-21 20:18] VITALS: BP 121/59; PULSE 84; RESP 18; TEMP 37.1; O2SAT 96
[2021-07-21 20:46] LABS: Bedside Glucose 330 mg/dL (70-110)
[2021-07-22 01:29] LABS: Mucous, Urine 0 SEEN /hpf (<or=2+)
[2021-07-22 01:31] LABS: Color, Urine Yellow (Yellow); Glucose, Dipstick 250 mg/dl (Normal); Ketone-Dipstick Negative (Negative); Leukocyte Esterase-Dipstick 100 /ul (Negative); Nitrite-Dipstick Negative (Negative); Occult Blood-Urine 150 /ul (Negative); Protein-Dipstick 30 mg/dl (Negative); Urine Bilirubin Dipstick Negative (Negative); Urine Clarity Clear (Clear); Urine Urobilinogen Normal (Normal)
[2021-07-22 01:53] LABS: Amorphous Sediment 1+; Bacteria 1+ /hpf (None Seen); Hyaline Cast 0-5 SEEN /lpf (0-5); Red Blood Cells-Urine 10-25 SEEN /hpf (0-5); Squamous Epithelial Cells - UA 0-5 SEEN /hpf (0-5); White Blood Cells 10-25 SEEN /hpf (0-5)
[2021-07-22 03:06] VITALS: BP 114/59; PULSE 81; RESP 18; TEMP 36.8; O2SAT 93
[2021-07-22] MEDS: oxyCODONE 5 MG Tablet PO (03:31)
[2021-07-22] MEDS: Nystatin Powder 15gm Bottle 1 APPLIC TOPICAL ×3 (05:44→21:04)
[2021-07-22] MEDS: Insulin Lispro 100 UNIT/ML INSULN.PEN SC ×4 (05:45→21:07)
[2021-07-22 06:21] LABS: Absolute Lymphocyte Count 0.82 X10^3/uL (0.83-4.51); Absolute Neutrophil Count 6.4 X10^3/uL (2.0-7.7); Basophil# 0.02 X10^3/uL; Basophil% 0.3 % (0-1); Eosinophil# 0.13 X10^3/uL; Eosinophils% 1.6 % (0-5); Hematocrit 26.8 % (40-54); Hemoglobin 8.5 g/dL (13.0-16.5); Lymphocyte # 0.82 X10^3/ul (0.83-4.51); Lymphocyte % 10.3 % (19-41); Mean Corp Hgb Conc 31.7 g/dL (32-36); Mean Corpuscular Hgb 29.5 pg (27.0-32.0); Mean Corpuscular Volume 93.1 fL (80-94); Mean Platelet Vol. 8.3 fl (6.2-12.0); Monocyte# 0.43 X10^3/uL; Monocyte% 5.4 % (0-10); NRBC Flagged by Analyzer 0 % (0-5); Neutrophil # 6.42 X10^3/uL (2.7-7.7); Neutrophil % 80.9 % (47-70); Platelet Count 174 K/mm3 (150-450); RBC Distribution Width CV 14.1 % (11.6-14.6); RBC Distribution Width SD 47.5 fl (35.1-43.9); Red Blood Count 2.88 M/mm3 (4.6-6.2); White Blood Count 7.9 K/mm3 (4.4-11.0)
[2021-07-22 06:53] LABS: ALB/GLOB Ratio 0.2 RATIO (0.9-2.4); AST(SGOT) 15 U/L (15-37); Alanine Aminotransfer ALT/SGPT 13 U/L (16-61); Albumin, Serum 0.9 g/dL (3.2-5.0); Alkaline Phosphatase 90 U/L (45-117); Anion Gap 7 (5-15); BUN 44 mg/dL (7-18); BUN/Creat Ratio 16.2 RATIO (10-20); Calcium,Total 7.7 mg/dL (8.5-10.1); Chloride 101 mmol/L (98-107); Creatinine, Serum 2.72 mg/dL (0.70-1.30); EST Glomerular Filtration Rate 25 mL/min (>60); Est Glom Filt Rate - Afr Amer 31 mL/min (>60); Estimated Creatinine Clearance 28.33 ml/min; Globulin 5.8 g/dL (2.2-4.2); Glucose 263 mg/dL (74-106); Potassium 4.2 mmol/L (3.5-5.1); Protein, Total 6.7 g/dL (6.4-8.2); Sodium Level 132 mmol/L (136-145)
[2021-07-22 07:01] LABS: Bedside Glucose 244 mg/dL (70-110)
[2021-07-22 08:00] VITALS: BP 118/69; PULSE 71; RESP 16; TEMP 36.4; O2SAT 97
[2021-07-22 08:29] LABS: Hemoglobin A1c 12.8 % (3.8-5.6)
[2021-07-22 09:21] LABS: Urea Nitrogen, Urine 385 mg/dL (NO RANGE EST.)
[2021-07-22 10:13] VITALS: PULSE 71
[2021-07-22] MEDS: Metoprolol(XL)Succ 25 MG Tablet PO (10:13)
[2021-07-22] MEDS: Potassium Chloride Oral Tablet 20 MEQ PO (10:14)
[2021-07-22] MEDS: Pantoprazole Sodium 40 MG Tablet PO (10:14)
[2021-07-22] MEDS: Menthol/Lanolin/Calamine/Znox 113 GM Tube 1 APPLIC TOPICAL ×4 (10:14→21:03)
[2021-07-22] MEDS: Ceftriaxone 1 GM/50 ML BAG IV (10:15)
[2021-07-22] MEDS: 0.9% Saline Lock 10 ML Syringe IV ×2 (10:15→16:54)
[2021-07-22 12:35] LABS: Bedside Glucose 213 mg/dL (70-110)
--- NOTE | 2021-07-22 13:06 | CASEMGMT ---
Addendum entered by Ella Stafford 07/22/21 14:30: CAROLINA received call from Macey stating she tried to call Marcelle's cell phone and it went straight to voicemail. CAROLINA informed Macey that Marcelle was just at [facility], CAROLINA will walk back to pt's room to see if she is still here at [facility] so Macey can review SNF benefits. CAROLINA back into pt's room. Marcelle is still present at [facility]. CAROLINA handed Marcelle this worker's phone to speak with Macey at [facility]. Addendum entered by Ella Stafford 07/22/21 14:08: CAROLINA placed a call to Macey at [facility] and left message asking if she had updated pt's Marcelle on SNF benefits yet. CAROLINA received message from Macey stating the only number on pt's facesheet is Marcelle's home phone number and Macey has not been able to get a hold of her, Macey asked if Marcelle had a cell phone number. CAROLINA back in to speak with pt, Marcelle present in room. CAROLINA informed Marcelle that [facility] has been trying to contact her to review SNF benefits but has not been successful, asked for cell phone number. Marcelle provided cell phone number [phone]. CAROLINA placed a call to Macey at [facility] and left message with Marcelle's cell phone number. Original Note: Social Work Note CAROLINA received call from Macey at [facility] stating pt's insurance is requesting updated clinicals. CAROLINA faxed updated clinicals. Plan: [facility] pending pre-cert Ella Stafford TEST GRADER, SHEET METAL WORKER MAINTENANCE
--- NOTE | 2021-07-22 15:31 | PN.HOSP_ITS ---
Subjective Subjective Denies any new issues. Scant drainage from his umbilicus. Objective Data Objective Data Vital Signs: Vital Signs Temp Pulse Resp BP Pulse Ox 36.4 C L 71 16 118/69 97 07/22/21 08:00 07/22/21 10:13 07/22/21 08:00 07/22/21 08:00 07/22/21 08:00 Oxygen Delivery Method Room Air Weight: 113.1 kg Body Mass Index (BMI) 33.1 Intake & Output: Intake and Output for Last 24 Hours 07/20/21 07/21/21 07/22/21 23:59 23:59 23:59 Intake Total 2620.25 / 2620.25 950 / 950 550 / 550 Output Total 1200 / 1200 Balance 2620.25 / 2620.25 950 / 950 -650 / -650 Medical Nutrition Assessment Dietitian: Malnutrition Criteria Met Start: 07/17/21 10:55 Freq: Status: Active Protocol: Document 07/21/21 14:50 RMA (Rec: 07/21/21 14:50 RMA [id number]) Nutrition Malnutrition Evidence of Malnutrition Exists Yes Malnutrition (severe): Acute Illness/Injury Evidenced By Suboptimal Energy Intake ( Severe),Weight Loss (Severe) Intake Problem Decreased Nutrient Needs (specify) Etiology carbohydrate related to endocrine dysfunction with T2DM Signs/Symptoms as evidenced by pt & family reports pt FBG range 292-470 mg/dl, pre supper BG 300-400 mg/dl, A1C 12.7% 07/01/21. Status Active Problem Clinical Problem Acute Disease or Injury Related Malnutrition Etiology Severe malnutrition in the context of acute disease/ injury related to inadequate oral intake & unintentional wt loss Signs/Symptoms as evidenced by pt & family reporting pt w/ poor intake at meals consuming </=50% energy intake compared to estimated needs at meals, wt loss 15 lbs /6% x 1 1/2 weeks, and pt & family comments reporting clothing not fitting pt. Status Active Problem Recommendation Dietitian Recommendations/Changes Continue carbohydrate- controlled diet as tolerated and glucerna shake 120 ml TID w/ meals for additional svitlana/ pro if consumed. Lab / Micro Data Result Diagrams: 07/22/21 06:05 07/22/21 06:05 Labs: Laboratory Results - last 24 hr 07/21/21 16:49: POC Glucose 323 H 07/21/21 20:15: POC Glucose 330 H 07/22/21 01:22: Urine Color Yellow, Urine Clarity Clear, Urine pH 5.0, Ur Specific [place] 1.010, Urine Protein 30 H, Urine Glucose (UA) 250 H, Urine Ketones Negative, Urine Occult Blood 150 H, Urine Nitrite Negative, Urine Bilirubin Negative, Urine Urobilinogen Normal, Ur Leukocyte Esterase 100 H, Urine RBC 10-25 SEEN, Urine WBC 10-25 SEEN, Ur Squamous Epith Cells 0-5 SEEN, Amorphous Sediment 1+, Urine Bacteria 1+, Hyaline Casts 0-5 SEEN, Urine Mucus 0 SEEN 07/22/21 01:22: U Random Total Protein 75.0 H, Urine Creatinine 69.50 07/22/21 01:22: Urine Urea Nitrogen 385 07/22/21 05:44: POC Glucose 244 H 07/22/21 06:05: WBC 7.9, RBC 2.88 L, Hgb 8.5 L, Hct 26.8 L, MCV 93.1, MCH 29.5, MCHC 31.7 L, RDW Std Deviation 47.5 H, RDW Coeff of Jennifer 14.1, Plt Count 174, MPV 8.3, Immature Gran % (Auto) 1.500 H, Neut % (Auto) 80.9 H, Lymph % (Auto) 10.3 L , [place] % (Auto) 5.4, Eos % (Auto) 1.6, Baso % (Auto) 0.3, Absolute Neuts (auto) 6.4, Absolute Lymphs (auto) 0.82 L, Nucleated RBC % 0 07/22/21 06:05: Sodium 132 L, Potassium 4.2, Chloride 101, Carbon Dioxide 24.0, Anion Gap 7, BUN 44 H, Creatinine 2.72 H, Estim Creat Clear Calc 28.33, Est GFR (MDRD) Af Amer 31 L, Est GFR (MDRD) Non-Af 25 L, BUN/Creatinine Ratio 16.2, Glucose 263 H, Calcium 7.7 L, Total Bilirubin 0.30, AST 15, ALT 13 L, Alkaline Phosphatase 90, Total Protein 6.7, Albumin 0.9 L, Globulin 5.8 H, Albumin/Globulin Ratio 0.2 L 07/22/21 06:05: Hemoglobin A1c 12.8 H 07/22/21 11:32: POC Glucose 213 H Micro: Microbiology 07/16/21 15:50 Wound - Abdominal Gram Stain - Final 07/16/21 15:50 Wound - Abdominal Wound Culture - Final Serratia marcescens Klebsiella pneumoniae sp pneum Escherichia coli Staphylococcus pseudintermediu 07/16/21 17:11 Nasal Secretion SARS-CoV-2 Antigen (Rapid) - Final Physical Exam Const alert and no apparent distress Resp normal respiratory effort, no retractions, no use of accessory muscles and clear to auscultation bilaterally Cardio regular rate, regular rhythm, S1 normal heart sound and S2 normal heart sound GI normal to inspection, nondistended, normoactive bowel sounds, soft to palpation and non-tender GI Narrative: Obese. Distended. Umbilicus covered. Did not remove. Extremity General Extremity: edema Assessment & Plan Assessment/Plan (1) Abscess or cellulitis of umbilicus: PLAN: #Periumbilical abscess and cellulitis * s/p I&D * General surgery on board. IV vancomycin and zosyn dc'd due to worsening kidney function * Wound cultures growing Serratia, Klebsiella pneumonia, E coli and Staph pseudintermediu * will start on IV ceftriaxone based on culture results and sensitivities. * wound care on board. * General surgery recommending continuing abx and packing changes for now * ID following #Hypokalemia: ongoing replace #YINKA: * Cr is up to 2.7 today, baseline around 0.9 * I think this may be due to IV vancomycin. Vanc and zosyn dc'd * FEUrea 34.24. Suggestive prerenal azotemia. * Will give additional IVF and observe. * non-oliguric * Consider nephrology consult if worse. #Anemia * stable * Hb today is 8.7. Baseline Hb from June 2021 was 13. Hb at time of admission this time was 11.6 * stool for occult blood was negative * surgery following * colonoscopy likely when more HDS, can be deferred to outpt #Type 2 diabetes mellitus * uncontrolled * increase lantus to 20 units bid. * ISS. Accuchecks ACHS * check an A1c #Bilateral lymphedema of LEs * wound care on board * has CHANDRAKANT wraps bilaterally. Lasix held o/a of YINKA #Hypertension: on metoprolol. IV hydralazine prn DVT prophylaxis: SCDs Charges/Coding Visit Charges Inpatient E&M: 32442 Subs Hosp L2
[2021-07-22 15:32] VITALS: BP 110/70; PULSE 110; RESP 18; TEMP 36.6; O2SAT 99
[2021-07-22] MEDS: 0.9% Normal Saline 1,000 ML 150 ML IV (16:54)
[2021-07-22 17:01] LABS: Bedside Glucose 321 mg/dL (70-110)
[2021-07-22 20:50] VITALS: BP 117/58; PULSE 88; RESP 18; TEMP 37.3; O2SAT 95
[2021-07-22] MEDS: MELATONIN 3 MG TABLET PO (21:03)
[2021-07-22 21:16] LABS: Bedside Glucose 270 mg/dL (70-110)
[2021-07-23] VITALS (7 sets, daily range): BP systolic 86–119; BP diastolic 54–61; PULSE 80–105; RESP 15–18; TEMP 35.9–37.2; O2SAT 93–100
[2021-07-23] MEDS: oxyCODONE 5 MG Tablet PO ×4 (02:53→22:27)
[2021-07-23] MEDS: Nystatin Powder 15gm Bottle 1 APPLIC TOPICAL ×3 (06:20→21:02)
[2021-07-23] MEDS: Insulin Lispro 100 UNIT/ML INSULN.PEN SC ×4 (06:23→20:57)
[2021-07-23 06:36] LABS: Bedside Glucose 199 mg/dL (70-110)
[2021-07-23 07:34] LABS: Absolute Lymphocyte Count 0.88 X10^3/uL (0.83-4.51); Absolute Neutrophil Count 6.6 X10^3/uL (2.0-7.7); Basophil# 0.03 X10^3/uL; Basophil% 0.4 % (0-1); Eosinophil# 0.12 X10^3/uL; Eosinophils% 1.5 % (0-5); Hematocrit 25.4 % (40-54); Lymphocyte # 0.88 X10^3/ul (0.83-4.51); Lymphocyte % 10.8 % (19-41); Mean Corp Hgb Conc 31.5 g/dL (32-36); Mean Corpuscular Hgb 29.5 pg (27.0-32.0); Mean Corpuscular Volume 93.7 fL (80-94); Mean Platelet Vol. 8.6 fl (6.2-12.0); Monocyte# 0.48 X10^3/uL; Monocyte% 5.9 % (0-10); NRBC Flagged by Analyzer 0 % (0-5); Neutrophil # 6.57 X10^3/uL (2.7-7.7); Neutrophil % 80.5 % (47-70); Platelet Count 207 K/mm3 (150-450); RBC Distribution Width CV 13.9 % (11.6-14.6); RBC Distribution Width SD 46.9 fl (35.1-43.9); Red Blood Count 2.71 M/mm3 (4.6-6.2); White Blood Count 8.2 K/mm3 (4.4-11.0)
[2021-07-23 08:13] LABS: Anion Gap 6 (5-15); BUN 42 mg/dL (7-18); Calcium,Total 7.6 mg/dL (8.5-10.1); Chloride 102 mmol/L (98-107); Creatinine, Serum 2.63 mg/dL (0.70-1.30); EST Glomerular Filtration Rate 26 mL/min (>60); Est Glom Filt Rate - Afr Amer 32 mL/min (>60); Glucose 186 mg/dL (74-106); Potassium 4.1 mmol/L (3.5-5.1); Sodium Level 132 mmol/L (136-145)
[2021-07-23] MEDS: Potassium Chloride Oral Tablet 20 MEQ PO (09:48)
[2021-07-23] MEDS: Metoprolol(XL)Succ 25 MG Tablet PO (09:50)
[2021-07-23] MEDS: Pantoprazole Sodium 40 MG Tablet PO (09:51)
[2021-07-23] MEDS: Menthol/Lanolin/Calamine/Znox 113 GM Tube 1 APPLIC TOPICAL ×4 (09:53→21:02)
[2021-07-23] MEDS: Ceftriaxone 1 GM/50 ML BAG IV (09:54)
--- NOTE | 2021-07-23 10:58 | CASEMGMT ---
Addendum entered by Ella Stafford 07/23/21 15:57: [place] updated pt's Marcelle that pre-cert has been obtained for [facility]. Pt to discharge to [facility] once medically cleared. Addendum entered by Ella Stafford 07/23/21 14:15: CAROLINA received message from Macey at [facility] stating pre-cert was obtained and can discharge today. CAROLINA then updated that pt is now not medically ready for discharge. CAROLINA placed a call to Macey at [facility] asked how long pt's pre-cert is good. Macey states if pt doesn't admit today, she will just need to update pt's insurance tomorrow. Original Note: Social Work Note Pt is medically ready for discharge today once pre-cert is obtained. CAROLINA placed a call to Macey at [facility], pre-cert is still pending. [place]INA informed Macey that pt is medically cleared for discharge today once pre-cert is obtained. Plan: [facility] pending pre-cert Ella Stafford SUPERVISOR OF GUIDANCE AND TESTING, [employer]
[2021-07-23 11:45] LABS: Bedside Glucose 272 mg/dL (70-110)
--- NOTE | 2021-07-23 14:17 | CT_ITS ---
STUDY: CT ABDOMEN AND PELVIS WITHOUT CONTRAST REASON FOR EXAM: Male, 66 years old. Abdominal distention RADIATION DOSAGE (If Supplied By Facility): CTDIvol = ( 22.72 ) mGy, DLP = ( 1254.46 ) mGycm TECHNIQUE: Transaxial images were obtained from the dome of the diaphragm to the symphysis pubis without oral contrast, and without intravenous contrast. Sagittal and coronal images were reconstructed. Individualized dose optimization techniques were used for this CT. COMPARISON: Comparison is made with prior study dated 07/16/2021. FINDINGS: Minimal increased markings at the lung bases slightly more prominent on the left side suggestive of a bibasilar atelectasis. The visualized portions of the heart are within normal limits. Normal liver. The gallbladder is contracted. Normal spleen. There is diffuse atrophy of the pancreas. Normal bilateral adrenal glands. Normal right kidney. Normal left kidney. There is a small hiatal hernia. Normal small intestine. There is a gaseous distention of the transverse colon. Fluid is seen in the cecal region. The appendix is visualized and appears normal. There is diffuse atherosclerotic calcification of the abdominal aorta and major visceral branches, without a demonstrated aneurysm. Normal inferior vena cava. Normal retroperitoneum. Normal urinary bladder. The patient is status post ventral The mesh. Minimal postoperative residual changes persist. The previously seen tiny fluid collection has cleared. There is evidence of a mild degree of increased markings in the subcutaneous fat as well as skin thickening at that site. There are diffuse degenerative changes of the visualized lumbar spine. CT/Abdomen/Pelvis without Cont IMPRESSION: Mild degree of bibasilar atelectasis. Status post anterior ventral hernia repair with a mesh and minimal residual changes at the operative site. The previously seen small fluid collection as resolved. Electronically Signed: Chandan Martínez MD at 15:27 EDT , Service support ,
--- NOTE | 2021-07-23 14:28 | PN.HOSP_ITS ---
Subjective Subjective Feels well. Abdominal pain unchanged. Objective Data Objective Data Vital Signs: Vital Signs Temp Pulse Resp BP Pulse Ox 35.9 C L 105 H 18 101/54 L 97 07/23/21 12:24 07/23/21 12:24 07/23/21 12:24 07/23/21 12:24 07/23/21 12:24 Oxygen Delivery Method Room Air Weight: 113.1 kg Body Mass Index (BMI) 33.1 Intake & Output: Intake and Output for Last 24 Hours 07/21/21 07/22/21 07/23/21 23:59 23:59 23:59 Intake Total 950 / 950 2049 / 2049 530 / 530 Output Total 1200 / 1200 950 / 950 Balance 950 / 950 850 / 850 -420 / -420 Medical Nutrition Assessment Dietitian: Malnutrition Criteria Met Start: 07/17/21 10:55 Freq: Status: Active Protocol: Document 07/21/21 14:50 RMA (Rec: 07/21/21 14:50 RMA [id number]) Nutrition Malnutrition Evidence of Malnutrition Exists Yes Malnutrition (severe): Acute Illness/Injury Evidenced By Suboptimal Energy Intake ( Severe),Weight Loss (Severe) Intake Problem Decreased Nutrient Needs (specify) Etiology carbohydrate related to endocrine dysfunction with T2DM Signs/Symptoms as evidenced by pt & family reports pt FBG range 292-470 mg/dl, pre supper BG 300-400 mg/dl, A1C 12.7% 07/01/21. Status Active Problem Clinical Problem Acute Disease or Injury Related Malnutrition Etiology Severe malnutrition in the context of acute disease/ injury related to inadequate oral intake & unintentional wt loss Signs/Symptoms as evidenced by pt & family reporting pt w/ poor intake at meals consuming </=50% energy intake compared to estimated needs at meals, wt loss 15 lbs /6% x 1 1/2 weeks, and pt & family comments reporting clothing not fitting pt. Status Active Problem Recommendation Dietitian Recommendations/Changes Continue carbohydrate- controlled diet as tolerated and glucerna shake 120 ml TID w/ meals for additional svitlana/ pro if consumed. Lab / Micro Data Result Diagrams: 07/23/21 07:00 07/23/21 07:00 Labs: Laboratory Results - last 24 hr 07/22/21 16:53: POC Glucose 321 H 07/22/21 21:06: POC Glucose 270 H 07/23/21 06:23: POC Glucose 199 H 07/23/21 07:00: WBC 8.2, RBC 2.71 L, Hgb 8.0 L, Hct 25.4 L, MCV 93.7, MCH 29.5, MCHC 31.5 L, RDW Std Deviation 46.9 H, RDW Coeff of Jennifer 13.9, Plt Count 207, MPV 8.6, Immature Gran % (Auto) 0.900, Neut % (Auto) 80.5 H, Lymph % (Auto) 10.8 L, [place] % (Auto) 5.9, Eos % (Auto) 1.5, Baso % (Auto) 0.4, Absolute Neuts (auto) 6.6, Absolute Lymphs (auto) 0.88, Nucleated RBC % 0 07/23/21 07:00: Sodium 132 L, Potassium 4.1, Chloride 102, Carbon Dioxide 24.0, Anion Gap 6, BUN 42 H, Creatinine 2.63 H, Estim Creat Clear Calc 29.30, Est GFR (MDRD) Af Amer 32 L, Est GFR (MDRD) Non-Af 26 L, BUN/Creatinine Ratio 16.0, Glucose 186 H, Calcium 7.6 L 07/23/21 11:23: POC Glucose 272 H Micro: Microbiology 07/22/21 12:30 Stool C. difficile DNA Amplification - Final 07/16/21 15:50 Wound - Abdominal Gram Stain - Final 07/16/21 15:50 Wound - Abdominal Wound Culture - Final Serratia marcescens Klebsiella pneumoniae sp pneum Escherichia coli Staphylococcus pseudintermediu 07/16/21 17:11 Nasal Secretion SARS-CoV-2 Antigen (Rapid) - Final Physical Exam Const alert Resp normal respiratory effort, no retractions, no use of accessory muscles and clear to auscultation bilaterally Cardio regular rate, regular rhythm, S1 normal heart sound and S2 normal heart sound GI normal to inspection, nondistended, normoactive bowel sounds and soft to palpation GI Narrative: distended. Extremity General Extremity: edema Assessment & Plan Assessment/Plan (1) Abscess or cellulitis of umbilicus: PLAN: #Periumbilical abscess and cellulitis * s/p I&D * General surgery on board. IV vancomycin and zosyn dc'd due to worsening kidney function * Wound cultures growing Serratia, Klebsiella pneumonia, E coli and Staph pseudintermediu * will start on IV ceftriaxone based on culture results and sensitivities. * wound care on board. * General surgery recommending continuing abx and packing changes for now * ID following #Hypokalemia: ongoing replace #YINKA: * improved today, baseline around 0.9 * I think this may be due to IV vancomycin. Vanc and zosyn dc'd * FEUrea 34.24. Suggestive prerenal azotemia. * Will give additional IVF and observe. * non-oliguric * Consider nephrology consult if worse. #Anemia * stable * Hb today is 8. Baseline Hb from June 2021 was 13. Hb at time of admission this time was 11.6 * stool for occult blood was negative * surgery following * colonoscopy likely when more HDS, can be deferred to outpt * DW Dr. Barrios. Plan for CT. If Hg drops further may need endoscopy #Type 2 diabetes mellitus * uncontrolled * increase lantus to 20 units bid. * ISS. Accuchecks ACHS * check an A1c #Bilateral lymphedema of LEs * wound care on board * has CHANDRAKANT wraps bilaterally. Lasix held o/a of YINKA #Hypertension: on metoprolol. IV hydralazine prn DVT prophylaxis: SCDs Charges/Coding Visit Charges Inpatient E&M: 09981 Subs Hosp L2
--- NOTE | 2021-07-23 16:42 | PCM.PN.SRG ---
Subjective Subjective Reports bowel movement yesterday. No abdominal pain. Objective Data Objective Data Vital Signs: Vital Signs Temp Pulse Resp BP Pulse Ox 98.1 F 90 18 117/60 100 07/23/21 16:10 07/23/21 16:10 07/23/21 16:10 07/23/21 16:10 07/23/21 16:10 Oxygen Delivery Method Room Air Weight: 249 lb 5.485 oz Body Mass Index (BMI) 33.1 Intake & Output: Intake and Output for Last 24 Hours 07/21/21 07/22/21 07/23/21 23:59 23:59 23:59 Intake Total 950 / 950 0 / 0 530 / 530 Output Total 1200 / 1200 950 / 950 Balance 950 / 950 850 / 850 -420 / -420 Medical Nutrition Assessment Dietitian: Malnutrition Criteria Met Start: 07/17/21 10:55 Freq: Status: Active Protocol: Document 07/21/21 14:50 RMA (Rec: 07/21/21 14:50 RMA [id number]) Nutrition Malnutrition Evidence of Malnutrition Exists Yes Malnutrition (severe): Acute Illness/Injury Evidenced By Suboptimal Energy Intake ( Severe),Weight Loss (Severe) Intake Problem Decreased Nutrient Needs (specify) Etiology carbohydrate related to endocrine dysfunction with T2DM Signs/Symptoms as evidenced by pt & family reports pt FBG range 292-470 mg/dl, pre supper BG 300-400 mg/dl, A1C 12.7% 07/01/21. Status Active Problem Clinical Problem Acute Disease or Injury Related Malnutrition Etiology Severe malnutrition in the context of acute disease/ injury related to inadequate oral intake & unintentional wt loss Signs/Symptoms as evidenced by pt & family reporting pt w/ poor intake at meals consuming </=50% energy intake compared to estimated needs at meals, wt loss 15 lbs /6% x 1 1/2 weeks, and pt & family comments reporting clothing not fitting pt. Status Active Problem Recommendation Dietitian Recommendations/Changes Continue carbohydrate- controlled diet as tolerated and glucerna shake 120 ml TID w/ meals for additional svitlana/ pro if consumed. Lab / Micro Data Result Diagrams: 07/23/21 07:00 07/23/21 07:00 Labs: Laboratory Results - last 24 hr 07/22/21 16:53: POC Glucose 321 H 07/22/21 21:06: POC Glucose 270 H 07/23/21 06:23: POC Glucose 199 H 07/23/21 07:00: WBC 8.2, RBC 2.71 L, Hgb 8.0 L, Hct 25.4 L, MCV 93.7, MCH 29.5, MCHC 31.5 L, RDW Std Deviation 46.9 H, RDW Coeff of Jennifer 13.9, Plt Count 207, MPV 8.6, Immature Gran % (Auto) 0.900, Neut % (Auto) 80.5 H, Lymph % (Auto) 10.8 L, [place] % (Auto) 5.9, Eos % (Auto) 1.5, Baso % (Auto) 0.4, Absolute Neuts (auto) 6.6, Absolute Lymphs (auto) 0.88, Nucleated RBC % 0 07/23/21 07:00: Sodium 132 L, Potassium 4.1, Chloride 102, Carbon Dioxide 24.0, Anion Gap 6, BUN 42 H, Creatinine 2.63 H, Estim Creat Clear Calc 29.30, Est GFR (MDRD) Af Amer 32 L, Est GFR (MDRD) Non-Af 26 L, BUN/Creatinine Ratio 16.0, Glucose 186 H, Calcium 7.6 L 07/23/21 11:23: POC Glucose 272 H Micro: Microbiology 07/22/21 12:30 Stool C. difficile DNA Amplification - Final 07/16/21 15:50 Wound - Abdominal Gram Stain - Final 07/16/21 15:50 Wound - Abdominal Wound Culture - Final Serratia marcescens Klebsiella pneumoniae sp pneum Escherichia coli Staphylococcus pseudintermediu 07/16/21 17:11 Nasal Secretion SARS-CoV-2 Antigen (Rapid) - Final Radiography Diagnostic Testing: Radiology Impression Abdomen/Pelvis CT 07/23/21 14:17 IMPRESSION: Mild degree of bibasilar atelectasis. Status post anterior ventral hernia repair with a mesh and minimal residual changes at the operative site. The previously seen small fluid collection as resolved. Electronically Signed: Chandan Martínez MD at 15:27 EDT , Service support , Physical Exam Const oriented x3 and no apparent distress Resp normal respiratory effort GI soft to palpation and non-tender Inspection: abdominal distention Assessment & Plan Assessment/Plan (1) GI bleed: QUALIFIERS: GI bleed type/associated pathology: unspecified gastrointestinal hemorrhage type Qualified Code(s): K92.2 - Gastrointestinal hemorrhage, unspecified (2) Abscess or cellulitis of umbilicus: PLAN: Patient reports no abdominal pain but he seem more distended today. I ordered a CT scan of the abdomen pelvis which shows with resolution of the fluid collection at the umbilicus but he does have some dilation of the transverse colon. Patient is continued anemia with no gross bleeding. I did discuss EGD and colonoscopy. I tentatively have him on the schedule for Wednesday with bowel prep tomorrow. Bennett Barrios MD Pager: [facility] [address] [place] [address], [address] [place] [address] Office:
[2021-07-23 17:20] LABS: Bedside Glucose 330 mg/dL (70-110)
[2021-07-23 21:30] LABS: Bedside Glucose 286 mg/dL (70-110)
[2021-07-23] MEDS: MELATONIN 3 MG TABLET PO (22:28)
[2021-07-24] VITALS (9 sets, daily range): BP systolic 78–114; BP diastolic 49–69; PULSE 65–111; RESP 16–18; TEMP 35.8–37.3; O2SAT 94–99
[2021-07-24] MEDS: Nystatin Powder 15gm Bottle 1 APPLIC TOPICAL ×3 (04:32→20:48)
[2021-07-24 06:28] LABS: Absolute Lymphocyte Count 0.81 X10^3/uL (0.83-4.51); Absolute Neutrophil Count 6.4 X10^3/uL (2.0-7.7); Basophil# 0.03 X10^3/uL; Basophil% 0.4 % (0-1); Eosinophil# 0.15 X10^3/uL; Eosinophils% 1.9 % (0-5); Hematocrit 26.2 % (40-54); Hemoglobin 8.2 g/dL (13.0-16.5); Lymphocyte # 0.81 X10^3/ul (0.83-4.51); Lymphocyte % 10.3 % (19-41); Mean Corp Hgb Conc 31.3 g/dL (32-36); Mean Corpuscular Hgb 29.5 pg (27.0-32.0); Mean Corpuscular Volume 94.2 fL (80-94); Mean Platelet Vol. 8.5 fl (6.2-12.0); Monocyte# 0.44 X10^3/uL; Monocyte% 5.6 % (0-10); NRBC Flagged by Analyzer 0 % (0-5); Neutrophil # 6.38 X10^3/uL (2.7-7.7); Neutrophil % 80.8 % (47-70); Platelet Count 248 K/mm3 (150-450); RBC Distribution Width CV 14.1 % (11.6-14.6); RBC Distribution Width SD 47.8 fl (35.1-43.9); Red Blood Count 2.78 M/mm3 (4.6-6.2); White Blood Count 7.9 K/mm3 (4.4-11.0)
[2021-07-24] MEDS: Insulin Lispro 100 UNIT/ML INSULN.PEN SC ×4 (06:36→21:50)
[2021-07-24 06:46] LABS: Bedside Glucose 261 mg/dL (70-110)
[2021-07-24 06:49] LABS: Anion Gap 6 (5-15); BUN 44 mg/dL (7-18); BUN/Creat Ratio 16.5 RATIO (10-20); Chloride 104 mmol/L (98-107); Creatinine, Serum 2.66 mg/dL (0.70-1.30); EST Glomerular Filtration Rate 26 mL/min (>60); Est Glom Filt Rate - Afr Amer 31 mL/min (>60); Estimated Creatinine Clearance 28.97 ml/min; Glucose 301 mg/dL (74-106); Potassium 4.8 mmol/L (3.5-5.1); Sodium Level 134 mmol/L (136-145)
--- NOTE | 2021-07-24 07:16 | PCM.PN.SRG ---
Subjective Subjective No abdominal pain Objective Data Objective Data Vital Signs: Vital Signs Temp Pulse Resp BP Pulse Ox 98.5 F 80 16 106/53 L 94 07/24/21 04:33 07/24/21 04:33 07/24/21 04:33 07/24/21 04:33 07/24/21 04:33 Oxygen Delivery Method Room Air Weight: 251 lb 1.704 oz Body Mass Index (BMI) 33.1 Intake & Output: Intake and Output for Last 24 Hours 07/22/21 07/23/21 07/24/21 23:59 23:59 23:59 Intake Total 2049 / 2049 1130 / 1280 350 / 350 Output Total 1200 / 1200 1350 / 1350 700 / 700 Balance 850 / 850 -220 / -70 -350 / -350 Medical Nutrition Assessment Dietitian: Malnutrition Criteria Met Start: 07/17/21 10:55 Freq: Status: Active Protocol: Document 07/21/21 14:50 RMA (Rec: 07/21/21 14:50 RMA [id number]) Nutrition Malnutrition Evidence of Malnutrition Exists Yes Malnutrition (severe): Acute Illness/Injury Evidenced By Suboptimal Energy Intake ( Severe),Weight Loss (Severe) Intake Problem Decreased Nutrient Needs (specify) Etiology carbohydrate related to endocrine dysfunction with T2DM Signs/Symptoms as evidenced by pt & family reports pt FBG range 292-470 mg/dl, pre supper BG 300-400 mg/dl, A1C 12.7% 07/01/21. Status Active Problem Clinical Problem Acute Disease or Injury Related Malnutrition Etiology Severe malnutrition in the context of acute disease/ injury related to inadequate oral intake & unintentional wt loss Signs/Symptoms as evidenced by pt & family reporting pt w/ poor intake at meals consuming </=50% energy intake compared to estimated needs at meals, wt loss 15 lbs /6% x 1 1/2 weeks, and pt & family comments reporting clothing not fitting pt. Status Active Problem Recommendation Dietitian Recommendations/Changes Continue carbohydrate- controlled diet as tolerated and glucerna shake 120 ml TID w/ meals for additional svitlana/ pro if consumed. Lab / Micro Data Result Diagrams: 07/24/21 06:05 07/24/21 06:05 Labs: Laboratory Results - last 24 hr 07/23/21 07:00: WBC 8.2, RBC 2.71 L, Hgb 8.0 L, Hct 25.4 L, MCV 93.7, MCH 29.5, MCHC 31.5 L, RDW Std Deviation 46.9 H, RDW Coeff of Jennifer 13.9, Plt Count 207, MPV 8.6, Immature Gran % (Auto) 0.900, Neut % (Auto) 80.5 H, Lymph % (Auto) 10.8 L, [place] % (Auto) 5.9, Eos % (Auto) 1.5, Baso % (Auto) 0.4, Absolute Neuts (auto) 6.6, Absolute Lymphs (auto) 0.88, Nucleated RBC % 0 07/23/21 07:00: Sodium 132 L, Potassium 4.1, Chloride 102, Carbon Dioxide 24.0, Anion Gap 6, BUN 42 H, Creatinine 2.63 H, Estim Creat Clear Calc 29.30, Est GFR (MDRD) Af Amer 32 L, Est GFR (MDRD) Non-Af 26 L, BUN/Creatinine Ratio 16.0, Glucose 186 H, Calcium 7.6 L 07/23/21 11:23: POC Glucose 272 H 07/23/21 16:14: POC Glucose 330 H 07/23/21 20:54: POC Glucose 286 H 07/24/21 06:05: WBC 7.9, RBC 2.78 L, Hgb 8.2 L, Hct 26.2 L, MCV 94.2 H, MCH 29.5, MCHC 31.3 L, RDW Std Deviation 47.8 H, RDW Coeff of Jennifer 14.1, Plt Count 248, MPV 8.5, Immature Gran % (Auto) 1.000 H, Neut % (Auto) 80.8 H, Lymph % (Auto) 10.3 L, [place] % (Auto) 5.6, Eos % (Auto) 1.9, Baso % (Auto) 0.4, Absolute Neuts (auto) 6.4, Absolute Lymphs (auto) 0.81 L, Nucleated RBC % 0 07/24/21 06:05: Sodium 134 L, Potassium 4.8, Chloride 104, Carbon Dioxide 24.0, Anion Gap 6, BUN 44 H, Creatinine 2.66 H, Estim Creat Clear Calc 28.97, Est GFR (MDRD) Af Amer 31 L, Est GFR (MDRD) Non-Af 26 L, BUN/Creatinine Ratio 16.5, Glucose 301 H, Calcium 8.0 L 07/24/21 06:35: POC Glucose 261 H Micro: Microbiology 07/22/21 12:30 Stool C. difficile DNA Amplification - Final 07/16/21 15:50 Wound - Abdominal Gram Stain - Final 07/16/21 15:50 Wound - Abdominal Wound Culture - Final Serratia marcescens Klebsiella pneumoniae sp pneum Escherichia coli Staphylococcus pseudintermediu 07/16/21 17:11 Nasal Secretion SARS-CoV-2 Antigen (Rapid) - Final Radiography Diagnostic Testing: Radiology Impression Abdomen/Pelvis CT 07/23/21 14:17 IMPRESSION: Mild degree of bibasilar atelectasis. Status post anterior ventral hernia repair with a mesh and minimal residual changes at the operative site. The previously seen small fluid collection as resolved. Electronically Signed: Chandan Martínez MD at 15:27 EDT , Service support , Physical Exam Const oriented x3 and no apparent distress Resp normal respiratory effort Cardio regular rate GI soft to palpation and non-tender Assessment & Plan Assessment/Plan (1) Anemia: QUALIFIERS: Anemia type: unspecified type Qualified Code(s): D64.9 - Anemia, unspecified PLAN: Patient has worsening anemia with no gross blood loss. Hemoglobin yesterday was 8 and today is 8.2. I was planning on an outpatient EGD and colonoscopy but his hemoglobin seems to be acutely dropping. I have made him clear liquids today and ordered a bowel prep and I will perform EGD and colonoscopy tomorrow at noon. I explained endoscopy in detail to the patient. I explained the risks including but not limited to stroke or heart attack with anesthesia, perforation of the GI tract, bleeding, infection. I explained that any of these could necessitate further emergency surgery. The patient understands and all questions were answered sufficiently. The patient wishes to proceed with procedure. Bennett Barrios MD Pager: [facility] [address] [place] [address], [address] [place] [address] Office:
--- NOTE | 2021-07-24 08:56 | NURSING ---
0845 bp 79/58 on monitor. manual bp 78/50. patient denies dizziness/lightheadedness. charge nurse notified. patient denies further needs at this time. call light in reach.
[2021-07-24] MEDS: Potassium Chloride Oral Tablet 20 MEQ PO (09:07)
[2021-07-24] MEDS: Menthol/Lanolin/Calamine/Znox 113 GM Tube 1 APPLIC TOPICAL ×4 (09:07→20:48)
[2021-07-24] MEDS: Pantoprazole Sodium 40 MG Tablet PO (09:08)
[2021-07-24] MEDS: Ceftriaxone 1 GM/50 ML BAG IV (09:14)
[2021-07-24] MEDS: 0.9% Saline Lock 10 ML Syringe IV (09:17)
--- NOTE | 2021-07-24 09:43 | CASEMGMT ---
Addendum entered by Ella Stafford 07/24/21 15:49: CAROLINA received message from Macey at [facility] stating pt's pre-cert is good until 11:59pm tomorrow. Pt can admit to [facility] tomorrow. Original Note: Social Work Note Pt to have Colonoscopy tomorrow. Pt could discharge tomorrow to SNF after Colonoscopy. CAROLINA placed a call to Macey at [facility] and left message that pt is to stay at [facility] today, Colonoscopy tomorrow, poss discharge after Colonoscopy. CAROLINA asked Macey to update pt's insurance. CAROLINA faxed updated clinicals to [facility]. Plan: [facility] Ella Stafford MSW, SENIOR [employer]LE [employer] DEVELOPER
[2021-07-24 11:46] LABS: Bedside Glucose 317 mg/dL (70-110)
[2021-07-24] MEDS: Bisacodyl 5 MG Tablet 20 MG PO (13:35)
--- NOTE | 2021-07-24 14:03 | PN.HOSP_ITS ---
Subjective Subjective Feels well. Objective Data Objective Data Vital Signs: Vital Signs Temp Pulse Resp BP Pulse Ox 36.8 C 110 H 18 90/64 97 07/24/21 13:33 07/24/21 13:33 07/24/21 13:33 07/24/21 13:33 07/24/21 13:33 Oxygen Delivery Method Room Air Weight: 113.9 kg Body Mass Index (BMI) 33.1 Intake & Output: Intake and Output for Last 24 Hours 07/22/21 07/23/21 07/24/21 23:59 23:59 23:59 Intake Total 2049 / 2049 1130 / 1280 400 / 400 Output Total 1200 / 1200 1350 / 1350 700 / 700 Balance 850 / 850 -220 / -70 -300 / -300 Medical Nutrition Assessment Dietitian: Malnutrition Criteria Met Start: 07/17/21 10:55 Freq: Status: Active Protocol: Document 07/21/21 14:50 RMA (Rec: 07/21/21 14:50 RMA [id number]) Nutrition Malnutrition Evidence of Malnutrition Exists Yes Malnutrition (severe): Acute Illness/Injury Evidenced By Suboptimal Energy Intake ( Severe),Weight Loss (Severe) Intake Problem Decreased Nutrient Needs (specify) Etiology carbohydrate related to endocrine dysfunction with T2DM Signs/Symptoms as evidenced by pt & family reports pt FBG range 292-470 mg/dl, pre supper BG 300-400 mg/dl, A1C 12.7% 07/01/21. Status Active Problem Clinical Problem Acute Disease or Injury Related Malnutrition Etiology Severe malnutrition in the context of acute disease/ injury related to inadequate oral intake & unintentional wt loss Signs/Symptoms as evidenced by pt & family reporting pt w/ poor intake at meals consuming </=50% energy intake compared to estimated needs at meals, wt loss 15 lbs /6% x 1 1/2 weeks, and pt & family comments reporting clothing not fitting pt. Status Active Problem Recommendation Dietitian Recommendations/Changes Continue carbohydrate- controlled diet as tolerated and glucerna shake 120 ml TID w/ meals for additional svitlana/ pro if consumed. Lab / Micro Data Result Diagrams: 07/24/21 06:05 07/24/21 06:05 Labs: Laboratory Results - last 24 hr 07/23/21 16:14: POC Glucose 330 H 07/23/21 20:54: POC Glucose 286 H 07/24/21 06:05: WBC 7.9, RBC 2.78 L, Hgb 8.2 L, Hct 26.2 L, MCV 94.2 H, MCH 29.5, MCHC 31.3 L, RDW Std Deviation 47.8 H, RDW Coeff of Jennifer 14.1, Plt Count 248, MPV 8.5, Immature Gran % (Auto) 1.000 H, Neut % (Auto) 80.8 H, Lymph % (Auto) 10.3 L, [place] % (Auto) 5.6, Eos % (Auto) 1.9, Baso % (Auto) 0.4, Absolute Neuts (auto) 6.4, Absolute Lymphs (auto) 0.81 L, Nucleated RBC % 0 07/24/21 06:05: Sodium 134 L, Potassium 4.8, Chloride 104, Carbon Dioxide 24.0, Anion Gap 6, BUN 44 H, Creatinine 2.66 H, Estim Creat Clear Calc 28.97, Est GFR (MDRD) Af Amer 31 L, Est GFR (MDRD) Non-Af 26 L, BUN/Creatinine Ratio 16.5, Glucose 301 H, Calcium 8.0 L 07/24/21 06:35: POC Glucose 261 H 07/24/21 11:38: POC Glucose 317 H Micro: Microbiology 07/22/21 12:30 Stool C. difficile DNA Amplification - Final 07/16/21 15:50 Wound - Abdominal Gram Stain - Final 07/16/21 15:50 Wound - Abdominal Wound Culture - Final Serratia marcescens Klebsiella pneumoniae sp pneum Escherichia coli Staphylococcus pseudintermediu 07/16/21 17:11 Nasal Secretion SARS-CoV-2 Antigen (Rapid) - Final Radiography Diagnostic Testing: Radiology Impression Abdomen/Pelvis CT 07/23/21 14:17 IMPRESSION: Mild degree of bibasilar atelectasis. Status post anterior ventral hernia repair with a mesh and minimal residual changes at the operative site. The previously seen small fluid collection as resolved. Electronically Signed: Chandan Martínez MD at 15:27 EDT , Service support , Physical Exam Const alert Resp normal respiratory effort, no retractions, no use of accessory muscles and clear to auscultation bilaterally Cardio regular rate, regular rhythm, S1 normal heart sound and S2 normal heart sound GI normal to inspection, nondistended, normoactive bowel sounds and soft to palpation GI Narrative: obese Extremity Extremity Narrative: edema. Bilateral LE wrapped. Assessment & Plan Assessment/Plan (1) Abscess or cellulitis of umbilicus: PLAN: #Periumbilical abscess and cellulitis * s/p I&D * General surgery on board. IV vancomycin and zosyn dc'd due to worsening kidney function * Wound cultures growing Serratia, Klebsiella pneumonia, E coli and Staph pseudintermediu * will start on IV ceftriaxone based on culture results and sensitivities. * wound care on board. * General surgery recommending continuing abx and packing changes for now * ID following #Hypokalemia: ongoing replace #YINKA: * improved today, baseline around 0.9 * I think this may be due to IV vancomycin. Vanc and zosyn dc'd * FEUrea 34.24. Suggestive prerenal azotemia. * Will give additional IVF and observe. * non-oliguric * Consider nephrology consult if worse. #Anemia * stable * Hb today is 8. Baseline Hb from June 2021 was 13. Hb at time of admission this time was 11.6 * stool for occult blood was negative * surgery following * EGD and CScope planned for 07/25 #Type 2 diabetes mellitus * uncontrolled * increase lantus to 30 units bid. * ISS. Accuchecks ACHS * check an A1c #Bilateral lymphedema of LEs * wound care on board * has CHANDRAKANT wraps bilaterally. Lasix held o/a of YINKA #Hypotension: check cortisol DVT prophylaxis: SCDs Charges/Coding Visit Charges Inpatient E&M: 75728 Subs Hosp L2
[2021-07-24] MEDS: oxyCODONE 5 MG Tablet PO (14:08)
[2021-07-24] MEDS: Polyethylene Glycol 3350 BOWEL PREP PO (17:09)
[2021-07-24] MEDS: Furosemide 40 MG Tablet PO (17:12)
[2021-07-24 17:21] LABS: Bedside Glucose 214 mg/dL (70-110)
[2021-07-24 22:00] LABS: Bedside Glucose 213 mg/dL (70-110)
[2021-07-25 03:00] VITALS: BP 111/68; PULSE 90; RESP 18; TEMP 37.5; O2SAT 95
[2021-07-25] MEDS: Nystatin Powder 15gm Bottle 1 APPLIC TOPICAL ×3 (05:20→22:51)
[2021-07-25 05:49] LABS: Absolute Lymphocyte Count 0.86 X10^3/uL (0.83-4.51); Basophil# 0.02 X10^3/uL; Basophil% 0.2 % (0-1); Eosinophil# 0.15 X10^3/uL; Eosinophils% 1.6 % (0-5); Hematocrit 25.3 % (40-54); Hemoglobin 8.1 g/dL (13.0-16.5); Lymphocyte # 0.86 X10^3/ul (0.83-4.51); Mean Corpuscular Hgb 29.7 pg (27.0-32.0); Mean Corpuscular Volume 92.7 fL (80-94); Mean Platelet Vol. 8.5 fl (6.2-12.0); Monocyte# 0.45 X10^3/uL; Monocyte% 4.7 % (0-10); NRBC Flagged by Analyzer 0 % (0-5); Neutrophil # 7.98 X10^3/uL (2.7-7.7); Neutrophil % 83.2 % (47-70); Platelet Count 277 K/mm3 (150-450); RBC Distribution Width CV 14.1 % (11.6-14.6); RBC Distribution Width SD 47.8 fl (35.1-43.9); Red Blood Count 2.73 M/mm3 (4.6-6.2); White Blood Count 9.6 K/mm3 (4.4-11.0)
[2021-07-25 06:10] LABS: Anion Gap 6 (5-15); BUN 42 mg/dL (7-18); BUN/Creat Ratio 16.2 RATIO (10-20); Calcium,Total 8.6 mg/dL (8.5-10.1); Chloride 102 mmol/L (98-107); Creatinine, Serum 2.59 mg/dL (0.70-1.30); EST Glomerular Filtration Rate 27 mL/min (>60); Est Glom Filt Rate - Afr Amer 32 mL/min (>60); Estimated Creatinine Clearance 29.75 ml/min; Glucose 171 mg/dL (74-106); Potassium 4.6 mmol/L (3.5-5.1); Sodium Level 134 mmol/L (136-145)
[2021-07-25] MEDS: Insulin Lispro 100 UNIT/ML INSULN.PEN SC ×2 (06:34→22:50)
[2021-07-25 06:55] LABS: Bedside Glucose 153 mg/dL (70-110)
--- NOTE | 2021-07-25 07:32 | PN.SURG_ITS ---
Subjective Subjective The patient attempted bowel prep yesterday and drink most of the bowel prep but then started having nausea and vomiting. He did not have any bowel movements. Objective Data Objective Data Vital Signs: Vital Signs Temp Pulse Resp BP Pulse Ox 99.5 F H 90 18 111/68 95 07/25/21 03:00 07/25/21 03:00 07/25/21 03:00 07/25/21 03:00 07/25/21 03:00 Oxygen Delivery Method Room Air Weight: 252 lb 3.341 oz Body Mass Index (BMI) 33.1 Intake & Output: Intake and Output for Last 24 Hours 07/23/21 07/24/21 07/25/21 23:59 23:59 23:59 Intake Total 1130 / 1280 840 / 1540 700 / 700 Output Total 1350 / 1350 700 / 1200 500 / 500 Balance -220 / -70 140 / 340 200 / 200 Medical Nutrition Assessment Dietitian: Malnutrition Criteria Met Start: 07/17/21 10:55 Freq: Status: Active Protocol: Document 07/21/21 14:50 RMA (Rec: 07/21/21 14:50 RMA [id number]) Nutrition Malnutrition Evidence of Malnutrition Exists Yes Malnutrition (severe): Acute Illness/Injury Evidenced By Suboptimal Energy Intake ( Severe),Weight Loss (Severe) Intake Problem Decreased Nutrient Needs (specify) Etiology carbohydrate related to endocrine dysfunction with T2DM Signs/Symptoms as evidenced by pt & family reports pt FBG range 292-470 mg/dl, pre supper BG 300-400 mg/dl, A1C 12.7% 07/01/21. Status Active Problem Clinical Problem Acute Disease or Injury Related Malnutrition Etiology Severe malnutrition in the context of acute disease/ injury related to inadequate oral intake & unintentional wt loss Signs/Symptoms as evidenced by pt & family reporting pt w/ poor intake at meals consuming </=50% energy intake compared to estimated needs at meals, wt loss 15 lbs /6% x 1 1/2 weeks, and pt & family comments reporting clothing not fitting pt. Status Active Problem Recommendation Dietitian Recommendations/Changes Continue carbohydrate- controlled diet as tolerated and glucerna shake 120 ml TID w/ meals for additional svitlana/ pro if consumed. Lab / Micro Data Result Diagrams: 07/25/21 05:19 07/25/21 05:19 Labs: Laboratory Results - last 24 hr 07/24/21 11:38: POC Glucose 317 H 07/24/21 17:08: POC Glucose 214 H 07/24/21 21:48: POC Glucose 213 H 07/25/21 05:19: WBC 9.6, RBC 2.73 L, Hgb 8.1 L, Hct 25.3 L, MCV 92.7, MCH 29.7, MCHC 32.0, RDW Std Deviation 47.8 H, RDW Coeff of Jennifer 14.1, Plt Count 277, MPV 8.5, Immature Gran % (Auto) 1.300 H, Neut % (Auto) 83.2 H, Lymph % (Auto) 9.0 L, [place] % (Auto) 4.7, Eos % (Auto) 1.6, Baso % (Auto) 0.2, Absolute Neuts (auto) 8.0 H, Absolute Lymphs (auto) 0.86, Nucleated RBC % 0 07/25/21 05:19: Sodium 134 L, Potassium 4.6, Chloride 102, Carbon Dioxide 26.0, Anion Gap 6, BUN 42 H, Creatinine 2.59 H, Estim Creat Clear Calc 29.75, Est GFR (MDRD) Af Amer 32 L, Est GFR (MDRD) Non-Af 27 L, BUN/Creatinine Ratio 16.2, Glucose 171 H, Calcium 8.6 07/25/21 06:34: POC Glucose 153 H Micro: Microbiology 07/22/21 12:30 Stool C. difficile DNA Amplification - Final 07/16/21 15:50 Wound - Abdominal Gram Stain - Final 07/16/21 15:50 Wound - Abdominal Wound Culture - Final Serratia marcescens Klebsiella pneumoniae sp pneum Escherichia coli Staphylococcus pseudintermediu 07/16/21 17:11 Nasal Secretion SARS-CoV-2 Antigen (Rapid) - Final Physical Exam Const no apparent distress Resp normal respiratory effort Cardio regular rate GI soft to palpation and non-tender Inspection: abdominal distention Assessment & Plan Assessment/Plan (1) GI bleed: QUALIFIERS: GI bleed type/associated pathology: unspecified gastrointestinal hemorrhage type Qualified Code(s): K92.2 - Gastrointestinal hemorrhage, unspecified (2) Abscess or cellulitis of umbilicus: PLAN: Patient's umbilicus seems to be doing well with no signs of overt infection. Continue packing until healed. Follow-up with me. The patient attempted bowel prep overnight but was unable to tolerate the entire prep and he did not have any bowel movements. I will be unable to perform EGD and colonoscopy today. His hemoglobin is stable at 8.1. I will discuss with the hospitalist to see if he needs transfusion but his scope was unable to be performed today and if they are going to discharge him I can do it as an outpatient Bennett Barrios MD Pager: [facility] [address] [place] [address], [address] [place] [address] Office:
[2021-07-25] MEDS: Ondansetron 4 MG/2 ML Vial IV ×2 (07:42→13:52)
[2021-07-25] MEDS: 0.9% Saline Lock 10 ML Syringe IV ×3 (07:42→13:55)
[2021-07-25 07:57] VITALS: O2SAT 94
[2021-07-25 08:20] VITALS: BP 108/56; PULSE 91; RESP 18; TEMP 37.3; O2SAT 94
--- NOTE | 2021-07-25 08:45 | PN.HOSP_ITS ---
Subjective Subjective Vomiting overnight. Has food in front of him, but has no appetite. Objective Data Objective Data Vital Signs: Vital Signs Temp Pulse Resp BP Pulse Ox 37.3 C 91 18 108/56 L 94 07/25/21 08:20 07/25/21 08:20 07/25/21 08:20 07/25/21 08:20 07/25/21 08:20 Oxygen Delivery Method Room Air Weight: 114.4 kg Body Mass Index (BMI) 33.1 Intake & Output: Intake and Output for Last 24 Hours 07/23/21 07/24/21 07/25/21 23:59 23:59 23:59 Intake Total 1130 / 1280 840 / 1540 700 / 700 Output Total 1350 / 1350 700 / 1200 500 / 500 Balance -220 / -70 140 / 340 200 / 200 Medical Nutrition Assessment Dietitian: Malnutrition Criteria Met Start: 07/17/21 10:55 Freq: Status: Active Protocol: Document 07/21/21 14:50 RMA (Rec: 07/21/21 14:50 RMA [id number]) Nutrition Malnutrition Evidence of Malnutrition Exists Yes Malnutrition (severe): Acute Illness/Injury Evidenced By Suboptimal Energy Intake ( Severe),Weight Loss (Severe) Intake Problem Decreased Nutrient Needs (specify) Etiology carbohydrate related to endocrine dysfunction with T2DM Signs/Symptoms as evidenced by pt & family reports pt FBG range 292-470 mg/dl, pre supper BG 300-400 mg/dl, A1C 12.7% 07/01/21. Status Active Problem Clinical Problem Acute Disease or Injury Related Malnutrition Etiology Severe malnutrition in the context of acute disease/ injury related to inadequate oral intake & unintentional wt loss Signs/Symptoms as evidenced by pt & family reporting pt w/ poor intake at meals consuming </=50% energy intake compared to estimated needs at meals, wt loss 15 lbs /6% x 1 1/2 weeks, and pt & family comments reporting clothing not fitting pt. Status Active Problem Recommendation Dietitian Recommendations/Changes Continue carbohydrate- controlled diet as tolerated and glucerna shake 120 ml TID w/ meals for additional svitlana/ pro if consumed. Lab / Micro Data Result Diagrams: 07/25/21 05:19 07/25/21 05:19 Labs: Laboratory Results - last 24 hr 07/24/21 11:38: POC Glucose 317 H 07/24/21 17:08: POC Glucose 214 H 07/24/21 21:48: POC Glucose 213 H 07/25/21 05:19: WBC 9.6, RBC 2.73 L, Hgb 8.1 L, Hct 25.3 L, MCV 92.7, MCH 29.7, MCHC 32.0, RDW Std Deviation 47.8 H, RDW Coeff of Jennifer 14.1, Plt Count 277, MPV 8.5, Immature Gran % (Auto) 1.300 H, Neut % (Auto) 83.2 H, Lymph % (Auto) 9.0 L, [place] % (Auto) 4.7, Eos % (Auto) 1.6, Baso % (Auto) 0.2, Absolute Neuts (auto) 8.0 H, Absolute Lymphs (auto) 0.86, Nucleated RBC % 0 07/25/21 05:19: Sodium 134 L, Potassium 4.6, Chloride 102, Carbon Dioxide 26.0, Anion Gap 6, BUN 42 H, Creatinine 2.59 H, Estim Creat Clear Calc 29.75, Est GFR (MDRD) Af Amer 32 L, Est GFR (MDRD) Non-Af 27 L, BUN/Creatinine Ratio 16.2, Glucose 171 H, Calcium 8.6 07/25/21 05:19: Cortisol 24.60 H 07/25/21 06:34: POC Glucose 153 H Micro: Microbiology 07/22/21 12:30 Stool C. difficile DNA Amplification - Final 07/16/21 15:50 Wound - Abdominal Gram Stain - Final 07/16/21 15:50 Wound - Abdominal Wound Culture - Final Serratia marcescens Klebsiella pneumoniae sp pneum Escherichia coli Staphylococcus pseudintermediu 07/16/21 17:11 Nasal Secretion SARS-CoV-2 Antigen (Rapid) - Final Physical Exam Const alert Resp normal respiratory effort, no retractions, no use of accessory muscles and clear to auscultation bilaterally Cardio regular rate, regular rhythm, S1 normal heart sound and S2 normal heart sound GI GI Narrative: distended. high-pitched bowel sounds. Extremity General Extremity: edema Neuro Sensorium / Orientation: awake Assessment & Plan Assessment/Plan (1) Abscess or cellulitis of umbilicus: (2) Anemia: QUALIFIERS: Anemia type: unspecified type Qualified Code(s): D64.9 - Anemia, unspecified (3) Ileus: PLAN: #Periumbilical abscess and cellulitis * s/p I&D * General surgery on board. IV vancomycin and zosyn dc'd due to worsening kidney function * Wound cultures growing Serratia, Klebsiella pneumonia, E coli and Staph pseudintermediu * CTX * wound care on board. * General surgery recommending continuing abx and packing changes for now * ID following #Hypokalemia: * resolved #YINKA: * improved today, but still elevated. baseline around 0.9 * I think this may be due to IV vancomycin. Vanc and zosyn dc'd * FEUrea 34.24. Suggestive prerenal azotemia. * Will give additional IVF and observe. * non-oliguric * Consider nephrology consult if worse. #Anemia * stable * Hb today is 8. Baseline Hb from June 2021 was 13. Hb at time of admission this time was 11.6 * stool for occult blood was negative * surgery following * EGD and CScope not performed as pt unable to tolerate prep * no indication to transfuse. Transfuse tor Hg <7 #Type 2 diabetes mellitus * uncontrolled * increase lantus to 30 units bid. * ISS. Accuchecks ACHS * check an A1c #Bilateral lymphedema of LEs * wound care on board * has CHANDRAKANT wraps bilaterally. Lasix held o/a of YINKA #Hypotension: improved cortiosol WNL #Suspected ileus NPO monitor DVT prophylaxis: SCDs Charges/Coding Visit Charges Inpatient E&M: 05545 Subs Hosp L2
--- NOTE | 2021-07-25 09:34 | CASEMGMT ---
Social Work Note SW updated that pt has possible Ileus, will likely be at [facility] through the weekend. CAROLINA placed a call to Macey at [facility], pre-cert will need to be resubmitted as pt is not discharging today. Pt to be at [facility] through the weekend. Plan: [facility] skilled pending pre-cert. Pt will need COVID test on day of discharge. Ella Stafford NATURAL RESOURCES TECHNICIAN, HEALTH CARE LIAISON
[2021-07-25] MEDS: Menthol/Lanolin/Calamine/Znox 113 GM Tube 1 APPLIC TOPICAL ×4 (11:19→22:51)
[2021-07-25] MEDS: Ceftriaxone 1 GM/50 ML BAG IV (11:25)
--- NOTE | 2021-07-25 11:31 | WOUNDNOTE ---
JAM Lam stated she changed dressings this am.
[2021-07-25 11:35] LABS: Bedside Glucose 161 mg/dL (70-110)
[2021-07-25 13:56] VITALS: BP 114/65; PULSE 81; RESP 16; TEMP 37.1; O2SAT 93
--- NOTE | 2021-07-25 15:34 | PCM.PN.ID ---
Physical Exam Narrative Feeling about the same, belly feeling better Const alert General Appearance: cooperative Resp normal air movement and clear to auscultation bilaterally Cardio regular rate and regular rhythm GI normal to inspection, nondistended, normoactive bowel sounds Skin no rashes or lesions noted ID ID: Route of nutrition/ use of supplements: [] Nutritional Intake: [] IV Site: [] Aguirre Catheter: [] Assessment & Plan Assessment/Plan (1) Bacteremia: (2) Lower extremity edema: (3) GI bleed: QUALIFIERS: GI bleed type/associated pathology: unspecified gastrointestinal hemorrhage type Qualified Code(s): K92.2 - Gastrointestinal hemorrhage, unspecified (4) Abscess or cellulitis of umbilicus: PLAN: Has been on linezolid at home for mssa bacteremia. I&D done of umbilicus abscess, cx with mixed growth so far (serratia, klebs, ecoli, CoNS). On ceftriaxone since 07/20. YINKA stable. Will stop abx today. Will follow as needed
[2021-07-25 16:51] LABS: Bedside Glucose 174 mg/dL (70-110)
[2021-07-25 20:41] VITALS: BP 120/66; PULSE 86; RESP 18; TEMP 36.8; O2SAT 92
[2021-07-25 23:11] LABS: Bedside Glucose 179 mg/dL (70-110)
[2021-07-26] VITALS (7 sets, daily range): BP systolic 96–118; BP diastolic 52–70; PULSE 79–100; RESP 18; TEMP 36.7–36.9; O2SAT 93–99
[2021-07-26 06:31] LABS: Mean Corp Hgb Conc 30.8 g/dL (32-36); Mean Corpuscular Hgb 29.2 pg (27.0-32.0); Mean Corpuscular Volume 94.9 fL (80-94); Mean Platelet Vol. 8.2 fl (6.2-12.0); Platelet Count 322 K/mm3 (150-450); RBC Distribution Width CV 14.2 % (11.6-14.6); RBC Distribution Width SD 48.5 fl (35.1-43.9); Red Blood Count 2.74 M/mm3 (4.6-6.2); White Blood Count 8.6 K/mm3 (4.4-11.0)
[2021-07-26] MEDS: Nystatin Powder 15gm Bottle 1 APPLIC TOPICAL ×3 (06:55→22:14)
[2021-07-26 07:02] LABS: ALB/GLOB Ratio 0.2 RATIO (0.9-2.4); AST(SGOT) 11 U/L (15-37); Alanine Aminotransfer ALT/SGPT 11 U/L (16-61); Alkaline Phosphatase 67 U/L (45-117); Anion Gap 5 (5-15); BUN 41 mg/dL (7-18); BUN/Creat Ratio 14.9 RATIO (10-20); Calcium,Total 8.4 mg/dL (8.5-10.1); Chloride 103 mmol/L (98-107); Creatinine, Serum 2.75 mg/dL (0.70-1.30); EST Glomerular Filtration Rate 25 mL/min (>60); Est Glom Filt Rate - Afr Amer 30 mL/min (>60); Estimated Creatinine Clearance 28.02 ml/min; Glucose 161 mg/dL (74-106); Potassium 4.7 mmol/L (3.5-5.1); Sodium Level 136 mmol/L (136-145)
[2021-07-26 07:35] LABS: Bedside Glucose 159 mg/dL (70-110)
[2021-07-26] MEDS: Potassium Chloride Oral Tablet 20 MEQ PO (08:41)
[2021-07-26] MEDS: Metoprolol(XL)Succ 25 MG Tablet PO (08:42)
[2021-07-26] MEDS: Pantoprazole Sodium 40 MG Tablet PO (08:42)
[2021-07-26] MEDS: Furosemide 40 MG Tablet PO (08:42)
[2021-07-26] MEDS: Menthol/Lanolin/Calamine/Znox 113 GM Tube 1 APPLIC TOPICAL ×3 (08:43→22:15)
--- NOTE | 2021-07-26 09:42 | PCM.PN.SRG ---
Subjective Subjective No complaints this morning. Had a large bowel movement last night. Objective Data Objective Data Abdomen is soft dressing is dry no rebound guarding or peritoneal signs noted. Vital Signs: Vital Signs Temp Pulse Resp BP Pulse Ox 98.3 F 85 18 111/70 94 07/26/21 08:50 07/26/21 08:50 07/26/21 08:50 07/26/21 08:50 07/26/21 08:50 Oxygen Delivery Method Room Air Weight: 242 lb 8.136 oz Body Mass Index (BMI) 33.1 Intake & Output: Intake and Output for Last 24 Hours 07/24/21 07/25/21 07/26/21 23:59 23:59 23:59 Intake Total 840 / 1540 750 / 750 0 / 0 Output Total 700 / 1200 1999 / 1999 Balance 140 / 340 -1250 / -1250 0 / 0 Medical Nutrition Assessment Dietitian: Malnutrition Criteria Met Start: 07/17/21 10:55 Freq: Status: Active Protocol: Document 07/21/21 14:50 RMA (Rec: 07/21/21 14:50 RMA [id number]) Nutrition Malnutrition Evidence of Malnutrition Exists Yes Malnutrition (severe): Acute Illness/Injury Evidenced By Suboptimal Energy Intake ( Severe),Weight Loss (Severe) Intake Problem Decreased Nutrient Needs (specify) Etiology carbohydrate related to endocrine dysfunction with T2DM Signs/Symptoms as evidenced by pt & family reports pt FBG range 292-470 mg/dl, pre supper BG 300-400 mg/dl, A1C 12.7% 07/01/21. Status Active Problem Clinical Problem Acute Disease or Injury Related Malnutrition Etiology Severe malnutrition in the context of acute disease/ injury related to inadequate oral intake & unintentional wt loss Signs/Symptoms as evidenced by pt & family reporting pt w/ poor intake at meals consuming </=50% energy intake compared to estimated needs at meals, wt loss 15 lbs /6% x 1 1/2 weeks, and pt & family comments reporting clothing not fitting pt. Status Active Problem Recommendation Dietitian Recommendations/Changes Continue carbohydrate- controlled diet as tolerated and glucerna shake 120 ml TID w/ meals for additional svitlana/ pro if consumed. Lab / Micro Data Result Diagrams: 07/26/21 06:02 07/26/21 06:02 Labs: Laboratory Results - last 24 hr 07/25/21 11:28: POC Glucose 161 H 07/25/21 16:31: POC Glucose 174 H 07/25/21 22:48: POC Glucose 179 H 07/26/21 06:02: WBC 8.6, RBC 2.74 L, Hgb 8.0 L, Hct 26.0 L, MCV 94.9 H, MCH 29.2, MCHC 30.8 L, RDW Std Deviation 48.5 H, RDW Coeff of Jennifer 14.2, Plt Count 322, MPV 8.2 07/26/21 06:02: Sodium 136, Potassium 4.7, Chloride 103, Carbon Dioxide 28.0, Anion Gap 5, BUN 41 H, Creatinine 2.75 H, Estim Creat Clear Calc 28.02, Est GFR (MDRD) Af Amer 30 L, Est GFR (MDRD) Non-Af 25 L, BUN/Creatinine Ratio 14.9, Glucose 161 H, Calcium 8.4 L, Total Bilirubin 0.30, AST 11 L, ALT 11 L, Alkaline Phosphatase 67, Total Protein 7.0, Albumin 1.0 L, Globulin 6.0 H, Albumin/Globulin Ratio 0.2 L 07/26/21 06:53: POC Glucose 159 H Micro: Microbiology 07/22/21 12:30 Stool C. difficile DNA Amplification - Final 07/16/21 15:50 Wound - Abdominal Gram Stain - Final 07/16/21 15:50 Wound - Abdominal Wound Culture - Final Serratia marcescens Klebsiella pneumoniae sp pneum Escherichia coli Staphylococcus pseudintermediu 07/16/21 17:11 Nasal Secretion SARS-CoV-2 Antigen (Rapid) - Final Assessment & Plan Assessment/Plan (1) Abdominal wall abscess: PLAN: No plan for endoscopy this weekend.
[2021-07-26] MEDS: Insulin Lispro 100 UNIT/ML INSULN.PEN SC ×3 (11:19→22:13)
[2021-07-26 11:31] LABS: Bedside Glucose 250 mg/dL (70-110)
--- NOTE | 2021-07-26 15:42 | PN.HOSP_ITS ---
Subjective Subjective No abdominal pain. No N/V. Objective Data Objective Data Vital Signs: Vital Signs Temp Pulse Resp BP Pulse Ox 36.8 C 100 18 106/68 99 07/26/21 15:17 07/26/21 15:17 07/26/21 15:17 07/26/21 15:17 07/26/21 15:17 Oxygen Delivery Method Room Air Weight: 110 kg Body Mass Index (BMI) 33.1 Intake & Output: Intake and Output for Last 24 Hours 07/24/21 07/25/21 07/26/21 23:59 23:59 23:59 Intake Total 840 / 1540 750 / 750 600 / 600 Output Total 700 / 1200 2000 / 2000 400 / 400 Balance 140 / 340 -1250 / -1250 200 / 200 Medical Nutrition Assessment Dietitian: Malnutrition Criteria Met Start: 07/17/21 10:55 Freq: Status: Active Protocol: Document 07/21/21 14:50 RMA (Rec: 07/21/21 14:50 RMA [id number]) Nutrition Malnutrition Evidence of Malnutrition Exists Yes Malnutrition (severe): Acute Illness/Injury Evidenced By Suboptimal Energy Intake ( Severe),Weight Loss (Severe) Intake Problem Decreased Nutrient Needs (specify) Etiology carbohydrate related to endocrine dysfunction with T2DM Signs/Symptoms as evidenced by pt & family reports pt FBG range 292-470 mg/dl, pre supper BG 300-400 mg/dl, A1C 12.7% 07/01/21. Status Active Problem Clinical Problem Acute Disease or Injury Related Malnutrition Etiology Severe malnutrition in the context of acute disease/ injury related to inadequate oral intake & unintentional wt loss Signs/Symptoms as evidenced by pt & family reporting pt w/ poor intake at meals consuming </=50% energy intake compared to estimated needs at meals, wt loss 15 lbs /6% x 1 1/2 weeks, and pt & family comments reporting clothing not fitting pt. Status Active Problem Recommendation Dietitian Recommendations/Changes Continue carbohydrate- controlled diet as tolerated and glucerna shake 120 ml TID w/ meals for additional svitlana/ pro if consumed. Lab / Micro Data Result Diagrams: 07/26/21 06:02 07/26/21 06:02 Labs: Laboratory Results - last 24 hr 07/25/21 16:31: POC Glucose 174 H 07/25/21 22:48: POC Glucose 179 H 07/26/21 06:02: WBC 8.6, RBC 2.74 L, Hgb 8.0 L, Hct 26.0 L, MCV 94.9 H, MCH 29.2, MCHC 30.8 L, RDW Std Deviation 48.5 H, RDW Coeff of Jennifer 14.2, Plt Count 322, MPV 8.2 07/26/21 06:02: Sodium 136, Potassium 4.7, Chloride 103, Carbon Dioxide 28.0, Anion Gap 5, BUN 41 H, Creatinine 2.75 H, Estim Creat Clear Calc 28.02, Est GFR (MDRD) Af Amer 30 L, Est GFR (MDRD) Non-Af 25 L, BUN/Creatinine Ratio 14.9, Glucose 161 H, Calcium 8.4 L, Total Bilirubin 0.30, AST 11 L, ALT 11 L, Alkaline Phosphatase 67, Total Protein 7.0, Albumin 1.0 L, Globulin 6.0 H, Albumin/Globulin Ratio 0.2 L 07/26/21 06:53: POC Glucose 159 H 07/26/21 11:14: POC Glucose 250 H Micro: Microbiology 07/22/21 12:30 Stool C. difficile DNA Amplification - Final 07/16/21 15:50 Wound - Abdominal Gram Stain - Final 07/16/21 15:50 Wound - Abdominal Wound Culture - Final Serratia marcescens Klebsiella pneumoniae sp pneum Escherichia coli Staphylococcus pseudintermediu 07/16/21 17:11 Nasal Secretion SARS-CoV-2 Antigen (Rapid) - Final Physical Exam Const alert HEENT Head and Scalp: normocephalic Resp normal respiratory effort, no retractions, no use of accessory muscles and clear to auscultation bilaterally Cardio regular rate, regular rhythm, S1 normal heart sound and S2 normal heart sound GI normal to inspection, nondistended, normoactive bowel sounds, soft to palpation and non-tender GI Narrative: distended. Extremity normal to inspection Assessment & Plan Assessment/Plan (1) Abscess or cellulitis of umbilicus: (2) Anemia: QUALIFIERS: Anemia type: unspecified type Qualified Code(s): D64.9 - Anemia, unspecified (3) Ileus: PLAN: #Periumbilical abscess and cellulitis * s/p I&D * General surgery on board. IV vancomycin and zosyn dc'd due to worsening kidney function * Wound cultures growing Serratia, Klebsiella pneumonia, E coli and Staph pseudintermediu * CTX completed * wound care on board. * General surgery recommending continuing abx and packing changes for now * ID following #Hypokalemia: * resolved #YINKA: * ongoing * I think this may be due to IV vancomycin. Vanc and zosyn dc'd * FEUrea 34.24. Suggestive prerenal azotemia. * Will give additional IVF and observe. * non-oliguric * Check urine studies #Anemia * stable * Hb today is 8. Baseline Hb from June 2021 was 13. Hb at time of admission this time was 11.6 * stool for occult blood was negative * surgery following * EGD and CScope not performed as pt unable to tolerate prep * no indication to transfuse. Transfuse tor Hg <7 #Type 2 diabetes mellitus * fair control * increase lantus to 30 units bid. * ISS. Accuchecks ACHS * A1c 12.8 #Bilateral lymphedema of LEs * wound care on board * has CHANDRAKANT wraps bilaterally. Lasix held o/a of YINKA #Hypotension: improved cortiosol WNL #Suspected ileus ongoing advance diet as tolerated. DVT prophylaxis: SCDs Charges/Coding Visit Charges Inpatient E&M: 78174 Subs Hosp L2
[2021-07-26 16:55] LABS: Bedside Glucose 185 mg/dL (70-110)
[2021-07-26 22:21] LABS: Bedside Glucose 156 mg/dL (70-110)
[2021-07-27] VITALS (7 sets, daily range): BP systolic 83–114; BP diastolic 50–63; PULSE 69–88; RESP 17–18; TEMP 36.3–37; O2SAT 96–100
[2021-07-27 04:50] LABS: Absolute Lymphocyte Count 1.01 X10^3/uL (0.83-4.51); Absolute Neutrophil Count 6.6 X10^3/uL (2.0-7.7); Basophil# 0.03 X10^3/uL; Basophil% 0.4 % (0-1); Eosinophil# 0.19 X10^3/uL; Eosinophils% 2.2 % (0-5); Hematocrit 25.8 % (40-54); Lymphocyte # 1.01 X10^3/ul (0.83-4.51); Lymphocyte % 11.9 % (19-41); Mean Corpuscular Hgb 29.3 pg (27.0-32.0); Mean Corpuscular Volume 94.5 fL (80-94); Mean Platelet Vol. 8.1 fl (6.2-12.0); Monocyte# 0.54 X10^3/uL; Monocyte% 6.4 % (0-10); NRBC Flagged by Analyzer 0 % (0-5); Neutrophil # 6.64 X10^3/uL (2.7-7.7); Neutrophil % 78.3 % (47-70); Platelet Count 327 K/mm3 (150-450); RBC Distribution Width CV 14.2 % (11.6-14.6); RBC Distribution Width SD 47.9 fl (35.1-43.9); Red Blood Count 2.73 M/mm3 (4.6-6.2); White Blood Count 8.5 K/mm3 (4.4-11.0)
[2021-07-27 05:05] LABS: Anion Gap 5 (5-15); BUN 46 mg/dL (7-18); BUN/Creat Ratio 16.7 RATIO (10-20); Calcium,Total 8.4 mg/dL (8.5-10.1); Chloride 104 mmol/L (98-107); Creatinine, Serum 2.76 mg/dL (0.70-1.30); EST Glomerular Filtration Rate 25 mL/min (>60); Est Glom Filt Rate - Afr Amer 30 mL/min (>60); Estimated Creatinine Clearance 27.92 ml/min; Glucose 88 mg/dL (74-106); Sodium Level 137 mmol/L (136-145)
[2021-07-27] MEDS: 0.9% Saline Lock 10 ML Syringe IV (06:12)
[2021-07-27] MEDS: Nystatin Powder 15gm Bottle 1 APPLIC TOPICAL ×3 (06:12→20:11)
[2021-07-27 06:22] LABS: Bedside Glucose 90 mg/dL (70-110)
--- NOTE | 2021-07-27 07:23 | PCM.PN.SRG ---
Subjective Subjective Abdomen is soft. Tolerating p.o. Objective Data Objective Data No signs of cellulitis. Abdomen is soft no rebound guarding or peritoneal signs identified. Vital Signs: Vital Signs Temp Pulse Resp BP Pulse Ox 97.9 F 69 18 106/50 L 96 07/27/21 03:19 07/27/21 03:19 07/27/21 03:19 07/27/21 03:19 07/27/21 03:19 Oxygen Delivery Method Room Air Weight: 236 lb 12.423 oz Body Mass Index (BMI) 33.1 Intake & Output: Intake and Output for Last 24 Hours 07/25/21 07/26/21 07/27/21 23:59 23:59 23:59 Intake Total 750 / 750 600 / 900 300 / 300 Output Total 2000 / 1999 400 / 400 Balance -1250 / -1250 200 / 500 300 / 300 Medical Nutrition Assessment Dietitian: Malnutrition Criteria Met Start: 07/17/21 10:55 Freq: Status: Active Protocol: Document 07/21/21 14:50 RMA (Rec: 07/21/21 14:50 RMA [id number]) Nutrition Malnutrition Evidence of Malnutrition Exists Yes Malnutrition (severe): Acute Illness/Injury Evidenced By Suboptimal Energy Intake ( Severe),Weight Loss (Severe) Intake Problem Decreased Nutrient Needs (specify) Etiology carbohydrate related to endocrine dysfunction with T2DM Signs/Symptoms as evidenced by pt & family reports pt FBG range 292-470 mg/dl, pre supper BG 300-400 mg/dl, A1C 12.7% 07/01/21. Status Active Problem Clinical Problem Acute Disease or Injury Related Malnutrition Etiology Severe malnutrition in the context of acute disease/ injury related to inadequate oral intake & unintentional wt loss Signs/Symptoms as evidenced by pt & family reporting pt w/ poor intake at meals consuming </=50% energy intake compared to estimated needs at meals, wt loss 15 lbs /6% x 1 1/2 weeks, and pt & family comments reporting clothing not fitting pt. Status Active Problem Recommendation Dietitian Recommendations/Changes Continue carbohydrate- controlled diet as tolerated and glucerna shake 120 ml TID w/ meals for additional svitlana/ pro if consumed. Lab / Micro Data Result Diagrams: 07/27/21 04:15 07/27/21 04:15 Labs: Laboratory Results - last 24 hr 07/26/21 06:53: POC Glucose 159 H 07/26/21 11:14: POC Glucose 250 H 07/26/21 16:48: POC Glucose 185 H 07/26/21 22:12: POC Glucose 156 H 07/27/21 04:15: WBC 8.5, RBC 2.73 L, Hgb 8.0 L, Hct 25.8 L, MCV 94.5 H, MCH 29.3, MCHC 31.0 L, RDW Std Deviation 47.9 H, RDW Coeff of Jennifer 14.2, Plt Count 327, MPV 8.1, Immature Gran % (Auto) 0.800, Neut % (Auto) 78.3 H, Lymph % (Auto) 11.9 L, [place] % (Auto) 6.4, Eos % (Auto) 2.2, Baso % (Auto) 0.4, Absolute Neuts (auto) 6.6, Absolute Lymphs (auto) 1.01, Nucleated RBC % 0 07/27/21 04:15: Sodium 137, Potassium 4.0, Chloride 104, Carbon Dioxide 28.0, Anion Gap 5, BUN 46 H, Creatinine 2.76 H, Estim Creat Clear Calc 27.92, Est GFR (MDRD) Af Amer 30 L, Est GFR (MDRD) Non-Af 25 L, BUN/Creatinine Ratio 16.7, Glucose 88, Calcium 8.4 L 07/27/21 06:11: POC Glucose 90 Micro: Microbiology 07/22/21 12:30 Stool C. difficile DNA Amplification - Final 07/16/21 15:50 Wound - Abdominal Gram Stain - Final 07/16/21 15:50 Wound - Abdominal Wound Culture - Final Serratia marcescens Klebsiella pneumoniae sp pneum Escherichia coli Staphylococcus pseudintermediu 07/16/21 17:11 Nasal Secretion SARS-CoV-2 Antigen (Rapid) - Final Assessment & Plan Assessment/Plan (1) Abscess or cellulitis of umbilicus: PLAN: We will follow back up with Dr. Barrios in the office.
[2021-07-27] MEDS: Potassium Chloride Oral Tablet 20 MEQ PO (08:00)
[2021-07-27] MEDS: Menthol/Lanolin/Calamine/Znox 113 GM Tube 1 APPLIC TOPICAL ×4 (08:00→20:12)
[2021-07-27] MEDS: Pantoprazole Sodium 40 MG Tablet PO (11:24)
[2021-07-27 11:30] LABS: Bedside Glucose 186 mg/dL (70-110)
[2021-07-27] MEDS: Insulin Lispro 100 UNIT/ML INSULN.PEN SC ×3 (11:40→20:21)
--- NOTE | 2021-07-27 13:58 | PN.HOSP_ITS ---
Subjective Subjective Complains of right sided headache Objective Data Objective Data Vital Signs: Vital Signs Temp Pulse Resp BP Pulse Ox 36.3 C L 87 18 100/53 L 96 07/27/21 12:55 07/27/21 12:55 07/27/21 12:55 07/27/21 12:55 07/27/21 12:55 Oxygen Delivery Method Room Air Weight: 107.4 kg Body Mass Index (BMI) 33.1 Intake & Output: Intake and Output for Last 24 Hours 07/25/21 07/26/21 07/27/21 23:59 23:59 23:59 Intake Total 750 / 750 600 / 900 1150 / 1150 Output Total 2000 / 1999 400 / 400 200 / 200 Balance -1250 / -1250 200 / 500 950 / 950 Medical Nutrition Assessment Dietitian: Malnutrition Criteria Met Start: 07/17/21 10:55 Freq: Status: Active Protocol: Document 07/21/21 14:50 RMA (Rec: 07/21/21 14:50 RMA [id number]) Nutrition Malnutrition Evidence of Malnutrition Exists Yes Malnutrition (severe): Acute Illness/Injury Evidenced By Suboptimal Energy Intake ( Severe),Weight Loss (Severe) Intake Problem Decreased Nutrient Needs (specify) Etiology carbohydrate related to endocrine dysfunction with T2DM Signs/Symptoms as evidenced by pt & family reports pt FBG range 292-470 mg/dl, pre supper BG 300-400 mg/dl, A1C 12.7% 07/01/21. Status Active Problem Clinical Problem Acute Disease or Injury Related Malnutrition Etiology Severe malnutrition in the context of acute disease/ injury related to inadequate oral intake & unintentional wt loss Signs/Symptoms as evidenced by pt & family reporting pt w/ poor intake at meals consuming </=50% energy intake compared to estimated needs at meals, wt loss 15 lbs /6% x 1 1/2 weeks, and pt & family comments reporting clothing not fitting pt. Status Active Problem Recommendation Dietitian Recommendations/Changes Continue carbohydrate- controlled diet as tolerated and glucerna shake 120 ml TID w/ meals for additional svitlana/ pro if consumed. Lab / Micro Data Result Diagrams: 07/27/21 04:15 07/27/21 04:15 Labs: Laboratory Results - last 24 hr 07/26/21 16:48: POC Glucose 185 H 07/26/21 22:12: POC Glucose 156 H 07/27/21 04:15: WBC 8.5, RBC 2.73 L, Hgb 8.0 L, Hct 25.8 L, MCV 94.5 H, MCH 29.3, MCHC 31.0 L, RDW Std Deviation 47.9 H, RDW Coeff of Jennifer 14.2, Plt Count 327, MPV 8.1, Immature Gran % (Auto) 0.800, Neut % (Auto) 78.3 H, Lymph % (Auto) 11.9 L, [place] % (Auto) 6.4, Eos % (Auto) 2.2, Baso % (Auto) 0.4, Absolute Neuts (auto) 6.6, Absolute Lymphs (auto) 1.01, Nucleated RBC % 0 07/27/21 04:15: Sodium 137, Potassium 4.0, Chloride 104, Carbon Dioxide 28.0, Anion Gap 5, BUN 46 H, Creatinine 2.76 H, Estim Creat Clear Calc 27.92, Est GFR (MDRD) Af Amer 30 L, Est GFR (MDRD) Non-Af 25 L, BUN/Creatinine Ratio 16.7, Glucose 88, Calcium 8.4 L 07/27/21 06:11: POC Glucose 90 07/27/21 11:20: POC Glucose 186 H Micro: Microbiology 07/22/21 12:30 Stool C. difficile DNA Amplification - Final 07/16/21 15:50 Wound - Abdominal Gram Stain - Final 07/16/21 15:50 Wound - Abdominal Wound Culture - Final Serratia marcescens Klebsiella pneumoniae sp pneum Escherichia coli Staphylococcus pseudintermediu 07/16/21 17:11 Nasal Secretion SARS-CoV-2 Antigen (Rapid) - Final Physical Exam Const alert Resp normal respiratory effort, no retractions, no use of accessory muscles and clear to auscultation bilaterally Cardio regular rate, regular rhythm, S1 normal heart sound and S2 normal heart sound GI GI Narrative: distended. non-tend Extremity General Extremity: edema Assessment & Plan Assessment/Plan (1) Abscess or cellulitis of umbilicus: (2) Anemia: QUALIFIERS: Anemia type: unspecified type Qualified Code(s): D64.9 - Anemia, unspecified (3) Ileus: PLAN: #Periumbilical abscess and cellulitis * s/p I&D * General surgery on board. IV vancomycin and zosyn dc'd due to worsening kidney function * Wound cultures growing Serratia, Klebsiella pneumonia, E coli and Staph pseudintermediu * CTX completed * wound care on board. * General surgery recommending continuing abx and packing changes for now * ID following #Hypokalemia: * resolved #YINKA: * ongoing * I think this may be due to IV vancomycin. Vanc and zosyn dc'd * FEUrea 34.24. Suggestive prerenal azotemia. * Will give additional IVF and observe. * non-oliguric * consult nephrology * check renal US #Anemia * stable * no indication to transfuse. Transfuse tor Hg <7 #Type 2 diabetes mellitus * fair control * increase lantus to 30 units bid. * ISS. Accuchecks ACHS * A1c 12.8 #Bilateral lymphedema of LEs * wound care on board * has CHANDRAKANT wraps bilaterally. Lasix held o/a of YINKA #Hypotension: improved cortiosol WNL #Suspected ileus ongoing advance diet as tolerated. DVT prophylaxis: SCDs Charges/Coding Visit Charges Inpatient E&M: 11283 Subs Hosp L2
--- NOTE | 2021-07-27 16:16 | PCM.CONS.R ---
Assessment & Plan Assessment/Plan (1) Edema, peripheral: (2) YINKA (acute kidney injury): PLAN: Creatinine was normal at the time of last admission. This admission he presented with a creatinine of 1.5, increased to 2.3 and has been around the same number since then. Today creatinine is 2.7. CT abdomen on admission does not show any hydronephrosis. He denies any obstructive symptoms right now. Urine analysis shows RBC, WBC, protein. Urine total protein creatinine ratio is about 1 g. Interestingly his serum albumin is only 1 g and total protein is between 6 to 7 g. Significant protein gap. Myeloma needs to be ruled out. I have sent a serum protein electrophoresis. I doubt myeloma can cause this acute renal failure. Serum calcium is normal. Hemoglobin is low. Medication list reviewed. He was on vancomycin and Zosyn. There was one vancomycin level which was high but all the levels after that have been acceptable. Currently not on any antibiotics. We will send a C3 level to rule out postinfectious glomerulonephritis. I will also check a urine eosinophils He was on Lasix, currently not on Lasix anymore. Edema. Present during the last admission as well. Serum albumin is extremely low. This might be contributory. Hold diuresis for now due to edema. HPI Consult Data Date of Consult: 07/27/21 HPI Narrative HPI Narrative: STEVE JOY, is a 66 M who presented with an umbilical abscess. This is his second hospitalization. He was here last month as well. S/p incision and drainage by surgery. He did receive vancomycin and Zosyn for infection. Wound culture showed multiple organisms. Nephrology consulted for YINKA. Has known history of edema. Still present. Denies any urinary symptoms. [facility] Medical History Diabetes mellitus, type 2 Open wound of both legs with complication Home Medications linezolid 600 mg PO BID #28 tab 07/04/21 [Rx Last Taken 07/16/21] insulin glargine [Lantus Solostar U-100 Insulin] 10 unit SUBCUT BID #15 ml 07/05/21 [Rx Last Taken 07/16/21] metformin 1,000 mg PO BID #60 tab 07/05/21 [Rx Last Taken 07/16/21] metoprolol succinate 25 mg PO DAILY #30 tab 07/05/21 [Rx Last Taken 07/16/21] potassium chloride 20 meq PO DAILY #10 tab 07/05/21 [Rx Last Taken 07/15/21] magnesium salicylate-caffeine [Diurex] 2 tab PO DAILY 07/16/21 [History Last Taken 07/16/21] Allergy/AdvReac Type Severity Reaction Status Date / Time acetaminophen [From Tylenol] Allergy Hives Verified 07/16/21 10:43 Family History (Updated 07/16/21 @ 18:[address] Marti Carver MD) Mother Diabetes Pulmonary disease Father Diabetes Pulmonary disease Surgical History H/O hernia repair History of skin graft Social History (Updated 07/16/21 @ 18:[address] Marti Carver MD) household members: family Smoking Status: Current some day smoker tobacco type: cigars alcohol intake: never substance use type: does not use ROS ROS Narrative Negative except mentioned in H&P Physical Exam Narrative Alert awake oriented x 3 no obvious distress no pallor no icterus no JVD s1s2 no murmurs lungs clear abdomen soft no organomegaly ++ edema no cyanosis Medical Records Data Medical Nutrition Assessment Dietitian: Malnutrition Criteria Met Start: 07/17/21 10:55 Freq: Status: Active Protocol: Document 07/21/21 14:50 RMA (Rec: 07/21/21 14:50 RMA [id number]) Nutrition Malnutrition Evidence of Malnutrition Exists Yes Malnutrition (severe): Acute Illness/Injury Evidenced By Suboptimal Energy Intake ( Severe),Weight Loss (Severe) Intake Problem Decreased Nutrient Needs (specify) Etiology carbohydrate related to endocrine dysfunction with T2DM Signs/Symptoms as evidenced by pt & family reports pt FBG range 292-470 mg/dl, pre supper BG 300-400 mg/dl, A1C 12.7% 07/01/21. Status Active Problem Clinical Problem Acute Disease or Injury Related Malnutrition Etiology Severe malnutrition in the context of acute disease/ injury related to inadequate oral intake & unintentional wt loss Signs/Symptoms as evidenced by pt & family reporting pt w/ poor intake at meals consuming </=50% energy intake compared to estimated needs at meals, wt loss 15 lbs /6% x 1 1/2 weeks, and pt & family comments reporting clothing not fitting pt. Status Active Problem Recommendation Dietitian Recommendations/Changes Continue carbohydrate- controlled diet as tolerated and glucerna shake 120 ml TID w/ meals for additional svitlana/ pro if consumed. Lab / Micro Data Result Diagrams: 07/27/21 04:15 07/27/21 04:15 Labs: Laboratory Results - last 24 hr 07/26/21 16:48: POC Glucose 185 H 07/26/21 22:12: POC Glucose 156 H 07/27/21 04:15: WBC 8.5, RBC 2.73 L, Hgb 8.0 L, Hct 25.8 L, MCV 94.5 H, MCH 29.3, MCHC 31.0 L, RDW Std Deviation 47.9 H, RDW Coeff of Jennifer 14.2, Plt Count 327, MPV 8.1, Immature Gran % (Auto) 0.800, Neut % (Auto) 78.3 H, Lymph % (Auto) 11.9 L, [place] % (Auto) 6.4, Eos % (Auto) 2.2, Baso % (Auto) 0.4, Absolute Neuts (auto) 6.6, Absolute Lymphs (auto) 1.01, Nucleated RBC % 0 07/27/21 04:15: Sodium 137, Potassium 4.0, Chloride 104, Carbon Dioxide 28.0, Anion Gap 5, BUN 46 H, Creatinine 2.76 H, Estim Creat Clear Calc 27.92, Est GFR (MDRD) Af Amer 30 L, Est GFR (MDRD) Non-Af 25 L, BUN/Creatinine Ratio 16.7, Glucose 88, Calcium 8.4 L 07/27/21 06:11: POC Glucose 90 07/27/21 11:20: POC Glucose 186 H
[2021-07-27 16:56] LABS: Bedside Glucose 241 mg/dL (70-110)
[2021-07-27 20:21] LABS: Bedside Glucose 237 mg/dL (70-110)
--- NOTE | 2021-07-27 22:50 | NURSING ---
1900 pandemic docuemtation
[2021-07-28 04:00] VITALS: BP 100/60; PULSE 83; RESP 17; TEMP 36.4; O2SAT 97
[2021-07-28] MEDS: Nystatin Powder 15gm Bottle 1 APPLIC TOPICAL ×3 (04:09→21:19)
[2021-07-28 05:16] LABS: Absolute Lymphocyte Count 0.87 X10^3/uL (0.83-4.51); Absolute Neutrophil Count 6.1 X10^3/uL (2.0-7.7); Basophil# 0.02 X10^3/uL; Basophil% 0.3 % (0-1); Eosinophil# 0.18 X10^3/uL; Eosinophils% 2.3 % (0-5); Hemoglobin 7.4 g/dL (13.0-16.5); Lymphocyte # 0.87 X10^3/ul (0.83-4.51); Lymphocyte % 11.3 % (19-41); Mean Corp Hgb Conc 30.8 g/dL (32-36); Mean Corpuscular Hgb 29.2 pg (27.0-32.0); Mean Corpuscular Volume 94.9 fL (80-94); Mean Platelet Vol. 8.2 fl (6.2-12.0); Monocyte# 0.43 X10^3/uL; Monocyte% 5.6 % (0-10); NRBC Flagged by Analyzer 0 % (0-5); Neutrophil # 6.12 X10^3/uL (2.7-7.7); Neutrophil % 79.7 % (47-70); Platelet Count 317 K/mm3 (150-450); RBC Distribution Width CV 14.2 % (11.6-14.6); RBC Distribution Width SD 48.8 fl (35.1-43.9); Red Blood Count 2.53 M/mm3 (4.6-6.2); White Blood Count 7.7 K/mm3 (4.4-11.0)
[2021-07-28 05:43] LABS: Anion Gap 5 (5-15); BUN 42 mg/dL (7-18); BUN/Creat Ratio 16.1 RATIO (10-20); Chloride 103 mmol/L (98-107); Creatinine, Serum 2.61 mg/dL (0.70-1.30); EST Glomerular Filtration Rate 26 mL/min (>60); Est Glom Filt Rate - Afr Amer 32 mL/min (>60); Estimated Creatinine Clearance 29.52 ml/min; Glucose 209 mg/dL (74-106); Potassium 4.3 mmol/L (3.5-5.1); Sodium Level 135 mmol/L (136-145)
[2021-07-28] MEDS: Insulin Lispro 100 UNIT/ML INSULN.PEN SC ×4 (06:27→21:24)
[2021-07-28 06:35] LABS: Bedside Glucose 174 mg/dL (70-110)
[2021-07-28] MEDS: Potassium Chloride Oral Tablet 20 MEQ PO (08:25)
[2021-07-28 08:26] VITALS: BP 112/89; PULSE 86; RESP 18; TEMP 36.8; O2SAT 97
--- NOTE | 2021-07-28 08:46 | WOUNDNOTE ---
wound photo: abdomen
--- NOTE | 2021-07-28 08:47 | WOUNDNOTE ---
wound photo: left dorsal foot
--- NOTE | 2021-07-28 08:47 | WOUNDNOTE ---
wound photo: left heel
--- NOTE | 2021-07-28 09:28 | PCM.PN.REN ---
Subjective Subjective No nausea No vomiting has edema of LE. breathing is stable No CP loose BM x2 daily Objective Data Objective Data Vital Signs: Vital Signs Temp Pulse Resp BP Pulse Ox 98.2 F 86 18 112/89 H 97 07/28/21 08:26 07/28/21 08:26 07/28/21 08:26 07/28/21 08:26 07/28/21 08:26 Oxygen Delivery Method Room Air Weight: 109.4 kg Body Mass Index (BMI) 33.1 Intake & Output: Intake and Output for Last 24 Hours 07/26/21 07/27/21 07/28/21 23:59 23:59 23:59 Intake Total 600 / 900 1600 / 1660 180 / 180 Output Total 400 / 400 500 / 500 Balance 200 / 500 1100 / 1160 180 / 180 Medical Nutrition Assessment Dietitian: Malnutrition Criteria Met Start: 07/17/21 10:55 Freq: Status: Active Protocol: Document 07/21/21 14:50 RMA (Rec: 07/21/21 14:50 RMA [id number]) Nutrition Malnutrition Evidence of Malnutrition Exists Yes Malnutrition (severe): Acute Illness/Injury Evidenced By Suboptimal Energy Intake ( Severe),Weight Loss (Severe) Intake Problem Decreased Nutrient Needs (specify) Etiology carbohydrate related to endocrine dysfunction with T2DM Signs/Symptoms as evidenced by pt & family reports pt FBG range 292-470 mg/dl, pre supper BG 300-400 mg/dl, A1C 12.7% 07/01/21. Status Active Problem Clinical Problem Acute Disease or Injury Related Malnutrition Etiology Severe malnutrition in the context of acute disease/ injury related to inadequate oral intake & unintentional wt loss Signs/Symptoms as evidenced by pt & family reporting pt w/ poor intake at meals consuming </=50% energy intake compared to estimated needs at meals, wt loss 15 lbs /6% x 1 1/2 weeks, and pt & family comments reporting clothing not fitting pt. Status Active Problem Recommendation Dietitian Recommendations/Changes Continue carbohydrate- controlled diet as tolerated and glucerna shake 120 ml TID w/ meals for additional svitlana/ pro if consumed. Lab / Micro Data Result Diagrams: 07/28/21 04:36 07/28/21 04:36 Labs: Laboratory Results - last 24 hr 07/27/21 11:20: POC Glucose 186 H 07/27/21 16:48: POC Glucose 241 H 07/27/21 20:18: POC Glucose 237 H 07/28/21 04:36: WBC 7.7, RBC 2.53 L, Hgb 7.4 L, Hct 24.0 L, MCV 94.9 H, MCH 29.2, MCHC 30.8 L, RDW Std Deviation 48.8 H, RDW Coeff of Jennifer 14.2, Plt Count 317, MPV 8.2, Immature Gran % (Auto) 0.800, Neut % (Auto) 79.7 H, Lymph % (Auto) 11.3 L, [place] % (Auto) 5.6, Eos % (Auto) 2.3, Baso % (Auto) 0.3, Absolute Neuts (auto) 6.1, Absolute Lymphs (auto) 0.87, Nucleated RBC % 0 07/28/21 04:36: Sodium 135 L, Potassium 4.3, Chloride 103, Carbon Dioxide 27.0, Anion Gap 5, BUN 42 H, Creatinine 2.61 H, Estim Creat Clear Calc 29.52, Est GFR (MDRD) Af Amer 32 L, Est GFR (MDRD) Non-Af 26 L, BUN/Creatinine Ratio 16.1, Glucose 209 H, Calcium 8.0 L 07/28/21 06:25: POC Glucose 174 H Micro: Microbiology 07/22/21 12:30 Stool C. difficile DNA Amplification - Final 07/16/21 15:50 Wound - Abdominal Gram Stain - Final 07/16/21 15:50 Wound - Abdominal Wound Culture - Final Serratia marcescens Klebsiella pneumoniae sp pneum Escherichia coli Staphylococcus pseudintermediu 07/16/21 17:11 Nasal Secretion SARS-CoV-2 Antigen (Rapid) - Final Physical Exam Narrative Alert awake oriented x 3 no obvious distress no pallor no icterus no JVD s1s2 no murmurs lungs clear abdomen soft no organomegaly ++ edema no cyanosis Assessment & Plan Assessment/Plan (1) Edema, peripheral: (2) YINKA (acute kidney injury): PLAN: Creatinine was normal at the time of last admission. UA showed 30 protein. RBC 11-25 and RBC 11-25. Pro/Cr ~ 1000 mg/g subnephrotic but UOP [address] abdomen on admission does not show any hydronephrosis. DDX plasma cell dyscrasia Vs postinfection GN Vs ATN Vs AIN C3 and SPEP are pending. Will complete GN and autoimmune work uo by ordering C4, [place], ANCA, Cryoglobulins, hepatitis B, C screening Might need kidney bx this week Cr is stable.No need for [employer] Patient has significant edema likely from YINKA and 3rd spacing . Will start lasix 40 IV BIDe Please avoid nephrotoxic Monitor RFP and electrolytes Will continue to follow Call if any question NENA WILSK MD
--- NOTE | 2021-07-28 10:16 | CASEMGMT ---
Social Work Note Pt could be medically ready for discharge in few days. CAROLINA placed a call to Macey at [facility] and left message to update insurance/resubmit for pre-cert. CAROLINA faxed updated clinicals to [facility]. Plan: [facility] skilled pending pre-cert Ella Stafford [employer]
[2021-07-28 10:45] LABS: Hepatitis B Surface Antigen Non-Reactive (Nonreactive)
[2021-07-28] MEDS: Menthol/Lanolin/Calamine/Znox 113 GM Tube 1 APPLIC TOPICAL ×4 (11:02→21:18)
[2021-07-28] MEDS: Pantoprazole Sodium 40 MG Tablet PO (11:02)
[2021-07-28 11:03] VITALS: PULSE 86
[2021-07-28] MEDS: Metoprolol(XL)Succ 25 MG Tablet PO (11:03)
[2021-07-28] MEDS: Furosemide 40 MG/4 ML Vial IV ×2 (11:12→17:38)
--- NOTE | 2021-07-28 11:27 | CASEMGMT ---
Social Work Note CAROLINA received update that pt's Marcelle is at [facility] requesting to speak to this worker. SW in to speak with pt and Mracelle. Marcelle states that her leave paperwork is on her computer at home that is currently so her daughter is assisting her with getting the paperwork. Marcelle states that neither her or her currently has a PCP, asked how the leave paperwork could be completed without a PCP. Marcelle states that pt saw a WINDOWS SYSTEMS ADMIN for about 10 minutes before he came back to [facility]. CAROLINA explained that typically physicians at [facility] do not complete leave paperwork, CAROLINA encouraged Marcelle to call the WINDOWS SYSTEMS ADMIN that pt saw and ask the WINDOWS SYSTEMS ADMIN if they would be willing to complete paperwork. CAROLINA informed Marcelle to then let this worker know because then this worker could call physician at [facility] to complete paperwork. Marcelle states she will check with WINDOWS SYSTEMS ADMIN that pt saw. Ella Stafford [employer] LAYER, POWER AND RECOVERY SHIFT ENGINEER
[2021-07-28 12:11] LABS: Bedside Glucose 253 mg/dL (70-110)
[2021-07-28 13:49] VITALS: BP 114/65; PULSE 90; RESP 18; TEMP 37.2; O2SAT 98
--- NOTE | 2021-07-28 14:21 | PN.HOSP_ITS ---
Subjective Subjective Eating. No complaints. Objective Data Objective Data Vital Signs: Vital Signs Temp Pulse Resp BP Pulse Ox 37.2 C 90 18 114/65 98 07/28/21 13:49 07/28/21 13:49 07/28/21 13:49 07/28/21 13:49 07/28/21 13:49 Oxygen Delivery Method Room Air Weight: 109.4 kg Body Mass Index (BMI) 33.1 Intake & Output: Intake and Output for Last 24 Hours 07/26/21 07/27/21 07/28/21 23:59 23:59 23:59 Intake Total 600 / 900 1600 / 1660 780 / 780 Output Total 400 / 400 500 / 500 Balance 200 / 500 1100 / 1160 780 / 780 Medical Nutrition Assessment Dietitian: Malnutrition Criteria Met Start: 07/17/21 10:55 Freq: Status: Active Protocol: Document 07/21/21 14:50 RMA (Rec: 07/21/21 14:50 RMA [id number]) Nutrition Malnutrition Evidence of Malnutrition Exists Yes Malnutrition (severe): Acute Illness/Injury Evidenced By Suboptimal Energy Intake ( Severe),Weight Loss (Severe) Intake Problem Decreased Nutrient Needs (specify) Etiology carbohydrate related to endocrine dysfunction with T2DM Signs/Symptoms as evidenced by pt & family reports pt FBG range 292-470 mg/dl, pre supper BG 300-400 mg/dl, A1C 12.7% 07/01/21. Status Active Problem Clinical Problem Acute Disease or Injury Related Malnutrition Etiology Severe malnutrition in the context of acute disease/ injury related to inadequate oral intake & unintentional wt loss Signs/Symptoms as evidenced by pt & family reporting pt w/ poor intake at meals consuming </=50% energy intake compared to estimated needs at meals, wt loss 15 lbs /6% x 1 1/2 weeks, and pt & family comments reporting clothing not fitting pt. Status Active Problem Recommendation Dietitian Recommendations/Changes Continue carbohydrate- controlled diet as tolerated and glucerna shake 120 ml TID w/ meals for additional svitlana/ pro if consumed. Lab / Micro Data Result Diagrams: 07/28/21 04:36 07/28/21 04:36 Labs: Laboratory Results - last 24 hr 07/27/21 16:48: POC Glucose 241 H 07/27/21 20:18: POC Glucose 237 H 07/28/21 04:36: WBC 7.7, RBC 2.53 L, Hgb 7.4 L, Hct 24.0 L, MCV 94.9 H, MCH 29.2, MCHC 30.8 L, RDW Std Deviation 48.8 H, RDW Coeff of Jennifer 14.2, Plt Count 317, MPV 8.2, Immature Gran % (Auto) 0.800, Neut % (Auto) 79.7 H, Lymph % (Auto) 11.3 L, Sherman % (Auto) 5.6, Eos % (Auto) 2.3, Baso % (Auto) 0.3, Absolute Neuts (auto) 6.1, Absolute Lymphs (auto) 0.87, Nucleated RBC % 0 07/28/21 04:36: Sodium 135 L, Potassium 4.3, Chloride 103, Carbon Dioxide 27.0, Anion Gap 5, BUN 42 H, Creatinine 2.61 H, Estim Creat Clear Calc 29.52, Est GFR (MDRD) Af Amer 32 L, Est GFR (MDRD) Non-Af 26 L, BUN/Creatinine Ratio 16.1, Glucose 209 H, Calcium 8.0 L 07/28/21 06:25: POC Glucose 174 H 07/28/21 09:44: Hep Bs Antigen Non-Reactive 07/28/21 12:01: POC Glucose 253 H Micro: Microbiology 07/22/21 12:30 Stool C. difficile DNA Amplification - Final 07/16/21 15:50 Wound - Abdominal Gram Stain - Final 07/16/21 15:50 Wound - Abdominal Wound Culture - Final Serratia marcescens Klebsiella pneumoniae sp pneum Escherichia coli Staphylococcus pseudintermediu 07/16/21 17:11 Nasal Secretion SARS-CoV-2 Antigen (Rapid) - Final Radiography Diagnostic Testing: Radiology Impression Renal Ultrasound 07/28/21 15:49 IMPRESSION: Normal ultrasound of the kidneys. The urinary bladder is distended. Patient was unable to void at this time. Electronically Signed: Chandan Martínez MD at 13:34 EDT , Service support , Physical Exam Const alert Resp normal respiratory effort, no retractions and no use of accessory muscles Cardio regular rate, regular rhythm, S1 normal heart sound and S2 normal heart sound GI normal to inspection, nondistended, normoactive bowel sounds, soft to palpation and non-tender GI Narrative: distended Extremity General Extremity: edema Skin no rashes or lesions noted and skin turgor normal Neuro no sensory deficits noted Sensorium / Orientation: awake and alert Psych affect normal Assessment & Plan Assessment/Plan (1) Abscess or cellulitis of umbilicus: (2) Anemia: QUALIFIERS: Anemia type: unspecified type Qualified Code(s): D64.9 - Anemia, unspecified (3) Ileus: PLAN: 1. Periumbilical abscess and cellulitis * s/p I&D * General surgery on board. IV vancomycin and zosyn dc'd due to worsening kidney function * Wound cultures growing Serratia, Klebsiella pneumonia, E coli and Staph pseudintermediu * CTX completed * wound care on board. * General surgery recommending continuing abx and packing changes for now * ID following 2. YINKA: * ongoing * FEUrea 34.24. Suggestive prerenal azotemia. * Has received IVF with no significant improvement. Initially seen with abx (pip/tazo and vanc), but those have since been dc'd * non-oliguric * renal US WNL * nephrology following and have ordered an autoimmune work up (C4, [place], ANCA, cyroglobulins, hepatitis profile). * DW Dr. Valverde, pt may need Bx. He resumed furosemide 3. Anemia * overall down, but stable * monitor * TF for Hg less than 7. * iron 29, but ferritin 1107 (elevated as an acute phase reactant, but too high to suggest iron-deficiency) * check B12, Folate, TSH 4. Type 2 diabetes mellitus * fair control * increase lantus to 30 units bid. * ISS. Accuchecks ACHS * A1c 12.8 5. Bilateral lymphedema of LEs * wound care on board * has CHANDRAKANT wraps bilaterally. Lasix held o/a of YINKA * nephro may consider albumin 6. Hypotension: * resolved 7. Suspected ileus * resolved * tolerating PO 8. DVT prophylaxis: SCDs Charges/Coding Visit Charges Inpatient E&M: 34190 Subs Hosp L3
--- NOTE | 2021-07-28 15:49 | US_ITS ---
STUDY: RENAL ULTRASOUND - COMPLETE REASON FOR EXAM: Male, 66 years old. YINKA TECHNIQUE: Ultrasound evaluation of the kidneys was performed with real-time and static anton-scale imaging. COMPARISON: Comparison is made with prior CT scan of the abdomen dated 07/23/2021. FINDINGS: RIGHT KIDNEY: Normal location of the right kidney, which is normal in size. The right kidney measures 12.4 cm x 5.5 cm x 7 cm. There is a normal cortex of the right kidney. The renal cortex measures 1.4 cm. There is no right renal mass or cyst. There are no right renal calculi. There is no right hydronephrosis. DISTAL RIGHT URETER: There is non-visualization of the distal right ureter. There is no demonstrated right ureterovesical junction calculus. There is a visualized right ureteral jet. LEFT KIDNEY: Normal location of the left kidney, which is normal in size. The left kidney measures 11.6 cm x 5.8 cm x 6.2 cm. There is a normal cortex of the left kidney. The renal cortex measures 1.9 cm. There is no left renal mass or cyst. There are no left renal calculi. There is no left hydronephrosis. DISTAL LEFT URETER: There is non-visualization of the distal left ureter. There is no demonstrated left ureterovesical junction calculus. There is a visualized left ureteral jet. BLADDER: The distended urinary bladder has a volume of 856 ml. The patient was unable to void at this time. There is a normal wall thickness of the distended urinary bladder. There is no demonstrated mass within the urinary bladder. There are no demonstrated bladder calculi. US/Kidney and Bladder IMPRESSION: Normal ultrasound of the kidneys. The urinary bladder is distended. Patient was unable to void at this time. Electronically Signed: Chandan Martínez MD at 13:34 EDT , Service support ,
[2021-07-28 16:41] LABS: Bedside Glucose 217 mg/dL (70-110)
--- NOTE | 2021-07-28 17:09 | NURSING ---
This nurse taking over pts care at 3pm. From JAM Song
[2021-07-28] MEDS: 0.9% Saline Lock 10 ML Syringe IV ×2 (17:38→21:29)
[2021-07-28 21:25] LABS: Bedside Glucose 237 mg/dL (70-110)
[2021-07-28 21:27] VITALS: BP 120/66; PULSE 88; RESP 18; TEMP 37.2; O2SAT 95
[2021-07-29 03:15] VITALS: BP 109/57; PULSE 81; RESP 16; TEMP 36.8; O2SAT 93
[2021-07-29] MEDS: Nystatin Powder 15gm Bottle 1 APPLIC TOPICAL ×3 (05:55→22:44)
[2021-07-29 06:40] LABS: Bedside Glucose 104 mg/dL (70-110)
[2021-07-29 07:30] LABS: Absolute Lymphocyte Count 1.05 X10^3/uL (0.83-4.51); Absolute Neutrophil Count 6.7 X10^3/uL (2.0-7.7); Basophil# 0.04 X10^3/uL; Basophil% 0.5 % (0-1); Eosinophils% 2.4 % (0-5); Hematocrit 26.5 % (40-54); Lymphocyte # 1.05 X10^3/ul (0.83-4.51); Lymphocyte % 12.4 % (19-41); Mean Corp Hgb Conc 30.2 g/dL (32-36); Mean Corpuscular Hgb 28.9 pg (27.0-32.0); Mean Corpuscular Volume 95.7 fL (80-94); Mean Platelet Vol. 8.1 fl (6.2-12.0); Monocyte# 0.46 X10^3/uL; Monocyte% 5.4 % (0-10); NRBC Flagged by Analyzer 0 % (0-5); Neutrophil # 6.67 X10^3/uL (2.7-7.7); Neutrophil % 78.6 % (47-70); Platelet Count 353 K/mm3 (150-450); RBC Distribution Width SD 49.1 fl (35.1-43.9); Red Blood Count 2.77 M/mm3 (4.6-6.2); White Blood Count 8.5 K/mm3 (4.4-11.0)
[2021-07-29 08:09] LABS: ALB/GLOB Ratio 0.2 RATIO (0.9-2.4); AST(SGOT) 15 U/L (15-37); Alanine Aminotransfer ALT/SGPT 8 U/L (16-61); Alkaline Phosphatase 78 U/L (45-117); Anion Gap 4 (5-15); BUN 39 mg/dL (7-18); BUN/Creat Ratio 15.7 RATIO (10-20); Chloride 107 mmol/L (98-107); Creatinine, Serum 2.49 mg/dL (0.70-1.30); EST Glomerular Filtration Rate 28 mL/min (>60); Est Glom Filt Rate - Afr Amer 34 mL/min (>60); Estimated Creatinine Clearance 30.95 ml/min; Glucose 107 mg/dL (74-106); Potassium 4.2 mmol/L (3.5-5.1); Sodium Level 140 mmol/L (136-145); Thyroid Stim Hormone (TSH) 3.06 uIU/mL (0.358-3.74)
[2021-07-29 08:40] LABS: Vitamin B12 473 pg/mL (211-911)
[2021-07-29 08:50] VITALS: BP 121/63; PULSE 75; RESP 16; TEMP 36.8; O2SAT 95
[2021-07-29] MEDS: Potassium Chloride Oral Tablet 20 MEQ PO (08:52)
[2021-07-29] MEDS: Menthol/Lanolin/Calamine/Znox 113 GM Tube 1 APPLIC TOPICAL ×4 (08:52→22:44)
[2021-07-29 08:53] VITALS: PULSE 75
[2021-07-29] MEDS: Furosemide 40 MG/4 ML Vial IV ×2 (08:53→17:11)
[2021-07-29] MEDS: Pantoprazole Sodium 40 MG Tablet PO (08:53)
[2021-07-29] MEDS: Metoprolol(XL)Succ 25 MG Tablet PO (08:53)
[2021-07-29] MEDS: 0.9% Saline Lock 10 ML Syringe IV ×3 (08:54→22:43)
--- NOTE | 2021-07-29 09:51 | CASEMGMT ---
Addendum entered by Ella Stafford 07/29/21 14:05: CAROLINA placed a call to Macey at [facility], pre-cert is still pending. Macey anticipates getting pre-cert tomorrow, requests updated clinicals to be faxed. CAROLINA faxed updated clinicals. Plan: [facility] pending pre-cert Original Note: Social Work Note Pt getting closer to being medically ready for discharge. CAROLINA placed a call to Macey at [facility] and left message updating her on that. Plan: [facility] pending pre-cert Ella Stafford COMMUTER PILOT, FLEET ADMINISTRATIVE ASSISTANT
--- NOTE | 2021-07-29 10:08 | PCM.PN.REN ---
Subjective Subjective No nausea no vomiting. Edema is improving. No shortness of breath Objective Data Objective Data Vital Signs: Vital Signs Temp Pulse Resp BP Pulse Ox 98.3 F 75 16 121/63 H 95 07/29/21 08:50 07/29/21 08:53 07/29/21 08:50 07/29/21 08:50 07/29/21 08:50 Oxygen Delivery Method Room Air Weight: 106.9 kg Body Mass Index (BMI) 33.1 Intake & Output: Intake and Output for Last 24 Hours 07/27/21 07/28/21 07/29/21 23:59 23:59 23:59 Intake Total 1600 / 1660 980 / 980 300 / 300 Output Total 500 / 500 750 / 750 725 / 725 Balance 1100 / 1160 230 / 230 -425 / -425 Medical Nutrition Assessment Dietitian: Malnutrition Criteria Met Start: 07/17/21 10:55 Freq: Status: Active Protocol: Document 07/28/21 16:01 BP (Rec: 07/28/21 16:01 BP [id number]) Nutrition Malnutrition Evidence of Malnutrition Exists Yes Malnutrition (severe): Acute Illness/Injury Evidenced By Suboptimal Energy Intake ( Severe),Weight Loss (Severe) Intake Problem Decreased Nutrient Needs (specify) Etiology carbohydrate related to endocrine dysfunction with T2DM Signs/Symptoms as evidenced by pt & family reports pt FBG range 292-470 mg/dl, pre supper BG 300-400 mg/dl, A1C 12.8% 07/22. Status Active Problem Clinical Problem Acute Disease or Injury Related Malnutrition Etiology Severe malnutrition in the context of acute disease/ injury related to inadequate oral intake & unintentional wt loss Signs/Symptoms as evidenced by pt & family reporting pt w/ poor intake at meals consuming </=50% energy intake compared to estimated needs at meals, wt loss 15 lbs /6% x 1 1/2 weeks, and pt & family comments reporting clothing not fitting pt. Status Active Problem Recommendation Dietitian Recommendations/Changes Continue Carbohydrate Controlled diet- will provide glucerna 120 ml w/ meals. Continue Bart 1 pkt BID for nonhealing foot ulcer & pressure injury. Lab / Micro Data Result Diagrams: 07/29/21 06:15 07/29/21 06:15 Labs: Laboratory Results - last 24 hr 07/28/21 09:44: Hep Bs Antigen Non-Reactive 07/28/21 12:01: POC Glucose 253 H 07/28/21 16:32: POC Glucose 217 H 07/28/21 21:17: POC Glucose 237 H 07/29/21 06:15: WBC 8.5, RBC 2.77 L, Hgb 8.0 L, Hct 26.5 L, MCV 95.7 H, MCH 28.9, MCHC 30.2 L, RDW Std Deviation 49.1 H, RDW Coeff of Jennifer 14.0, Plt Count 353, MPV 8.1, Immature Gran % (Auto) 0.700, Neut % (Auto) 78.6 H, Lymph % (Auto) 12.4 L, [place]arro % (Auto) 5.4, Eos % (Auto) 2.4, Baso % (Auto) 0.5, Absolute Neuts (auto) 6.7, Absolute Lymphs (auto) 1.05, Nucleated RBC % 0 07/29/21 06:15: Sodium 140, Potassium 4.2, Chloride 107, Carbon Dioxide 29.0, Anion Gap 4 L, BUN 39 H, Creatinine 2.49 H, Estim Creat Clear Calc 30.95, Est GFR (MDRD) Af Amer 34 L, Est GFR (MDRD) Non-Af 28 L, BUN/Creatinine Ratio 15.7, Glucose 107 H, Calcium 8.0 L, Total Bilirubin 0.30, AST 15, ALT 8 L, Alkaline Phosphatase 78, Total Protein 7.0, Albumin 1.0 L, Globulin 6.0 H, Albumin/Globulin Ratio 0.2 L, Folate 3.80, TSH 3.06 07/29/21 06:15: Vitamin B12 473 07/29/21 06:36: POC Glucose 104 Micro: Microbiology 07/22/21 12:30 Stool C. difficile DNA Amplification - Final 07/16/21 15:50 Wound - Abdominal Gram Stain - Final 07/16/21 15:50 Wound - Abdominal Wound Culture - Final Serratia marcescens Klebsiella pneumoniae sp pneum Escherichia coli Staphylococcus pseudintermediu 07/16/21 17:11 Nasal Secretion SARS-CoV-2 Antigen (Rapid) - Final Radiography Diagnostic Testing: Radiology Impression Renal Ultrasound 07/28/21 15:49 IMPRESSION: Normal ultrasound of the kidneys. The urinary bladder is distended. Patient was unable to void at this time. Electronically Signed: Chandan Martínez MD at 13:34 EDT , Service support , Physical Exam Narrative Alert awake oriented x 3 no obvious distress no pallor no icterus no JVD s1s2 no murmurs lungs clear abdomen soft no organomegaly ++ edema no cyanosis Assessment & Plan Assessment/Plan (1) Edema, peripheral: (2) YINKA (acute kidney injury): PLAN: Creatinine was normal at the time of last admission. UA showed 30 protein. RBC 11-25 and RBC 11-25. Pro/Cr ~ 1000 mg/g subnephrotic but UOP [address] abdomen on admission does not show any hydronephrosis. DDX plasma cell dyscrasia Vs postinfection GN Vs ATN Vs AIN C3 and SPEP are pending. Will complete GN and autoimmune work uo by ordering C4, [place], ANCA, Cryoglobulins, hepatitis B, C screening. Still pending Creatinine is better. Will defer kidney biopsy for now Continue same dose of Lasix Please avoid nephrotoxic Monitor RFP and electrolytes Patient can be discharged with Bumex 1 mg 3 times a day Call if any question Discussed with Dr.Jopperi NENA WILKS MD
[2021-07-29] MEDS: Insulin Lispro 100 UNIT/ML INSULN.PEN SC ×3 (11:04→22:45)
[2021-07-29 11:10] LABS: Bedside Glucose 216 mg/dL (70-110)
[2021-07-29 14:08] LABS: Albumin 1.4 g/dL (2.9-4.4); Alpha-1-Globulins 0.4 g/dL (0.0-0.4); Alpha-2-Globulins 1.1 g/dL (0.4-1.0); Gamma Globulin 2.3 g/dL (0.4-1.8); Immunoglobulin A 417 mg/dL (61-437); Immunoglobulin G 2629 mg/dL (603-1613); Immunoglobulin M 45 mg/dL (20-172); PROEL- TOTAL PROTEIN 6.1 g/dL (6.0-8.5)
[2021-07-29 14:10] VITALS: BP 114/66; PULSE 106; RESP 16; TEMP 36.9; O2SAT 100
--- NOTE | 2021-07-29 16:24 | PN.HOSP_ITS ---
Subjective Subjective Feels well. Tolerating p.o. No further nausea or vomiting. Objective Data Objective Data Vital Signs: Vital Signs Temp Pulse Resp BP Pulse Ox 36.9 C 106 H 16 114/66 100 07/29/21 14:10 07/29/21 14:10 07/29/21 14:10 07/29/21 14:10 07/29/21 14:10 Oxygen Delivery Method Room Air Weight: 106.9 kg Body Mass Index (BMI) 33.1 Intake & Output: Intake and Output for Last 24 Hours 07/27/21 07/28/21 07/29/21 23:59 23:59 23:59 Intake Total 1600 / 1660 980 / 980 540 / 540 Output Total 500 / 500 750 / 750 1225 / 1225 Balance 1100 / 1160 230 / 230 -685 / -685 Medical Nutrition Assessment Dietitian: Malnutrition Criteria Met Start: 07/17/21 10:55 Freq: Status: Active Protocol: Document 07/28/21 16:01 BP (Rec: 07/28/21 16:01 BP [id number]) Nutrition Malnutrition Evidence of Malnutrition Exists Yes Malnutrition (severe): Acute Illness/Injury Evidenced By Suboptimal Energy Intake ( Severe),Weight Loss (Severe) Intake Problem Decreased Nutrient Needs (specify) Etiology carbohydrate related to endocrine dysfunction with T2DM Signs/Symptoms as evidenced by pt & family reports pt FBG range 292-470 mg/dl, pre supper BG 300-400 mg/dl, A1C 12.8% 07/22. Status Active Problem Clinical Problem Acute Disease or Injury Related Malnutrition Etiology Severe malnutrition in the context of acute disease/ injury related to inadequate oral intake & unintentional wt loss Signs/Symptoms as evidenced by pt & family reporting pt w/ poor intake at meals consuming </=50% energy intake compared to estimated needs at meals, wt loss 15 lbs /6% x 1 1/2 weeks, and pt & family comments reporting clothing not fitting pt. Status Active Problem Recommendation Dietitian Recommendations/Changes Continue Carbohydrate Controlled diet- will provide glucerna 120 ml w/ meals. Continue Bart 1 pkt BID for nonhealing foot ulcer & pressure injury. Lab / Micro Data Result Diagrams: 07/29/21 06:15 07/29/21 06:15 Labs: Laboratory Results - last 24 hr 07/28/21 16:32: POC Glucose 217 H 07/28/21 21:17: POC Glucose 237 H 07/29/21 06:15: WBC 8.5, RBC 2.77 L, Hgb 8.0 L, Hct 26.5 L, MCV 95.7 H, MCH 28.9, MCHC 30.2 L, RDW Std Deviation 49.1 H, RDW Coeff of Jennifer 14.0, Plt Count 353, MPV 8.1, Immature Gran % (Auto) 0.700, Neut % (Auto) 78.6 H, Lymph % (Auto) 12.4 L, [place] % (Auto) 5.4, Eos % (Auto) 2.4, Baso % (Auto) 0.5, Absolute Neuts (auto) 6.7, Absolute Lymphs (auto) 1.05, Nucleated RBC % 0 07/29/21 06:15: Sodium 140, Potassium 4.2, Chloride 107, Carbon Dioxide 29.0, Anion Gap 4 L, BUN 39 H, Creatinine 2.49 H, Estim Creat Clear Calc 30.95, Est GFR (MDRD) Af Amer 34 L, Est GFR (MDRD) Non-Af 28 L, BUN/Creatinine Ratio 15.7, Glucose 107 H, Calcium 8.0 L, Total Bilirubin 0.30, AST 15, ALT 8 L, Alkaline Phosphatase 78, Total Protein 7.0, Albumin 1.0 L, Globulin 6.0 H, Albumin/Globulin Ratio 0.2 L, Folate 3.80, TSH 3.06 07/29/21 06:15: Vitamin B12 473 07/29/21 06:36: POC Glucose 104 07/29/21 11:03: POC Glucose 216 H Micro: Microbiology 07/22/21 12:30 Stool C. difficile DNA Amplification - Final 07/16/21 15:50 Wound - Abdominal Gram Stain - Final 07/16/21 15:50 Wound - Abdominal Wound Culture - Final Serratia marcescens Klebsiella pneumoniae sp pneum Escherichia coli Staphylococcus pseudintermediu 07/16/21 17:11 Nasal Secretion SARS-CoV-2 Antigen (Rapid) - Final Physical Exam Const alert Eyes PERRL Resp normal respiratory effort, no retractions, no use of accessory muscles and clear to auscultation bilaterally Cardio regular rate, regular rhythm, S1 normal heart sound and S2 normal heart sound GI normal to inspection, nondistended, normoactive bowel sounds GI Narrative: Distended but soft. Nontender. Extremity General Extremity: edema Assessment & Plan Assessment/Plan (1) Abscess or cellulitis of umbilicus: (2) Anemia: QUALIFIERS: Anemia type: unspecified type Qualified Code(s): D64.9 - Anemia, unspecified (3) Ileus: PLAN: 1. Periumbilical abscess and cellulitis * s/p I&D * General surgery on board. IV vancomycin and zosyn dc'd due to worsening kidney function * Wound cultures growing Serratia, Klebsiella pneumonia, E coli and Staph pseudintermediu * CTX completed * wound care on board. * General surgery recommending continuing abx and packing changes for now * ID following 2. YINKA: * Improving * FEUrea 34.24. Suggestive prerenal azotemia. * Has previously received IVF with no significant improvement. Initially seen with abx (pip/tazo and vanc), but those have since been dc'd * non-oliguric * renal US WNL * nephrology following and have ordered an autoimmune work up (C4, [place], ANCA, cyroglobulins, hepatitis profile). * DW Dr. Valverde, pt may need Bx. He resumed furosemide. He recommends Bumex 1 mg 3 times daily upon discharge. He will need to have his glomerulonephritis autoimmune work-up followed up 3. Anemia * overall down, but stable * monitor * TF for Hg less than 7. * iron 29, but ferritin 1107 (elevated as an acute phase reactant, but too high to suggest iron-deficiency) * check B12, Folate, TSH 4. Type 2 diabetes mellitus * fair control * increase lantus to 30 units bid. * ISS. Accuchecks ACHS * A1c 12.8 5. Bilateral lymphedema of LEs * wound care on board * has CHANDRAKANT wraps bilaterally. Back on furosemide 6. Hypotension: * resolved 7. ileus * resolved * tolerating PO 8. DVT prophylaxis: SCDs 9. Disposition: To senior care facility pending insurance approval. Charges/Coding Visit Charges Inpatient E&M: 02229 Subs Hosp L2
[2021-07-29 17:21] LABS: Bedside Glucose 242 mg/dL (70-110)
[2021-07-29 18:39] LABS: Complement C3 138 mg/dL (82-167); IMMUNOFIXATION RESULT,S Comment: (.)
[2021-07-29 19:32] LABS: ANTINUCLEAR ANTIBODIES DIRECT Negative (Negative)
[2021-07-29 22:39] VITALS: BP 117/63; PULSE 83; RESP 18; TEMP 37.2; O2SAT 94
[2021-07-29 23:11] LABS: Bedside Glucose 182 mg/dL (70-110)
[2021-07-30 05:44] VITALS: BP 105/61; PULSE 94; RESP 16; TEMP 36.8; O2SAT 92
[2021-07-30] MEDS: Nystatin Powder 15gm Bottle 1 APPLIC TOPICAL ×2 (05:49→13:32)
[2021-07-30 06:56] LABS: Bedside Glucose 104 mg/dL (70-110)
[2021-07-30 07:02] LABS: Absolute Lymphocyte Count 1.14 X10^3/uL (0.83-4.51); Absolute Neutrophil Count 6.6 X10^3/uL (2.0-7.7); Basophil# 0.03 X10^3/uL; Basophil% 0.3 % (0-1); Eosinophil# 0.23 X10^3/uL; Eosinophils% 2.7 % (0-5); Hematocrit 24.6 % (40-54); Hemoglobin 7.6 g/dL (13.0-16.5); Lymphocyte # 1.14 X10^3/ul (0.83-4.51); Lymphocyte % 13.2 % (19-41); Mean Corp Hgb Conc 30.9 g/dL (32-36); Mean Corpuscular Hgb 29.1 pg (27.0-32.0); Mean Corpuscular Volume 94.3 fL (80-94); Mean Platelet Vol. 8.1 fl (6.2-12.0); Monocyte# 0.58 X10^3/uL; Monocyte% 6.7 % (0-10); NRBC Flagged by Analyzer 0 % (0-5); Neutrophil # 6.57 X10^3/uL (2.7-7.7); Neutrophil % 76.3 % (47-70); Platelet Count 319 K/mm3 (150-450); RBC Distribution Width CV 14.3 % (11.6-14.6); Red Blood Count 2.61 M/mm3 (4.6-6.2); White Blood Count 8.6 K/mm3 (4.4-11.0)
[2021-07-30 07:45] LABS: ALB/GLOB Ratio 0.2 RATIO (0.9-2.4); AST(SGOT) 13 U/L (15-37); Alanine Aminotransfer ALT/SGPT 11 U/L (16-61); Alkaline Phosphatase 73 U/L (45-117); Anion Gap 4 (5-15); BUN 46 mg/dL (7-18); BUN/Creat Ratio 19.3 RATIO (10-20); Calcium,Total 8.2 mg/dL (8.5-10.1); Chloride 107 mmol/L (98-107); Creatinine, Serum 2.38 mg/dL (0.70-1.30); EST Glomerular Filtration Rate 29 mL/min (>60); Est Glom Filt Rate - Afr Amer 36 mL/min (>60); Estimated Creatinine Clearance 32.38 ml/min; Globulin 6.1 g/dL (2.2-4.2); Glucose 116 mg/dL (74-106); Potassium 4.2 mmol/L (3.5-5.1); Protein, Total 7.1 g/dL (6.4-8.2); Sodium Level 139 mmol/L (136-145)
[2021-07-30 08:14] VITALS: BP 114/59; PULSE 81; RESP 16; TEMP 36.9; O2SAT 92
[2021-07-30] MEDS: Pantoprazole Sodium 40 MG Tablet PO (09:24)
[2021-07-30 09:25] VITALS: BP 114/59; PULSE 81
[2021-07-30] MEDS: Potassium Chloride Oral Tablet 20 MEQ PO (09:25)
[2021-07-30] MEDS: Furosemide 40 MG/4 ML Vial IV (09:25)
[2021-07-30] MEDS: Metoprolol(XL)Succ 25 MG Tablet PO (09:25)
[2021-07-30] MEDS: Menthol/Lanolin/Calamine/Znox 113 GM Tube 1 APPLIC TOPICAL ×2 (09:27→13:33)
--- NOTE | 2021-07-30 09:36 | CASEMGMT ---
Addendum entered by Ella Stafford 07/30/21 13:19: CAROLINA received message from Macey at [facility] stating she received updated clinicals and they have been sent to pt's insurance. Macey states she also infromed pt's insurance that pt is medically ready for discharge. Plan: [facility] skilled pending pre-cert Addendum entered by Ella Stafford 07/30/21 12:45: CAROLINA faxed updated clinicals to [facility]. Original Note: Social Work Note Pt medically ready for discharge today. CAROLINA placed a call to Macey at [facility] and left message updating her that pt is medically ready for discharge and to let this worker know when pre-cert is obtained. Plan: [facility] skilled pending pre-cert Ella DEL ROSARIO, MEDICAL RESEARCHER
[2021-07-30] MEDS: Insulin Lispro 100 UNIT/ML INSULN.PEN SC ×2 (11:02→16:30)
[2021-07-30 11:45] LABS: Bedside Glucose 187 mg/dL (70-110)
[2021-07-30] MEDS: oxyCODONE 5 MG Tablet PO (13:25)
--- NOTE | 2021-07-30 13:37 | PN.SURG_ITS ---
Subjective Subjective Patient evaluated sitting comfortably in the chair. He states he is achy all over. He notes this is nothing new to him. He denies pain or discomfort at the umbilicus. No significant drainage has occurred. Objective Data Objective Data Vital Signs: Vital Signs Temp Pulse Resp BP Pulse Ox 98.4 F 81 16 114/59 L 92 07/30/21 08:14 07/30/21 09:25 07/30/21 08:14 07/30/21 09:25 07/30/21 08:14 Oxygen Delivery Method Room Air Weight: 236 lb 1.841 oz Body Mass Index (BMI) 33.1 Intake & Output: Intake and Output for Last 24 Hours 07/28/21 07/29/21 07/30/21 23:59 23:59 23:59 Intake Total 980 / 980 540 / 540 600 / 600 Output Total 750 / 750 1725 / 1725 1325 / 1325 Balance 230 / 230 -1185 / -1185 -725 / -725 Medical Nutrition Assessment Dietitian: Malnutrition Criteria Met Start: 07/17/21 10:55 Freq: Status: Active Protocol: Document 07/28/21 16:01 BP (Rec: 07/28/21 16:01 BP [id number]) Nutrition Malnutrition Evidence of Malnutrition Exists Yes Malnutrition (severe): Acute Illness/Injury Evidenced By Suboptimal Energy Intake ( Severe),Weight Loss (Severe) Intake Problem Decreased Nutrient Needs (specify) Etiology carbohydrate related to endocrine dysfunction with T2DM Signs/Symptoms as evidenced by pt & family reports pt FBG range 292-470 mg/dl, pre supper BG 300-400 mg/dl, A1C 12.8% 07/22. Status Active Problem Clinical Problem Acute Disease or Injury Related Malnutrition Etiology Severe malnutrition in the context of acute disease/ injury related to inadequate oral intake & unintentional wt loss Signs/Symptoms as evidenced by pt & family reporting pt w/ poor intake at meals consuming </=50% energy intake compared to estimated needs at meals, wt loss 15 lbs /6% x 1 1/2 weeks, and pt & family comments reporting clothing not fitting pt. Status Active Problem Recommendation Dietitian Recommendations/Changes Continue Carbohydrate Controlled diet- will provide glucerna 120 ml w/ meals. Continue Bart 1 pkt BID for nonhealing foot ulcer & pressure injury. Lab / Micro Data Result Diagrams: 07/30/21 06:00 07/30/21 06:00 Labs: Laboratory Results - last 24 hr 07/28/21 04:36: Total Protein (PEP) 6.1, Globulin 4.7 H, IgG 2629 H, IgA 417, IgM 45, Immunofixation Screen Comment:, Albumin (SHAILESH) 1.4 L, Albumin/Globulin (SHAILESH) 0.3 L, Yhrvq-0-Krszvrmij SHAILESH 0.4, Ucatu-1-Lsoiohdon SHAILESH 1.1 H, Beta- Globulins (SHAILESH) 0.9, Gamma Globulins (SHAILESH) 2.3 H, SHAILESH M-Zenon , SHAILESH Comments Comment, Complement C3 138 07/28/21 09:44: [place] Screen Negative, MONY-1 Antibody Not Reportable, SS-A/Ro IgG Antibody Not Reportable, SS-B/La IgG Antibody Not Reportable, Sm (Benavides) Antibody Not Reportable, DRAFTER DETAIL Antibody Not Reportable, Scl-70 Scleroderma Ab Not Reportable, Double Strand DNA Ab Not Reportable, Centromere B Antibody Not Reportable 07/29/21 17:02: POC Glucose 242 H 07/29/21 22:42: POC Glucose 182 H 07/30/21 06:00: WBC 8.6, RBC 2.61 L, Hgb 7.6 L, Hct 24.6 L, MCV 94.3 H, MCH 29.1, MCHC 30.9 L, RDW Std Deviation 48.0 H, RDW Coeff of Jennifer 14.3, Plt Count 319, MPV 8.1, Immature Gran % (Auto) 0.800, Neut % (Auto) 76.3 H, Lymph % (Auto) 13.2 L, [place] % (Auto) 6.7, Eos % (Auto) 2.7, Baso % (Auto) 0.3, Absolute Neuts (auto) 6.6, Absolute Lymphs (auto) 1.14, Nucleated RBC % 0 07/30/21 06:00: Sodium 139, Potassium 4.2, Chloride 107, Carbon Dioxide 28.0, Anion Gap 4 L, BUN 46 H, Creatinine 2.38 H, Estim Creat Clear Calc 32.38, Est GFR (MDRD) Af Amer 36 L, Est GFR (MDRD) Non-Af 29 L, BUN/Creatinine Ratio 19.3, Glucose 116 H, Calcium 8.2 L, Total Bilirubin 0.30, AST 13 L, ALT 11 L, Alkaline Phosphatase 73, Total Protein 7.1, Albumin 1.0 L, Globulin 6.1 H, Albumin/Globulin Ratio 0.2 L 07/30/21 06:48: POC Glucose 104 07/30/21 11:00: POC Glucose 187 H Micro: Microbiology 07/22/21 12:30 Stool C. difficile DNA Amplification - Final 07/16/21 15:50 Wound - Abdominal Gram Stain - Final 07/16/21 15:50 Wound - Abdominal Wound Culture - Final Serratia marcescens Klebsiella pneumoniae sp pneum Escherichia coli Staphylococcus pseudintermediu 07/16/21 17:11 Nasal Secretion SARS-CoV-2 Antigen (Rapid) - Final Physical Exam Skin Skin Narrative: Umbilicus- superior opening packed with gauze. No erythema surrounding the opening. Nontender. No drainage noted on the dry gauze dressing. Assessment & Plan Assessment/Plan (1) Abscess or cellulitis of umbilicus: PLAN: Continue packing changes as scheduled Patient to possibly go to residential today Follow-up with Dr. Barrios in 1 week from discharge Will discuss scopes at that time also Charges/Coding Visit Charges Inpatient E&M: [id number] [facility] [[email or web address]] Hosp L1
--- NOTE | 2021-07-30 13:49 | PN.HOSP_ITS ---
Subjective Subjective Patient was seen and examined. No acute events. Waiting on insurance precertification for discharge to detention facility. Objective Data Objective Data Vital Signs: Vital Signs Temp Pulse Resp BP Pulse Ox 98.4 F 81 16 114/59 L 92 07/30/21 08:14 07/30/21 09:25 07/30/21 08:14 07/30/21 09:25 07/30/21 08:14 Oxygen Delivery Method Room Air Weight: 107.1 kg Body Mass Index (BMI) 33.1 Intake & Output: Intake and Output for Last 24 Hours 07/28/21 07/29/21 07/30/21 23:59 23:59 23:59 Intake Total 980 / 980 540 / 540 600 / 600 Output Total 750 / 750 1725 / 1725 1325 / 1325 Balance 230 / 230 -1185 / -1185 -725 / -725 Medical Nutrition Assessment Dietitian: Malnutrition Criteria Met Start: 07/17/21 10:55 Freq: Status: Active Protocol: Document 07/28/21 16:01 BP (Rec: 07/28/21 16:01 BP [id number]) Nutrition Malnutrition Evidence of Malnutrition Exists Yes Malnutrition (severe): Acute Illness/Injury Evidenced By Suboptimal Energy Intake ( Severe),Weight Loss (Severe) Intake Problem Decreased Nutrient Needs (specify) Etiology carbohydrate related to endocrine dysfunction with T2DM Signs/Symptoms as evidenced by pt & family reports pt FBG range 292-470 mg/dl, pre supper BG 300-400 mg/dl, A1C 12.8% 07/22. Status Active Problem Clinical Problem Acute Disease or Injury Related Malnutrition Etiology Severe malnutrition in the context of acute disease/ injury related to inadequate oral intake & unintentional wt loss Signs/Symptoms as evidenced by pt & family reporting pt w/ poor intake at meals consuming </=50% energy intake compared to estimated needs at meals, wt loss 15 lbs /6% x 1 1/2 weeks, and pt & family comments reporting clothing not fitting pt. Status Active Problem Recommendation Dietitian Recommendations/Changes Continue Carbohydrate Controlled diet- will provide glucerna 120 ml w/ meals. Continue Bart 1 pkt BID for nonhealing foot ulcer & pressure injury. Lab / Micro Data Result Diagrams: 07/30/21 06:00 07/30/21 06:00 Labs: Laboratory Results - last 24 hr 07/28/21 04:36: Total Protein (PEP) 6.1, Globulin 4.7 H, IgG 2629 H, IgA 417, IgM 45, Immunofixation Screen Comment:, Albumin (SHAILESH) 1.4 L, Albumin/Globulin (SHAILESH) 0.3 L, Bjbsm-6-Ysjqskjef SHAILESH 0.4, Hecab-7-Vrzwaxeps SHAILESH 1.1 H, Beta- Globulins (SHAILESH) 0.9, Gamma Globulins (SHAILESH) 2.3 H, SHAILESH M-Zenon , SHAILESH Comments Comment, Complement C3 138 07/28/21 09:44: [place] Screen Negative, MONY-1 Antibody Not Reportable, SS-A/Ro IgG Antibody Not Reportable, SS-B/La IgG Antibody Not Reportable, Sm (Benavides) Antibody Not Reportable, INTERNATIONAL SPECIALIST Antibody Not Reportable, Scl-70 Scleroderma Ab Not Reportable, Double Strand DNA Ab Not Reportable, Centromere B Antibody Not Reportable 07/29/21 17:02: POC Glucose 242 H 07/29/21 22:42: POC Glucose 182 H 07/30/21 06:00: WBC 8.6, RBC 2.61 L, Hgb 7.6 L, Hct 24.6 L, MCV 94.3 H, MCH 29.1, MCHC 30.9 L, RDW Std Deviation 48.0 H, RDW Coeff of Jennifer 14.3, Plt Count 319, MPV 8.1, Immature Gran % (Auto) 0.800, Neut % (Auto) 76.3 H, Lymph % (Auto) 13.2 L, [place] % (Auto) 6.7, Eos % (Auto) 2.7, Baso % (Auto) 0.3, Absolute Neuts (auto) 6.6, Absolute Lymphs (auto) 1.14, Nucleated RBC % 0 07/30/21 06:00: Sodium 139, Potassium 4.2, Chloride 107, Carbon Dioxide 28.0, Anion Gap 4 L, BUN 46 H, Creatinine 2.38 H, Estim Creat Clear Calc 32.38, Est GFR (MDRD) Af Amer 36 L, Est GFR (MDRD) Non-Af 29 L, BUN/Creatinine Ratio 19.3, Glucose 116 H, Calcium 8.2 L, Total Bilirubin 0.30, AST 13 L, ALT 11 L, Alkaline Phosphatase 73, Total Protein 7.1, Albumin 1.0 L, Globulin 6.1 H, Albumin/Globulin Ratio 0.2 L 07/30/21 06:48: POC Glucose 104 07/30/21 11:00: POC Glucose 187 H Micro: Microbiology 07/22/21 12:30 Stool C. difficile DNA Amplification - Final 07/16/21 15:50 Wound - Abdominal Gram Stain - Final 07/16/21 15:50 Wound - Abdominal Wound Culture - Final Serratia marcescens Klebsiella pneumoniae sp pneum Escherichia coli Staphylococcus pseudintermediu 07/16/21 17:11 Nasal Secretion SARS-CoV-2 Antigen (Rapid) - Final Physical Exam Narrative Physical exam: General: Alert, Oriented x3, Cooperative, No apparent distress, Well developed HEENT: Atraumatic Oral: Moist Mucosa Neck: Supple Lungs: Clear to auscultation Cardiovascular: HS I+II, regular, no murmurs Abdomen: Bowel Sounds Present, Soft, Non Tender Extremities: No edema Assessment & Plan Assessment/Plan (1) Abscess or cellulitis of umbilicus: (2) Anemia: QUALIFIERS: Anemia type: unspecified type Qualified Code(s): D64.9 - Anemia, unspecified (3) Ileus: (4) Severe malnutrition: (5) YINKA (acute kidney injury): (6) Lower extremity edema: (7) Abdominal wall abscess: PLAN: 1. Acute periumbilical abscess and cellulitis, status post I&D on 07/17/21 History of ventral hernia repair with mesh Wound cultures growing Serratia, Klebsiella pneumonia, E coli and Staph pseudintermediu Last CT of the abdomen and pelvis done on 07/23/21 shows resolution of the umbilical abscess General surgery and ID following, off antibiotics on account of acute kidney injury Wound RN following 2. YINKA, prerenal, appears to have stabilized FeUrea is 34.24, renal ultrasound unremarkable, off antibiotics, Urine output is good Nephrology consulted; outpatient autoimmune work-up is still pending Currently on Bumex We will continue to trend 3. Anemia, likely secondary to CKD, hemoglobin has been stable Hemoglobin remains at 7.6 Vitamin B12, TSH, folate are normal 4. Type 2 diabetes mellitus, HbA1c is 12.8, blood sugars are better controlled, Continue on Lantus, insulin sliding scale with blood glucose checks 5. Bilateral lymphedema of lower extremities, ulcer at the left heel, dorsum of foot Initial leg exam showed maggots in between his toes Wound RN following 6. Hypotension, resolved 7. Ileus, resolved 8. Disposition: Pending pre-CERT for discharge to detention facility Charges/Coding Visit Charges Inpatient E&M: [id number] Subs Hosp L2
[2021-07-30 13:58] VITALS: BP 91/52; PULSE 106; RESP 16; TEMP 36.7; O2SAT 92
--- NOTE | 2021-07-30 14:38 | TREXTCAR_ITS ---
Diet 07/27/21 10:42 Diet: Carbohydrate Controlled Food consistency:: Regular Liquid Consistency:: Regular/Thin Type of Dietary Supplement:: Bart Is pt able to select menu?: Yes Diet Comments: Unflavored Bart 1 pkt BID mixed w/ meals; glucerna 120 ml w/ meals Routine Orders/Code Status O2 Liters per Minute: 2 O2 Frequency: Continuous Keep PO Greater than or Equal to (%): 94 Routine Lab Work: CBC (within 3 days) and BMP (within 3 days) Code Status: DNRCC-A Wound(s) legs and abd: Wound Type: cellulitis BLE: Wound Type: blister Left Elbow: Wound Type: small scabbed area Abdominal - belly button: Wound Type: Abscess umbilicus: Wound Type: Abscess Dressing Change: Packed with Iodoform left posterior heel: Wound Type: healing wound (previous skin graft) Dressing Change: Adaptic left dorsal foot: Wound Type: open blister Dressing Change: Adaptic right dorsal lateral foot: Wound Type: open blister Dressing Change: Adaptic R buttock: Wound Type: Pressure Injury r elbow: Wound Type: Abrasion L fourth toe: Wound Type: Pressure Injury Therapies Weight Bearing: Weight bearing as tolerated Physical Therapy: Eval and Treat Occupational Therapy: Eval and Treat Problem/Diagnosis (1) Abscess or cellulitis of umbilicus: Status: Acute (2) Anemia: Status: Acute (3) Ileus: Status: Acute (4) Severe malnutrition: Status: Acute (5) YINKA (acute kidney injury): Status: Acute (6) Lower extremity edema: Status: Acute (7) Abdominal wall abscess: Status: Acute Allergies/Procedures Done in Hospital Allergies acetaminophen [From Tylenol] Allergy (Verified 07/16/21 10:43) Hives Procedures: None Type of Care/Length of Stay Estimated LOS: Convalescent Care Less Than 30 days Type of Care Needed: Skilled Rehab Potential: Good Prognosis: Good Additional Orders/Day of Discharge Day of Discharge: 07/30/21 Dietary and Speech Recommendations Dietitian Recommendations/Changes: Continue Carbohydrate Controlled diet- will provide glucerna 120 ml w/ meals. Continue Bart 1 pkt BID for nonhealing foot ulcer & pressure injury. Discharge Plan Admission Admit Date/Time: 07/16/21 16:09 Primary Reason for Your Visit: Acute periumbilical abscess/cellulitis Attending Provider: Caitlin Jackson Primary Care Provider: Care Physician,No Primary Consulting Providers: Bennett Barrios ; Roberto Carlos Ceballos ; Paxton Marquez Discharge Orders/Prescriptions Prescriptions: New Lantus Solostar U-100 Insulin 100 unit/mL (3 mL) Insulin Pen 30 unit subcut BID Qty: 15 RF: 0 guaifenesin 100 mg/5 mL Liquid 400 mg PO Q4H PRN PRN (Reason: COUGH) Qty: 0 RF: 0 insulin lispro [Humalog KwikPen Insulin] 100 unit/mL Insulin Pen See Protocol unit subcut ACHS Qty: 0 RF: 0 menthol-zinc oxide [Calmoseptine] 0.44-20.6 % Ointment 1 applic topical 4X/DAY Qty: 0 RF: 0 pantoprazole 40 mg Tablet,Delayed Release (Dr/Ec) 40 mg PO DAILY Qty: 0 RF: 0 nystatin [Nyamyc] 100,000 unit/gram Powder 1 applic topical TID Qty: 0 RF: 0 furosemide [Lasix] 80 mg tablet 80 mg PO BID 30 Days Qty: 60 RF: 0 Continued metoprolol succinate 25 mg tablet extended release 24 hr 25 mg PO DAILY Qty: 30 RF: 1 potassium chloride 20 mEq tablet extended release 20 meq PO DAILY Qty: 10 RF: 0 Discontinued linezolid 600 mg tablet 600 mg PO BID Qty: 28 RF: 0 metformin 1,000 mg tablet 1,000 mg PO BID Qty: 60 RF: 1 Lantus Solostar U-100 Insulin 100 unit/mL (3 mL) insulin pen 10 unit subcut BID Qty: 15 RF: 1 Diurex 162.5-50 mg Tablet 2 tab PO DAILY RF: 0 Referrals / Follow Up: Bennett Barrios MD [STAFF PHYSICIAN] - Within 2 Weeks Paxton Marquez MD [STAFF PHYSICIAN] - Within 1 Week Care Physician,No Primary [Primary Care Provider] - Disposition Disposition (needs filled in before D/C Order can be placed): [facility]
--- NOTE | 2021-07-30 14:50 | PCM.DC.SUM ---
Providers Date of Admission: 07/16/21 Date of Discharge: 07/30/21 Primary Care Physician: Leona Primary Care Phys Consultations 07/16/21 17:38 Consult: General Surgery Routine Consulting Provider: Bennett Barrios Reason for Consult: Umbilical abscess, GI bleed EMERGENT Consult: No Notified: Yes Date Notified: 07/16/21 Time Notified: 16:02 Method of Notification: per ED. Consult: Infectious Disease Routine Consulting Provider: Roberto Carlos Ceballos Reason for Consult: Umbilical abscess, recent admit with MSSA bacteremia from elbow wound EMERGENT Consult: No Notified: Yes Date Notified: 07/17/21 Time Notified: 02:05 Method of Notification: Answering Service Consult: Onc/Wound/helicopter mechanic Routine Comment: Reason for Consult:: BL LE wounds 07/27/21 14:03 Consult: Nephrology Routine Consulting Provider: Paxton Marquez Reason for Consult: YINKA EMERGENT Consult: No Notified: Yes Date Notified: 07/27/21 Time Notified: 14:03 Method of Notification: Answering Service Method of Consult:: In-Person Reason For Visit: UMBILICAL ABSCESS / CELLULITIS / GI BLEED Diagnosis Discharge Diagnosis (1) Abscess or cellulitis of umbilicus: Status: Resolved (2) Anemia: Status: Acute Code(s): D64.9 - Anemia, unspecified Qualifiers: Anemia type: unspecified type Qualified Code(s): D64.9 - Anemia, unspecified (3) Ileus: Status: Resolved Code(s): K56.7 - Ileus, unspecified (4) Severe malnutrition: Status: Acute Code(s): E43 - Unspecified severe protein-calorie malnutrition (5) YINKA (acute kidney injury): Status: Acute Code(s): N17.9 - Acute kidney failure, unspecified (6) Lower extremity edema: Status: Acute Code(s): R60.0 - Localized edema (7) Abdominal wall abscess: Status: Resolved Code(s): L02.211 - Cutaneous abscess of abdominal wall Medications at Discharge Home Medications metoprolol succinate 25 mg PO DAILY #30 tab 07/05/21 potassium chloride 20 meq PO DAILY #10 tab 07/05/21 furosemide [Lasix] 80 mg PO BID 30 Days #60 tab 07/30/21 guaifenesin 400 mg PO Q4H PRN PRN #0 ml 07/30/21 insulin glargine [Lantus Solostar U-100 Insulin] 30 unit SUBCUT BID #15 ml 07/30/21 insulin lispro [Humalog KwikPen Insulin] See Protocol SUBCUT ACHS #0 ml 07/30/21 menthol-zinc oxide [Calmoseptine] 1 applic TOPICAL 4X/DAY #0 g 07/30/21 nystatin [Nyamyc] 1 applic TOPICAL TID #0 g 07/30/21 pantoprazole 40 mg PO DAILY #0 tab 07/30/21 Hospital Course Operations - (Status post I&D of periumbilical abscess on 07/17) Procedures None Summary of Care Provided Minutes Spent on Discharge: 45 Hospital Course: 66-year-old with past medical history of type II DM, chronic leg wounds who was admitted on 07/16/21 with progressive swelling of his feet and ankles and purulent discharge from his umbilical region. Patient has CT of the abdomen and pelvis that showed anterior ventral hernia repair with postop changes and a small fluid collection. Patient was admitted to the [facility] floor and managed as periumbilical cellulitis/abscess. Patient was also noted to have numerous small gauze in between the toes on admission. General surgery was consulted. Patient underwent I&D of his umbilical region on 07/17. He was started on IV vancomycin and Zosyn. There was also a concern for questionable acute GI bleed with resultant acute blood loss anemia because of a drop in his hemoglobin. Patient was recently discharged with MSSA bacteremia with suspected right elbow infection. ID was consulted. Patient developed acute kidney injury. He was started on IV fluids. Antibiotics were discontinued. Nephrology consulted. Patient had uncontrolled blood glucose, changes were made to his Lantus. Nephrology started him on Bumex a few days prior to discharge. His creatinine remained stable. He continues to improve and was skilled for discharge to care home facility. He will follow up with nephrology and general surgery in the outpatient. Physical Exam Const alert, oriented x3 and no apparent distress Constitutional Narrative: up in chair Exam Limitations: no limitations HEENT head/scalp atraumatic and moist oral mucous membranes Eyes PERRL, EOMs intact bilaterally and conjunctivae normal Neck no lymphadenopathy Resp normal respiratory effort, no retractions, no use of accessory muscles and clear to auscultation bilaterally Cardio regular rate, regular rhythm, S1 normal heart sound and S2 normal heart sound GI normal to inspection, nondistended, normoactive bowel sounds, soft to palpation and non-tender GI Narrative: Distended but soft. Nontender. Extremity normal to inspection Extremity Narrative: edema. Bilateral LE wrapped. General Extremity: edema Skin no rashes or lesions noted and skin turgor normal Neuro oriented x3, CN's II-XII intact bilaterally, moves all extremities and no sensory deficits noted Sensorium / Orientation: awake and alert Psych affect normal Medical Records Data Medical Nutrition Assessment Dietitian: Malnutrition Criteria Met Start: 07/17/21 10:55 Freq: Status: Active Protocol: Document 07/28/21 16:01 BP (Rec: 07/28/21 16:01 BP [id number]) Nutrition Malnutrition Evidence of Malnutrition Exists Yes Malnutrition (severe): Acute Illness/Injury Evidenced By Suboptimal Energy Intake ( Severe),Weight Loss (Severe) Intake Problem Decreased Nutrient Needs (specify) Etiology carbohydrate related to endocrine dysfunction with T2DM Signs/Symptoms as evidenced by pt & family reports pt FBG range 292-470 mg/dl, pre supper BG 300-400 mg/dl, A1C 12.8% 07/22. Status Active Problem Clinical Problem Acute Disease or Injury Related Malnutrition Etiology Severe malnutrition in the context of acute disease/ injury related to inadequate oral intake & unintentional wt loss Signs/Symptoms as evidenced by pt & family reporting pt w/ poor intake at meals consuming </=50% energy intake compared to estimated needs at meals, wt loss 15 lbs /6% x 1 1/2 weeks, and pt & family comments reporting clothing not fitting pt. Status Active Problem Recommendation Dietitian Recommendations/Changes Continue Carbohydrate Controlled diet- will provide glucerna 120 ml w/ meals. Continue Bart 1 pkt BID for nonhealing foot ulcer & pressure injury. Weight / BMI Weight Weight: 107.1 kg Body Mass Index (BMI) 33.1 ABG / Lab / Microbiology Data Result Diagrams: 07/30/21 06:00 07/30/21 06:00 Laboratory: Laboratory Results - last 24 hr 07/28/21 04:36: Total Protein (PEP) 6.1, Globulin 4.7 H, IgG 2629 H, IgA 417, IgM 45, Immunofixation Screen Comment:, Albumin (SHAILESH) 1.4 L, Albumin/Globulin (SHAILESH) 0.3 L, Wvcsi-8-Vubnrgjjz SHAILESH 0.4, Zmeyh-0-Kkolprlnm SHAILESH 1.1 H, Beta-Globulins (SHAILESH) 0.9, Gamma Globulins (SHAILESH) 2.3 H, SHAILESH M-Zenon , SHAILESH Comments Comment, Complement C3 138 07/28/21 09:44: [place] Screen Negative, MONY-1 Antibody Not Reportable, SS-A/Ro IgG Antibody Not Reportable, SS-B/La IgG Antibody Not Reportable, Sm (Benavides) Antibody Not Reportable, LEAD EMBEDDED SOFTWARE ENGINEER Antibody Not Reportable, Scl-70 Scleroderma Ab Not Reportable, Double Strand DNA Ab Not Reportable, Centromere B Antibody Not Reportable 07/29/21 17:02: POC Glucose 242 H 07/29/21 22:42: POC Glucose 182 H 07/30/21 06:00: WBC 8.6, RBC 2.61 L, Hgb 7.6 L, Hct 24.6 L, MCV 94.3 H, MCH 29.1, MCHC 30.9 L, RDW Std Deviation 48.0 H, RDW Coeff of Jennifer 14.3, Plt Count 319, MPV 8.1, Immature Gran % (Auto) 0.800, Neut % (Auto) 76.3 H, Lymph % (Auto) 13.2 L, [place] % (Auto) 6.7, Eos % (Auto) 2.7, Baso % (Auto) 0.3, Absolute Neuts (auto) 6.6, Absolute Lymphs (auto) 1.14, Nucleated RBC % 0 07/30/21 06:00: Sodium 139, Potassium 4.2, Chloride 107, Carbon Dioxide 28.0, Anion Gap 4 L, BUN 46 H, Creatinine 2.38 H, Estim Creat Clear Calc 32.38, Est GFR (MDRD) Af Amer 36 L, Est GFR (MDRD) Non-Af 29 L, BUN/Creatinine Ratio 19.3, Glucose 116 H, Calcium 8.2 L, Total Bilirubin 0.30, AST 13 L, ALT 11 L, Alkaline Phosphatase 73, Total Protein 7.1, Albumin 1.0 L, Globulin 6.1 H, Albumin/Globulin Ratio 0.2 L 07/30/21 06:48: POC Glucose 104 07/30/21 11:00: POC Glucose 187 H Microbiology: Microbiology 07/22/21 12:30 Stool C. difficile DNA Amplification - Final 07/16/21 15:50 Wound - Abdominal Gram Stain - Final 07/16/21 15:50 Wound - Abdominal Wound Culture - Final Serratia marcescens Klebsiella pneumoniae sp pneum Escherichia coli Staphylococcus pseudintermediu 07/16/21 17:11 Nasal Secretion SARS-CoV-2 Antigen (Rapid) - Final Meaningful Use Info Meaningful Use Diagnoses (Choose all that apply): None applicable Discharge Plan Admission Admit Date/Time: 07/16/21 16:09 Primary Reason for Your Visit: Acute periumbilical abscess/cellulitis Attending Provider: Caitlin Jackson Primary Care Provider: Care Physician,No Primary Consulting Providers: Bennett Barrios ; Roberto Carlos Ceballos ; Paxton Marquez Discharge Orders/Prescriptions Prescriptions: New Lantus Solostar U-100 Insulin 100 unit/mL (3 mL) Insulin Pen 30 unit subcut BID Qty: 15 RF: 0 guaifenesin 100 mg/5 mL Liquid 400 mg PO Q4H PRN PRN (Reason: COUGH) Qty: 0 RF: 0 insulin lispro [Humalog KwikPen Insulin] 100 unit/mL Insulin Pen See Protocol unit subcut ACHS Qty: 0 RF: 0 menthol-zinc oxide [Calmoseptine] 0.44-20.6 % Ointment 1 applic topical 4X/DAY Qty: 0 RF: 0 pantoprazole 40 mg Tablet,Delayed Release (Dr/Ec) 40 mg PO DAILY Qty: 0 RF: 0 nystatin [Nyamyc] 100,000 unit/gram Powder 1 applic topical TID Qty: 0 RF: 0 furosemide [Lasix] 80 mg tablet 80 mg PO BID 30 Days Qty: 60 RF: 0 Continued metoprolol succinate 25 mg tablet extended release 24 hr 25 mg PO DAILY Qty: 30 RF: 1 potassium chloride 20 mEq tablet extended release 20 meq PO DAILY Qty: 10 RF: 0 Discontinued linezolid 600 mg tablet 600 mg PO BID Qty: 28 RF: 0 metformin 1,000 mg tablet 1,000 mg PO BID Qty: 60 RF: 1 Lantus Solostar U-100 Insulin 100 unit/mL (3 mL) insulin pen 10 unit subcut BID Qty: 15 RF: 1 Diurex 162.5-50 mg Tablet 2 tab PO DAILY RF: 0 Referrals / Follow Up: Bennett Barrios MD [STAFF PHYSICIAN] - Within 2 Weeks Paxton Marquez MD [STAFF PHYSICIAN] - Within 1 Week Care Physician,No Primary [Primary Care Provider] - Disposition Disposition (needs filled in before D/C Order can be placed): [facility] Charges/Coding Visit Charges Inpatient E&M: 43469 Disch Hosp
--- NOTE | 2021-07-30 15:27 | PN.RENAL_ITS ---
Subjective Subjective Sitting in chair. at bedside. Denies any complaints. Objective Data Objective Data Vital Signs: Vital Signs Temp Pulse Resp BP Pulse Ox 98.1 F 106 H 16 91/52 L 92 07/30/21 13:58 07/30/21 13:58 07/30/21 13:58 07/30/21 13:58 07/30/21 13:58 Oxygen Delivery Method Room Air Weight: 107.1 kg Body Mass Index (BMI) 33.1 Intake & Output: Intake and Output for Last 24 Hours 07/28/21 07/29/21 07/30/21 23:59 23:59 23:59 Intake Total 980 / 980 540 / 540 600 / 600 Output Total 750 / 750 1725 / 1725 1325 / 1325 Balance 230 / 230 -1185 / -1185 -725 / -725 Medical Nutrition Assessment Dietitian: Malnutrition Criteria Met Start: 07/17/21 10:55 Freq: Status: Active Protocol: Document 07/28/21 16:01 BP (Rec: 07/28/21 16:01 BP [id number]) Nutrition Malnutrition Evidence of Malnutrition Exists Yes Malnutrition (severe): Acute Illness/Injury Evidenced By Suboptimal Energy Intake ( Severe),Weight Loss (Severe) Intake Problem Decreased Nutrient Needs (specify) Etiology carbohydrate related to endocrine dysfunction with T2DM Signs/Symptoms as evidenced by pt & family reports pt FBG range 292-470 mg/dl, pre supper BG 300-400 mg/dl, A1C 12.8% 07/22. Status Active Problem Clinical Problem Acute Disease or Injury Related Malnutrition Etiology Severe malnutrition in the context of acute disease/ injury related to inadequate oral intake & unintentional wt loss Signs/Symptoms as evidenced by pt & family reporting pt w/ poor intake at meals consuming </=50% energy intake compared to estimated needs at meals, wt loss 15 lbs /6% x 1 1/2 weeks, and pt & family comments reporting clothing not fitting pt. Status Active Problem Recommendation Dietitian Recommendations/Changes Continue Carbohydrate Controlled diet- will provide glucerna 120 ml w/ meals. Continue Bart 1 pkt BID for nonhealing foot ulcer & pressure injury. Lab / Micro Data Result Diagrams: 07/30/21 06:00 07/30/21 06:00 Labs: Laboratory Results - last 24 hr 07/28/21 04:36: Total Protein (PEP) 6.1, Globulin 4.7 H, IgG 2629 H, IgA 417, Ig M 45, Immunofixation Screen Comment:, Albumin (SHAILESH) 1.4 L, Albumin/Globulin (SHAILESH) 0.3 L, Brdlp-6-Gyjbqngpc SHAILESH 0.4, Pllis-7-Ddymdluxm SHAILESH 1.1 H, Beta- Globulins (SHAILESH) 0.9, Gamma Globulins (SHAILESH) 2.3 H, SHAILESH M-Zenon , SHAILESH Comments Comment, Complement C3 138 07/28/21 09:44: [place] Screen Negative, MONY-1 Antibody Not Reportable, SS-A/Ro IgG Antibody Not Reportable, SS-B/La IgG Antibody Not Reportable, Sm (Benavides) Antibody Not Reportable, JUMP ROLL OPERATOR Antibody Not Reportable, Scl-70 Scleroderma Ab Not Reportable, Double Strand DNA Ab Not Reportable, Centromere B Antibody Not Reportable 07/29/21 17:02: POC Glucose 242 H 07/29/21 22:42: POC Glucose 182 H 07/30/21 06:00: WBC 8.6, RBC 2.61 L, Hgb 7.6 L, Hct 24.6 L, MCV 94.3 H, MCH 29.1, MCHC 30.9 L, RDW Std Deviation 48.0 H, RDW Coeff of Jennifer 14.3, Plt Count 319, MPV 8.1, Immature Gran % (Auto) 0.800, Neut % (Auto) 76.3 H, Lymph % (Auto) 13.2 L, [place] % (Auto) 6.7, Eos % (Auto) 2.7, Baso % (Auto) 0.3, Absolute Neuts (auto) 6.6, Absolute Lymphs (auto) 1.14, Nucleated RBC % 0 07/30/21 06:00: Sodium 139, Potassium 4.2, Chloride 107, Carbon Dioxide 28.0, Anion Gap 4 L, BUN 46 H, Creatinine 2.38 H, Estim Creat Clear Calc 32.38, Est GFR (MDRD) Af Amer 36 L, Est GFR (MDRD) Non-Af 29 L, BUN/Creatinine Ratio 19.3, Glucose 116 H, Calcium 8.2 L, Total Bilirubin 0.30, AST 13 L, ALT 11 L, Alkaline Phosphatase 73, Total Protein 7.1, Albumin 1.0 L, Globulin 6.1 H, Al bumin/Globulin Ratio 0.2 L 07/30/21 06:48: POC Glucose 104 07/30/21 11:00: POC Glucose 187 H Micro: Microbiology 07/22/21 12:30 Stool C. difficile DNA Amplification - Final 07/16/21 15:50 Wound - Abdominal Gram Stain - Final 07/16/21 15:50 Wound - Abdominal Wound Culture - Final Serratia marcescens Klebsiella pneumoniae sp pneum Escherichia coli Staphylococcus pseudintermediu 07/16/21 17:11 Nasal Secretion SARS-CoV-2 Antigen (Rapid) - Final Physical Exam Narrative Alert awake oriented x 3 no obvious distress s1s2 no murmurs lungs clear abdomen soft no organomegaly ++ edema. Wraps on both legs from knees to feet no cyanosis Assessment & Plan Assessment/Plan (1) Edema, peripheral: (2) YINKA (acute kidney injury): PLAN: Creatinine was normal at the time of last admission, and past creatinines normal. Creatinine peaked 2.76 mg/dL on 07/27, and today creatinine has improved to 2.38 mg/dL. No acute indication for CAPTAIN/CHECK AIRMAN. Vanco has been discontinued. Vanco trough elevated at 36.2 on 07/19. Blood pressures on low side but acceptable on Toprol and furosemide UA showed 30 protein. RBC 11-25 and RBC 11-25. Pro/Cr ~ 1000 mg/g subnephrotic but UOP [address] abdomen on admission does not show any hydronephrosis. DDX plasma cell dyscrasia Vs postinfection GN Vs ATN Vs AIN Will complete GN and autoimmune work up by ordering C4, [place], ANCA, Cryoglobu dick, hepatitis B, C screening. [place] negative, C3 normal, hepatitis B surface antigen nonreactive. P-ANCA, c-ANCA, cryoglobulins pending Creatinine is better. Will defer kidney biopsy for now Continue same dose of Lasix. Output>>input. Patient is net -1.2 L. Edema improving. May change diuretic to oral tomorrow. Please avoid nephrotoxic agents Monitor RFP and electrolytes
--- NOTE | 2021-07-30 15:28 | CASEMGMT ---
Addendum entered by Ella Stafford 07/30/21 15:48: [place] faxed COVID test/tool to [facility]. Original Note: Social Work Note SW received message from Macey at [facility] stating pre-cert has been obtained, pt can discharge today to [facility]. [place] updated physician. [place] faxed completed discharge paperwork to [facility] including transfer to extended care facility, signed medication list, any scripts, and Convalescent 7000. Original in SNF folder and copy on pt's chart. [place] completed convalescent 7000 in [facility]. Original in SNF folder and copy on pt's chart. [place] spoke with RN. Pt can transport via wheelchair van. [place] accessed trip assist and arranged transportation via wheelchair van for 5:30pm. Transportation form completed and placed on SNF folder and copy on pt's chart. [place] updated RN on transportation time. [place] in to speak with pt and pt's Marcelle. [place] updated pt and Marcelle are discharge and transportation time. [place] informed Marcelle that transportation will be private pay. Pt and Marcelle state understanding. [place]INA placed a call to Macey at [facility] and updated her on transportation time. Plan: [facility] skilled under Convalescent stay with physician's transporting pt via wheelchair van at 5:30pm Ella Stafford MSW, TRANSIT MIXER OPERATOR
--- NOTE | 2021-07-30 15:50 | PHA.DC.MR ---
Pharmacy Service has performed discharge medication reconciliation for this patient. The patient's discharge medication list was reviewed for discrepancies and discrepancies were resolved. Home Medications metoprolol succinate 25 mg PO DAILY #30 tab 07/05/21 potassium chloride 20 meq PO DAILY #10 tab 07/05/21 furosemide [Lasix] 80 mg PO BID 30 Days #60 tab 07/30/21 guaifenesin 400 mg PO Q4H PRN PRN #0 ml 07/30/21 insulin glargine [Lantus Solostar U-100 Insulin] 30 unit SUBCUT BID #15 ml 07/30/21 insulin lispro [Humalog KwikPen Insulin] See Protocol SUBCUT ACHS #0 ml 07/30/21 menthol-zinc oxide [Calmoseptine] 1 applic TOPICAL 4X/DAY #0 g 07/30/21 nystatin [Nyamyc] 1 applic TOPICAL TID #0 g 07/30/21 pantoprazole 40 mg PO DAILY #0 tab 07/30/21
[2021-07-30 16:45] LABS: Bedside Glucose 250 mg/dL (70-110)
[2021-08-01 16:53] LABS: Perinuclear Ab (P-ANCA) <1:20 titer (Neg:<1:20)
== END 2021-07-30 17:30 | disposition skilled nursing facility (03) | DRG 579 ==
LOC: ED 15:22 → PCU 15:50 → MS3 07-18 07:40
PROVIDERS: Internal Medicine Nephrology; Student in an Organized Health Care Education/Training Program; Admitting Provider Family Medicine; Emergency Provider Emergency Medicine; Visit Provider Internal Medicine
DX: L02.216 Cutaneous abscess of umbilicus (principal); E43 Unspecified severe protein-calorie malnutrition; K92.2 Gastrointestinal hemorrhage, unspecified; N17.9 Acute kidney failure, unspecified; D62 Acute posthemorrhagic anemia; R78.81 Bacteremia; Z16.19 Resistance to other specified beta lactam antibiotics; K56.7 Ileus, unspecified; L03.316 Cellulitis of umbilicus; E11.628 Type 2 diabetes mellitus with other skin complications; F17.290 Nicotine dependence, other tobacco product, uncomplicated; E66.9 Obesity, unspecified; I89.0 Lymphedema, not elsewhere classified; E11.65 Type 2 diabetes mellitus with hyperglycemia; D72.810 Lymphocytopenia; I10 Essential (primary) hypertension; S90.822A Blister (nonthermal), left foot, initial encounter; B87.89 Myiasis of other sites; E87.6 Hypokalemia; B95.61 Methicillin susceptible Staphylococcus aureus infection as the cause of diseases classified elsewhere; S90.821A Blister (nonthermal), right foot, initial encounter; B96.20 Unspecified Escherichia coli [E. coli] as the cause of diseases classified elsewhere; B96.1 Klebsiella pneumoniae [K. pneumoniae] as the cause of diseases classified elsewhere; B95.7 Other staphylococcus as the cause of diseases classified elsewhere; B96.89 Other specified bacterial agents as the cause of diseases classified elsewhere; I95.9 Hypotension, unspecified; M25.411 Effusion, right shoulder; M70.31 Other bursitis of elbow, right elbow; X58.XXXA Exposure to other specified factors, initial encounter; Y93.9 Activity, unspecified; Y92.9 Unspecified place or not applicable; Z79.899 Other long term (current) drug therapy; Z79.4 Long term (current) use of insulin; Z68.34 Body mass index [BMI] 34.0-34.9, adult
CPT/HCPCS: 36415; 71045; 74176; 74177; 76770; 80048; 80053; 80202; 81001; 82533; 82570; 82595; 82607; 82728; 82746; 82784; 82962; 83036; 83540; 83550; 83735; 83880; 84156; 84165; 84443; 84540; 85014; 85018; 85025; 85027; 85652; 86038; 86140; 86160; 86225; 86235; 86256; 86334; 86850; 86900; 86901; 87070; 87077; 87186; 87205; 87340; 87426; 87493; 87640; 93005; 97110; 97116; 97150; 97162; 97166; 97530; 97535; 97802; 99251; 99285; 99406; J7030; J7040; J7050; Q9967; A4216; G0463; J1940; J2405

== ENCOUNTER 2021-08-23 10:58 | Emergency (ER) | payer BC, SELFPAY ==
[2021-08-23] VITALS (14 sets, daily range): BP systolic 93–121; BP diastolic 61–78; PULSE 82–101; RESP 14–18; TEMP 36.3–37.2; O2SAT 91–97; BMI 32.5
--- NOTE | 2021-08-23 11:15 | RAD_ITS ---
STUDY: X-RAY CHEST REASON FOR EXAM: Male, 66 years old. sob TECHNIQUE: Single view of the chest was obtained COMPARISON: July 2021 FINDINGS: No consolidative process, pleural effusion or pneumothorax. Cardiac size within normal limits. Osseous structures demonstrate no acute abnormalities. IMPRESSION: No acute cardiopulmonary pathology Electronically Signed: Rick Cueto MD at 13:01 EDT Tel , Service support , RAD/Chest 1 View (Portable)
--- NOTE | 2021-08-23 11:15 | EKG12_ITS ---
Test Reason : ABN LABS Blood Pressure : / mmHG Vent. Rate : 097 BPM Atrial Rate : 097 BPM P-R Int : 114 ms QRS Dur : 082 ms QT Int : 364 ms P-R-T Axes : 044 -05 017 degrees QTc Int : 462 ms Normal sinus rhythm Normal ECG Confirmed by SILVIA ARTHUR, SUZANNE ([id number]), editor newspaper PADMAJA PALACIOS ([id number]) on 08/26/2021 8:52:38 AM Referred By: CURTIS Confirmed By:SUZANNE VEGA MD
--- NOTE | 2021-08-23 11:20 | EDS_ITS ---
HPI History of Present Illness Chief Complaint: Abn Labs Narrative Narrative: 67 year old male presenting with abnormal labs. states his hemoglobin has been low and it was 6 yesterday tested as an outpatient. He has been feeling weak and tired. He denies chest pain or shortness of breath. He has been at the [facility] for approximately 2 weeks. He was previously admitted for abdominal infection. He denies abdominal pain, vomiting. Denies blood in the stool or black stool. Denies fever. Recent Illness/Hospitalization: Yes PFSH PFS Medical History (Updated 08/23/21 @ 13:[address] Kiara Lora MD) Diabetes mellitus, type 2 History of acute renal failure History of GI bleed Hypertension Lymph edema Open wound of both legs with complication Osteoarthritis Home Medications metoprolol succinate 25 mg PO DAILY #30 tab 07/05/21 [Rx Last Taken 07/16/21] potassium chloride 20 meq PO DAILY #10 tab 07/05/21 [Rx Last Taken 07/15/21] furosemide [Lasix] 80 mg PO BID 30 Days #60 tab 07/30/21 [Rx Last Taken Unknown] guaifenesin 400 mg PO Q4H PRN PRN #0 ml 07/30/21 [Rx Last Taken Unknown] insulin glargine [Lantus Solostar U-100 Insulin] 30 unit SUBCUT BID #15 ml 07/30/21 [Rx Last Taken Unknown] insulin lispro [Humalog KwikPen Insulin] See Protocol SUBCUT ACHS #0 ml 07/30/21 [Rx Last Taken Unknown] menthol-zinc oxide [Calmoseptine] 1 applic TOPICAL 4X/DAY #0 g 07/30/21 [Rx Last Taken Unknown] nystatin [Nyamyc] 1 applic TOPICAL TID #0 g 07/30/21 [Rx Last Taken Unknown] pantoprazole 40 mg PO DAILY #0 tab 07/30/21 [Rx Last Taken Unknown] Allergy/AdvReac Type Severity Reaction Status Date / Time acetaminophen [From Tylenol] Allergy Hives Verified 07/16/21 10:43 Family History (Updated 07/16/21 @ 18:[address] Marti Carver MD) Mother Diabetes Pulmonary disease Father Diabetes Pulmonary disease Surgical History H/O hernia repair History of skin graft Social History (Updated 07/16/21 @ 18:[address] Marti Carver MD) household members: family Smoking Status: Current some day smoker tobacco type: cigars alcohol intake: never substance use type: does not use ROS ROS ED Constitutional Constitutional ED: Denies fever(s) Eyes Eyes: Denies change in vision ENT ENT ED: Denies rhinorrhea or sore throat Cardiovascular Cardiovascular: Denies chest pain or palpitations Respiratory/Chest Respiratory/Chest: Denies cough or dyspnea Gastrointestinal Gastrointestinal: Denies abdominal pain, diarrhea, melena, nausea or vomiting Genitourinary Genitourinary ED: Denies dysuria Musculoskeletal Musculoskeletal: Denies myalgias Integumentary Denies rash Neurologic Neurologic: Denies headache(s) Psychiatric Psychiatric: Denies suicidal thoughts EXAM Physical Exam Const Vital Signs: 08/23/21 11:01 08/23/21 11:12 08/23/21 12:09 Temperature 97.4 F L Temperature Source Oral Pulse Rate 101 H Respiratory Rate 14 Respiratory Effort Normal Respiratory Pattern Normal Blood Pressure 109/77 Blood Pressure Mean 87 Blood Pressure Source Blood Pressure Position Blood Pressure Location Pulse Ox 91 96 Oxygen Delivery Method Room Air Nasal Cannula Oxygen Flow Rate (L/min) 2 08/23/21 13:04 08/23/21 15:15 08/23/21 15:44 Temperature 98.8 F Temperature Source Oral Pulse Rate 86 93 88 Respiratory Rate 15 18 16 Respiratory Effort Respiratory Pattern Blood Pressure 110/78 121/73 H 105/67 Blood Pressure Mean 88 89 79 Blood Pressure Source Monitor Blood Pressure Position Semi-Fowlers Blood Pressure Location Left Arm Pulse Ox 95 92 93 Oxygen Delivery Method Room Air Nasal Cannula Oxygen Flow Rate (L/min) 2 08/23/21 15:56 08/23/21 15:57 08/23/21 15:59 Temperature 98.5 F 98.4 F Temperature Source Oral Oral Oral Pulse Rate 89 89 Respiratory Rate 16 16 Respiratory Effort Respiratory Pattern Blood Pressure 105/70 108/78 Blood Pressure Mean 81 88 Blood Pressure Source Monitor Blood Pressure Position Blood Pressure Location Pulse Ox 95 96 Oxygen Delivery Method Nasal Cannula Nasal Cannula Oxygen Flow Rate (L/min) 2 2 08/23/21 16:04 08/23/21 16:16 08/23/21 16:19 Temperature 98.5 F 99.0 F Temperature Source Oral Oral Pulse Rate 91 89 Respiratory Rate 16 16 Respiratory Effort Respiratory Pattern Blood Pressure 93/67 98/61 Blood Pressure Mean 75 73 Blood Pressure Source Monitor Blood Pressure Position Semi-Fowlers Blood Pressure Location Left Arm Pulse Ox 97 94 Oxygen Delivery Method Nasal Cannula Nasal Cannula Nasal Cannula Oxygen Flow Rate (L/min) 2 2 2 08/23/21 16:49 08/23/21 16:59 08/23/21 17:26 Temperature 98.0 F 98.3 F 98.3 F Temperature Source Temporal Oral Oral Pulse Rate 88 84 85 Respiratory Rate 18 17 17 Respiratory Effort Respiratory Pattern Blood Pressure 104/61 103/65 103/65 Blood Pressure Mean 75 77 77 Blood Pressure Source Monitor Monitor Blood Pressure Position Semi-Fowlers Supine Blood Pressure Location Left Arm Right Arm Pulse Ox 97 97 97 Oxygen Delivery Method Nasal Cannula Nasal Cannula Nasal Cannula Oxygen Flow Rate (L/min) 2 2 2 Positive well nourished and well developed General Appearance ED: well developed HEENT Reports normocephalic and head/scalp atraumatic Eyes PERRL and EOMs intact bilaterally Neck supple General: Negative for tenderness Chest Wall inspection of chest normal Resp normal respiratory effort and clear to auscultation bilaterally Cardio regular rate and regular rhythm GI non-tender and non-distended Palpation: soft; Negative for guarding or rebound tenderness present no CVA tenderness Extremity General Extremety ED: Yes edema General Extremity: edema Neuro oriented x3 Sensorium / Orientation: alert Psych mental status grossly normal Skin no rashes or lesions noted MDM MDM MDM Narrative Medical decision making narrative: CBC shows hemoglobin 7.3. Creatinine 2.01, at his baseline. Troponin is negative. EKG is sinus rhythm rate of 97 with no acute ischemic changes. Chest x-ray read by myself and radiology shows no acute process. Covid is negative. Stool is guaiac negative. Patient's hemoglobin has been running 7 for the past month or so. Discussed with Dr. Mcclain. Requests 1 unit of packed red blood cells to be transfused in the ER and then patient will be sent back to the [facility]. Patient and family are agreeable with this plan. Lab Data Attestation: I reviewed the patient's lab results. Labs: Laboratory Results - last 24 hr 08/23/21 08/23/21 08/23/21 11:20 11:25 11:25 WBC 9.3 RBC 2.71 L Hgb 7.3 L Hct 25.0 L MCV 92.3 MCH 26.9 L MCHC 29.2 L RDW Std Deviation 51.8 H RDW Coeff of Jennifer 15.3 H Plt Count 278 MPV 8.1 Immature Gran % (Auto) 1.800 H Neut % (Auto) 75.8 H Lymph % (Auto) 13.0 L Barron % (Auto) 5.7 Eos % (Auto) 3.3 Baso % (Auto) 0.4 Absolute Neuts (auto) 7.0 Absolute Lymphs (auto) 1.21 Nucleated RBC % 0 PT 17.8 H INR 1.5 APTT 31.3 Sodium Potassium Chloride Carbon Dioxide Anion Gap BUN Creatinine Estim Creat Clear Calc Est GFR (MDRD) Af Amer Est GFR (MDRD) Non-Af BUN/Creatinine Ratio Glucose Calcium Troponin I High Sens Blood Type O POSITIVE Antibody Screen NEGATIVE Crossmatch See Detail 08/23/21 11:25 WBC RBC Hgb Hct MCV MCH MCHC RDW Std Deviation RDW Coeff of Jennifer Plt Count MPV Immature Gran % (Auto) Neut % (Auto) Lymph % (Auto) Barron % (Auto) Eos % (Auto) Baso % (Auto) Absolute Neuts (auto) Absolute Lymphs (auto) Nucleated RBC % PT INR APTT Sodium 146 H Potassium 4.2 Chloride 110 H Carbon Dioxide 32.0 Anion Gap 4 L BUN 42 H Creatinine 2.01 H Estim Creat Clear Calc 38.34 Est GFR (MDRD) Af Amer 43 L Est GFR (MDRD) Non-Af 36 L BUN/Creatinine Ratio 20.9 H Glucose 66 L Calcium 8.7 Troponin I High Sens 13 Blood Type Antibody Screen Crossmatch Radiography Chest X-Ray - ED: 1 View, Read by ED Physician and Read by Radiologist Diagnostic Testing: Clinical Impression(s) from Imaging Studies Chest X-Ray 08/23/21 11:15 EKG Initial EKG: Attestation: I personally reviewed and interpreted this EKG as follows: Interpretation: Sinus Rhythm and No Acute Injury Pattern Discharge Plan Triage Chief Complaint: Abn Labs ED Provider: Kiara Lora Dx/Rx/DC Orders Clinical Impression: Anemia Instructions: Anemia Prescriptions: No Action metoprolol succinate 25 mg tablet extended release 24 hr 25 mg PO DAILY Qty: 30 RF: 1 potassium chloride 20 mEq tablet extended release 20 meq PO DAILY Qty: 10 RF: 0 Lantus Solostar U-100 Insulin 100 unit/mL (3 mL) Insulin Pen 30 unit subcut BID Qty: 15 RF: 0 guaifenesin 100 mg/5 mL Liquid 400 mg PO Q4H PRN PRN (Reason: COUGH) Qty: 0 RF: 0 insulin lispro [Humalog KwikPen Insulin] 100 unit/mL Insulin Pen See Protocol unit subcut ACHS Qty: 0 RF: 0 menthol-zinc oxide [Calmoseptine] 0.44-20.6 % Ointment 1 applic topical 4X/DAY Qty: 0 RF: 0 pantoprazole 40 mg Tablet,Delayed Release (Dr/Ec) 40 mg PO DAILY Qty: 0 RF: 0 nystatin [Nyamyc] 100,000 unit/gram Powder 1 applic topical TID Qty: 0 RF: 0 furosemide [Lasix] 80 mg tablet 80 mg PO BID 30 Days Qty: 60 RF: 0 Primary Care Provider: Care Physician,No Primary Referrals: Care Physician,No Primary [Primary Care Provider] - Disposition Disposition: Longterm Facility Discharge Location: [facility]
[2021-08-23 11:42] LABS: Absolute Lymphocyte Count 1.21 X10^3/uL (0.83-4.51); Basophil# 0.04 X10^3/uL; Basophil% 0.4 % (0-1); Eosinophil# 0.31 X10^3/uL; Eosinophils% 3.3 % (0-5); Hemoglobin 7.3 g/dL (13.0-16.5); Lymphocyte # 1.21 X10^3/ul (0.83-4.51); Mean Corp Hgb Conc 29.2 g/dL (32-36); Mean Corpuscular Hgb 26.9 pg (27.0-32.0); Mean Corpuscular Volume 92.3 fL (80-94); Mean Platelet Vol. 8.1 fl (6.2-12.0); Monocyte# 0.53 X10^3/uL; Monocyte% 5.7 % (0-10); NRBC Flagged by Analyzer 0 % (0-5); Neutrophil # 7.03 X10^3/uL (2.7-7.7); Neutrophil % 75.8 % (47-70); Platelet Count 278 K/mm3 (150-450); RBC Distribution Width CV 15.3 % (11.6-14.6); RBC Distribution Width SD 51.8 fl (35.1-43.9); Red Blood Count 2.71 M/mm3 (4.6-6.2); White Blood Count 9.3 K/mm3 (4.4-11.0)
[2021-08-23 11:50] LABS: International Normalized Ratio 1.5; Prothrombin Time (Protime)PT. 17.8 SECONDS (11.7-14.9)
[2021-08-23 11:51] LABS: Partial Thromboplast Time 31.3 Seconds (24.1-36.2)
[2021-08-23 11:59] LABS: Anion Gap 4 (5-15); BUN 42 mg/dL (7-18); BUN/Creat Ratio 20.9 RATIO (10-20); Calcium,Total 8.7 mg/dL (8.5-10.1); Chloride 110 mmol/L (98-107); Creatinine, Serum 2.01 mg/dL (0.70-1.30); EST Glomerular Filtration Rate 36 mL/min (>60); Est Glom Filt Rate - Afr Amer 43 mL/min (>60); Estimated Creatinine Clearance 38.34 ml/min; Glucose 66 mg/dL (74-106); Potassium 4.2 mmol/L (3.5-5.1); Sodium Level 146 mmol/L (136-145); Troponin-I HS 13 pg/mL (3.0-78.0)
[2021-08-23] MEDS: HYDROcodone Bitartrate/Apap 5/325 Tablet PO (15:13)
== END 2021-08-23 19:02 | disposition skilled nursing facility (03) ==
PROVIDERS: Emergency Provider Emergency Medicine
DX: D64.9 Anemia, unspecified (principal); I10 Essential (primary) hypertension; M19.90 Unspecified osteoarthritis, unspecified site; E11.9 Type 2 diabetes mellitus without complications; F17.290 Nicotine dependence, other tobacco product, uncomplicated; Z79.899 Other long term (current) drug therapy; Z79.4 Long term (current) use of insulin
CPT/HCPCS: 36430; 71045; 80048; 82274; 84484; 85025; 85610; 85730; 86850; 86900; 86901; 86920; 86922; 87426; 93005; 99285; J7030; P9016; A4216

== ENCOUNTER → 2021-08-29 09:19 | Outpatient (CLI) | payer BC, SELFPAY ==
[2021-08-29] VITALS (7 sets, daily range): BP systolic 89–122; BP diastolic 58–69; PULSE 87–110; RESP 16–18; TEMP 36.2–36.8; O2SAT 90–96; BMI 32.5
== END ==
PROVIDERS: PCP Family Medicine; Referring Provider Family Medicine; Visit Provider Family Medicine
DX: K92.2 Gastrointestinal hemorrhage, unspecified (principal)
CPT/HCPCS: 36430; 86850; 86900; 86901; 86920; 86922; J7040; P9016; A4216

== ENCOUNTER 2021-09-09 08:27 | Day surgery (SDC) | payer BC, SELFPAY ==
[2021-09-09] VITALS (7 sets, daily range): BP systolic 90–117; BP diastolic 58–66; PULSE 77–93; RESP 14–18; TEMP 36.2–36.4; O2SAT 94–97; BMI 31.5
[2021-09-09] MEDS: Lactated Ringers 1,000 ML 100 ML IV (09:10)
--- NOTE | 2021-09-09 09:17 | H&P.OPEN ---
HPI - General HPI Narrative STEVE JOY, is a 66 M who presents with anemia. The patient does not note any abdominal pain or gross blood in the stool but his hemoglobin keeps decreasing. His Hemoccult has been negative. He has never had a colonoscopy or EGD. He is on a PPI. PFSH Medical History Abscess Anemia Diabetes mellitus, type 2 Dietary restriction Gastric reflux History of acute renal failure History of echocardiogram History of edema History of GI bleed History of pain when walking Hx of transesophageal echocardiography (PRIYA) for monitoring Hypertension Insulin dependent diabetes mellitus Leg cramps Lymph edema On home oxygen therapy Open wound of both legs with complication Osteoarthritis Pressure ulcer Smoker Home Medications metoprolol succinate 25 mg PO DAILY #30 tab 07/05/21 [Rx Last Taken 07/16/21] potassium chloride 20 meq PO DAILY #10 tab 07/05/21 [Rx Last Taken 07/15/21] guaifenesin 400 mg PO Q4H PRN PRN #0 ml 07/30/21 [Rx Last Taken Unknown] insulin lispro [Humalog KwikPen Insulin] See Protocol SUBCUT ACHS #0 ml 07/30/21 [Rx Last Taken Unknown] menthol-zinc oxide [Calmoseptine] 1 applic TOPICAL 4X/DAY #0 g 07/30/21 [Rx Last Taken Unknown] pantoprazole 40 mg PO DAILY #0 tab 07/30/21 [Rx Last Taken 09/09/21] sennosides-docusate sodium [Senna Plus] 2 tab-cap PO QHS 08/29/21 [History Last Taken Unknown] collagenase clostridium histo. [Santyl] 1 applic TOPICAL QHS 09/08/21 [History Last Taken Unknown] ferrous sulfate [iron] 325 mg PO DAILY 09/08/21 [History Last Taken Unknown] furosemide [Lasix] 40 mg PO BID 09/08/21 [History Last Taken Unknown] insulin glargine [Lantus Solostar U-100 Insulin] 20 unit SUBCUT QHS 09/08/21 [History Last Taken Unknown] insulin glargine [Lantus Solostar U-100 Insulin] 35 unit SUBCUT DAILY 09/08/21 [History Last Taken Unknown] nut.tx.gluc.intol,lac-free,soy [Glucerna] 120 ml PO TID 09/08/21 [History Last Taken Unknown] nutritional supplements [Bart] 1 ea PO 4X/DAY 09/08/21 [History Last Taken Unknown] oxycodone 5 mg PO Q6H PRN 09/08/21 [History Last Taken Unknown] Allergy/AdvReac Type Severity Reaction Status Date / Time acetaminophen [From Tylenol] Allergy Hives Verified 09/09/21 08:59 Family History (Updated 07/16/21 @ 18:[address] Marti Carver MD) Mother Diabetes Pulmonary disease Father Diabetes Pulmonary disease Surgical History H/O hernia repair History of skin graft Social History (Updated 07/16/21 @ 18:[address] Marti Carver MD) household members: family Smoking Status: Current some day smoker tobacco type: cigars alcohol intake: never substance use type: does not use Past Medical/Surgical History Planned Operation Planned Operative Procedure/s: CSCOPE Previous Hospitalizations/Surgeries HX Hospitalizations: Yes (06/2021 ICU FOR [facility]) HX of Surgeries: hernia sx, skin graft on heel Any Problems With Anesthesia: No You/Your Family Experience Fever (Hyperthermia) With Anes: No Cholinesterase deficiency: No Cardiovascular Hx of Irregular Heartbeat and/or Afib: No Hx Heart Attack: No Hx Congestive Heart Failure: No Hx Rheumatic Fever: No Hx Hypertension: Yes (ON MED) Hx Pacemaker: No Respiratory HX of Shortness of Breath: No Hx Chronic Obstructive Pulmonary Disease (COPD): No Hx Asthma: No Hx Emphysema: No Hx Sleep Apnea: No Hx Respiratory Tract Infection/Cold (presently): No Do You Snore Loudly (louder than talking or can be heard): Yes Do You Often Feel Tired/ Fatigued/ Sleepy Dring Daytime?: No Has Anyone Observed You Stop Breathing During Sleep?: No Result (for STOP score): Positive Smoking Status: Current some day smoker Gastrointestinal Hx Gastroesophageal Reflux: No Hx Ulcer: No Neurological Hx Seizures: No Hx Multiple Sclerosis: No Hx Parkinson's Disease: No Hx Head/Neck Injury: No Hx Headaches: No Hx Back Injury/Pain: No Does patient have nerve stimulator: No Blood Disorder Hx Hepatitis: No Hx Anemia: No Reproduction : No Genitourinary Hx Renal Disease: No Musculoskeletal Hx Arthritis: Yes Hx Gout: No Endocrine Hx Diabetes: Yes Thyroid Disease: No Psycho/Social Hx Anxiety: No Hx Depression: No Hx Dementia: No Miscellaneous Hx Cancer: No Recent Exposure to Contagious Disease: No Allergies acetaminophen [From Tylenol] Allergy (Verified 09/09/21 08:59) Hives Discharge Is Pt Admitted From a Shelter, or a Nursing Home: Yes Who Could Help: STAFF After D/C, Where Do you Plan to Go: Shelter From the [facility] History Number of Risk Factors: 2 Vital Signs Vital Signs Vital Signs: 09/09/21 09:00 Temperature 97.2 F L Temperature Source Temporal Pulse Rate 93 Respiratory Rate 14 Respiratory Pattern Normal Blood Pressure 117/66 Blood Pressure Mean 83 Blood Pressure Source Monitor Blood Pressure Position Semi-Fowlers Blood Pressure Location Left Arm Pulse Ox 97 Oxygen Delivery Method Room Air Weight Weight: 220 lb Body Mass Index (BMI) 31.5 Physical Exam Const alert and oriented x3 Resp normal respiratory effort and normal air movement Cardio regular rate and regular rhythm GI soft to palpation, non-tender and non-distended Assessment & Plan Assessment/Plan (1) Anemia: QUALIFIERS: Anemia type: unspecified type Qualified Code(s): D64.9 - Anemia, unspecified PLAN: Patient is symptomatically anemic with several transfusions being required although he has no gross blood in stool. I recommend EGD and colonoscopy. I explained endoscopy in detail to the patient. I explained the risks including but not limited to stroke or heart attack with anesthesia, perforation of the GI tract, bleeding, infection. I explained that any of these could necessitate further emergency surgery. The patient understands and all questions were answered sufficiently. The patient wishes to proceed with procedure. Bennett Barrios MD Pager: [facility] [address] [place] [address] [address] [place] [address] Office: Surgery Risks - Colonoscopy Risks Include but are not Limited To: Risks include but are not limited to: Bleeding, perforation requiring further surgery, inability to complete colonoscopy requiring barium enema.
--- NOTE | 2021-09-09 09:57 | OP.COLON_ITS ---
Patient Name: Kalin Marin Procedure Date: 09/09/2021 9:24 AM Date of : 1955 Age: 66 Procedure: Colonoscopy Indications: Iron deficiency anemia Providers: Bennett Barriso MD Medicines: Monitored Anesthesia Care Patient Profile: Last Colonoscopy: none. The patient's first colonoscopy is today. Complications: No immediate complications. Procedure: Pre-Anesthesia Assessment: - Prior to the procedure, a History and Physical was performed, and patient medications and allergies were reviewed. The patient's tolerance of previous anesthesia was also reviewed. The risks and benefits of the procedure and the sedation options and risks were discussed with the patient. All questions were answered, and informed consent was obtained. Prior Anticoagulants: The patient has taken no previous anticoagulant or antiplatelet agents. After reviewing the risks and benefits, the patient was deemed in satisfactory condition to undergo the procedure. After I obtained informed consent, the scope was passed under direct vision. Throughout the procedure, the patient's blood pressure, pulse, and oxygen saturations were monitored continuously. The Duodenoscope was introduced through the anus with the intention of advancing to the cecum. The scope was advanced to the rectum before the procedure was aborted. Medications were not given. The colonoscopy was performed with difficulty due to poor bowel prep with stool present. The patient tolerated the procedure well. The quality of the bowel preparation was poor. Scope In: 9:35:44 AM Scope Out: 9:40:58 AM Total Procedure Duration Time 0 hours 5 minutes 14 seconds Findings: Impression: - Preparation of the colon was poor. - No specimens collected. Recommendation: - Discharge patient to a penitentiary. - Clear liquid diet. - For future colonoscopy the patient will require an extended preparation. If there are any questions, please contact the dramatic director. - Repeat colonoscopy in 3 days because the bowel preparation was poor. - Continue present medications. Procedure Code(s): --- Professional --- 61132, 53, Colonoscopy, flexible; diagnostic, including collection of specimen(s) by brushing or washing, when performed (separate procedure) Diagnosis Code(s): --- Professional --- D50.9, Iron deficiency anemia, unspecified CPT copyright 2017 [employer]. All rights reserved. The codes documented in this report are preliminary and upon director print review may be revised to meet current compliance requirements. Bennett Barrios MD 09/09/2021 9:56:35 AM This report has been signed electronically. Number of Addenda: 0 Note Initiated On: 09/09/2021 9:24 AM
--- NOTE | 2021-09-09 09:57 | OP.CCLET_ITS ---
09/09/2021 Justin Mcclain [address] [place] [address] Re : Colonoscopy procedure for Kalin Marin Dear Dr. Mcclain This procedure was performed on Thursday, September 09, 2021. My impressions and recommendations are as follows: Impressions : - Preparation of the colon was poor. - No specimens collected. Recommendations : - Discharge patient to a retirement. - Clear liquid diet. - For future colonoscopy the patient will require an extended preparation. If there are any questions, please contact the aircraft rigging and controls mechanic. - Repeat colonoscopy in 3 days because the bowel preparation was poor. - Continue present medications. My findings are described in the full procedure note, which is enclosed. If I can be of further assistance, please feel free to contact me at Doctor phone number(s): , Work: . Sincerely, Bennett Barrios MD 09/09/2021 9:56:35 AM This report has been signed electronically.
--- NOTE | 2021-09-09 10:00 | OP.CCLET_ITS ---
09/09/2021 Justin Mcclain [address] [place] [address] Re : Upper GI endoscopy procedure for Kalin Marin Dear Dr. Mcclain This procedure was performed on Thursday, September 09, 2021. My impressions and recommendations are as follows: Impressions : - Normal esophagus. - Normal stomach. - Normal examined duodenum. - No specimens collected. Recommendations : - Discharge patient to a retirement. - Clear liquid diet. - Continue present medications. My findings are described in the full procedure note, which is enclosed. If I can be of further assistance, please feel free to contact me at Doctor phone number(s): , Work: . Sincerely, Bennett Barrios MD 09/09/2021 9:59:33 AM This report has been signed electronically.
--- NOTE | 2021-09-09 10:00 | OP.EGD_ITS ---
Patient Name: Kalin Marin Procedure Date: 09/09/2021 9:41 AM Date of : 1955 Age: 66 Procedure: Upper GI endoscopy Indications: Iron deficiency anemia Providers: Bennett Barrios MD Medicines: Monitored Anesthesia Care Patient Profile: Last Colonoscopy: none. The patient's first colonoscopy is today. Complications: No immediate complications. Procedure: Pre-Anesthesia Assessment: - Prior to the procedure, a History and Physical was performed, and patient medications and allergies were reviewed. The patient's tolerance of previous anesthesia was also reviewed. The risks and benefits of the procedure and the sedation options and risks were discussed with the patient. All questions were answered, and informed consent was obtained. Prior Anticoagulants: The patient has taken no previous anticoagulant or antiplatelet agents. After reviewing the risks and benefits, the patient was deemed in satisfactory condition to undergo the procedure. After obtaining informed consent, the endoscope was passed under direct vision. Throughout the procedure, the patient's blood pressure, pulse, and oxygen saturations were monitored continuously. The Endoscope was introduced through the mouth, and advanced to the fourth part of duodenum. The upper GI endoscopy was accomplished without difficulty. The patient tolerated the procedure well. Scope In: 9:43:26 AM Scope Out: 9:45:26 AM Total Procedure Duration Time 0 hours 2 minutes 0 seconds Findings: The esophagus was normal. The stomach was normal. The examined duodenum was normal. Impression: - Normal esophagus. - Normal stomach. - Normal examined duodenum. - No specimens collected. Recommendation: - [facility] to a [facility]. - Clear liquid diet. - Continue present medications. Procedure Code(s): --- Professional --- 55501, Esophagogastroduodenoscopy, flexible, transoral; diagnostic, including collection of specimen(s) by brushing or washing, when performed (separate procedure) Diagnosis Code(s): --- Professional --- D50.9, Iron deficiency anemia, unspecified CPT copyright 2017 [employer]. All rights reserved. The codes documented in this report are preliminary and upon jig maker review may be revised to meet current compliance requirements. Bennett Barrios MD 09/09/2021 9:59:33 AM This report has been signed electronically. Number of Addenda: 0 Note Initiated On: 09/09/2021 9:41 AM
[2021-09-09 10:16] LABS: Bedside Glucose 143 mg/dL (70-110)
== END 2021-09-09 10:48 ==
LOC: EN 08:29 → AC 08:30
PROVIDERS: PCP Family Medicine; Referring Provider Family Medicine; Visit Provider Surgery
PROC: 0DJD8ZZ Inspection of Lower Intestinal Tract, Via Natural or Artificial Opening Endoscopic (ICD-10-PCS; CPT 45378; principal; 2021-09-09 09:25)
PROC: 0DJ08ZZ Inspection of Upper Intestinal Tract, Via Natural or Artificial Opening Endoscopic (ICD-10-PCS; CPT 43235; 2021-09-09 09:25)
DX: D50.9 Iron deficiency anemia, unspecified (principal); F17.290 Nicotine dependence, other tobacco product, uncomplicated; I10 Essential (primary) hypertension; E11.9 Type 2 diabetes mellitus without complications; K21.9 Gastro-esophageal reflux disease without esophagitis; Z79.4 Long term (current) use of insulin; Z79.899 Other long term (current) drug therapy
CPT/HCPCS: 43235; 45378; 82962; J7120; J2405

== ENCOUNTER 2021-09-12 09:26 | Day surgery (SDC) | payer BC, SELFPAY ==
[2021-09-12] VITALS (7 sets, daily range): BP systolic 103–115; BP diastolic 59–78; PULSE 81–103; RESP 16; TEMP 36.1–36.3; O2SAT 93–95; BMI 31.5
[2021-09-12] MEDS: Lactated Ringers 1,000 ML 15 ML IV (09:40)
[2021-09-12 10:16] LABS: Bedside Glucose 105 mg/dL (70-110)
--- NOTE | 2021-09-12 11:23 | PCM.HP.BLA ---
History and Physical Date of Admission: 09/12/21 HPI - General HPI Narrative STEVE JOY, is a 66 M who presents with anemia. The patient does not note any abdominal pain or gross blood in the stool but his hemoglobin keeps decreasing. His Hemoccult has been negative. He has never had a colonoscopy or EGD. He is on a PPI. [facility] Medical History Abscess Anemia Diabetes mellitus, type 2 Dietary restriction Gastric reflux History of acute renal failure History of echocardiogram History of edema History of GI bleed History of pain when walking Hx of transesophageal echocardiography (PRIYA) for monitoring Hypertension Insulin dependent diabetes mellitus Leg cramps Lymph edema On home oxygen therapy Open wound of both legs with complication Osteoarthritis Pressure ulcer Smoker Home Medications metoprolol succinate 25 mg PO DAILY #30 tab 07/05/21 [Rx Last Taken 07/16/21] potassium chloride 20 meq PO DAILY #10 tab 07/05/21 [Rx Last Taken 07/15/21] guaifenesin 400 mg PO Q4H PRN PRN #0 ml 07/30/21 [Rx Last Taken Unknown] insulin lispro [Humalog KwikPen Insulin] See Protocol SUBCUT ACHS #0 ml 07/30/21 [Rx Last Taken Unknown] menthol-zinc oxide [Calmoseptine] 1 applic TOPICAL 4X/DAY #0 g 07/30/21 [Rx Last Taken Unknown] pantoprazole 40 mg PO DAILY #0 tab 07/30/21 [Rx Last Taken 09/09/21] sennosides-docusate sodium [Senna Plus] 2 tab-cap PO QHS 08/29/21 [History Last Taken Unknown] collagenase clostridium histo. [Santyl] 1 applic TOPICAL QHS 09/08/21 [History Last Taken Unknown] ferrous sulfate [iron] 325 mg PO DAILY 09/08/21 [History Last Taken Unknown] furosemide [Lasix] 40 mg PO BID 09/08/21 [History Last Taken Unknown] insulin glargine [Lantus Solostar U-100 Insulin] 20 unit SUBCUT QHS 09/08/21 [History Last Taken Unknown] insulin glargine [Lantus Solostar U-100 Insulin] 35 unit SUBCUT DAILY 09/08/21 [History Last Taken Unknown] nut.tx.gluc.intol,lac-free,soy [Glucerna] 120 ml PO TID 09/08/21 [History Last Taken Unknown] nutritional supplements [Bart] 1 ea PO 4X/DAY 09/08/21 [History Last Taken Unknown] oxycodone 5 mg PO Q6H PRN 09/08/21 [History Last Taken Unknown] Allergy/AdvReac Type Severity Reaction Status Date / Time acetaminophen [From Tylenol] Allergy Hives Verified 09/09/21 08:59 Family History (Updated 07/16/21 @ 18:[address] Marti Carver MD) Mother Diabetes Pulmonary disease Father Diabetes Pulmonary disease Surgical History H/O hernia repair History of skin graft Social History (Updated 07/16/21 @ 18:[address] Marti Carver MD) household members: family Smoking Status: Current some day smoker tobacco type: cigars alcohol intake: never substance use type: does not use Past Medical/Surgical History Planned Operation Planned Operative Procedure/s: CSCOPE Previous Hospitalizations/Surgeries HX Hospitalizations: Yes (06/2021 ICU FOR [facility]) HX of Surgeries: hernia sx, skin graft on heel Any Problems With Anesthesia: No You/Your Family Experience Fever (Hyperthermia) With Anes: No Cholinesterase deficiency: No Cardiovascular Hx of Irregular Heartbeat and/or Afib: No Hx Heart Attack: No Hx Congestive Heart Failure: No Hx Rheumatic Fever: No Hx Hypertension: Yes (ON MED) Hx Pacemaker: No Respiratory HX of Shortness of Breath: No Hx Chronic Obstructive Pulmonary Disease (COPD): No Hx Asthma: No Hx Emphysema: No Hx Sleep Apnea: No Hx Respiratory Tract Infection/Cold (presently): No Do You Snore Loudly (louder than talking or can be heard): Yes Do You Often Feel Tired/ Fatigued/ Sleepy Dring Daytime?: No Has Anyone Observed You Stop Breathing During Sleep?: No Result (for STOP score): Positive Smoking Status: Current some day smoker Gastrointestinal Hx Gastroesophageal Reflux: No Hx Ulcer: No Neurological Hx Seizures: No Hx Multiple Sclerosis: No Hx Parkinson's Disease: No Hx Head/Neck Injury: No Hx Headaches: No Hx Back Injury/Pain: No Does patient have nerve stimulator: No Blood Disorder Hx Hepatitis: No Hx Anemia: No Reproduction : No Genitourinary Hx Renal Disease: No Musculoskeletal Hx Arthritis: Yes Hx Gout: No Endocrine Hx Diabetes: Yes Thyroid Disease: No Psycho/Social Hx Anxiety: No Hx Depression: No Hx Dementia: No Miscellaneous Hx Cancer: No Recent Exposure to Contagious Disease: No Allergies acetaminophen [From Tylenol] Allergy (Verified 09/09/21 08:59) Hives Discharge Is Pt Admitted From a Custodial, or a Retirement: Yes Who Could Help: STAFF After D/C, Where Do you Plan to Go: Custodial From the [facility] History Number of Risk Factors: 2 Vital Signs Vital Signs Vital Signs: 09/09/21 09:00 Temperature 97.2 F L Temperature Source Temporal Pulse Rate 93 Respiratory Rate 14 Respiratory Pattern Normal Blood Pressure 117/66 Blood Pressure Mean 83 Blood Pressure Source Monitor Blood Pressure Position Semi-Fowlers Blood Pressure Location Left Arm Pulse Ox 97 Oxygen Delivery Method Room Air Weight Weight: 220 lb Body Mass Index (BMI) 31.5 Physical Exam Const alert and oriented x3 Resp normal respiratory effort and normal air movement Cardio regular rate and regular rhythm GI soft to palpation, non-tender and non-distended Assessment & Plan Assessment/Plan (1) Anemia: QUALIFIERS: Anemia type: unspecified type Qualified Code(s): D64.9 - Anemia, unspecified PLAN: Patient is symptomatically anemic with several transfusions being required although he has no gross blood in stool. I recommend EGD and colonoscopy. I explained endoscopy in detail to the patient. I explained the risks including but not limited to stroke or heart attack with anesthesia, perforation of the GI tract, bleeding, infection. I explained that any of these could necessitate further emergency surgery. The patient understands and all questions were answered sufficiently. The patient wishes to proceed with procedure. Bennett Barrios MD Pager: [facility] [address] [place] [address], [address] [place] [address] Office: Patient had poor prep earlier this week so he continued prep and is here for repeat attempt
--- NOTE | 2021-09-12 11:29 | OP.COLON_ITS ---
Patient Name: Kalin Marin Procedure Date: 09/12/2021 10:55 AM Date of : 1955 Age: 66 Procedure: Colonoscopy Indications: Iron deficiency anemia Providers: Bennett Barrios MD Medicines: Monitored Anesthesia Care Patient Profile: This is a 66 year old male. Refer to note in patient chart for documentation of history and physical. Last Colonoscopy: none. The patient's first colonoscopy is today. Complications: No immediate complications. Procedure: Pre-Anesthesia Assessment: - Prior to the procedure, a History and Physical was performed, and patient medications and allergies were reviewed. The patient's tolerance of previous anesthesia was also reviewed. The risks and benefits of the procedure and the sedation options and risks were discussed with the patient. All questions were answered, and informed consent was obtained. Prior Anticoagulants: The patient has taken no previous anticoagulant or antiplatelet agents. After reviewing the risks and benefits, the patient was deemed in satisfactory condition to undergo the procedure. After I obtained informed consent, the scope was passed under direct vision. Throughout the procedure, the patient's blood pressure, pulse, and oxygen saturations were monitored continuously. The Colonoscope was introduced through the anus and advanced to the cecum, identified by appendiceal orifice and ileocecal valve. The colonoscopy was performed without difficulty. The patient tolerated the procedure well. The quality of the bowel preparation was good. Scope In: 11:04:28 AM Scope Withdrawal Time 0 hours 5 minutes 51 seconds Scope Out: 11:20:36 AM Total Procedure Duration Time 0 hours 16 minutes 8 seconds Findings: The entire examined colon appeared normal on direct and retroflexion views. Impression: - The entire examined colon is normal on direct and retroflexion views. - No specimens collected. Recommendation: - Discharge patient to a fpc. - Resume regular diet. - Continue present medications. - Repeat colonoscopy in 10 years for screening purposes. Procedure Code(s): --- Professional --- 90667, Colonoscopy, flexible; diagnostic, including collection of specimen(s) by brushing or washing, when performed (separate procedure) Diagnosis Code(s): --- Professional --- D50.9, Iron deficiency anemia, unspecified CPT copyright 2017 [employer]. All rights reserved. The codes documented in this report are preliminary and upon certified medical coder review may be revised to meet current compliance requirements. Bennett Barrios MD 09/12/2021 11:29:04 AM This report has been signed electronically. Number of Addenda: 0 Note Initiated On: 09/12/2021 10:55 AM
--- NOTE | 2021-09-12 11:30 | OP.CCLET_ITS ---
09/12/2021 Justin Mcclain [address] [place] [address] Re : [facility] This procedure was performed on Sunday, September 12, 2021. My impressions and recommendations are as follows: Impressions : - The entire examined colon is normal on direct and retroflexion views. - No specimens collected. Recommendations : - Discharge patient to a fdc. - Resume regular diet. - Continue present medications. - Repeat colonoscopy in 10 years for screening purposes. My findings are described in the full procedure note, which is enclosed. If I can be of further assistance, please feel free to contact me at Doctor phone number(s): , Work: . Sincerely, Bennett Barrios MD 09/12/2021 11:29:04 AM This report has been signed electronically.
== END 2021-09-12 12:36 ==
LOC: EN 09:31 → AC 09:32
PROVIDERS: PCP Family Medicine; Referring Provider Family Medicine; Visit Provider Surgery
PROC: 0DJD8ZZ Inspection of Lower Intestinal Tract, Via Natural or Artificial Opening Endoscopic (ICD-10-PCS; CPT 45378; principal; 2021-09-12 10:55)
DX: D50.9 Iron deficiency anemia, unspecified (principal); F17.290 Nicotine dependence, other tobacco product, uncomplicated; I10 Essential (primary) hypertension; K21.9 Gastro-esophageal reflux disease without esophagitis; E11.9 Type 2 diabetes mellitus without complications; Z79.899 Other long term (current) drug therapy; Z79.4 Long term (current) use of insulin
CPT/HCPCS: 45378; 82962; J7120; J2405

== ENCOUNTER 2021-11-06 00:08 | Emergency (ER) | payer BC, SELFPAY ==
[2021-11-06 00:09] VITALS: BP 105/63; PULSE 84; RESP 18; TEMP 36.9; O2SAT 98; BMI 29.8
[2021-11-06 00:11] VITALS: BP 105/63; PULSE 79; RESP 18; TEMP 36.9; O2SAT 97
--- NOTE | 2021-11-06 01:04 | EX.ED.DYSGE1 ---
HPI History of Present Illness Chief Complaint: General Illness Narrative Narrative: Patient is a 66-year-old male from the senior care. He has had a PICC line in place for multiple weeks and has been receiving IV antibiotic. He states that today around eight or 9 in the morning he accidentally caught his PICC line and it got yanked out. He states that he has no pain shortness of breath cough fever or numbness and tingling. He states that he was told by the nurses at the senior care where he states that because his PICC line came out he needs to go to the hospital right away to have it replaced. Secondary to this EMS was called and the patient was brought in for evaluation PFSH PFS Medical History Abscess Anemia Diabetes mellitus, type 2 Dietary restriction Gastric reflux History of acute renal failure History of echocardiogram History of edema History of GI bleed History of pain when walking Hx of transesophageal echocardiography (PRIYA) for monitoring Hypertension Insulin dependent diabetes mellitus Leg cramps Lymph edema MRSA (methicillin resistant Staphylococcus aureus) On home oxygen therapy Open wound of both legs with complication Osteoarthritis Pressure ulcer Smoker Home Medications metoprolol succinate 25 mg PO DAILY #30 tab 07/05/21 [Rx Last Taken 07/16/21] potassium chloride 20 meq PO DAILY #10 tab 07/05/21 [Rx Last Taken 07/15/21] guaifenesin 400 mg PO Q4H PRN PRN #0 ml 07/30/21 [Rx Last Taken Unknown] pantoprazole 40 mg PO DAILY #0 tab 07/30/21 [Rx Last Taken 09/12/21] sennosides-docusate sodium [Senna Plus] 1 tab-cap PO QHS 08/29/21 [History Last Taken Unknown] ferrous sulfate [iron] 325 mg PO DAILY 09/08/21 [History Last Taken Unknown] furosemide [Lasix] 20 mg PO QHS 09/08/21 [History Last Taken Unknown] insulin glargine [Lantus Solostar U-100 Insulin] 20 unit SUBCUT QHS 09/08/21 [History Last Taken Unknown] insulin glargine [Lantus Solostar U-100 Insulin] 35 unit SUBCUT DAILY 09/08/21 [History Last Taken Unknown] oxycodone 5 mg PO Q6H PRN 09/08/21 [History Last Taken Unknown] ammonium lactate 1 applic TOPICAL BID 11/06/21 [History Last Taken Unknown] ascorbic acid (vitamin C) [Vitamin C] 500 mg PO DAILY 11/06/21 [History Last Taken Unknown] ertapenem [Invanz] 1 g IV DAILY 11/06/21 [History Last Taken Unknown] furosemide [Lasix] 40 mg PO DAILY 11/06/21 [History Last Taken Unknown] insulin lispro [Humalog KwikPen Insulin] 7 unit SUBCUT ACHS 11/06/21 [History Last Taken Unknown] multivit,stress formula-zinc [Stress Tablet W/Zinc] 1 tab PO BID 11/06/21 [History Last Taken Unknown] multivitamin,tx-minerals [Theragran-M] 1 tab PO DAILY 11/06/21 [History Last Taken Unknown] vancomycin 750 mg IV DAILY 11/06/21 [History Last Taken Unknown] Allergy/AdvReac Type Severity Reaction Status Date / Time acetaminophen [From Tylenol] Allergy Hives Verified 11/06/21 00:09 Family History (Updated 07/16/21 @ 18:[address] Marti Carver MD) Mother Diabetes Pulmonary disease Father Diabetes Pulmonary disease Surgical History (Updated 09/10/21 @ 08:05 by Madyson Gill) H/O hernia repair History of esophagogastroduodenoscopy (EGD) History of skin graft Social History (Updated 07/16/21 @ 18:[address] Marti Carver MD) household members: family Smoking Status: Current some day smoker tobacco type: cigarettes and cigars alcohol intake: never substance use type: does not use ROS ROS ED Constitutional Constitutional ED: Denies chills or fever(s) Eyes Eyes: Denies change in vision ENT ENT ED: Denies sore throat Cardiovascular Cardiovascular: Denies chest pain Respiratory/Chest Respiratory/Chest: Denies cough or dyspnea Gastrointestinal Gastrointestinal: Denies abdominal pain, diarrhea, nausea or vomiting Genitourinary Genitourinary ED: Denies dysuria Musculoskeletal Musculoskeletal: Denies myalgias Integumentary Denies rash Neurologic Neurologic: Denies headache(s) EXAM Physical Exam Const Vital Signs: 11/06/21 00:09 11/06/21 00:11 11/06/21 01:08 Temperature 98.4 F 98.4 F Temperature Source Oral Oral Pulse Rate 84 79 Respiratory Rate 18 18 16 Blood Pressure 105/63 105/63 Blood Pressure Mean 77 77 Pulse Ox 98 97 Oxygen Delivery Method Nasal Cannula Nasal Cannula Oxygen Flow Rate (L/min) 2 2 Positive well nourished and well developed General Appearance ED: well developed HEENT Reports dry mucous membranes Mouth ED: Yes dry mucous membranes Mouth: dry mucous membranes Eyes PERRL and EOMs intact bilaterally General Eye ED: Yes pale conjunctiva Neck supple Chest Wall palpation of chest normal Resp normal respiratory effort and clear to auscultation bilaterally Cardio regular rate and regular rhythm Rate: other Other Details: Radial pulses are plus 2 out of 4 bilaterally are equal and symmetric GI normal to inspection, nondistended, normoactive bowel sounds, non-tender, non-distended and no masses GI Narrative: No guarding or rigidity Auscultation: normoactive bowel sounds Palpation: soft Extremity normal to inspection Extremity Narrative: Patient has a superficial abrasion in the midportion of the left upper arm consistent with PICC line placement. The wound is clean dry and intact without secondary changes to suggest infection. No asymmetric edema or erythema to suggest upper extremity DVT Neuro oriented x3 and CN's II-XII intact bilaterally Sensorium / Orientation: alert Psych mental status grossly normal Skin no rashes or lesions noted MDM MDM MDM Narrative Medical decision making narrative: Patient was sent to the ER by nursing staff for reported PICC line replacement. The patient arrived with stable vitals and had no complaints. His physical exam showed no changes to suggest a secondary infection from the PICC line site or upper extremity DVT. Therefore at this time as his sole reason for being sent to the ER was PICC line replacement I do not feel there is need for imaging or laboratory studies. I informed the patient and the nurses inform the senior care that PICC lines are not done emergently in the ER. He had an IV placed in his right upper arm and they were instructed they can use this IV for any medication he was to get through his PICC line for the next few days. The patient was advised he will need to have the PICC line replaced on an outpatient basis and states he is acceptable with this plan. Therefore at this time as he has stable vitals and nonfocal exam I do not feel there is need for work-up and he will be discharged back to the senior care Discharge Plan Triage Chief Complaint: General Illness ED Provider: Michele Tyler Dx/Rx/DC Orders Clinical Impression: IV infusion line dysfunction Instructions: Caring for Your PICC Dc Prescriptions: No Action metoprolol succinate 25 mg tablet extended release 24 hr 25 mg PO DAILY Qty: 30 RF: 1 potassium chloride 20 mEq tablet extended release 20 meq PO DAILY Qty: 10 RF: 0 guaifenesin 100 mg/5 mL Liquid 400 mg PO Q4H PRN PRN (Reason: COUGH) Qty: 0 RF: 0 pantoprazole 40 mg Tablet,Delayed Release (Dr/Ec) 40 mg PO DAILY Qty: 0 RF: 0 Senna Plus 8.6-50 mg Capsule 1 tab-cap PO QHS RF: 0 ferrous sulfate [iron] 325 mg (65 mg iron) Tablet 325 mg PO DAILY RF: 0 oxycodone 5 mg Capsule 5 mg PO Q6H PRN (Reason: Pain) RF: 0 Lantus Solostar U-100 Insulin 100 unit/mL (3 mL) Insulin Pen 35 unit SUBCUT DAILY RF: 0 furosemide [Lasix] 80 mg tablet 20 mg PO QHS RF: 0 Lantus Solostar U-100 Insulin 100 unit/mL (3 mL) insulin pen 20 unit subcut QHS RF: 0 furosemide [Lasix] 40 mg Tablet 40 mg PO DAILY RF: 0 ascorbic acid (vitamin C) [Vitamin C] 500 mg Tablet 500 mg PO DAILY RF: 0 ammonium lactate 12 % Cream 1 applic TOPICAL BID RF: 0 Theragran-M Tablet 1 tab PO DAILY RF: 0 Invanz 1 gram Recon Soln 1 g IV DAILY RF: 0 vancomycin 750 mg Recon Soln 750 mg IV DAILY RF: 0 Stress Tablet W/Zinc Tablet 1 tab PO BID RF: 0 insulin lispro [Humalog KwikPen Insulin] 100 unit/mL insulin pen 7 unit subcut ACHS RF: 0 Primary Care Provider: Larisa Jacobs Referrals: Larisa Jacobs MD [Primary Care Provider] - Activity Restrictions/Additional Instructions: You may use the IV placed in the ER for any medication that would have went through your PICC line previously. PICC lines are not placed in the ER emergently they are done on outpatient basis. Your family doctor will have to set this up to be done over the next few days but it is still perfectly safe to have your IV in place and use it as needed for the next 3 to 5 days until the PICC line is placed Disposition Disposition: Home, Self Care
[2021-11-06 01:08] VITALS: RESP 16
== END 2021-11-06 02:48 | disposition skilled nursing facility (03) ==
PROVIDERS: Emergency Provider Emergency Medicine; PCP Internal Medicine
DX: T85.628A Displacement of other specified internal prosthetic devices, implants and grafts, initial encounter (principal); Y82.8 Other medical devices associated with adverse incidents; E11.9 Type 2 diabetes mellitus without complications; K21.9 Gastro-esophageal reflux disease without esophagitis; I10 Essential (primary) hypertension; M19.90 Unspecified osteoarthritis, unspecified site; Z79.899 Other long term (current) drug therapy; Z79.4 Long term (current) use of insulin; Z99.81 Dependence on supplemental oxygen; F17.210 Nicotine dependence, cigarettes, uncomplicated
CPT/HCPCS: 99284; A4216

== ENCOUNTER 2021-11-11 13:13 | Emergency (ER) | payer BC, MEDICAID, SELFPAY ==
[2021-11-11] VITALS (10 sets, daily range): BP systolic 81–126; BP diastolic 52–77; PULSE 86–96; RESP 14–28; TEMP 36.5–36.7; O2SAT 95–97; BMI 30.7
--- NOTE | 2021-11-11 14:33 | EDS_ITS ---
HPI History of Present Illness Chief Complaint: Abn Labs Informant: patient Narrative Narrative: Patient with chronic anemia, no active bleeding from anywhere, had his blood counts checked today and he was 6.9 so he was referred to the ER for a blood transfusion. He has a wound VAC on his abdomen due to an infection that he developed from herniorrhaphy site near his umbilicus. He is also getting IV antibiotics at the local long-term where he is residing right now, he suggests that he may have had endocarditis although I see no definitive evidence of that diagnosis in the EMR, his last echocardiogram was in June and showed no vegetations, but he is still getting antibiotics. He had scopes GI in September that were negative for sources of bleeding. He is not on any anticoagulation. PFSH PFSH Medical History Abscess Anemia Diabetes mellitus, type 2 Dietary restriction Gastric reflux History of acute renal failure History of echocardiogram History of edema History of GI bleed History of pain when walking Hx of transesophageal echocardiography (PRIYA) for monitoring Hypertension Insulin dependent diabetes mellitus Leg cramps Lymph edema MRSA (methicillin resistant Staphylococcus aureus) On home oxygen therapy Open wound of both legs with complication Osteoarthritis Pressure ulcer Smoker Home Medications metoprolol succinate 25 mg PO DAILY #30 tab 07/05/21 [Rx Last Taken 07/16/21] potassium chloride 20 meq PO DAILY #10 tab 07/05/21 [Rx Last Taken 07/15/21] guaifenesin 400 mg PO Q4H PRN PRN #0 ml 07/30/21 [Rx Last Taken Unknown] pantoprazole 40 mg PO DAILY #0 tab 07/30/21 [Rx Last Taken 09/12/21] sennosides-docusate sodium [Senna Plus] 1 tab-cap PO QHS PRN PRN 08/29/21 [History Last Taken Unknown] ferrous sulfate [iron] 325 mg PO DAILY 09/08/21 [History Last Taken Unknown] oxycodone 5 mg PO Q6H PRN 09/08/21 [History Last Taken Unknown] ammonium lactate 1 applic TOPICAL BID 11/06/21 [History Last Taken Unknown] ascorbic acid (vitamin C) [Vitamin C] 500 mg PO DAILY 11/06/21 [History Last Taken Unknown] furosemide [Lasix] 40 mg PO DAILY 11/06/21 [History Last Taken Unknown] insulin lispro [Humalog KwikPen Insulin] 3 unit SUBCUT ACHS 11/06/21 [History Last Taken Unknown] multivitamin,tx-minerals [Theragran-M] 1 tab PO DAILY 11/06/21 [History Last Taken Unknown] aluminum-magnesium hydroxide [Antacid] 30 ml PO Q4H PRN PRN 11/11/21 [History Last Taken Unknown] bisacodyl 10 mg [place] DAILY PRN 11/11/21 [History Last Taken Unknown] dextrose [Glucose Gel] 10 g PO Q15M PRN 11/11/21 [History Last Taken Unknown] ertapenem 1 g IV Q24H 11/11/21 [History Last Taken Unknown] glucagon 1 mg IM PRN PRN 11/11/21 [History Last Taken Unknown] insulin glargine [Basaglar KwikPen U-100 Insulin] 20 unit SUBCUT QHS 11/11/21 [History Last Taken Unknown] insulin glargine [Basaglar KwikPen U-100 Insulin] 35 unit SUBCUT BREAKFAST 11/11/21 [History Last Taken Unknown] magnesium hydroxide [Milk of Magnesia] 30 ml PO DAILY PRN 11/11/21 [History Last Taken Unknown] melatonin 3 mg PO QHS PRN PRN 11/11/21 [History Last Taken Unknown] sodium phosphates [Fleet Enema] 118 ml PA DAILY PRN 11/11/21 [History Last Taken Unknown] Allergy/AdvReac Type Severity Reaction Status Date / Time acetaminophen [From Tylenol] Allergy Hives Verified 11/11/21 13:22 Family History (Updated 07/16/21 @ 18:[address] Marti Carver MD) Mother Diabetes Pulmonary disease Father Diabetes Pulmonary disease Surgical History H/O hernia repair History of esophagogastroduodenoscopy (EGD) History of skin graft Social History household members: family Smoking Status: Former smoker alcohol intake: never substance use type: does not use ROS ROS ED Constitutional Constitutional ED: Reports other Details: Malaise/generalized weakness but able to walk with walker ; Denies chills or fever(s) Eyes Eyes: Denies change in vision or diplopia ENT ENT ED: Denies rhinorrhea or sore throat Cardiovascular Cardiovascular: Denies chest pain or palpitations Respiratory/Chest Respiratory/Chest: Denies cough or dyspnea Gastrointestinal Gastrointestinal: Denies abdominal pain, diarrhea, nausea or vomiting Genitourinary Genitourinary ED: Denies dysuria or hematuria Musculoskeletal Musculoskeletal: Denies back pain or neck pain Integumentary Reports wounds and other Details: Superficial wounds on both heels. Wound VAC packed wound umbilicus. ; Denies abscess or rash Neurologic Neurologic: Denies headache(s), paresthesias or weakness Psychiatric Psychiatric: Denies anxiety or suicidal thoughts EXAM Physical Exam Const Vital Signs: 11/11/21 13:16 11/11/21 13:19 11/11/21 13:20 Temperature 98.0 F 98.0 F Temperature Source Oral Oral Pulse Rate 95 96 Respiratory Rate 19 H 20 H Respiratory Effort Normal Non-Labored Respiratory Pattern Normal Blood Pressure 81/69 L 99/52 L Blood Pressure Mean 73 67 Pulse Ox 97 97 Oxygen Delivery Method Room Air Room Air 11/11/21 14:44 Temperature Temperature Source Pulse Rate 94 Respiratory Rate 17 Respiratory Effort Respiratory Pattern Blood Pressure 105/73 Blood Pressure Mean 83 Pulse Ox 96 Oxygen Delivery Method Room Air Positive well nourished and well developed General Appearance ED: well developed and NAD HEENT Reports moist mucous membranes normocephalic and atraumatic Eyes PERRL and EOMs intact bilaterally Neck full ROM and supple Resp normal respiratory effort and clear to auscultation bilaterally Cardio regular rate, regular rhythm and no murmurs GI non-tender and non-distended GI Narrative: Wound VAC site umbilicus totally benign without any tenderness or erythema or active discharge Auscultation: normoactive bowel sounds Palpation: soft Back/Spine no CVA tenderness General Back: other FROM Extremity normal to inspection General Extremety ED: Negative for edema, pulses abnormal or tenderness General Extremity: Negative for edema or pulses abnormal Neuro oriented x3, CN's II-XII intact bilaterally and no sensory deficits noted Sensorium / Orientation: awake and alert Motor Exam: strength 5/5 throughout Skin no rashes or lesions noted Skin Narrative: Wounds on heels wrapped. Abdominal wound noted above, no sign of infection. MDM MDM MDM Narrative Medical decision making narrative: Hemoglobin 6.9 with hematocrit 23.4, those labs are in our system here at our lab done today, I do not think they need to be repeated. His last hemoglobin was 7.4 and that was yesterday. Clinically hemodynamically stable blood pressure 105/73. He will be transfused and discharged home when done. Discharge Plan Triage Chief Complaint: Abn Labs ED Provider: Branden Morrison Dx/Rx/DC Orders Clinical Impression: Acute on chronic anemia Instructions: ED Anemia, Type Not Specified (Adult) Prescriptions: No Action metoprolol succinate 25 mg tablet extended release 24 hr 25 mg PO DAILY Qty: 30 RF: 1 potassium chloride 20 mEq tablet extended release 20 meq PO DAILY Qty: 10 RF: 0 guaifenesin 100 mg/5 mL Liquid 400 mg PO Q4H PRN PRN (Reason: COUGH) Qty: 0 RF: 0 pantoprazole 40 mg Tablet,Delayed Release (Dr/Ec) 40 mg PO DAILY Qty: 0 RF: 0 Senna Plus 8.6-50 mg Capsule 1 tab-cap PO QHS PRN PRN (Reason: Constipation) RF: 0 ferrous sulfate [iron] 325 mg (65 mg iron) Tablet 325 mg PO DAILY RF: 0 oxycodone 5 mg Capsule 5 mg PO Q6H PRN (Reason: Pain) RF: 0 furosemide [Lasix] 40 mg Tablet 40 mg PO DAILY RF: 0 ascorbic acid (vitamin C) [Vitamin C] 500 mg Tablet 500 mg PO DAILY RF: 0 ammonium lactate 12 % Cream 1 applic TOPICAL BID RF: 0 Theragran-M Tablet 1 tab PO DAILY RF: 0 insulin lispro [Humalog KwikPen Insulin] 100 unit/mL insulin pen 3 unit subcut ACHS RF: 0 glucagon 1 mg Kit 1 mg IM PRN PRN (Reason: Hypoglycemia) RF: 0 dextrose [Glucose Gel] 40 % Gel 10 g PO Q15M PRN (Reason: Hypoglycemia) RF: 0 magnesium hydroxide [Milk of Magnesia] 400 mg/5 mL Suspension 30 ml PO DAILY PRN (Reason: Constipation) RF: 0 bisacodyl 10 mg Suppository 10 mg PA DAILY PRN (Reason: Constipation) RF: 0 Antacid 225-200 mg/5 mL Suspension 30 ml PO Q4H PRN PRN (Reason: Indigestion) RF: 0 Fleet Enema 19-7 gram/118 mL Enema 118 ml PA DAILY PRN (Reason: Constipation) RF: 0 ertapenem 1 gram Recon Soln 1 g IV Q24H RF: 0 Basaglar KwikPen U-100 Insulin 100 unit/mL (3 mL) Insulin Pen 20 unit SUBCUT QHS RF: 0 Gulshanagljohn Marshall U-100 Insulin 100 unit/mL (3 mL) Insulin Pen 35 unit subcut BREAKFAST RF: 0 melatonin 3 mg Capsule 3 mg PO QHS PRN PRN (Reason: Insomnia) RF: 0 Primary Care Provider: Larisa Jacobs Referrals: Larisa Jacobs MD [Primary Care Provider] - 3-5 Days Disposition Disposition: Home, Self Care
== END 2021-11-11 20:25 | disposition home or self-care (01) ==
PROVIDERS: Emergency Provider Emergency Medicine; PCP Internal Medicine; Visit Provider Emergency Medicine
DX: D64.9 Anemia, unspecified (principal); E11.9 Type 2 diabetes mellitus without complications; Z79.4 Long term (current) use of insulin; M19.90 Unspecified osteoarthritis, unspecified site; I10 Essential (primary) hypertension; K21.9 Gastro-esophageal reflux disease without esophagitis; Z87.891 Personal history of nicotine dependence; Z99.81 Dependence on supplemental oxygen; Z79.899 Other long term (current) drug therapy
CPT/HCPCS: 36430; 36592; 86850; 86900; 86901; 86920; 86922; 99284; J7050; P9016; A4216

== ENCOUNTER 2021-12-08 12:03 | Inpatient (IN) | payer BC, MEDICAID, SELFPAY ==
[2021-12-08] VITALS (17 sets, daily range): BP systolic 98–139; BP diastolic 63–90; PULSE 98–123; RESP 12–50; TEMP 37.2–37.8; O2SAT 91–95; BMI 29.0; BMI 27.1
--- NOTE | 2021-12-08 12:25 | EKG12_ITS ---
Test Reason : SOB Blood Pressure : / mmHG Vent. Rate : 115 BPM Atrial Rate : 115 BPM P-R Int : 090 ms QRS Dur : 072 ms QT Int : 322 ms P-R-T Axes : 037 -11 022 degrees QTc Int : 445 ms Sinus tachycardia with short MS Otherwise normal ECG Confirmed by SILVIA ARTHUR, SUZANNE ([id number]), food editor PADMAJA PALACIOS ([id number]) on 12/09/2021 8:37:44 AM Referred By: POWER Confirmed By:SUZANNE VEGA MD
--- NOTE | 2021-12-08 12:27 | EX.ED.DYSGE1 ---
HPI History of Present Illness Chief Complaint: Fever Informant: patient and EMS Associated Symptoms Associated Symptoms ED: cough Narrative Narrative: long-term patient with COVID-19 has been previously verified but unknown duration of illness, presenting with fever that was not treated prior to coming here although it is down now at 99.0, and dyspnea. Patient is extremely difficult to understand due to slurred speech. He denies any chest pain. Accompanying paperwork and nursing report from custodial: DNR CCA, no intubation. Prior to sending to the ER, patient was 90-93% on 5 L nasal cannula. PFSH PFSH Medical History Abscess Anemia COVID-19 Diabetes mellitus, type 2 Dietary restriction Gastric reflux History of acute renal failure History of echocardiogram History of edema History of GI bleed History of pain when walking Hx of transesophageal echocardiography (PRIYA) for monitoring Hypertension Insulin dependent diabetes mellitus Leg cramps Lymph edema MRSA (methicillin resistant Staphylococcus aureus) On home oxygen therapy Open wound of both legs with complication Osteoarthritis Pressure ulcer Smoker Home Medications metoprolol succinate 25 mg PO DAILY #30 tab 07/05/21 [Rx Last Taken 07/16/21] potassium chloride 20 meq PO DAILY #10 tab 07/05/21 [Rx Last Taken 07/15/21] guaifenesin 400 mg PO Q4H PRN PRN #0 ml 07/30/21 [Rx Last Taken Unknown] pantoprazole 40 mg PO DAILY #0 tab 07/30/21 [Rx Last Taken 09/12/21] sennosides-docusate sodium [Senna Plus] 1 tab-cap PO QHS PRN PRN 08/29/21 [History Last Taken Unknown] ferrous sulfate [iron] 325 mg PO DAILY 09/08/21 [History Last Taken Unknown] oxycodone 5 mg PO Q6H PRN 09/08/21 [History Last Taken Unknown] ammonium lactate 1 applic TOPICAL BID 11/06/21 [History Last Taken Unknown] ascorbic acid (vitamin C) [Vitamin C] 500 mg PO DAILY 11/06/21 [History Last Taken Unknown] furosemide [Lasix] 40 mg PO DAILY 11/06/21 [History Last Taken Unknown] insulin lispro [Humalog KwikPen Insulin] 3 unit SUBCUT ACHS 11/06/21 [History Last Taken Unknown] multivitamin,tx-minerals [Theragran-M] 1 tab PO DAILY 11/06/21 [History Last Taken Unknown] aluminum-magnesium hydroxide [Antacid] 30 ml PO Q4H PRN PRN 11/11/21 [History Last Taken Unknown] bisacodyl 10 mg [place] DAILY PRN 11/11/21 [History Last Taken Unknown] dextrose [Glucose Gel] 10 g PO Q15M PRN 11/11/21 [History Last Taken Unknown] ertapenem 1 g IV Q24H 11/11/21 [History Last Taken Unknown] glucagon 1 mg IM PRN PRN 11/11/21 [History Last Taken Unknown] insulin glargine [Basaglar KwikPen U-100 Insulin] 20 unit SUBCUT QHS 11/11/21 [History Last Taken Unknown] insulin glargine [Basaglar KwikPen U-100 Insulin] 35 unit SUBCUT BREAKFAST 11/11/21 [History Last Taken Unknown] magnesium hydroxide [Milk of Magnesia] 30 ml PO DAILY PRN 11/11/21 [History Last Taken Unknown] melatonin 3 mg PO QHS PRN PRN 11/11/21 [History Last Taken Unknown] sodium phosphates [Fleet Enema] 118 ml [place] DAILY PRN 11/11/21 [History Last Taken Unknown] Allergy/AdvReac Type Severity Reaction Status Date / Time acetaminophen [From Tylenol] Allergy Hives Verified 11/11/21 13:22 Family History (Updated 07/16/21 @ 18:[address] Marti Carver MD) Mother Diabetes Pulmonary disease Father Diabetes Pulmonary disease Surgical History H/O hernia repair History of esophagogastroduodenoscopy (EGD) History of skin graft Social History household members: family Smoking Status: Former smoker alcohol intake: never substance use type: does not use ROS ROS ED Review of Systems ROS Unobtainable: other Details: Very difficult to understand, dysarthric Constitutional Constitutional ED: Reports chills, fatigue, fever(s) and malaise Cardiovascular Cardiovascular: Denies chest pain Respiratory/Chest Respiratory/Chest: Reports cough and dyspnea Gastrointestinal Gastrointestinal: Denies abdominal pain, nausea or vomiting Musculoskeletal Musculoskeletal: Denies back pain or neck pain Integumentary Denies abscess or rash Neurologic Neurologic: Denies paresthesias or weakness Psychiatric Psychiatric: Denies anxiety or suicidal thoughts EXAM Physical Exam Const Vital Signs: 12/08/21 12:04 12/08/21 12:07 12/08/21 12:11 Temperature 99.0 F 99.0 F Temperature Source Oral Oral Pulse Rate 109 H 111 H Respiratory Rate 34 H 48 H Respiratory Effort Short of Breath Labored Respiratory Depth Shallow Respiratory Pattern Tachypnea Blood Pressure 120/71 120/71 Blood Pressure Mean 87 87 Pulse Ox 94 94 Oxygen Delivery Method Nasal Cannula Nasal Cannula Nasal Cannula Oxygen Flow Rate (L/min) 6 6 6 Fraction of Inspired Oxygen (FIO2) 12/08/21 12:52 12/08/21 13:07 Temperature 99.0 F Temperature Source Temporal Pulse Rate 109 H 105 H Respiratory Rate 33 H 40 H Respiratory Effort Respiratory Depth Respiratory Pattern Tachypnea Blood Pressure 119/84 H Blood Pressure Mean 95 Pulse Ox 94 93 Oxygen Delivery Method Bi-pap Oxygen Flow Rate (L/min) Fraction of Inspired Oxygen (FIO2) 30 Positive well nourished, well developed and obese Constitutional Narrative: Malaised-appearing, respiratory distress General Appearance ED: well developed and NAD Nutritional Appearance: obese HEENT Reports moist mucous membranes normocephalic and atraumatic Eyes PERRL and EOMs intact bilaterally Neck full ROM and supple Resp clear to auscultation bilaterally Resp Narrative: Tachypneic trying to speak and 3-5 word sentences Cardio regular rate and regular rhythm Rate: tachycardic GI non-tender and non-distended Auscultation: normoactive bowel sounds Palpation: soft Back/Spine no CVA tenderness General Back: other FROM Extremity normal to inspection and no calf tenderness General Extremety ED: Negative for edema, pulses abnormal or tenderness General Extremity: Negative for edema or pulses abnormal Neuro oriented x3, CN's II-XII intact bilaterally and no sensory deficits noted Sensorium / Orientation: awake and alert Motor Exam: strength 5/5 throughout Skin no rashes or lesions noted Skin Narrative: 3 healing abdominal wounds without discharge or signs of cellulitis, overlying gauze with scant amount of discharge, lower mid-abdominal wall MDM MDM MDM Narrative Medical decision making narrative: Patient confirms that he is DNR CCA with no intubation. We will place him on BiPAP he is breathing better. Labs are noted. He is already anticoagulated no need to rule out pulmonary embolus at this time. Will admit. Tested positive for Covid on 11/27 according to paperwork accompanying the patient, meaning he is on day #11. He already received Decadron. Currently receiving Zosyn and vancomycin for unknown reasons. Lab Data Attestation: I reviewed the patient's lab results. Labs: Laboratory Results - last 24 hr 12/08/21 12/08/21 12/08/21 12:45 12:45 12:45 WBC 6.7 RBC 3.47 L Hgb 9.3 L Hct 30.9 L MCV 89.0 MCH 26.8 L MCHC 30.1 L RDW Std Deviation 57.2 H RDW Coeff of Jennifer 17.5 H Plt Count 241 MPV 8.9 Immature Gran % (Auto) 0.900 Neut % (Auto) 85.3 H Lymph % (Auto) 8.4 L [place] % (Auto) 5.2 Eos % (Auto) 0.1 Baso % (Auto) 0.1 Absolute Neuts (auto) 5.7 Absolute Lymphs (auto) 0.56 L Nucleated RBC % 0 Sodium 161 H* Potassium 4.5 Chloride 139 H* Carbon Dioxide 15.0 L Anion Gap 7 BUN 83 H Creatinine 2.51 H Estim Creat Clear Calc 30.70 Est GFR (MDRD) Af Amer 33 L Est GFR (MDRD) Non-Af 28 L BUN/Creatinine Ratio 33.1 H Glucose 89 Lactic Acid 1.0 Calcium 8.8 Total Bilirubin 0.30 AST 29 ALT 16 Alkaline Phosphatase 73 Troponin I High Sens 10 Total Protein 9.0 H Albumin 1.9 L Globulin 7.1 H Albumin/Globulin Ratio 0.3 L Radiography Diagnostic Testing: Clinical Impression(s) from Imaging Studies Chest X-Ray 12/08/21 12:35 IMPRESSION: Diffuse infiltrates in the left hemithorax with a patchy right perihilar infiltrate. Follow-up is recommended. Electronically Signed: Chandan Martínez MD at 13:07 EST , EKG Initial EKG: Attestation: I personally reviewed and interpreted this EKG as follows: Interpretation: No Acute Injury Pattern and Sinus Tachycardia Discharge Plan Triage Chief Complaint: Fever ED Provider: Branden Morrison Dx/Rx/DC Orders Clinical Impression: Pneumonia due to COVID-19 virus, Acute respiratory failure with hypoxia, Dehydration Prescriptions: No Action metoprolol succinate 25 mg tablet extended release 24 hr 25 mg PO DAILY Qty: 30 RF: 1 potassium chloride 20 mEq tablet extended release 20 meq PO DAILY Qty: 10 RF: 0 guaifenesin 100 mg/5 mL Liquid 400 mg PO Q4H PRN PRN (Reason: COUGH) Qty: 0 RF: 0 pantoprazole 40 mg Tablet,Delayed Release (Dr/Ec) 40 mg PO DAILY Qty: 0 RF: 0 Senna Plus 8.6-50 mg Capsule 1 tab-cap PO QHS PRN PRN (Reason: Constipation) RF: 0 ferrous sulfate [iron] 325 mg (65 mg iron) Tablet 325 mg PO DAILY RF: 0 oxycodone 5 mg Capsule 5 mg PO Q6H PRN (Reason: Pain) RF: 0 furosemide [Lasix] 40 mg Tablet 40 mg PO DAILY RF: 0 ascorbic acid (vitamin C) [Vitamin C] 500 mg Tablet 500 mg PO DAILY RF: 0 ammonium lactate 12 % Cream 1 applic TOPICAL BID RF: 0 Theragran-M Tablet 1 tab PO DAILY RF: 0 insulin lispro [Humalog KwikPen Insulin] 100 unit/mL insulin pen 3 unit subcut ACHS RF: 0 glucagon 1 mg Kit 1 mg IM PRN PRN (Reason: Hypoglycemia) RF: 0 dextrose [Glucose Gel] 40 % Gel 10 g PO Q15M PRN (Reason: Hypoglycemia) RF: 0 magnesium hydroxide [Milk of Magnesia] 400 mg/5 mL Suspension 30 ml PO DAILY PRN (Reason: Constipation) RF: 0 bisacodyl 10 mg Suppository 10 mg [place] DAILY PRN (Reason: Constipation) RF: 0 Antacid 225-200 mg/5 mL Suspension 30 ml PO Q4H PRN PRN (Reason: Indigestion) RF: 0 Fleet Enema 19-7 gram/118 mL Enema 118 ml [place] DAILY PRN (Reason: Constipation) RF: 0 ertapenem 1 gram Recon Soln 1 g IV Q24H RF: 0 Basaglar KwikPen U-100 Insulin 100 unit/mL (3 mL) Insulin Pen 20 unit SUBCUT QHS RF: 0 Basaglar KwikPen U-100 Insulin 100 unit/mL (3 mL) Insulin Pen 35 unit subcut BREAKFAST RF: 0 melatonin 3 mg Capsule 3 mg PO QHS PRN PRN (Reason: Insomnia) RF: 0 Primary Care Provider: Larisa Jacobs Referrals: Larisa Jacobs MD [Primary Care Provider] - Disposition Disposition: Acute Care [facility]
--- NOTE | 2021-12-08 12:35 | RAD_ITS ---
STUDY: X-RAY CHEST REASON FOR EXAM: Male, 66 years old. Cough sob covid TECHNIQUE: Single AP portable view of the chest. COMPARISON: Comparison is made with prior study 08/23/2012. FINDINGS: EKG electrodes are seen. Diffuse infiltrates in the left hemithorax. Patchy right perihilar infiltrate. There is no demonstrated pleural abnormality. Normal size heart. Normal mediastinum and felipe. Normal visualized pulmonary arteries. There is atherosclerotic tortuosity of the aortic arch and descending thoracic aorta. There are degenerative changes of the visualized thoracic spine. Normal visualized ribs, clavicles, and shoulders. There is no demonstrated abnormality of the visualized soft tissue structures of the upper abdomen. RAD/Chest 1 View (Portable) IMPRESSION: Diffuse infiltrates in the left hemithorax with a patchy right perihilar infiltrate. Follow-up is recommended. Electronically Signed: Chandan Martínez MD at 13:07 EST ,
[2021-12-08 12:59] LABS: Absolute Lymphocyte Count 0.56 X10^3/uL (0.83-4.51); Absolute Neutrophil Count 5.7 X10^3/uL (2.0-7.7); Basophil# 0.01 X10^3/uL; Basophil% 0.1 % (0-1); Eosinophil# 0.01 X10^3/uL; Eosinophils% 0.1 % (0-5); Hematocrit 30.9 % (40-54); Hemoglobin 9.3 g/dL (13.0-16.5); Lymphocyte # 0.56 X10^3/ul (0.83-4.51); Lymphocyte % 8.4 % (19-41); Mean Corp Hgb Conc 30.1 g/dL (32-36); Mean Corpuscular Hgb 26.8 pg (27.0-32.0); Mean Platelet Vol. 8.9 fl (6.2-12.0); Monocyte# 0.35 X10^3/uL; Monocyte% 5.2 % (0-10); NRBC Flagged by Analyzer 0 % (0-5); Neutrophil # 5.71 X10^3/uL (2.7-7.7); Neutrophil % 85.3 % (47-70); POSITIVE DIFFERENTIAL YES; Platelet Count 241 K/mm3 (150-450); RBC Distribution Width CV 17.5 % (11.6-14.6); RBC Distribution Width SD 57.2 fl (35.1-43.9); Red Blood Count 3.47 M/mm3 (4.6-6.2); White Blood Count 6.7 K/mm3 (4.4-11.0)
[2021-12-08 13:06] LABS: Differential Indicated SCAN CRITERIA MET
[2021-12-08] MEDS: 0.9% Normal Saline 1,000 ML 125 ML IV (13:10)
[2021-12-08 13:29] LABS: ALB/GLOB Ratio 0.3 RATIO (0.9-2.4); AST(SGOT) 29 U/L (15-37); Alanine Aminotransfer ALT/SGPT 16 U/L (16-61); Albumin, Serum 1.9 g/dL (3.2-5.0); Alkaline Phosphatase 73 U/L (45-117); Anion Gap 7 (5-15); BUN 83 mg/dL (7-18); BUN/Creat Ratio 33.1 RATIO (10-20); Calcium,Total 8.8 mg/dL (8.5-10.1); Chloride 139 mmol/L (98-107); Creatinine, Serum 2.51 mg/dL (0.70-1.30); EST Glomerular Filtration Rate 28 mL/min (>60); Est Glom Filt Rate - Afr Amer 33 mL/min (>60); Globulin 7.1 g/dL (2.2-4.2); Glucose 89 mg/dL (74-106); Potassium 4.5 mmol/L (3.5-5.1); Sodium Level 161 mmol/L (136-145); Troponin-I HS 10 pg/mL (3.0-78.0)
--- NOTE | 2021-12-08 13:34 | NURSING ---
CALLED [employer] FOR [facility] PAPERS. TALKED TO PADMAJA. SHE IS TO FAX THEM TO US
--- NOTE | 2021-12-08 14:30 | NURSING ---
MED SURG XU NUNEZ PNA, HYPOXIC RESP FAILURE, DEHYDRATION
[2021-12-08 16:26] LABS: BNP,B-Type NATRIURETIC PEPTIDE 68.4 pg/mL (0-100)
[2021-12-08 17:20] LABS: Bedside Glucose 72 mg/dL (70-110)
--- NOTE | 2021-12-08 17:27 | PCS.PANDOC ---
PANDEMIC DOCUMENTATION INITIATED: Date: 12/08/2021 Time: 1600
--- NOTE | 2021-12-08 18:30 | HP.PCM.HOS_ITS ---
HPI - General General Date of Admission: 12/08/21 Date of Service: 12/08/21 Chief Complaint: Shortness of breath - 11 days HPI Narrative STEVE JOY, is a 66 M who presents with the above ongoing for more than 1-1/2 weeks. [facility]. He was diagnosed with Covid on 11/27/21. He was brought in because his oxygenation status was getting worse. In the jail, he was said to be saturating 93% on 5 L. Patient was recently diagnosed with endocarditis and has been on vancomycin and Zosyn. In the ED, he was saturating 94% on 6 L on arrival. His respiratory rate as well as heart rate got progressively worse. He was started on BiPAP. He seems to have increased work of breathing. His WBC count was 6.7, hemoglobin 9.3, platelet 241, sodium 161, potassium 4.5, chloride 139, bicarbonate 15, BUN is 83, creatinine 2.51, previous creatinine is 1.73. Chest X-ray showed diffuse infiltrates in the left hemithorax with patchy right perihilar infiltrate. Patient is on apixaban. PFSH Medical History Abscess Anemia COVID-19 Diabetes mellitus, type 2 Dietary restriction Gastric reflux History of acute renal failure History of echocardiogram History of edema History of GI bleed History of pain when walking Hx of transesophageal echocardiography (PRIYA) for monitoring Hypertension Insulin dependent diabetes mellitus Leg cramps Lymph edema MRSA (methicillin resistant Staphylococcus aureus) On home oxygen therapy Open wound of both legs with complication Osteoarthritis Pressure ulcer Smoker Home Medications ferrous sulfate [iron] 325 mg PO DAILY 09/08/21 [History Last Taken 12/07/21] ammonium lactate 1 applic TOPICAL BID 11/06/21 [History Last Taken 12/07/21] ascorbic acid (vitamin C) [Vitamin C] 500 mg PO DAILY 11/06/21 [History Last Taken 12/07/21] multivitamin,tx-minerals [Theragran-M] 1 tab PO DAILY 11/06/21 [History Last Taken 12/07/21] insulin glargine [Basaglar KwikPen U-100 Insulin] 20 unit SUBCUT BID 11/11/21 [History Last Taken 12/08/21] melatonin 3 mg PO QHS PRN PRN 11/11/21 [History Last Taken 12/02/21] apixaban [Eliquis] 2.5 mg PO BID 12/08/21 [History Last Taken 12/07/21] dexamethasone 2 mg PO DAILY 12/08/21 [History Last Taken 12/07/21] guaifenesin 200 mg PO Q4H PRN PRN 12/08/21 [History Last Taken 11/30/21] guaifenesin 600 mg PO BID 12/08/21 [History Last Taken 12/07/21] ibuprofen 400 mg PO Q6H PRN 12/08/21 [History Last Taken 12/05/21] loperamide [Imodium A-D] 2 mg PO DAILY 12/08/21 [History Last Taken 12/07/21] loratadine [Claritin] 10 mg PO DAILY 12/08/21 [History Last Taken 12/07/21] metoprolol succinate 25 mg PO DAILY 12/08/21 [History Last Taken 12/07/21] nut.tx.gluc intol,lf,soy-fiber [Boost Glucose Control] 237 ml PO BID 12/08/21 [History Last Taken 12/07/21] oxycodone 5 mg PO Q6H PRN 12/08/21 [History Last Taken 12/07/21] pantoprazole 40 mg PO DAILY 12/08/21 [History Last Taken 12/07/21] piperacillin-tazobactam [Zosyn] 3.375 g IV Q8H 12/08/21 [History Last Taken 12/08/21] potassium chloride 20 meq PO DAILY 12/08/21 [History Last Taken 12/07/21] vancomycin 1 g IV QODAY 12/08/21 [History Last Taken 12/07/21] Allergy/AdvReac Type Severity Reaction Status Date / Time acetaminophen [From Tylenol] Allergy Hives Verified 12/08/21 16:57 Family History Mother Diabetes Pulmonary disease Father Diabetes Pulmonary disease Surgical History H/O hernia repair History of esophagogastroduodenoscopy (EGD) History of skin graft Social History household members: family Smoking Status: Former smoker alcohol intake: never substance use type: does not use ROS Review of Systems ROS Unobtainable: due to encephalopathy Vital Signs Vital Signs Vital Signs: 12/08/21 12:04 12/08/21 12:07 12/08/21 12:11 Temperature 99.0 F 99.0 F Temperature Source Oral Oral Pulse Rate 109 H 111 H Respiratory Rate 34 H 48 H Respiratory Effort Short of Breath Labored Respiratory Depth Shallow Respiratory Pattern Tachypnea Blood Pressure 120/71 120/71 Blood Pressure Mean 87 87 Blood Pressure Source Blood Pressure Position Blood Pressure Location Pulse Ox 94 94 Oxygen Delivery Method Nasal Cannula Nasal Cannula Nasal Cannula Oxygen Flow Rate (L/min) 6 6 6 Fraction of Inspired Oxygen (FIO2) 12/08/21 12:52 12/08/21 13:07 12/08/21 14:00 Temperature 99.0 F 99.0 F Temperature Source Temporal Temporal Pulse Rate 109 H 105 H 115 H Respiratory Rate 33 H 40 H 34 H Respiratory Effort Respiratory Depth Respiratory Pattern Tachypnea Blood Pressure 119/84 H 121/85 H Blood Pressure Mean 95 97 Blood Pressure Source Blood Pressure Position Blood Pressure Location Pulse Ox 94 93 95 Oxygen Delivery Method Bi-pap Bi-pap Oxygen Flow Rate (L/min) Fraction of Inspired Oxygen (FIO2) 30 12/08/21 14:26 12/08/21 15:00 12/08/21 15:11 Temperature 99.2 F H 99.0 F Temperature Source Temporal Temporal Pulse Rate 118 H 122 H 123 H Respiratory Rate 38 H 36 H 42 H Respiratory Effort Respiratory Depth Respiratory Pattern Tachypnea Blood Pressure 139/89 H 138/90 H Blood Pressure Mean 105 106 Blood Pressure Source Blood Pressure Position Blood Pressure Location Pulse Ox 95 95 95 Oxygen Delivery Method Bi-pap Bi-pap Oxygen Flow Rate (L/min) Fraction of Inspired Oxygen (FIO2) 30 12/08/21 16:04 12/08/21 16:43 12/08/21 17:00 Temperature 99.6 F H Temperature Source Axillary Pulse Rate 111 H Respiratory Rate 41 H 44 H Respiratory Effort Short of Breath Labored Accessory Muscle Use Respiratory Depth Shallow Respiratory Pattern Tachypnea Tachypnea Blood Pressure 106/65 Blood Pressure Mean 78 Blood Pressure Source Monitor Blood Pressure Position Semi-Fowlers Blood Pressure Location Right Arm Pulse Ox 92 Oxygen Delivery Method Bi-pap Bi-pap Oxygen Flow Rate (L/min) Fraction of Inspired Oxygen (FIO2) 30 99 100 12/08/21 17:16 Temperature 100.1 F H Temperature Source Axillary Pulse Rate 112 H Respiratory Rate 45 H Respiratory Effort Respiratory Depth Respiratory Pattern Blood Pressure 98/63 Blood Pressure Mean 74 Blood Pressure Source Monitor Blood Pressure Position Semi-Fowlers Blood Pressure Location Right Arm Pulse Ox 91 Oxygen Delivery Method Bi-pap Oxygen Flow Rate (L/min) Fraction of Inspired Oxygen (FIO2) 100 Weight Weight: 85.6 kg Body Mass Index (BMI) 27.1 Physical Exam Narrative Physical exam: General: Alert, Oriented to self, on BiPAP, has increased work of breathing, tachycardic, tachypneic, increased use of accessory muscles of respiration HEENT: Atraumatic Oral: Dry Mucosa Neck: Supple Lungs: Diminished to auscultation Cardiovascular: HS I+II, regular, no murmurs Abdomen: Bowel Sounds Present, Soft, Non Tender Extremities: Bilateral leg edema +1-2 Results Medical Records Data Medical Nutrition Assessment Dietitian: Malnutrition Criteria Met Start: 12/08/21 17:28 Freq: Status: Active Protocol: Document 12/08/21 17:28 SUNDEEP (Rec: 12/08/21 17:28 [facility] [id number]) Nutrition Malnutrition Evidence of Malnutrition Exists Yes Malnutrition (severe): Acute Illness/Injury Evidenced By Suboptimal Energy Intake ( Severe),Weight Loss (Severe) Clinical Problem Acute Disease or Injury Related Malnutrition Etiology related to surgery last month and currently w/ COVID - pt lives at [facility] and doesn't like the food there - acute illness combined with food dislikes making it difficult for pt to consume adequate nutrition to meet est nutritional needs Signs/Symptoms as evidenced by <50% po intake x >1 mo and 22.4% wt loss x 5 months Status Active Problem Recommendation Dietitian Recommendations/Changes Will change diet to CHO controlled, No Added Salt diet w/ 4 oz glucerna shake tid w/ meals Lab / Micro Data Result Diagrams: 12/08/21 12:45 12/08/21 12:45 Labs: Laboratory Results - last 24 hr 12/08/21 12:45: WBC 6.7, RBC 3.47 L, Hgb 9.3 L, Hct 30.9 L, MCV 89.0, MCH 26.8 L , MCHC 30.1 L, RDW Std Deviation 57.2 H, RDW Coeff of Jennfier 17.5 H, Plt Count 241, MPV 8.9, Immature Gran % (Auto) 0.900, Neut % (Auto) 85.3 H, Lymph % (Auto) 8.4 L, [place] % (Auto) 5.2, Eos % (Auto) 0.1, Baso % (Auto) 0.1, Absolute Neuts (auto) 5.7, Absolute Lymphs (auto) 0.56 L, Nucleated RBC % 0 12/08/21 12:45: Sodium 161 H*, Potassium 4.5, Chloride 139 H*, Carbon Dioxide 15.0 L, Anion Gap 7, BUN 83 H, Creatinine 2.51 H, Estim Creat Clear Calc 30.70, Est GFR (MDRD) Af Amer 33 L, Est GFR (MDRD) Non-Af 28 L, BUN/Creatinine Ratio 33.1 H, Glucose 89, Calcium 8.8, Total Bilirubin 0.30, AST 29, ALT 16, Alkaline Phosphatase 73, Troponin I High Sens 10, Total Protein 9.0 H, Albumin 1.9 L, Globulin 7.1 H, Albumin/Globulin Ratio 0.3 L 12/08/21 12:45: Lactic Acid 1.0 12/08/21 12:45: B-Natriuretic Peptide 68.4 12/08/21 16:25: POC Glucose 72 Radiology Impression Chest X-Ray 12/08/21 12:35 IMPRESSION: Diffuse infiltrates in the left hemithorax with a patchy right perihilar infiltrate. Follow-up is recommended. Electronically Signed: Chandan Martínez MD at 13:07 EST Reading Location ID and State: [facility] / [place] , Service support , Assessment & Plan Assessment/Plan (1) Acute respiratory failure with hypoxia: (2) Pneumonia due to COVID-19 virus: (3) Dehydration: (4) YINKA (acute kidney injury): (5) Severe malnutrition: PLAN: 1. Acute hypoxic respiratory failure secondary to acute COVID-19 pneumonia Patient is currently on BiPAP, has increased work of breathing Admitting chest x-ray showed diffuse infiltrates Started on IV dexamethasone, will continue same 2. YINKA on CKD stage IIIb, likely pre-renal secondary to dehydration Admitting creatinine is 2.51, baseline creatinine is 1.7 Consult nephrology Repeat blood work in a.m. 3. Hypernatremia secondary to dehydration, admitting sodium of 161; chloride is 139 Started on D5W by nephrology, will trend labs in am 4. Recent endocarditis, continue on IV vancomycin and Zosyn 5. Type 2 DM, hold home Lantus, continue blood glucose checks with insulin sliding scale 6. Severe protein calorie malnutrition, BMI 27.1, evidence of severe muscle loss, [employer]sc[employer] Director consulted, on supplement 7. DVT prophylaxis?on apixaban 8. Code status - DNR-CCA, no intubation Charges/Coding Visit Charges Inpatient E&M: 18269 Init Hosp L3
--- NOTE | 2021-12-08 20:28 | PCM.CONS.R ---
Assessment & Plan Assessment/Plan (1) YINKA (acute kidney injury): PLAN: Baseline cr is around 1.7. admitted with 2.5. Hypernatremic. Likely all volume related. D5W for now. dw hospitalist (2) Hypernatremia: HPI Consult Data Date of Consult: 12/08/21 HPI Narrative HPI Narrative: STEVE JOY, is a 66 M who presents to the hospital with worsening dyspnea. renal consulted for YINKA. He was recently admitted to hospital with COVID, IE. ROS unable to be obtained [facility] Medical History Abscess Anemia COVID-19 Diabetes mellitus, type 2 Dietary restriction Gastric reflux History of acute renal failure History of echocardiogram History of edema History of GI bleed History of pain when walking Hx of transesophageal echocardiography (PRIYA) for monitoring Hypertension Insulin dependent diabetes mellitus Leg cramps Lymph edema MRSA (methicillin resistant Staphylococcus aureus) On home oxygen therapy Open wound of both legs with complication Osteoarthritis Pressure ulcer Smoker Home Medications ferrous sulfate [iron] 325 mg PO DAILY 09/08/21 [History Last Taken 12/07/21] ammonium lactate 1 applic TOPICAL BID 11/06/21 [History Last Taken 12/07/21] ascorbic acid (vitamin C) [Vitamin C] 500 mg PO DAILY 11/06/21 [History Last Taken 12/07/21] multivitamin,tx-minerals [Theragran-M] 1 tab PO DAILY 11/06/21 [History Last Taken 12/07/21] insulin glargine [Basaglar KwikPen U-100 Insulin] 20 unit SUBCUT BID 11/11/21 [History Last Taken 12/08/21] melatonin 3 mg PO QHS PRN PRN 11/11/21 [History Last Taken 12/02/21] apixaban [Eliquis] 2.5 mg PO BID 12/08/21 [History Last Taken 12/07/21] dexamethasone 2 mg PO DAILY 12/08/21 [History Last Taken 12/07/21] guaifenesin 200 mg PO Q4H PRN PRN 12/08/21 [History Last Taken 11/30/21] guaifenesin 600 mg PO BID 12/08/21 [History Last Taken 12/07/21] ibuprofen 400 mg PO Q6H PRN 12/08/21 [History Last Taken 12/05/21] loperamide [Imodium A-D] 2 mg PO DAILY 12/08/21 [History Last Taken 12/07/21] loratadine [Claritin] 10 mg PO DAILY 12/08/21 [History Last Taken 12/07/21] metoprolol succinate 25 mg PO DAILY 12/08/21 [History Last Taken 12/07/21] nut.tx.gluc intol,lf,soy-fiber [Boost Glucose Control] 237 ml PO BID 12/08/21 [History Last Taken 12/07/21] oxycodone 5 mg PO Q6H PRN 12/08/21 [History Last Taken 12/07/21] pantoprazole 40 mg PO DAILY 12/08/21 [History Last Taken 12/07/21] piperacillin-tazobactam [Zosyn] 3.375 g IV Q8H 12/08/21 [History Last Taken 12/08/21] potassium chloride 20 meq PO DAILY 12/08/21 [History Last Taken 12/07/21] vancomycin 1 g IV QODAY 12/08/21 [History Last Taken 12/07/21] Allergy/AdvReac Type Severity Reaction Status Date / Time acetaminophen [From Tylenol] Allergy Hives Verified 12/08/21 16:57 Family History Mother Diabetes Pulmonary disease Father Diabetes Pulmonary disease Surgical History H/O hernia repair History of esophagogastroduodenoscopy (EGD) History of skin graft Social History household members: family Smoking Status: Former smoker alcohol intake: never substance use type: does not use Physical Exam Narrative exam minimized due to COVID Medical Records Data Medical Nutrition Assessment Dietitian: Malnutrition Criteria Met Start: 12/08/21 17:28 Freq: Status: Active Protocol: Document 12/08/21 17:28 SUNDEEP (Rec: 12/08/21 17:28 SUNDEEP [id number]) Nutrition Malnutrition Evidence of Malnutrition Exists Yes Malnutrition (severe): Acute Illness/Injury Evidenced By Suboptimal Energy Intake ( Severe),Weight Loss (Severe) Clinical Problem Acute Disease or Injury Related Malnutrition Etiology related to surgery last month and currently w/ COVID - pt lives at [facility] and doesn't like the food there - acute illness combined with food dislikes making it difficult for pt to consume adequate nutrition to meet est nutritional needs Signs/Symptoms as evidenced by <50% po intake x >1 mo and 22.4% wt loss x 5 months Status Active Problem Recommendation Dietitian Recommendations/Changes Will change diet to CHO controlled, No Added Salt diet w/ 4 oz glucerna shake tid w/ meals Lab / Micro Data Result Diagrams: 12/08/21 12:45 12/08/21 12:45 Labs: Laboratory Results - last 24 hr 12/08/21 12:45: WBC 6.7, RBC 3.47 L, Hgb 9.3 L, Hct 30.9 L, MCV 89.0, MCH 26.8 L, MCHC 30.1 L, RDW Std Deviation 57.2 H, RDW Coeff of Jennifer 17.5 H, Plt Count 241, MPV 8.9, Immature Gran % (Auto) 0.900, Neut % (Auto) 85.3 H, Lymph % (Auto) 8.4 L, [place] % (Auto) 5.2, Eos % (Auto) 0.1, Baso % (Auto) 0.1, Absolute Neuts (auto) 5.7, Absolute Lymphs (auto) 0.56 L, Nucleated RBC % 0 12/08/21 12:45: Sodium 161 H*, Potassium 4.5, Chloride 139 H*, Carbon Dioxide 15.0 L, Anion Gap 7, BUN 83 H, Creatinine 2.51 H, Estim Creat Clear Calc 30.70, Est GFR (MDRD) Af Amer 33 L, Est GFR (MDRD) Non-Af 28 L, BUN/Creatinine Ratio 33.1 H, Glucose 89, Calcium 8.8, Total Bilirubin 0.30, AST 29, ALT 16, Alkaline Phosphatase 73, Troponin I High Sens 10, Total Protein 9.0 H, Albumin 1.9 L, Globulin 7.1 H, Albumin/Globulin Ratio 0.3 L 12/08/21 12:45: Lactic Acid 1.0 12/08/21 12:45: B-Natriuretic Peptide 68.4 12/08/21 16:25: POC Glucose 72 Radiology Impression Chest X-Ray 12/08/21 12:35 IMPRESSION: Diffuse infiltrates in the left hemithorax with a patchy right perihilar infiltrate. Follow-up is recommended. Electronically Signed: Chandan Martínez MD at 13:07 EST ,
[2021-12-08 20:40] LABS: Anion Gap 4 (5-15); BUN 79 mg/dL (7-18); BUN/Creat Ratio 31.7 RATIO (10-20); Calcium,Total 8.4 mg/dL (8.5-10.1); Chloride 145 mmol/L (98-107); Creatinine, Serum 2.49 mg/dL (0.70-1.30); EST Glomerular Filtration Rate 28 mL/min (>60); Est Glom Filt Rate - Afr Amer 34 mL/min (>60); Estimated Creatinine Clearance 30.95 ml/min; Glucose 87 mg/dL (74-106); Potassium 4.2 mmol/L (3.5-5.1); Sodium Level 164 mmol/L (136-145)
[2021-12-08] MEDS: 0.9% Saline Lock 10 ML Syringe IV (22:53)
[2021-12-08] MEDS: Haloperidol Lactate 5 MG/ML Vial 3 MG IM (23:35)
[2021-12-09] VITALS (9 sets, daily range): BP systolic 110–115; BP diastolic 59–93; PULSE 85–99; RESP 12–44; TEMP 36.7–37.2; O2SAT 87–95
[2021-12-09 00:22] LABS: Anion Gap 6 (5-15); BUN 77 mg/dL (7-18); BUN/Creat Ratio 30.7 RATIO (10-20); Calcium,Total 8.6 mg/dL (8.5-10.1); Chloride 144 mmol/L (98-107); Creatinine, Serum 2.51 mg/dL (0.70-1.30); EST Glomerular Filtration Rate 28 mL/min (>60); Est Glom Filt Rate - Afr Amer 33 mL/min (>60); Glucose 113 mg/dL (74-106); Potassium 4.5 mmol/L (3.5-5.1); Sodium Level 164 mmol/L (136-145)
[2021-12-09 02:16] LABS: Bedside Glucose 88 mg/dL (70-110)
[2021-12-09 04:48] LABS: Absolute Lymphocyte Count 0.63 X10^3/uL (0.83-4.51); Absolute Neutrophil Count 3.4 X10^3/uL (2.0-7.7); Basophil# 0.01 X10^3/uL; Basophil% 0.2 % (0-1); Eosinophil# 0.02 X10^3/uL; Eosinophils% 0.5 % (0-5); Hematocrit 28.3 % (40-54); Hemoglobin 8.3 g/dL (13.0-16.5); Lymphocyte # 0.63 X10^3/ul (0.83-4.51); Lymphocyte % 14.4 % (19-41); Mean Corp Hgb Conc 29.3 g/dL (32-36); Mean Corpuscular Hgb 27.1 pg (27.0-32.0); Mean Corpuscular Volume 92.5 fL (80-94); Mean Platelet Vol. 8.7 fl (6.2-12.0); Monocyte# 0.25 X10^3/uL; Monocyte% 5.7 % (0-10); NRBC Flagged by Analyzer 0 % (0-5); Neutrophil # 3.42 X10^3/uL (2.7-7.7); Neutrophil % 78.1 % (47-70); Platelet Count 194 K/mm3 (150-450); RBC Distribution Width CV 17.9 % (11.6-14.6); RBC Distribution Width SD 60.4 fl (35.1-43.9); Red Blood Count 3.06 M/mm3 (4.6-6.2); White Blood Count 4.4 K/mm3 (4.4-11.0)
[2021-12-09 05:06] LABS: Vancomycin, Random Level 17.3 ug/mL (0.0-15.0)
--- NOTE | 2021-12-09 05:11 | PCM.RX.CS ---
Consult Pharmacy has been consulted to manage selected antiobiotic: Vancomycin Type of Consult: New start Labs: Random Vancomycin 17.3 ug/mL (0.0-15.0) H 12/09/21 04:42 Goal Trough: 15-20 mcg/mL Pharmacy Plan for Drug Dosing: Pharmacy Service will continue to monitor and adjust dosing as required. Medications Vancomycin HCl (Vancomycin) 1,000 mg in 200 mls @ 200 mls/hr IV Q48H NARAYAN TRANSFER FROM [facility]TC[facility] WITH 1GM Q48H. TROUGH PRIOR TO 1ST SCHEDULED DOSE HERE WAS 17.3. START DOSE NOW AND FOLLOW UP TROUGH IN 2 DOSES Follow-Up Labs: Trough Vancomycin Labs to be done on [date and time ordered]: 12/13 @ 0500
[2021-12-09 05:19] LABS: ALB/GLOB Ratio 0.2 RATIO (0.9-2.4); AST(SGOT) 25 U/L (15-37); Alanine Aminotransfer ALT/SGPT 15 U/L (16-61); Albumin, Serum 1.6 g/dL (3.2-5.0); Alkaline Phosphatase 70 U/L (45-117); Anion Gap 6 (5-15); BUN 71 mg/dL (7-18); BUN/Creat Ratio 28.4 RATIO (10-20); Calcium,Total 8.5 mg/dL (8.5-10.1); Chloride 142 mmol/L (98-107); EST Glomerular Filtration Rate 28 mL/min (>60); Est Glom Filt Rate - Afr Amer 34 mL/min (>60); Estimated Creatinine Clearance 30.82 ml/min; Globulin 6.4 g/dL (2.2-4.2); Glucose 142 mg/dL (74-106); Potassium 4.1 mmol/L (3.5-5.1); Sodium Level 160 mmol/L (136-145)
[2021-12-09] MEDS: Vancomycin IV 1,000 MG/200 ML BAG 200 MG IV (06:35)
[2021-12-09] MEDS: 0.9% Saline Lock 10 ML Syringe IV ×4 (06:37→18:35)
--- NOTE | 2021-12-09 09:36 | CASEMGMT ---
Danielle with pt's insurance [employer] is available to assist with any discharge needs and can be reached at [phone]. Claribel Shin RN CM
--- NOTE | 2021-12-09 10:26 | CASEMGMT ---
Addendum entered by Ella Stafford 12/09/21 10:56: CAROLINA spoke with pt's Marcelle outside of pt's room. Marcelle states that [facility] got in contact with her and they are meeting with Hospice today at 1:00pm. SW offered support to Marcelle. Marcelle states that they have children but they are all busy. SW asked Marcelle if pt's children are aware on pt's condition. Marcelle states she is not sure. Marcelle states she was not aware on pt's condition at [facility]. Marcelle states pt tested positive for COVID and was in isolation so Marcelle was not able to visit pt. CAROLINA spoke with Marcelle that if she has concerns with treatment at [facility], then she can speak to their administrators and DON. Marcelle states understanding. SW offered much support to Marcelle through conversation. SW to continue to follow. Plan: Hospice meeting today at 1:00pm Original Note: Social Work Note CAROLINA reviewed chart. Pt is listed as being from [facility]. Pt on Bipap/High Flow 10 Liters oxygen currently. CAROLINA placed a call to Prosper at [facility]. Prosper states pt is skilled at their facility, can return. Prosper states she will need to check if pre-cert will need pre-cert or not. CAROLINA then updated that [facility] was consulted last night and pt's is requesting to speak to SW. SW to speak with pt's . Ella Stafford PAINTLESS DENT REPAIR TECHNICIAN, [employer]GSHEAD PRESS OPERATOR
--- NOTE | 2021-12-09 11:40 | PCM.PN.REN ---
Subjective Subjective no new events Objective Data Objective Data Vital Signs: Vital Signs Temp Pulse Resp BP Pulse Ox 98.9 F 99 44 H 113/59 L 87 12/09/21 08:04 12/09/21 08:04 12/09/21 08:04 12/09/21 08:04 12/09/21 08:04 Oxygen Flow Rate (L/min) 10 Oxygen Delivery Method High Flow Weight: 86.8 kg Body Mass Index (BMI) 27.1 Intake & Output: Intake and Output for Last 24 Hours 12/07/21 12/08/21 12/09/21 23:59 23:59 23:59 Intake Total 687 / 687 1300 / 1300 Output Total 800 / 1350 1100 / 1100 Balance -113 / -663 200 / 200 Medical Nutrition Assessment Dietitian: Malnutrition Criteria Met Start: 12/08/21 17:28 Freq: Status: Active Protocol: Document 12/08/21 17:28 SUNDEEP (Rec: 12/08/21 17:28 [facility] [id number]) Nutrition Malnutrition Evidence of Malnutrition Exists Yes Malnutrition (severe): Acute Illness/Injury Evidenced By Suboptimal Energy Intake ( Severe),Weight Loss (Severe) Clinical Problem Acute Disease or Injury Related Malnutrition Etiology related to surgery last month and currently w/ COVID - pt lives at [facility] and doesn't like the food there - acute illness combined with food dislikes making it difficult for pt to consume adequate nutrition to meet est nutritional needs Signs/Symptoms as evidenced by <50% po intake x >1 mo and 22.4% wt loss x 5 months Status Active Problem Recommendation Dietitian Recommendations/Changes Will change diet to CHO controlled, No Added Salt diet w/ 4 oz glucerna shake tid w/ meals Lab / Micro Data Result Diagrams: 12/09/21 04:42 12/09/21 04:42 Labs: Laboratory Results - last 24 hr 12/08/21 12:45: WBC 6.7, RBC 3.47 L, Hgb 9.3 L, Hct 30.9 L, MCV 89.0, MCH 26.8 L, MCHC 30.1 L, RDW Std Deviation 57.2 H, RDW Coeff of Jennifer 17.5 H, Plt Count 241, MPV 8.9, Immature Gran % (Auto) 0.900, Neut % (Auto) 85.3 H, Lymph % (Auto) 8.4 L, [place] % (Auto) 5.2, Eos % (Auto) 0.1, Baso % (Auto) 0.1, Absolute Neuts (auto) 5.7, Absolute Lymphs (auto) 0.56 L, Nucleated RBC % 0 12/08/21 12:45: Sodium 161 H*, Potassium 4.5, Chloride 139 H*, Carbon Dioxide 15.0 L, Anion Gap 7, BUN 83 H, Creatinine 2.51 H, Estim Creat Clear Calc 30.70, Est GFR (MDRD) Af Amer 33 L, Est GFR (MDRD) Non-Af 28 L, BUN/Creatinine Ratio 33.1 H, Glucose 89, Calcium 8.8, Total Bilirubin 0.30, AST 29, ALT 16, Alkaline Phosphatase 73, Troponin I High Sens 10, Total Protein 9.0 H, Albumin 1.9 L, Globulin 7.1 H, Albumin/Globulin Ratio 0.3 L 12/08/21 12:45: Lactic Acid 1.0 12/08/21 12:45: B-Natriuretic Peptide 68.4 12/08/21 16:25: POC Glucose 72 12/08/21 20:02: Sodium 164 H*, Potassium 4.2, Chloride 145 H*, Carbon Dioxide 15.0 L, Anion Gap 4 L, BUN 79 H, Creatinine 2.49 H, Estim Creat Clear Calc 30.95, Est GFR (MDRD) Af Amer 34 L, Est GFR (MDRD) Non-Af 28 L, BUN/Creatinine Ratio 31.7 H, Glucose 87, Calcium 8.4 L 12/08/21 22:57: POC Glucose 88 12/08/21 23:30: Sodium 164 H*, Potassium 4.5, Chloride 144 H*, Carbon Dioxide 14.0 L, Anion Gap 6, BUN 77 H, Creatinine 2.51 H, Estim Creat Clear Calc 30.70, Est GFR (MDRD) Af Amer 33 L, Est GFR (MDRD) Non-Af 28 L, BUN/Creatinine Ratio 30.7 H, Glucose 113 H, Calcium 8.6 12/09/21 04:42: WBC 4.4, RBC 3.06 L, Hgb 8.3 L, Hct 28.3 L, MCV 92.5, MCH 27.1, MCHC 29.3 L, RDW Std Deviation 60.4 H, RDW Coeff of Jennifer 17.9 H, Plt Count 194, MPV 8.7, Immature Gran % (Auto) 1.100 H, Neut % (Auto) 78.1 H, Lymph % (Auto) 14.4 L, [place] % (Auto) 5.7, Eos % (Auto) 0.5, Baso % (Auto) 0.2, Absolute Neuts (auto) 3.4, Absolute Lymphs (auto) 0.63 L, Nucleated RBC % 0 12/09/21 04:42: Sodium 160 H, Potassium 4.1, Chloride 142 H*, Carbon Dioxide 12.0 L, Anion Gap 6, BUN 71 H, Creatinine 2.50 H, Estim Creat Clear Calc 30.82, Est GFR (MDRD) Af Amer 34 L, Est GFR (MDRD) Non-Af 28 L, BUN/Creatinine Ratio 28.4 H, Glucose 142 H, Calcium 8.5, Total Bilirubin 0.40, AST 25, ALT 15 L, Alkaline Phosphatase 70, Total Protein 8.0, Albumin 1.6 L, Globulin 6.4 H, Albumin/Globulin Ratio 0.2 L 12/09/21 04:42: Random Vancomycin 17.3 H Radiography Diagnostic Testing: Radiology Impression Chest X-Ray 12/08/21 12:35 IMPRESSION: Diffuse infiltrates in the left hemithorax with a patchy right perihilar infiltrate. Follow-up is recommended. Electronically Signed: Chandan Martínez MD at 13:07 EST , Physical Exam Narrative exam minimized due to covid Assessment & Plan Assessment/Plan (1) YINKA (acute kidney injury): PLAN: Baseline cr is around 1.7. admitted with 2.5. Hypernatremic. Likely all volume related. D5W for now. hospice evaluation today (2) Hypernatremia:
[2021-12-09] MEDS: Morphine 4 MG/ML Syringe IV ×3 (11:41→18:35)
--- NOTE | 2021-12-09 11:44 | NURSING ---
Pt is breathing at 44 breaths per min he is given prn morphine for respiratory distress. Pt is now resting quietly, respirations at 24
--- NOTE | 2021-12-09 15:42 | CASEMGMT ---
Social Work Note SW updated that pt will be going to Inpatient Hospice unit today at [facility]. [facility] requesting transportation arranged between 6-6:30pm. CAROLINA placed a call to Prosper at [facility] and updated her that pt will be going to Inpatient Hospice Unit. SW to arrange transportation. Plan: Inpatient Hospice Unit today Ella Stafford HAND BRIM IRONER, ASSIGNMENT AGENT
--- NOTE | 2021-12-09 16:37 | CASEMGMT ---
Addendum entered by Ella Stafford 12/09/21 16:53: CAROLINA faxed DNR to [facility]. SW placed original on folder going with pt to [facility] and placed copy on pt's chart. Original Note: Social Work Note SW arranged transportation via cot for 7:00pm. Transportation form completed and placed on SNF folder and copy on pt's chart. CAROLINA updated RN on Transportation time. CAROLINA placed a call to Janny, Patient Liaison, updated her on transportation time. Janny instructed this worker to call RN at Inpatient Unit to update on transportation time as she is not at the unit right now. CAROLINA spoke with RN, she spoke with JAM Bee at [facility]. CAROLINA placed a call to [facility] and spoke with JAM Bee. CAROLINA updated Cristal on transportation time. CAROLINA placed a call to pt's Marcelle left message at home number updating her on transportation time. CAROLINA also attempted to call Marcelle on her cell phone ([phone]) [facility] Marcelle then called back to [facility] and was updated on transportation time. Plan: Discharge to [facility] Inpatient Unit today with Physician's transporting pt via cot at 7:00pm. Ella Stafford SPRING UP SUPERVISOR, [employer]
--- NOTE | 2021-12-09 18:47 | PCM.DC.SUM ---
Providers Date of Admission: 12/08/21 Date of Discharge: 12/09/21 Primary Care Physician: Dr. Larisa Jacobs MD Consultations 12/08/21 16:04 Consult: Nephrology Routine Consulting Provider: Paxton Marquez Reason for Consult: YINKA on CKD EMERGENT Consult: No Notified: Yes Date Notified: 12/09/21 Time Notified: 03:52 Method of Notification: Answering Service 12/08/21 16:46 Consult: Hospice / Palliative Care Routine Consulting Provider: [facility] Reason for Consult: covid, resp failure EMERGENT Consult: No Notified: Yes Date Notified: 12/08/21 Time Notified: 16:52 Method of Notification: office Reason For Visit: RESP FAILURE/COVID Diagnosis Discharge Diagnosis (1) YINKA (acute kidney injury): Status: Acute Code(s): N17.9 - Acute kidney failure, unspecified (2) Hypernatremia: Status: Acute Code(s): E87.0 - Hyperosmolality and hypernatremia Plan: Final diagnosis: #1 acute hypoxic respiratory failure secondary to acute COVID-19 pneumonia #2 acute kidney injury on a backdrop of chronic kidney disease stage IIIb #3 hypernatremia secondary to dehydration #4 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 #5 type 2 diabetes #6 severe protein and caloric malnutrition Medications at Discharge Home Medications ferrous sulfate [iron] 325 mg PO DAILY 09/08/21 ammonium lactate 1 applic TOPICAL BID 11/06/21 ascorbic acid (vitamin C) [Vitamin C] 500 mg PO DAILY 11/06/21 multivitamin,tx-minerals [Theragran-M] 1 tab PO DAILY 11/06/21 insulin glargine [Basaglar KwikPen U-100 Insulin] 20 unit SUBCUT BID 11/11/21 melatonin 3 mg PO QHS PRN PRN 11/11/21 apixaban [Eliquis] 2.5 mg PO BID 12/08/21 dexamethasone 2 mg PO DAILY 12/08/21 guaifenesin 200 mg PO Q4H PRN PRN 12/08/21 guaifenesin 600 mg PO BID 12/08/21 ibuprofen 400 mg PO Q6H PRN 12/08/21 loperamide [Imodium A-D] 2 mg PO DAILY 12/08/21 loratadine [Claritin] 10 mg PO DAILY 12/08/21 metoprolol succinate 25 mg PO DAILY 12/08/21 nut.tx.gluc intol,lf,soy-fiber [Boost Glucose Control] 237 ml PO BID 12/08/21 oxycodone 5 mg PO Q6H PRN 12/08/21 pantoprazole 40 mg PO DAILY 12/08/21 piperacillin-tazobactam [Zosyn] 3.375 g IV Q8H 12/08/21 potassium chloride 20 meq PO DAILY 12/08/21 vancomycin 1 g IV QODAY 12/08/21 Hospital Course Operations None Procedures None Summary of Care Provided Minutes Spent on Discharge: 34 Hospital Course: This 66-year-old white male was seen in the emergency room at [facility] with a chief complaint of shortness of breath becoming worse over the past 1 to 1-1/2 weeks. Patient is a resident at local [facility], he had been diagnosed with COVID-19 on 11/27/2021, he was sent to the emergency room from the skilled nursing for evaluation of worsening oxygen status and increasing oxygen requirement. In the emergency room, patient required 6 L to maintain his pulse ox above 90% on arrival, he is respirations became worse and he had to be placed on BiPAP in the emergency room. Patient's white blood Cell count was noted to be normal, chest x-ray showed diffuse infiltrates in the left hemithorax with patchy right perihilar infiltrates. Patient was admitted to [place] [id number], his oxygenation remained poor and the family requested consultation with hospice. Hospice agreed to take the patient as an inpatient to the hospice care facility for terminal care. On 12/09/2021, patient was seen and examined: On examination he appeared unwell and frail, he had respiratory distress. Vital signs as documented. Skin warm and dry and without overt rashes. Neck without JVD, neck was supple, trachea midline, thyroid was normal. Lungs-patient's respirations were shallow and rapid, he appeared to be in moderate respiratory distress. Heart exam notable for regular rhythm, normal sounds and absence of murmurs, rubs or gallops. Abdomen unremarkable and without evidence of organomegaly, masses, or abdominal aortic enlargement. Bowel sounds are present, abdomen is not distended. Extremities nonedematous, no cyanosis was noted, no clubbing was noted. Neuro: Cranial nerves II through XII are grossly intact, no focal motor deficits were noted, sensation to light touch and pinprick intact, motor exam 5/5 throughout. Psych: Patient is alert, he answers simple questions appropriately. On 12/09/2021, patient was seen and examined and was stable for discharge to the inpatient hospice facility for terminal care. Prognosis was terminal. Medical Records Data Medical Nutrition Assessment Dietitian: Malnutrition Criteria Met Start: 12/08/21 17:28 Freq: Status: Active Protocol: Document 12/08/21 17:28 SUNDEEP (Rec: 12/08/21 17:28 [facility] [id number]) Nutrition Malnutrition Evidence of Malnutrition Exists Yes Malnutrition (severe): Acute Illness/Injury Evidenced By Suboptimal Energy Intake ( Severe),Weight Loss (Severe) Clinical Problem Acute Disease or Injury Related Malnutrition Etiology related to surgery last month and currently w/ COVID - pt lives at SNF and doesn't like the food there - acute illness combined with food dislikes making it difficult for pt to consume adequate nutrition to meet est nutritional needs Signs/Symptoms as evidenced by <50% po intake x >1 mo and 22.4% wt loss x 5 months Status Active Problem Recommendation Dietitian Recommendations/Changes Will change diet to CHO controlled, No Added Salt diet w/ 4 oz glucerna shake tid w/ meals Weight / BMI Weight Weight: 86.8 kg Body Mass Index (BMI) 27.1 ABG / Lab / Microbiology Data Result Diagrams: 12/09/21 04:42 12/09/21 04:42 Laboratory: Laboratory Results - last 24 hr 12/08/21 20:02: Sodium 164 H*, Potassium 4.2, Chloride 145 H*, Carbon Dioxide 15.0 L, Anion Gap 4 L, BUN 79 H, Creatinine 2.49 H, Estim Creat Clear Calc 30.95, Est GFR (MDRD) Af Amer 34 L, Est GFR (MDRD) Non-Af 28 L, BUN/Creatinine Ratio 31.7 H, Glucose 87, Calcium 8.4 L 12/08/21 22:57: POC Glucose 88 12/08/21 23:30: Sodium 164 H*, Potassium 4.5, Chloride 144 H*, Carbon Dioxide 14.0 L, Anion Gap 6, BUN 77 H, Creatinine 2.51 H, Estim Creat Clear Calc 30.70, Est GFR (MDRD) Af Amer 33 L, Est GFR (MDRD) Non-Af 28 L, BUN/Creatinine Ratio 30.7 H, Glucose 113 H, Calcium 8.6 12/09/21 04:42: WBC 4.4, RBC 3.06 L, Hgb 8.3 L, Hct 28.3 L, MCV 92.5, MCH 27.1, MCHC 29.3 L, RDW Std Deviation 60.4 H, RDW Coeff of Jennifer 17.9 H, Plt Count 194, MPV 8.7, Immature Gran % (Auto) 1.100 H, Neut % (Auto) 78.1 H, Lymph % (Auto) 14.4 L, [place] % (Auto) 5.7, Eos % (Auto) 0.5, Baso % (Auto) 0.2, Absolute Neuts (auto) 3.4, Absolute Lymphs (auto) 0.63 L, Nucleated RBC % 0 12/09/21 04:42: Sodium 160 H, Potassium 4.1, Chloride 142 H*, Carbon Dioxide 12.0 L, Anion Gap 6, BUN 71 H, Creatinine 2.50 H, Estim Creat Clear Calc 30.82, Est GFR (MDRD) Af Amer 34 L, Est GFR (MDRD) Non-Af 28 L, BUN/Creatinine Ratio 28.4 H, Glucose 142 H, Calcium 8.5, Total Bilirubin 0.40, AST 25, ALT 15 L, Alkaline Phosphatase 70, Total Protein 8.0, Albumin 1.6 L, Globulin 6.4 H, Albumin/Globulin Ratio 0.2 L 12/09/21 04:42: Random Vancomycin 17.3 H Meaningful Use Info Meaningful Use Diagnoses (Choose all that apply): None applicable Discharge Plan Admission Admit Date/Time: 12/08/21 14:17 Attending Provider: Stephen Hahn Primary Care Provider: Larisa Jacobs Consulting Providers: Selene Sharma ; Je Pennington ; Lovely Veronica ; Tessa Longo ; Lissette Venegas ; Yessi [place] CHILD DEVELOPMENT ASSOCIATE TEACHER ; Paxton Marquez Discharge Orders/Prescriptions Prescriptions: No Action ferrous sulfate [iron] 325 mg (65 mg iron) Tablet 325 mg PO DAILY RF: 0 ascorbic acid (vitamin C) [Vitamin C] 500 mg Tablet 500 mg PO DAILY RF: 0 ammonium lactate 12 % Cream 1 applic TOPICAL BID RF: 0 Theragran-M Tablet 1 tab PO DAILY RF: 0 Basaglar KwikPen U-100 Insulin 100 unit/mL (3 mL) Insulin Pen 20 unit SUBCUT BID RF: 0 melatonin 3 mg Capsule 3 mg PO QHS PRN PRN (Reason: Insomnia) RF: 0 loperamide [Imodium A-D] 2 mg Tablet 2 mg PO DAILY RF: 0 vancomycin 1,000 mg Recon Soln 1 g IV QODAY RF: 0 piperacillin-tazobactam [Zosyn] 3.375 gram Recon Soln 3.375 g IV Q8H RF: 0 dexamethasone 4 mg Tablet 2 mg PO DAILY RF: 0 ibuprofen 400 mg Tablet 400 mg PO Q6H PRN (Reason: Fever) RF: 0 loratadine [Claritin] 10 mg Tablet 10 mg PO DAILY RF: 0 oxycodone 5 mg Tablet 5 mg PO Q6H PRN (Reason: Pain) RF: 0 Eliquis 2.5 mg Tablet 2.5 mg PO BID RF: 0 guaifenesin 600 mg Tablet Extended Release 12hr 600 mg PO BID RF: 0 Boost Glucose Control 0.07-0.8 gram-kcal/mL Liquid 237 ml PO BID RF: 0 guaifenesin 100 mg/5 mL liquid 200 mg PO Q4H PRN PRN (Reason: COUGH) RF: 0 pantoprazole 40 mg tablet,delayed release (DR/EC) 40 mg PO DAILY RF: 0 metoprolol succinate 25 mg tablet extended release 24 hr 25 mg PO DAILY RF: 0 potassium chloride 20 mEq tablet extended release 20 meq PO DAILY RF: 0 Referrals / Follow Up: Larisa Jacobs MD [Primary Care Provider] - Disposition Disposition (needs filled in before D/C Order can be placed): Hospice in Medical Facility Charges/Coding Visit Charges Inpatient E&M: 81420 Disch Hosp
--- NOTE | 2021-12-09 20:34 | NURSING ---
THIS RN CALLED [facility]. PROVIDED INFORMATION RE: VISITATION POLICIES TO PT'S .
== END 2021-12-09 20:15 | disposition hospice, inpatient (51) | DRG 177 ==
LOC: ED 14:48 → MS3 15:19
PROVIDERS: Nurse Practitioner Family; Admitting Provider Internal Medicine; Emergency Provider Emergency Medicine; PCP Internal Medicine; Visit Provider Internal Medicine
DX: U07.1 COVID-19 (principal); E43 Unspecified severe protein-calorie malnutrition; J96.01 Acute respiratory failure with hypoxia; J12.82 Pneumonia due to coronavirus disease 2019; E87.0 Hyperosmolality and hypernatremia; I38 Endocarditis, valve unspecified; N17.9 Acute kidney failure, unspecified; E11.22 Type 2 diabetes mellitus with diabetic chronic kidney disease; D64.9 Anemia, unspecified; E86.0 Dehydration; Z79.4 Long term (current) use of insulin; N18.32 Chronic kidney disease, stage 3b; I12.9 Hypertensive chronic kidney disease with stage 1 through stage 4 chronic kidney disease, or unspecified chronic kidney disease; K21.9 Gastro-esophageal reflux disease without esophagitis; M19.90 Unspecified osteoarthritis, unspecified site; Z87.891 Personal history of nicotine dependence; Z79.01 Long term (current) use of anticoagulants; Z79.899 Other long term (current) drug therapy; R47.81 Slurred speech; Z99.81 Dependence on supplemental oxygen; Z86.14 Personal history of Methicillin resistant Staphylococcus aureus infection
CPT/HCPCS: 36415; 71045; 80048; 80053; 80202; 82962; 83605; 83880; 84484; 85025; 87040; 93005; 94002; 94003; 94762; 97802; 99285; A4216